=== PATIENT | male | born 1940 | race Caucasian/White ===

== ENCOUNTER 2017-09-24 11:43 | Inpatient (IN) | payer MEDICARE ==
[2017-09-24] MEDS: LIDOCAINE 1%/EPI 1:100,000 20 ML VIAL. IJ (13:24)
[2017-09-24] MEDS: DIPHTH,PERTUSS(ACELL),TET TOX 0.5 ML DISP.SYRIN. VAX IM (13:35)
[2017-09-24] MEDS ORDERED: ACETAMINOPHEN 325 MG TABLET. PO ×2 (14:15)
[2017-09-24] MEDS ORDERED: PROCHLORPERAZINE 25 MG SUPP.RECT. PR (14:15)
[2017-09-24] MEDS ORDERED: PROCHLORPERAZINE 10 MG/2 ML VIAL. IV (14:15)
[2017-09-24] MEDS ORDERED: HYDROcodone/APAP 5/325MG 1 TAB TABLET PO (14:15)
[2017-09-24] MEDS ORDERED: cloNIDine HCL 0.1 MG TABLET PO (14:15)
[2017-09-24] MEDS ORDERED: MAGNESIUM HYDROXIDE 2,400 MG/30 ML ORAL.SUSP. PO (14:15)
[2017-09-24] MEDS ORDERED: CALCIUM CARBONATE 500 MG TAB.CHEW PO (14:15)
[2017-09-24] MEDS ORDERED: MAG HYDROX/ALUMINUM HYD/SIMETH 30 ML ORAL.SUSP PO (14:15)
[2017-09-24] MEDS ORDERED: MORPHINE SULFATE 2 MG/ML DISP.SYRIN. IV (14:15)
[2017-09-24] MEDS ORDERED: IBUPROFEN 400 MG TABLET. PO (14:15)
[2017-09-24] MEDS ORDERED: ONDANSETRON PF 4 MG/2 ML VIAL. IV ×2 (14:15)
[2017-09-24 14:25] LABS: ADD MAN DIFF? NO
[2017-09-24 14:29] LABS: BASO % 0 % (0-3); EOS % 1 % (0-3); HEMATOCRIT 43.4 % (39.0-53.0); HEMOGLOBIN 15.3 g/dL (13.0-17.5); LYMPH # 1.3 x10^3/uL (1.0-4.8); LYMPH % 16 % (24-48); MEAN CORPUSCULAR HEMOGLOBIN 31 pg (25-35); MEAN CORPUSCULAR HGB CONC 35 g/dL (31-37); MEAN CORPUSCULAR VOLUME 88 fL (79-100); MONO # 0.6 x10^3/uL (0.0-1.1); MONO % 7 % (0-9); NEUT # 6.1 x10^3uL (1.8-7.7); NEUT % 76 % (31-73); PLATELET COUNT 319 x10^3/uL (140-400); RED BLOOD COUNT 4.94 x10^6/uL (4.30-5.70); RED CELL DISTRIBUTION WIDTH 14.4 % (11.5-14.5)
[2017-09-24 14:36] LABS: ANION GAP 10 (6-14); BLOOD UREA NITROGEN 12 mg/dL (8-26); CALCIUM 9.2 mg/dL (8.5-10.1); CARBON DIOXIDE 26 mmol/L (21-32); CHLORIDE 89 mmol/L (98-107); CREATININE 0.7 mg/dL (0.7-1.3); GFR 109.1; GLUCOSE 107 mg/dL (70-99); POTASSIUM 3.6 mmol/L (3.5-5.1); SODIUM 125 mmol/L (136-145)
[2017-09-24 14:39] LABS: INR 1.1 (0.8-1.1); PARTIAL THROMBOPLASTIN TIME 33 SEC (24-38); PROTHROMBIN TIME PATIENT 13.4 SEC (11.7-14.0)
[2017-09-24 14:45] LABS: TROPONINI < 0.017 ng/mL (0.000-0.055)
[2017-09-24] MEDS: IV NORMAL SALINE 500ML BAG 500 ML IV (16:15)
[2017-09-24] MEDS ORDERED: diphenhydrAMINE 50 MG/ML VIAL IVP (20:15)
[2017-09-24] MEDS ORDERED: hydrALAZINE 20 MG/ML VIAL. IVP (20:15)
[2017-09-24] MEDS: FERROUS SULFATE 325 MG TABLET. PO (21:02)
[2017-09-24] MEDS: HYDROCORTISONE 1% TOPICAL OINTMENT 30GM TUBE. TP (21:02)
[2017-09-24] MEDS: ATORVASTATIN CALCIUM 40 MG TABLET. PO (21:02)
[2017-09-24] MEDS: CHLORTHALIDONE 25 MG TABLET. PO (21:03)
[2017-09-24] MEDS: DOCUSATE SODIUM 100 MG CAPSULE. PO (21:03)
[2017-09-24] MEDS: PANTOPRAZOLE 40 MG TABLET.DR. PO (21:03)
[2017-09-24] MEDS: TAMSULOSIN 0.4 MG CAP.ER.24H. PO (21:03)
[2017-09-24] MEDS: LISINOPRIL 20 MG TABLET PO (21:03)
[2017-09-25] MEDS: DOCUSATE SODIUM 100 MG CAPSULE. PO ×2 (07:57→21:55)
[2017-09-25] MEDS: HYDROCORTISONE 1% TOPICAL OINTMENT 30GM TUBE. TP (08:02)
[2017-09-25 08:56] LABS: ADD MAN DIFF? NO
[2017-09-25 09:00] LABS: BASO # 0.1 x10^3/uL (0.0-0.2); BASO % 1 % (0-3); EOS # 0.1 x10^3/uL (0.0-0.7); EOS % 1 % (0-3); HEMATOCRIT 44.7 % (39.0-53.0); HEMOGLOBIN 15.6 g/dL (13.0-17.5); LYMPH # 1.6 x10^3/uL (1.0-4.8); LYMPH % 21 % (24-48); MEAN CORPUSCULAR HEMOGLOBIN 31 pg (25-35); MEAN CORPUSCULAR HGB CONC 35 g/dL (31-37); MEAN CORPUSCULAR VOLUME 89 fL (79-100); MONO # 0.7 x10^3/uL (0.0-1.1); MONO % 9 % (0-9); NEUT # 5.3 x10^3uL (1.8-7.7); NEUT % 69 % (31-73); PLATELET COUNT 321 x10^3/uL (140-400); RED BLOOD COUNT 5.05 x10^6/uL (4.30-5.70); RED CELL DISTRIBUTION WIDTH 14.6 % (11.5-14.5); WHITE BLOOD COUNT 7.7 x10^3/uL (4.0-11.0)
[2017-09-25 09:13] LABS: ANION GAP 10 (6-14); BLOOD UREA NITROGEN 11 mg/dL (8-26); CALCIUM 8.8 mg/dL (8.5-10.1); CARBON DIOXIDE 26 mmol/L (21-32); CHLORIDE 91 mmol/L (98-107); CREATININE 0.9 mg/dL (0.7-1.3); GFR 81.6; GLUCOSE 151 mg/dL (70-99); POTASSIUM 3.5 mmol/L (3.5-5.1); SODIUM 127 mmol/L (136-145)
[2017-09-25] MEDS: IV NORMAL SALINE 1000ML BAG 1,000 ML IV (15:11)
[2017-09-25] MEDS: TAMSULOSIN 0.4 MG CAP.ER.24H. PO (21:54)
[2017-09-25] MEDS: FERROUS SULFATE 325 MG TABLET. PO (21:55)
[2017-09-25] MEDS: ATORVASTATIN CALCIUM 40 MG TABLET. PO (21:55)
[2017-09-25] MEDS: LISINOPRIL 20 MG TABLET PO (21:55)
[2017-09-25] MEDS: PANTOPRAZOLE 40 MG TABLET.DR. PO (21:55)
[2017-09-25] MEDS: CHLORTHALIDONE 25 MG TABLET. PO (21:55)
[2017-09-26] MEDS: DOCUSATE SODIUM 100 MG CAPSULE. PO ×2 (08:09→19:39)
[2017-09-26 09:28] LABS: ADD MAN DIFF? NO
[2017-09-26 09:33] LABS: BASO % 0 % (0-3); EOS # 0.1 x10^3/uL (0.0-0.7); EOS % 2 % (0-3); LYMPH # 1.6 x10^3/uL (1.0-4.8); LYMPH % 24 % (24-48); MEAN CORPUSCULAR HEMOGLOBIN 31 pg (25-35); MEAN CORPUSCULAR HGB CONC 36 g/dL (31-37); MEAN CORPUSCULAR VOLUME 88 fL (79-100); MONO # 0.4 x10^3/uL (0.0-1.1); MONO % 6 % (0-9); NEUT # 4.7 x10^3uL (1.8-7.7); NEUT % 68 % (31-73); PLATELET COUNT 312 x10^3/uL (140-400); RED BLOOD COUNT 5.13 x10^6/uL (4.30-5.70); RED CELL DISTRIBUTION WIDTH 14.7 % (11.5-14.5); WHITE BLOOD COUNT 6.9 x10^3/uL (4.0-11.0)
[2017-09-26 09:56] LABS: ANION GAP 9 (6-14); BLOOD UREA NITROGEN 10 mg/dL (8-26); CARBON DIOXIDE 25 mmol/L (21-32); CHLORIDE 92 mmol/L (98-107); CREATININE 0.8 mg/dL (0.7-1.3); GFR 93.5; GLUCOSE 146 mg/dL (70-99); POTASSIUM 3.3 mmol/L (3.5-5.1); SODIUM 126 mmol/L (136-145)
[2017-09-26] MEDS: IV NORMAL SALINE 1000ML BAG 1,000 ML IV (11:26)
[2017-09-26] MEDS: POTASSIUM CHLORIDE 20 MEQ TABLET.ER. PO (11:26)
[2017-09-26] MEDS: TAMSULOSIN 0.4 MG CAP.ER.24H. PO (19:38)
[2017-09-26] MEDS: ATORVASTATIN CALCIUM 40 MG TABLET. PO (19:40)
[2017-09-26] MEDS: FERROUS SULFATE 325 MG TABLET. PO (19:40)
[2017-09-26] MEDS: LISINOPRIL 20 MG TABLET PO (19:41)
[2017-09-26] MEDS: PANTOPRAZOLE 40 MG TABLET.DR. PO (19:47)
[2017-09-27 04:59] LABS: ADD MAN DIFF? NO
[2017-09-27 05:04] LABS: BASO % 1 % (0-3); EOS # 0.3 x10^3/uL (0.0-0.7); EOS % 4 % (0-3); HEMATOCRIT 41.3 % (39.0-53.0); HEMOGLOBIN 14.6 g/dL (13.0-17.5); LYMPH # 2.3 x10^3/uL (1.0-4.8); LYMPH % 30 % (24-48); MEAN CORPUSCULAR HEMOGLOBIN 31 pg (25-35); MEAN CORPUSCULAR HGB CONC 35 g/dL (31-37); MEAN CORPUSCULAR VOLUME 89 fL (79-100); MONO # 0.7 x10^3/uL (0.0-1.1); MONO % 9 % (0-9); NEUT # 4.3 x10^3uL (1.8-7.7); NEUT % 56 % (31-73); PLATELET COUNT 301 x10^3/uL (140-400); RED BLOOD COUNT 4.65 x10^6/uL (4.30-5.70); RED CELL DISTRIBUTION WIDTH 14.7 % (11.5-14.5); WHITE BLOOD COUNT 7.6 x10^3/uL (4.0-11.0)
[2017-09-27 05:33] LABS: ANION GAP 7 (6-14); BLOOD UREA NITROGEN 12 mg/dL (8-26); CALCIUM 8.6 mg/dL (8.5-10.1); CARBON DIOXIDE 25 mmol/L (21-32); CHLORIDE 94 mmol/L (98-107); CREATININE 0.9 mg/dL (0.7-1.3); GFR 81.6; GLUCOSE 101 mg/dL (70-99); POTASSIUM 3.7 mmol/L (3.5-5.1); SODIUM 126 mmol/L (136-145)
[2017-09-27] MEDS: DOCUSATE SODIUM 100 MG CAPSULE. PO ×2 (09:41→20:11)
[2017-09-27] MEDS: TAMSULOSIN 0.4 MG CAP.ER.24H. PO (20:10)
[2017-09-27] MEDS: LISINOPRIL 20 MG TABLET PO (20:10)
[2017-09-27] MEDS: ATORVASTATIN CALCIUM 40 MG TABLET. PO (20:10)
[2017-09-27] MEDS: FERROUS SULFATE 325 MG TABLET. PO (20:11)
[2017-09-27] MEDS: PANTOPRAZOLE 40 MG TABLET.DR. PO (20:11)
[2017-09-28 08:03] LABS: ANION GAP 8 (6-14); BLOOD UREA NITROGEN 10 mg/dL (8-26); CALCIUM 8.4 mg/dL (8.5-10.1); CARBON DIOXIDE 27 mmol/L (21-32); CHLORIDE 91 mmol/L (98-107); CREATININE 0.7 mg/dL (0.7-1.3); GFR 109.1; GLUCOSE 107 mg/dL (70-99); POTASSIUM 3.4 mmol/L (3.5-5.1); SODIUM 126 mmol/L (136-145)
[2017-09-28 08:17] LABS: VITAMIN-B12 326 pg/mL (247-911)
[2017-09-28 08:18] LABS: FOLATE 12.39 ng/ml (3.2-20.0)
[2017-09-28 08:52] LABS: SEDIMENTATION RATE 3 (0-15)
[2017-09-28] MEDS: DOCUSATE SODIUM 100 MG CAPSULE. PO ×2 (09:07→21:01)
[2017-09-28] MEDS: POTASSIUM CHLORIDE 20 MEQ TABLET.ER. PO (15:38)
[2017-09-28] MEDS: CHOLECALCIFEROL (VITAMIN D3) 5,000 UNIT CAPSULE PO (15:40)
[2017-09-28] MEDS: PANTOPRAZOLE 40 MG TABLET.DR. PO (21:00)
[2017-09-28] MEDS: TAMSULOSIN 0.4 MG CAP.ER.24H. PO (21:00)
[2017-09-28] MEDS: FERROUS SULFATE 325 MG TABLET. PO (21:01)
[2017-09-28] MEDS: ATORVASTATIN CALCIUM 40 MG TABLET. PO (21:01)
[2017-09-28] MEDS: LISINOPRIL 20 MG TABLET PO (21:01)
[2017-09-29] MEDS: POLYVINYL ALCOHOL 1.4% OPHTH SOLUTION 15ML BOTTLE. OU (09:00)
[2017-09-29] MEDS: DOCUSATE SODIUM 100 MG CAPSULE. PO (09:00)
[2017-09-29] MEDS: CHOLECALCIFEROL (VITAMIN D3) 5,000 UNIT CAPSULE PO (09:00)
[2017-09-29] MEDS: HYDROCORTISONE 1% TOPICAL OINTMENT 30GM TUBE. TP (09:00)
[2017-09-29] MEDS: cloNIDine HCL 0.1 MG TABLET PO (09:15)
[2017-09-29] MEDS ORDERED: cloNIDine HCL 0.1 MG TABLET PO (09:15)
[2017-09-29 09:53] LABS: ANION GAP 8 (6-14); BLOOD UREA NITROGEN 11 mg/dL (8-26); CALCIUM 9.2 mg/dL (8.5-10.1); CARBON DIOXIDE 27 mmol/L (21-32); CHLORIDE 92 mmol/L (98-107); CREATININE 0.9 mg/dL (0.7-1.3); GFR 81.6; GLUCOSE 139 mg/dL (70-99); SODIUM 127 mmol/L (136-145)
[2017-09-29 13:21] LABS: SODIUM, URINE 68 mmol/L (Not Estab.); UR POTASSIUM 37.7 mmol/L (Not Estab.)
[2017-10-02 14:31] LABS: URINE OSMOLALITY 214 mOsmol/kg (.)
[2017-10-02 18:12] LABS: ANA INTERP Negative (.)
[2017-10-02 21:10] LABS: ALBUM 3.5 g/dL (2.9-4.4); ALPHA 1 0.2 g/dL (0.0-0.4); ALPHA 2 0.6 g/dL (0.4-1.0); BETA 0.9 g/dL (0.7-1.3); GAMMA 0.9 g/dL (0.4-1.8); M-SPIKE Not Observed g/dL (Not Observed); SPEP AG RATIO 1.4 (0.7-1.7)
== END 2017-09-29 14:30 | disposition home health service (06) | DRG 644 ==
LOC: ER 11:43 → 4 NORTH 14:00
PROC: 0NQ Head and Facial Bones, Repair (ICD-10-PCS; principal; 2017-09-24)
DX: E22.2 Syndrome of inappropriate secretion of antidiuretic hormone (principal); S05.42XA Penetrating wound of orbit with or without foreign body, left eye, initial encounter; W01.0XXA Fall on same level from slipping, tripping and stumbling without subsequent striking against object, initial encounter; I10 Essential (primary) hypertension; M19.90 Unspecified osteoarthritis, unspecified site; E78.5 Hyperlipidemia, unspecified; G20 Parkinson's disease; H35.30 Unspecified macular degeneration; G25.0 Essential tremor; G62.9 Polyneuropathy, unspecified; E87.6 Hypokalemia; F03.90 Unspecified dementia, unspecified severity, without behavioral disturbance, psychotic disturbance, mood disturbance, and anxiety; Q89.9 Congenital malformation, unspecified; Z85.828 Personal history of other malignant neoplasm of skin; Y93.89 Activity, other specified; Y92.89 Other specified places as the place of occurrence of the external cause; Y99.8 Other external cause status; Z23 Encounter for immunization; Z82.49 Family history of ischemic heart disease and other diseases of the circulatory system
CPT/HCPCS: 12011; 36415; 70450; 70486; 71046; 72125; 80048; 82306; 82436; 82533; 82607; 82746; 83930; 83935; 84133; 84165; 84300; 84443; 84484; 85025; 85610; 85651; 85730; 86038; 90471; 90715; 93005; 97110-GP; 97116-GP; 97162-GP; 97166-GO; 97535-GO; 99285; 99285-25; J3490; J7030; J7040

== ENCOUNTER 2017-10-01 19:49 | Emergency (ER) | payer MEDICARE ==
[~2017-10-01] VITALS: Ht 162.6 cm; Wt 74.8 kg
[~2017-10-01 19:49] MED LIST: ATORVASTATIN CA80 MG PO; CHLO25TA PO; DILT180C64 PO; FERR325T14 PO; LISI-334 PO; OMEP20TA8 PO; TAMS0.4C2 PO
[2017-10-01 19:55] VITALS: BP 154/78
--- NOTE | 2017-10-01 20:34 | PHYS DOC ---
Past Medical History Past Medical History: Cancer, GI Bleed, Hypertension, Other Additional Past Medical Histor: SKIN CANCER Past Surgical History: No Surgical History Alcohol Use: Occasionally Drug Use: None Adult General Chief Complaint Chief Complaint: SUTURE/STAPLE REMOVAL HPI HPI Patient is a 76 year old male who presents to the emergency room accompanied by his son-in-law today for removal of 7 sutures that were placed in the left eyebrow approximately 1 week ago. Patient denies any fever, drainage from the site, or swelling. Currently he denies any pain. Or other complaints. Review of Systems Review of Systems Constitutional: Denies fever or chills [] Eyes: Denies change in visual acuity, redness, discharge, or eye pain [] Integument: Denies rash ; reports 7 sutures in left eyebrow that he removed, healing bruising to left side of face from a fall 1 week ago. Neurologic: Denies headache, focal weakness or sensory changes [] All other systems were reviewed and found to be within normal limits, except as documented in this note. Allergies Allergies Allergies Coded Allergies Type Severity Reaction Last Updated Verified No Known Drug Allergies 09/24/17 No Physical Exam Physical Exam Constitutional: Well developed, well nourished, no acute distress, non-toxic appearance. [] HENT: Normocephalic, atraumatic, bilateral external ears normal, oropharynx moist, no oral exudates, nose normal. [] Eyes: PERRLA, conjunctiva normal, no discharge. [] Skin: Warm, dry, no erythema, no rash; patient has healing bruising noted to the left roman catholic and left orbital areas, there is a laceration to the left eyebrow the edges are well approximated with no drainage, warmth, or swelling.. [] Neurologic: Alert and oriented X 3, normal motor function, normal sensory function, no focal deficits noted. [] Psychologic: Affect normal, judgement normal, mood normal. [] Current Patient Data Vital Signs Vital Signs Date Time Temp Pulse Resp B/P (MAP) Pulse Ox O2 Delivery O2 Flow Rate FiO2 10/01/17 19:55 98.7 70 16 154/78 (103) 98 Room Air 98.7 EKG EKG [] Radiology/Procedures Radiology/Procedures []7 sutures removed from wound. The wound was well approximated before and after procedure. Patient tolerated the procedure well. There is some crusting about the wound and no discharge from the wound; location and Steri-Strips to site ordered [] Course & Med Decision Making Course & Med Decision Making Pertinent Labs and Imaging studies reviewed. (See chart for details) Patient is a 76-year-old male who presented to the emergency room with need for suture removal. Vital signs are stable. 7 sutures were removed from the left eyebrow as reported. Patient tolerated the procedure well. Steri-Strips were applied to the area. Patient and his son will not verbalize understanding of home care, wound care, follow-up and return to ED instructions with no further questions or concerns. [] Dragon Disclaimer Dragon Disclaimer This electronic medical record was generated, in whole or in part, using a voice recognition dictation system. Departure Departure Impression: Primary Impression: Visit for suture removal Disposition: 01 HOME, SELF-CARE Condition: STABLE Referrals: SUZANNE REDDY SENIOR TECHNICAL BUSINESS ANALYST (PCP) Patient Instructions: Suture Removal-Brief Additional Instructions: Steri-Strips were applied to your laceration site, these will come off on their own do not peel them off. May take Tylenol or ibuprofen as needed for pain. Follow-up with your primary care doctor as needed, return to the ER if your symptoms worsen. ROSALIA HOWARD MANUFACTURING MAINTENANCE TECHNICIAN Oct 01, 2017 20:34
== END 2017-10-01 20:43 | disposition home or self-care (01) ==
LOC: ER 19:49
DX: S01.112D Laceration without foreign body of left eyelid and periocular area, subsequent encounter (principal); I10 Essential (primary) hypertension; X58.XXXD Exposure to other specified factors, subsequent encounter
CPT/HCPCS: 99284

== ENCOUNTER 2018-09-06 19:51 | Emergency (ER) | payer MEDICARE ==
[~2018-09-06] VITALS: Ht 162.6 cm; Wt 77.1 kg
[~2018-09-06 19:51] MED LIST changes: -CHLO25TA PO; +CHLO25TA10 PO
[2018-09-06 20:21] LABS: BASO # 0.1 x10^3/uL (0.0-0.2); BASO % 1 % (0-3); EOS # 0.3 x10^3/uL (0.0-0.7); EOS % 4 % (0-3); HEMATOCRIT 46.3 % (39.0-53.0); LYMPH # 1.6 x10^3/uL (1.0-4.8); LYMPH % 19 % (24-48); MEAN CORPUSCULAR HEMOGLOBIN 32 pg (25-35); MEAN CORPUSCULAR HGB CONC 35 g/dL (31-37); MEAN CORPUSCULAR VOLUME 93 fL (79-100); MONO # 0.8 x10^3/uL (0.0-1.1); MONO % 9 % (0-9); NEUT # 5.6 x10^3/uL (1.8-7.7); NEUT % 67 % (31-73); PLATELET COUNT 256 x10^3/uL (140-400); RED BLOOD COUNT 4.97 x10^6/uL (4.30-5.70); RED CELL DISTRIBUTION WIDTH 13.7 % (11.5-14.5); WHITE BLOOD COUNT 8.3 x10^3/uL (4.0-11.0)
--- NOTE | 2018-09-06 20:26 | EKG ---
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
[2018-09-06 20:32] LABS: CALCIUM 8.7 mg/dL (8.5-10.1); CREATININE 0.9 mg/dL (0.7-1.3); GFR 81.4; POTASSIUM 4.2 mmol/L (3.5-5.1)
[2018-09-06 20:38] LABS: ALBUMIN 3.7 g/dL (3.4-5.0); ALBUMIN/GLOBULIN RATIO 1.2 (1.0-1.7); MAGNESIUM 1.7 mg/dL (1.8-2.4); TOTAL BILIRUBIN 0.3 mg/dL (0.2-1.0); TOTAL PROTEIN 6.9 g/dL (6.4-8.2)
[2018-09-06] MEDS ORDERED: IV NORMAL SALINE 500ML BAG 500 ML IV ONE (21:15)
--- NOTE | 2018-09-06 22:01 | RAD ---
CT Head W/O Contrast: History: Multiple episodes of falling Comparison: none Axial images were obtained without contrast. There is moderate diffuse atrophy. There is no mass effect, extraaxial fluid collections or hydrocephalus. There is no gross bleed. Moderate to marked, patchy periventricular and subcortical white matter hypoattenuation is seen. There is no focal loss of bo-white matter distinction to suggest acute ischemia, i.e. stroke. Impression: No acute findings. PQRS Compliance Statement: One or more of the following individualized dose reduction techniques were utilized for this examination: 1. Automated exposure control 2. Adjustment of the mA and/or kV according to patient size 3. Use of iterative reconstruction technique Electronically signed by: Dimas Walker III, MD (09/06/2018 9:58 PM) [facility]
--- NOTE | 2018-09-06 22:08 | PHYS DOC ---
Past Medical History Past Medical History: Hypertension Additional Past Medical Histor: SKIN CANCER Past Surgical History: No Surgical History Alcohol Use: Occasionally Drug Use: None Adult General Chief Complaint Chief Complaint: WEAKNESS/GENERALIZED HPI HPI Patient is a 77 year old male who was brought here from skilled nursing due to weakness. Patient actually lives at an independent living center by the skilled nursing, he went to the [employer] to have dinner, on the way back he was walking back, saw a quarter on the floor so he bent over to pick it up, became really weak, he tried to get up to walk back to his room but could not because of the weakness. EMS were called to take him here for evaluation. Patient denies any chest pain, no headache, no neck pain, no trouble breathing. Patient denies any fall or any injury. Review of Systems Review of Systems Constitutional: Denies fever or chills [] Eyes: Denies change in visual acuity, redness, or eye pain [] HENT: Denies nasal congestion or sore throat [] Respiratory: Denies cough or shortness of breath [] Cardiovascular: No additional information not addressed in HPI [] GI: Denies abdominal pain, nausea, vomiting, bloody stools or diarrhea [] : Denies dysuria or hematuria [] Musculoskeletal: Denies back pain or joint pain [] Integument: Denies rash or skin lesions [] Neurologic: Denies headache, focal weakness or sensory changes [] Endocrine: Denies polyuria or polydipsia [] All other systems were reviewed and found to be within normal limits, except as documented in this note. Current Medications Current Medications Current Medications Medications (Trade) Dose Ordered Sig/[facility] Start Time Stop Time Status Last Admin Dose Admin Sodium Chloride 500 ml @ 500 mls/hr 1X ONCE 09/06/18 21:15 09/06/18 22:14 DC 09/06/18 21:19 500 MLS/HR Allergies Allergies Allergies Coded Allergies Type Severity Reaction Last Updated Verified No Known Drug Allergies 09/24/17 No Physical Exam Physical Exam Constitutional: Well developed, well nourished, no acute distress, non-toxic appearance. [] HENT: Normocephalic, atraumatic, bilateral external ears normal, oropharynx moist, no oral exudates, nose normal. [] Eyes: conjunctiva normal, no discharge. [] Neck: Normal range of motion, no tenderness, supple, no stridor. [] Cardiovascular:Heart rate regular rhythm, no murmur [] Lungs & Thorax: Bilateral breath sounds clear to auscultation [] Abdomen: Bowel sounds normal, soft, no tenderness, no masses, no pulsatile masses. [] Skin: Warm, dry, no erythema, no rash. [] Back: No tenderness, no CVA tenderness. [] Extremities: No tenderness, no cyanosis, no clubbing, ROM intact, no edema. [] Neurologic: Alert and oriented X 3, normal motor function, normal sensory function, no focal deficits noted. [] Psychologic: Affect normal, judgement normal, mood normal. [] Current Patient Data Vital Signs Vital Signs Date Time Temp Pulse Resp B/P (MAP) Pulse Ox O2 Delivery O2 Flow Rate FiO2 09/06/18 23:00 80 16 96 09/06/18 19:51 97.9 173/90 (117) Room Air 97.9 Lab Values Laboratory Tests Test 09/06/18 20:10 White Blood Count 8.3 x10^3/uL (4.0-11.0) Red Blood Count 4.97 x10^6/uL (4.30-5.70) Hemoglobin 16.0 g/dL (13.0-17.5) Hematocrit 46.3 % (39.0-53.0) Mean Corpuscular Volume 93 fL (79-100) Mean Corpuscular Hemoglobin 32 pg (25-35) Mean Corpuscular Hemoglobin Concent 35 g/dL (31-37) Red Cell Distribution Width 13.7 % (11.5-14.5) Platelet Count 256 x10^3/uL (140-400) Neutrophils (%) (Auto) 67 % (31-73) Lymphocytes (%) (Auto) 19 % (24-48) L Monocytes (%) (Auto) 9 % (0-9) Eosinophils (%) (Auto) 4 % (0-3) H Basophils (%) (Auto) 1 % (0-3) Neutrophils # (Auto) 5.6 x10^3/uL (1.8-7.7) Lymphocytes # (Auto) 1.6 x10^3/uL (1.0-4.8) Monocytes # (Auto) 0.8 x10^3/uL (0.0-1.1) Eosinophils # (Auto) 0.3 x10^3/uL (0.0-0.7) Basophils # (Auto) 0.1 x10^3/uL (0.0-0.2) Sodium Level 132 mmol/L (136-145) L Potassium Level 4.2 mmol/L (3.5-5.1) Chloride Level 96 mmol/L (98-107) L Carbon Dioxide Level 25 mmol/L (21-32) Anion Gap 11 (6-14) Blood Urea Nitrogen 15 mg/dL (8-26) Creatinine 0.9 mg/dL (0.7-1.3) Estimated GFR (Cockcroft-Gault) 81.4 BUN/Creatinine Ratio 17 (6-20) Glucose Level 120 mg/dL (70-99) H Calcium Level 8.7 mg/dL (8.5-10.1) Magnesium Level 1.7 mg/dL (1.8-2.4) L Total Bilirubin 0.3 mg/dL (0.2-1.0) Aspartate Amino Transferase (AST) 17 U/L (15-37) Alanine Aminotransferase (ALT) 33 U/L (16-63) Alkaline Phosphatase 114 U/L (46-116) Troponin I Quantitative < 0.017 ng/mL (0.000-0.055) Total Protein 6.9 g/dL (6.4-8.2) Albumin 3.7 g/dL (3.4-5.0) Albumin/Globulin Ratio 1.2 (1.0-1.7) Laboratory Tests 09/06/18 20:10 Laboratory Tests 09/06/18 20:10 EKG EKG [EKG was read by this doctor aT 2000, rate of 85 beats per minute, sinus rhythm, no STEMI. Radiology/Procedures Radiology/Procedures [][facility] [address] [place] [address] IMAGING REPORT Signed PATIENT: MIL JACOBO ACCOUNT: [id number] : 1940 LOCATION: ER AGE: 77 SEX: M EXAM STATUS: REG ER ORD. PHYSICIAN: DOC JOSEPH DO REASON: MULTIPLE EPISODES OF FALLING TODAY PROCEDURE: CT HEAD WO CONTRAST CT Head W/O Contrast: History: Multiple episodes of falling Comparison: none Axial images were obtained without contrast. There is moderate diffuse atrophy. There is no mass effect, extraaxial fluid collections or hydrocephalus. There is no gross bleed. Moderate to marked, patchy periventricular and subcortical white matter hypoattenuation is seen. There is no focal loss of bo-white matter distinction to suggest acute ischemia, i.e. stroke. Impression: No acute findings. RS Compliance Statement: One or more of the following individualized dose reduction techniques were utilized for this examination: 1. Automated exposure control 2. Adjustment of the mA and/or kV according to patient size 3. Use of iterative reconstruction technique Electronically signed by: Jairo Landry III, MD (09/06/2018 9:58 PM) [facility] DICTATED and SIGNED BY: JAIRO LANDRY III, MD DATE: 09/06/18 2150 Course & Med Decision Making Course & Med Decision Making Pertinent Labs and Imaging studies reviewed. (See chart for details) he felt much better. Patient would like to go back home. His family would like to take him back home as well. Dragon Disclaimer Dragon Disclaimer This electronic medical record was generated, in whole or in part, using a voice recognition dictation system. Departure Departure Impression: Primary Impression: Weakness Disposition: 01 HOME, SELF-CARE Condition: IMPROVED Referrals: CELENA REDDY MD (PCP) follow up with your doctor as needed Patient Instructions: DOC Cha DO Sep 06, 2018 22:08
[2018-09-06 23:00] VITALS: BP 164/81
== END 2018-09-06 23:20 | disposition home or self-care (01) ==
LOC: ER 19:51
DX: R53.1 Weakness (principal); R51 Headache; I10 Essential (primary) hypertension; R94.31 Abnormal electrocardiogram [ECG] [EKG]; Z85.828 Personal history of other malignant neoplasm of skin; Z91.81 History of falling
CPT/HCPCS: 36415; 70450; 80053; 83735; 84484; 85025; 93005; 99285; J7040

== ENCOUNTER 2019-09-08 16:44 | Inpatient (IN) | payer MEDICARE ==
[~2019-09-08] VITALS: Ht 162.6 cm; Wt 73.0 kg
--- NOTE | 2019-09-08 17:29 | PDOC1 ---
History and Physical Date of Admission Date of Admission DATE: 09/08/19 TIME: 17:29 Identification/Chief Complaint Chief Complaint seen in ER WITH GAIT INSTABILITY, FALLS AND cognitive decline, progressive 78-year-old male who presents after a couple of falls over the last few days. The most recent fall was yesterday in which EMS was called to his independent living facility to help him back up into either bed or the chair. The patient's son-in-law states he checks on him every night, gives him his pills and assesses his wellbeing. // states he is becoming more and more confused over the last several months. patient did complain of some low back pain and he has been unable to ambulate and perform his activities of daily living today. He ordinarily can get around pretty well on a walker. He has had no fever chills or sweats. No upper respiratory symptoms no urinary incontinence or other dysuria type symptoms. // he has had ongoing physical therapy that has not really improved his ability to get around at home. Past Medical History Past Medical History Past Medical History Cardiovascular: HTN Past Surgical History Past Surgical History: No pertinent history Family History Family History: Hypertension Social History Smoke: No ALCOHOL: other (small drink of wine every night) Drugs: None Cardiovascular: HTN, Hyperlipidemia CENTRAL NERVOUS SYSTEM: Dementia Musculoskeletal: Osteoarthritis Past Surgical History Past Surgical History: Other Family History Family History: Hypertension Social History Smoke: No ALCOHOL: none Drugs: None Current Problem List Problem List Problems Medical Problems: (1) Patient left without being seen Status: Acute Current Medications Current Medications Active Scripts Active Reported Ferrous Sulfate 325 Mg Tablet 1 Tab PO DAILY Lisinopril 20 Mg Tablet 1 Tab PO DAILY Atorvastatin Calcium 80 Mg Tablet 1 Tab PO DAILY Tamsulosin Hcl 0.4 Mg Cap.er.24h 1 Cap PO DAILY Chlorthalidone 25 Mg Tablet 1 Tab PO DAILY Omeprazole 20 Mg Tablet.dr 1 Tab PO DAILY Cartia Xt (Diltiazem Hcl) 180 Mg Cap.er.24h 180 Mg PO DAILY Allergies Allergies: Coded Allergies: No Known Drug Allergies (Unverified , 09/24/17) ROS Review of System Constitutional: Denies fever or chills. [] Eyes: Denies change in visual acuity. [] HENT: Denies nasal congestion or sore throat. [] Respiratory: Denies cough or shortness of breath. [] Cardiovascular: Denies chest pain or edema. [] GI: Denies abdominal pain, nausea, vomiting, bloody stools or diarrhea. [] : Denies dysuria. [] Musculoskeletal: Reports back pain [] Integument: Denies rash. [] Neurologic: Reports dramatic change in his ability to ambulate [] Endocrine: Denies polyuria or polydipsia. [] Lymphatic: Denies swollen glands. [] Psychiatric: Some anxiety related to memory loss [] 14 pt ros otherwise neg PSYCHOLOGICAL ROS: YES: Concentration difficultie Musculoskeletal: Yes Gait Disturbance Neurological: Yes Confusion, Yes Memory Loss Physical Exam Physical Exam Constitutional: Frail elderly male in no distress appears chronically ill [] HENT: Normocephalic, atraumatic, bilateral external ears normal, oropharynx moist, no oral exudates, nose normal. [] Eyes: PERRLA, EOMI, conjunctiva normal, no discharge. [] Neck: Normal range of motion, no tenderness, supple, no stridor. [] Cardiovascular:Heart rate regular rhythm, no murmur [] Lungs & Thorax: Bilateral breath sounds clear to auscultation [] Abdomen: Bowel sounds normal, soft, no tenderness, no masses, no pulsatile masses. [] Skin: Warm, dry, no erythema, no rash. [] Back: Some tenderness in the midline in the lumbar spine area no obvious step- off [] Extremities: No tenderness, no cyanosis, no clubbing, ROM intact, no edema. [] Neurologic: Alert and oriented X 3, very unsteady gait ataxic [] Psychologic: Depressed affect [] General: Cooperative Lungs: Clear to auscultation Heart: no thrills Breasts: Not examined Abdomen: Normal bowel sounds, Soft Images Images Exam: Pelvis with bilateral hips INDICATION: Bilateral hip pain TECHNIQUE: Frontal view of pelvis with frontal and frog-leg lateral views of the hips Comparisons: None FINDINGS: Bone mineralization is normal. No acute or healed fractures. Soft tissues are unremarkable. Joint spaces are well-maintained. IMPRESSION: No acute osseous abnormality. Electronically signed by: Selina Robin MD (09/08/2019 6:21 PM) [id number] DICTATED and SIGNED BY: SELINA ROBIN MD Exam: CT head, thoracic and lumbar spine INDICATION: Unsteady gait TECHNIQUE: Sequential axial images through the head, thoracic and lumbar spine were obtained without the administration of IV contrast. Comparisons: 09/06/2018 FINDINGS: Head: No focal parenchymal lesion or hemorrhage is identified. There is no midline shift or sulcal effacement. Patchy hypodensity in the periventricular white matter similar to prior exam. No No acute vascular territory infarction is identified. Irwin-white distinction is preserved. The ventricular system is within normal limits without compression hydrocephalus. The basal cisterns are well maintained. The visualized portions of the paranasal sinuses and mastoid air cells are well-pneumatized. No acute fractures. Thoracic spine: Vertebral body heights and alignment are well-maintained. Fracture to the thoracic spine is not identified. No significant spondylotic change in the thoracic spine Visualized paraspinal soft tissues are unremarkable. Lumbar spine: Vertebral body heights are well-maintained. Fracture to the lumbar spine is not identified. 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 Degenerative disc disease greatest at L4-L5 and L5-S1. With moderate bilateral neural foraminal stenosis at L5-S1. Visualized paraspinal soft tissues are unremarkable. IMPRESSION: 1. No acute intracranial abnormality. 2. Negative CT thoracic spine for acute traumatic injury. 3. Negative CT lumbar spine for acute traumatic injury. Exposure: One or more of the following in the visualized dose reduction techniques were utilized for this examination: 1. Automated exposure control 2. Adjustment of the MA and/or KV according to patient size Use of iterative of reconstructive technique VTE Prophylaxis Ordered VTE Prophylaxis Devices: Yes VTE Pharmacological Prophylaxi: Yes Assessment/Plan Assessment/Plan Impression: Ataxia frequent recent falls marked cognitive decline marked debility severe gait instability Back pain MOVEMENT DISORDER, suspect parkinson's disease PLAN ADMITTED PT/OT bedrest fall precautions neurology consult home meds PT/OT/ ST DVT PROPHYLAXIS CARDIOLOGY CONSULT SNF PLACEMENT LIKELY NECESSARY D/W ER DR Fernandotion of Admission Dx: Justifications for Admission: Justification of Admission Dx: Yes CHF: Cardiac Arrhythmias Comminuty Aquired Pneumonia: Med-High Risk Pt Chronic Renal Failure: Encephalopathy Altered Mental Status: Altered Mental Status Comments: GAIT INSTABILITY INGRID CUEVAS MD Sep 08, 2019 17:29
--- NOTE | 2019-09-08 17:30 | PHYS DOC ---
Past Medical History Past Medical History: Hypertension Additional Past Medical Histor: SKIN CANCER (EFRAÍN GRAVES DO) Past Surgical History: No Surgical History (EFRAÍN GRAVES DO) Smoking Status: Never Smoker Alcohol Use: Occasionally Drug Use: None (EFRAÍN GRAVES DO) General Adult EDM: Chief Complaint: LOWER BACK PAIN OR INJURY HPI: HPI: Patient is an 78-year-old male who presents after a couple of falls over the last few days. The most recent fall was yesterday in which EMS was called to his independent living facility to help him back up into either bed or the chair. The patient's son-in-law states he checks on him every night, gives him his pills and assesses his wellbeing. He was unable to see him last night. He states he is becoming more and more confused over the last several months. The patient did complain of some low back pain and he has been unable to ambulate and perform his activities of daily living today. He ordinarily can get around pretty well on a walker. He has had no fever chills or sweats. No upper respiratory symptoms no urinary incontinence or other dysuria type symptoms. It sounds like he has had ongoing physical therapy that has not really improved his ability to get around at home. [] (EFRAÍN GRAVES DO) Review of Systems: Review of Systems: Constitutional: Denies fever or chills. [] Eyes: Denies change in visual acuity. [] HENT: Denies nasal congestion or sore throat. [] Respiratory: Denies cough or shortness of breath. [] Cardiovascular: Denies chest pain or edema. [] GI: Denies abdominal pain, nausea, vomiting, bloody stools or diarrhea. [] : Denies dysuria. [] Musculoskeletal: Reports back pain [] Integument: Denies rash. [] Neurologic: Reports dramatic change in his ability to ambulate [] Endocrine: Denies polyuria or polydipsia. [] Lymphatic: Denies swollen glands. [] Psychiatric: Some anxiety related to memory loss [] (EFRAÍN GRAVES DO) Heart Score: Risk Factors: Risk Factors: DM, Current or recent (<one month) smoker, HTN, HLP, family history of CAD, obesity. Risk Scores: Score 0 - 3: 2.5% MACE over next 6 weeks - Discharge Home Score 4 - 6: 20.3% MACE over next 6 weeks - Admit for Clinical Observation Score 7 - 10: 72.7% MACE over next 6 weeks - Early Invasive Strategies (EFRAÍN GRAVES DO) Allergies: Allergies: Allergies Coded Allergies Type Severity Reaction Last Updated Verified No Known Drug Allergies 09/24/17 No (EFRAÍN GRAVES DO) Physical Exam: PE: Constitutional: Frail elderly male in no distress appears chronically ill [] HENT: Normocephalic, atraumatic, bilateral external ears normal, oropharynx moist, no oral exudates, nose normal. [] Eyes: PERRLA, EOMI, conjunctiva normal, no discharge. [] Neck: Normal range of motion, no tenderness, supple, no stridor. [] Cardiovascular:Heart rate regular rhythm, no murmur [] Lungs & Thorax: Bilateral breath sounds clear to auscultation [] Abdomen: Bowel sounds normal, soft, no tenderness, no masses, no pulsatile masses. [] Skin: Warm, dry, no erythema, no rash. [] Back: Some tenderness in the midline in the lumbar spine area no obvious step- off [] Extremities: No tenderness, no cyanosis, no clubbing, ROM intact, no edema. [] Neurologic: Alert and oriented X 3, very unsteady gait ataxic [] Psychologic: Depressed affect [] (EFRAÍN GRAVES DO) PE: awake and in no respiratory distress (JAYLIN IYER MD) Current Patient Data: Labs: Laboratory Tests Test 09/08/19 17:20 White Blood Count 10.9 x10^3/uL Red Blood Count 5.04 x10^6/uL Hemoglobin 16.0 g/dL Hematocrit 45.7 % Mean Corpuscular Volume 91 fL Mean Corpuscular Hemoglobin 32 pg Mean Corpuscular Hemoglobin Concent 35 g/dL Red Cell Distribution Width 13.4 % Platelet Count 276 x10^3/uL Neutrophils (%) (Auto) 79 % Lymphocytes (%) (Auto) 12 % Monocytes (%) (Auto) 8 % Eosinophils (%) (Auto) 1 % Basophils (%) (Auto) 0 % Neutrophils # (Auto) 8.6 x10^3/uL Lymphocytes # (Auto) 1.3 x10^3/uL Monocytes # (Auto) 0.9 x10^3/uL Eosinophils # (Auto) 0.1 x10^3/uL Basophils # (Auto) 0.0 x10^3/uL Sodium Level 134 mmol/L Potassium Level 3.8 mmol/L Chloride Level 99 mmol/L Carbon Dioxide Level 25 mmol/L Anion Gap 10 Blood Urea Nitrogen 14 mg/dL Creatinine 0.9 mg/dL Estimated GFR (Cockcroft-Gault) 81.2 BUN/Creatinine Ratio 16 Glucose Level 124 mg/dL Calcium Level 8.6 mg/dL Magnesium Level 1.8 mg/dL Total Bilirubin 0.8 mg/dL Aspartate Amino Transf (AST/SGOT) 24 U/L Alanine Aminotransferase (ALT/SGPT) 31 U/L Alkaline Phosphatase 98 U/L Creatine Kinase 650 U/L Troponin I Quantitative < 0.017 ng/mL Total Protein 7.0 g/dL Albumin 3.8 g/dL Albumin/Globulin Ratio 1.2 Thyroid Stimulating Hormone (TSH) 0.399 uIU/mL (JAYLIN IYER MD) EKG: EKG: [EKG: Normal sinus rhythm rate is [address]-T changes] (EFRAÍN GRAVES DO) Radiology/Procedures: Radiology/Procedures: [] (EFRAÍN GRAVES DO) Radiology/Procedures: [facility] [address] [place] [address] IMAGING REPORT Signed PATIENT: MIL METZ ACCOUNT: [id number] : 1940 LOCATION: ER AGE: 78 SEX: M EXAM STATUS: REG ER ORD. PHYSICIAN: EFRAÍN GRAVES DO REASON: unsteady gait PROCEDURE: CT HEAD WO CONTRAST Exam: CT head, thoracic and lumbar spine INDICATION: Unsteady gait TECHNIQUE: Sequential axial images through the head, thoracic and lumbar spine were obtained without the administration of IV contrast. Comparisons: 09/06/2018 FINDINGS: Head: No focal parenchymal lesion or hemorrhage is identified. There is no midline shift or sulcal effacement. Patchy hypodensity in the periventricular white matter similar to prior exam. No No acute vascular territory infarction is identified. Irwin-white distinction is preserved. The ventricular system is within normal limits without compression hydrocephalus. The basal cisterns are well maintained. The visualized portions of the paranasal sinuses and mastoid air cells are well-pneumatized. No acute fractures. Thoracic spine: Vertebral body heights and alignment are well-maintained. Fracture to the thoracic spine is not identified. No significant spondylotic change in the thoracic spine Visualized paraspinal soft tissues are unremarkable. Lumbar spine: Vertebral body heights are well-maintained. Fracture to the lumbar spine is not identified. 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 Degenerative disc disease greatest at L4-L5 and L5-S1. With moderate bilateral neural foraminal stenosis at L5-S1. Visualized paraspinal soft tissues are unremarkable. IMPRESSION: 1. No acute intracranial abnormality. 2. Negative CT thoracic spine for acute traumatic injury. 3. Negative CT lumbar spine for acute traumatic injury. Exposure: One or more of the following in the visualized dose reduction techniques were utilized for this examination: 1. Automated exposure control 2. Adjustment of the MA and/or KV according to patient size Use of iterative of reconstructive technique Electronically signed by: Walter Robin MD (09/08/2019 6:15 PM) [id number] DICTATED and SIGNED BY: WALTER ROBIN MD DATE: 09/08/191814 [facility] [address] [facility] [place], [place] [id number] IMAGING REPORT Signed PATIENT: MIL METZ ACCOUNT: [id number] : 1940 LOCATION: ER AGE: 78 SEX: M EXAM STATUS: REG ER ORD. PHYSICIAN: EFRAÍN GRAVES DO REASON: bilateral hip pain PROCEDURE: HIP BILATERAL WITH PELVIS Exam: Pelvis with bilateral hips INDICATION: Bilateral hip pain TECHNIQUE: Frontal view of pelvis with frontal and frog-leg lateral views of the hips Comparisons: None FINDINGS: Bone mineralization is normal. No acute or healed fractures. Soft tissues are unremarkable. Joint spaces are well-maintained. IMPRESSION: No acute osseous abnormality. Electronically signed by: Walter Robin MD (09/08/2019 6:21 PM) [id number] DICTATED and SIGNED BY: WALTER ROBIN MD DATE: 09/08/191820 (JAYLIN IYER MD) Course & Med Decision Making: Course & Med Decision Making Pertinent Labs and Imaging studies reviewed. (See chart for details) [ED course: Evaluation reveals an 78-year-old male who has had a gradual decline over the last several months. Currently, he lives independently but has had a couple of falls recently. Today he presents secondary to ataxia and back pain. He has been unable to perform his activities of daily living. I spoke with our hospitalist and we thought it best to admit him to the hospital for evaluation.] (EFRAÍN GRAVES DO) Course & Med Decision Making Received signout from Dr. Funk. Patients are admitted but to follow-up on the labs and imaging. Results are unremarkable. Patient stable on reassessment. Patient be admitted to the floor. (JAYLIN IYER MD) Dragon Disclaimer: Alicia Disclaimer: This electronic medical record was generated, in whole or in part, using a voice recognition dictation system. (EFRAÍN GRAVES DO) Departure Departure Impression: Primary Impression: Ataxia Additional Impression: Back pain Qualified Codes: M54.5 - Low back pain Disposition: ADMITTED INPATIENT Admitting Physician: PRISCILLA (EFRAÍN GRAVES DO) Condition: STABLE Justicifation of Admission Dx: Justifications for Admission: Justification of Admission Dx: Yes (JAYLIN IYER MD) EFRAÍN GRAVES DO Sep 08, 2019 17:30 JAYLIN IYER MD Sep 08, 2019 18:33
[2019-09-08 17:35] LABS: BASO % 0 % (0-3); EOS # 0.1 x10^3/uL (0.0-0.7); EOS % 1 % (0-3); HEMATOCRIT 45.7 % (39.0-53.0); LYMPH # 1.3 x10^3/uL (1.0-4.8); LYMPH % 12 % (24-48); MEAN CORPUSCULAR HEMOGLOBIN 32 pg (25-35); MEAN CORPUSCULAR HGB CONC 35 g/dL (31-37); MEAN CORPUSCULAR VOLUME 91 fL (79-100); MONO # 0.9 x10^3/uL (0.0-1.1); MONO % 8 % (0-9); NEUT # 8.6 x10^3/uL (1.8-7.7); NEUT % 79 % (31-73); PLATELET COUNT 276 x10^3/uL (140-400); RED BLOOD COUNT 5.04 x10^6/uL (4.30-5.70); RED CELL DISTRIBUTION WIDTH 13.4 % (11.5-14.5); WHITE BLOOD COUNT 10.9 x10^3/uL (4.0-11.0)
[2019-09-08 17:43] LABS: CALCIUM 8.6 mg/dL (8.5-10.1); CREATININE 0.9 mg/dL (0.7-1.3); GFR 81.2; POTASSIUM 3.8 mmol/L (3.5-5.1)
[2019-09-08] MEDS ORDERED: ONDANSETRON PF 4 MG/2 ML VIAL. IV PRN ×2 (17:45→19:30)
[2019-09-08] MEDS ORDERED: ACETAMINOPHEN 325 MG TABLET. PO PRN ×2 (17:45→19:30)
[2019-09-08] MEDS ORDERED: fentaNYL PF VIAL 100 MCG/2 ML VIAL IV PRN (17:45)
[2019-09-08 17:50] LABS: ALBUMIN 3.8 g/dL (3.4-5.0); ALBUMIN/GLOBULIN RATIO 1.2 (1.0-1.7); MAGNESIUM 1.8 mg/dL (1.8-2.4); TOTAL BILIRUBIN 0.8 mg/dL (0.2-1.0)
--- NOTE | 2019-09-08 18:18 | RAD ---
Exam: CT head, thoracic and lumbar spine INDICATION: Unsteady gait TECHNIQUE: Sequential axial images through the head, thoracic and lumbar spine were obtained without the administration of IV contrast. Comparisons: 09/06/2018 FINDINGS: Head: No focal parenchymal lesion or hemorrhage is identified. There is no midline shift or sulcal effacement. Patchy hypodensity in the periventricular white matter similar to prior exam. No No acute vascular territory infarction is identified. Irwin-white distinction is preserved. The ventricular system is within normal limits without compression hydrocephalus. The basal cisterns are well maintained. The visualized portions of the paranasal sinuses and mastoid air cells are well-pneumatized. No acute fractures. Thoracic spine: Vertebral body heights and alignment are well-maintained. Fracture to the thoracic spine is not identified. No significant spondylotic change in the thoracic spine Visualized paraspinal soft tissues are unremarkable. Lumbar spine: Vertebral body heights are well-maintained. Fracture to the lumbar spine is not identified. 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 Degenerative disc disease greatest at L4-L5 and L5-S1. With moderate bilateral neural foraminal stenosis at L5-S1. Visualized paraspinal soft tissues are unremarkable. IMPRESSION: 1. No acute intracranial abnormality. 2. Negative CT thoracic spine for acute traumatic injury. 3. Negative CT lumbar spine for acute traumatic injury. Exposure: One or more of the following in the visualized dose reduction techniques were utilized for this examination: 1. Automated exposure control 2. Adjustment of the MA and/or KV according to patient size Use of iterative of reconstructive technique Electronically signed by: Walter Hollis MD (09/08/2019 6:15 PM) [id number]
--- NOTE | 2019-09-08 18:24 | RAD ---
Exam: Pelvis with bilateral hips INDICATION: Bilateral hip pain TECHNIQUE: Frontal view of pelvis with frontal and frog-leg lateral views of the hips Comparisons: None FINDINGS: Bone mineralization is normal. No acute or healed fractures. Soft tissues are unremarkable. Joint spaces are well-maintained. IMPRESSION: No acute osseous abnormality. Electronically signed by: Walter Hollis MD (09/08/2019 6:21 PM) [id number]
[2019-09-08 19:15] VITALS: BP 165/99
[2019-09-08] MEDS ORDERED: MAG HYDROX/ALUMINUM HYD/SIMETH 30 ML ORAL.SUSP PO PRN (19:30)
[2019-09-08] MEDS ORDERED: ALBUTEROL SULFATE 2.5 MG/3 ML NEBU. NEB PRN (19:30)
[2019-09-08] MEDS ORDERED: DOCUSATE SODIUM 100 MG CAPSULE. PO PRN (19:30)
[2019-09-08] MEDS ORDERED: SODIUM PHOSPHATES 19/7GM 133 ML ENEMA. PR PRN (19:30)
[2019-09-08] MEDS ORDERED: guaiFENesin ORAL 200 MG/10 ML LIQUID. PO PRN (19:30)
[2019-09-08] MEDS ORDERED: 0.9 % SODIUM CHLORIDE 10 ML DISP.SYRIN. IV PRN (19:30)
[2019-09-08] MEDS ORDERED: DEXTROSE 50% 25 GM / 50ML DISP.SYRIN. IV PRN (19:45)
[2019-09-08] MEDS: INSULIN LISPRO 300 UNITS/3 ML VIAL. SQ SCH (21:00)
[2019-09-08] MEDS: IV NORMAL SALINE 1000ML BAG 1,000 ML IV SCH (21:20)
[2019-09-08] MEDS: ATORVASTATIN CALCIUM 40 MG TABLET. PO SCH (21:21)
[2019-09-08] MEDS: ENOXAPARIN 40 MG/0.4 ML SYRINGE. SQ SCH (21:21)
[2019-09-08 23:00] VITALS: BP 132/72
[2019-09-09 03:00] VITALS: BP 140/77
[2019-09-09 07:00] VITALS: BP 149/89
--- NOTE | 2019-09-09 07:56 | PDOC ---
PROGRESS NOTES Chief Complaint Chief Complaint VTE Prophylaxis Ordered VTE Prophylaxis Devices: Yes VTE Pharmacological Prophylaxi: Yes Assessment/Plan Assessment/Plan Impression: Ataxia frequent recent falls marked cognitive decline marked debility severe gait instability Back pain MOVEMENT DISORDER, suspect parkinson's disease PLAN ADMITTED PT/OT bedrest fall precautions neurology consult home meds PT/OT/ ST DVT PROPHYLAXIS CARDIOLOGY CONSULT SNF PLACEMENT LIKELY NECESSARY CONSULT DR KENNEY D/W ER DR Simmonsfation of Admission Dx: Justicifation of Admission Dx: Justifications for Admission: Justification of Admission Dx: Yes CHF: Cardiac Arrhythmias Comminuty Aquired Pneumonia: Med-High Risk Pt Chronic Renal Failure: Encephalopathy Altered Mental Status: Altered Mental Status Comments: GAIT INSTABILITY History of Present Illness History of Present Illness Identification/Chief Complaint Chief Complaint seen in ER WITH GAIT INSTABILITY, FALLS AND cognitive decline, progressive 78-year-old male who presents after a couple of falls over the last few days. The most recent fall was yesterday in which EMS was called to his independent living facility to help him back up into either bed or the chair. The patient's son-in-law states he checks on him every night, gives him his pills and assesses his wellbeing. // states he is becoming more and more confused over the last several months. patient did complain of some low back pain and he has been unable to ambulate and perform his activities of daily living today. He ordinarily can get around pretty well on a walker. He has had no fever chills or sweats. No upper respiratory symptoms no urinary incontinence or other dysuria type symptoms. // he has had ongoing physical therapy that has not really improved his ability to get around at home. Vitals Vitals Vital Signs Date Time Temp Pulse Resp B/P (MAP) Pulse Ox O2 Delivery O2 Flow Rate FiO2 09/09/19 07:28 Room Air 09/09/19 03:00 98.2 65 18 140/77 (98) 91 98.2 Physical Exam General: Alert, Cooperative, No acute distress Heart: Regular rate, Normal S1, Normal S2 Lungs: Clear Abdomen: Normal bowel sounds, Soft, No tenderness, No hepatosplenomegaly Extremities: No cyanosis Labs LABS Laboratory Tests Test 09/08/19 17:20 09/08/19 21:00 09/09/19 07:36 White Blood Count 10.9 x10^3/uL (4.0-11.0) Red Blood Count 5.04 x10^6/uL (4.30-5.70) Hemoglobin 16.0 g/dL (13.0-17.5) Hematocrit 45.7 % (39.0-53.0) Mean Corpuscular Volume 91 fL (79-100) Mean Corpuscular Hemoglobin 32 pg (25-35) Mean Corpuscular Hemoglobin Concent 35 g/dL (31-37) Red Cell Distribution Width 13.4 % (11.5-14.5) Platelet Count 276 x10^3/uL (140-400) Neutrophils (%) (Auto) 79 % (31-73) Lymphocytes (%) (Auto) 12 % (24-48) Monocytes (%) (Auto) 8 % (0-9) Eosinophils (%) (Auto) 1 % (0-3) Basophils (%) (Auto) 0 % (0-3) Neutrophils # (Auto) 8.6 x10^3/uL (1.8-7.7) Lymphocytes # (Auto) 1.3 x10^3/uL (1.0-4.8) Monocytes # (Auto) 0.9 x10^3/uL (0.0-1.1) Eosinophils # (Auto) 0.1 x10^3/uL (0.0-0.7) Basophils # (Auto) 0.0 x10^3/uL (0.0-0.2) Sodium Level 134 mmol/L (136-145) Potassium Level 3.8 mmol/L (3.5-5.1) Chloride Level 99 mmol/L (98-107) Carbon Dioxide Level 25 mmol/L (21-32) Anion Gap 10 (6-14) Blood Urea Nitrogen 14 mg/dL (8-26) Creatinine 0.9 mg/dL (0.7-1.3) Estimated GFR (Cockcroft-Gault) 81.2 BUN/Creatinine Ratio 16 (6-20) Glucose Level 124 mg/dL (70-99) Calcium Level 8.6 mg/dL (8.5-10.1) Magnesium Level 1.8 mg/dL (1.8-2.4) Total Bilirubin 0.8 mg/dL (0.2-1.0) Aspartate Amino Transf (AST/SGOT) 24 U/L (15-37) Alanine Aminotransferase (ALT/SGPT) 31 U/L (16-63) Alkaline Phosphatase 98 U/L (46-116) Creatine Kinase 650 U/L (39-308) Troponin I Quantitative < 0.017 ng/mL (0.000-0.055) Total Protein 7.0 g/dL (6.4-8.2) Albumin 3.8 g/dL (3.4-5.0) Albumin/Globulin Ratio 1.2 (1.0-1.7) Thyroid Stimulating Hormone (TSH) 0.399 uIU/mL (0.358-3.74) Glucose (Fingerstick) 181 mg/dL (70-99) 100 mg/dL (70-99) Assessment and Plan Assessmemt and Plan Problems Medical Problems: (1) Ataxia Status: Acute (2) Back pain Status: Acute (3) Patient left without being seen Status: Acute Comment Review of Relevant I have reviewed the following items shara (where applicable) has been applied. Labs Laboratory Tests Test 09/08/19 17:20 09/08/19 21:00 09/09/19 07:36 White Blood Count 10.9 x10^3/uL (4.0-11.0) Red Blood Count 5.04 x10^6/uL (4.30-5.70) Hemoglobin 16.0 g/dL (13.0-17.5) Hematocrit 45.7 % (39.0-53.0) Mean Corpuscular Volume 91 fL (79-100) Mean Corpuscular Hemoglobin 32 pg (25-35) Mean Corpuscular Hemoglobin Concent 35 g/dL (31-37) Red Cell Distribution Width 13.4 % (11.5-14.5) Platelet Count 276 x10^3/uL (140-400) Neutrophils (%) (Auto) 79 % (31-73) Lymphocytes (%) (Auto) 12 % (24-48) Monocytes (%) (Auto) 8 % (0-9) Eosinophils (%) (Auto) 1 % (0-3) Basophils (%) (Auto) 0 % (0-3) Neutrophils # (Auto) 8.6 x10^3/uL (1.8-7.7) Lymphocytes # (Auto) 1.3 x10^3/uL (1.0-4.8) Monocytes # (Auto) 0.9 x10^3/uL (0.0-1.1) Eosinophils # (Auto) 0.1 x10^3/uL (0.0-0.7) Basophils # (Auto) 0.0 x10^3/uL (0.0-0.2) Sodium Level 134 mmol/L (136-145) Potassium Level 3.8 mmol/L (3.5-5.1) Chloride Level 99 mmol/L (98-107) Carbon Dioxide Level 25 mmol/L (21-32) Anion Gap 10 (6-14) Blood Urea Nitrogen 14 mg/dL (8-26) Creatinine 0.9 mg/dL (0.7-1.3) Estimated GFR (Cockcroft-Gault) 81.2 BUN/Creatinine Ratio 16 (6-20) Glucose Level 124 mg/dL (70-99) Calcium Level 8.6 mg/dL (8.5-10.1) Magnesium Level 1.8 mg/dL (1.8-2.4) Total Bilirubin 0.8 mg/dL (0.2-1.0) Aspartate Amino Transf (AST/SGOT) 24 U/L (15-37) Alanine Aminotransferase (ALT/SGPT) 31 U/L (16-63) Alkaline Phosphatase 98 U/L (46-116) Creatine Kinase 650 U/L (39-308) Troponin I Quantitative < 0.017 ng/mL (0.000-0.055) Total Protein 7.0 g/dL (6.4-8.2) Albumin 3.8 g/dL (3.4-5.0) Albumin/Globulin Ratio 1.2 (1.0-1.7) Thyroid Stimulating Hormone (TSH) 0.399 uIU/mL (0.358-3.74) Glucose (Fingerstick) 181 mg/dL (70-99) 100 mg/dL (70-99) Laboratory Tests Test 09/08/19 17:20 09/08/19 21:00 09/09/19 07:36 White Blood Count 10.9 x10^3/uL (4.0-11.0) Red Blood Count 5.04 x10^6/uL (4.30-5.70) Hemoglobin 16.0 g/dL (13.0-17.5) Hematocrit 45.7 % (39.0-53.0) Mean Corpuscular Volume 91 fL (79-100) Mean Corpuscular Hemoglobin 32 pg (25-35) Mean Corpuscular Hemoglobin Concent 35 g/dL (31-37) Red Cell Distribution Width 13.4 % (11.5-14.5) Platelet Count 276 x10^3/uL (140-400) Neutrophils (%) (Auto) 79 % (31-73) Lymphocytes (%) (Auto) 12 % (24-48) Monocytes (%) (Auto) 8 % (0-9) Eosinophils (%) (Auto) 1 % (0-3) Basophils (%) (Auto) 0 % (0-3) Neutrophils # (Auto) 8.6 x10^3/uL (1.8-7.7) Lymphocytes # (Auto) 1.3 x10^3/uL (1.0-4.8) Monocytes # (Auto) 0.9 x10^3/uL (0.0-1.1) Eosinophils # (Auto) 0.1 x10^3/uL (0.0-0.7) Basophils # (Auto) 0.0 x10^3/uL (0.0-0.2) Sodium Level 134 mmol/L (136-145) Potassium Level 3.8 mmol/L (3.5-5.1) Chloride Level 99 mmol/L (98-107) Carbon Dioxide Level 25 mmol/L (21-32) Anion Gap 10 (6-14) Blood Urea Nitrogen 14 mg/dL (8-26) Creatinine 0.9 mg/dL (0.7-1.3) Estimated GFR (Cockcroft-Gault) 81.2 BUN/Creatinine Ratio 16 (6-20) Glucose Level 124 mg/dL (70-99) Calcium Level 8.6 mg/dL (8.5-10.1) Magnesium Level 1.8 mg/dL (1.8-2.4) Total Bilirubin 0.8 mg/dL (0.2-1.0) Aspartate Amino Transf (AST/SGOT) 24 U/L (15-37) Alanine Aminotransferase (ALT/SGPT) 31 U/L (16-63) Alkaline Phosphatase 98 U/L (46-116) Creatine Kinase 650 U/L (39-308) Troponin I Quantitative < 0.017 ng/mL (0.000-0.055) Total Protein 7.0 g/dL (6.4-8.2) Albumin 3.8 g/dL (3.4-5.0) Albumin/Globulin Ratio 1.2 (1.0-1.7) Thyroid Stimulating Hormone (TSH) 0.399 uIU/mL (0.358-3.74) Glucose (Fingerstick) 181 mg/dL (70-99) 100 mg/dL (70-99) Medications Current Medications Ondansetron HCl (Zofran) 4 mg PRN Q8HRS PRN IV NAUSEA/VOMITING; Start 09/08/19 at 17:45; Stop 09/08/19 at 19:34; Status DC Fentanyl Citrate (Fentanyl 2ml Vial) 25 mcg PRN Q1HR PRN IV PAIN; Start at 17:45; Stop 09/09/19 at 17:44 Acetaminophen (Tylenol) 650 mg PRN Q4HRS PRN PO FEVER > 100.3'F; Start 09/08/19 at 17:45; Stop 09/08/19 at 19:34; Status DC Chlorthalidone (Thalitone) 25 mg DAILY PO ; Start 09/09/19 at 09:00 Diltiazem HCl (Cardizem 24hr Cd) 180 mg DAILY PO ; Start 09/09/19 at 09:00 Ferrous Sulfate (Feosol) 325 mg DAILY PO ; Start 09/09/19 at 09:00 Lisinopril (Prinivil) 20 mg DAILY PO ; Start 09/09/19 at 09:00 Tamsulosin HCl (Flomax) 0.4 mg DAILY PO ; Start 09/09/19 at 09:00 Atorvastatin Calcium (Lipitor) 80 mg QHS PO Last administered on 09/08/19at 21:21; Start 09/08/19 at 21:00 Pantoprazole Sodium (Protonix) 40 mg DAILYAC PO ; Start 09/09/19 at 07:30 Sodium Chloride (Normal Saline Flush) 3 ml QSHIFT PRN IV AFTER MEDS AND BLOOD DRAWS; Start 09/08/19 at 19:30 Sodium Chloride 1,000 ml @ 65 mls/hr [id number] IV Last administered on 09/08/19at 21:20; Start 09/08/19 at 19:26 Ondansetron HCl (Zofran) 4 mg PRN Q4HRS PRN IV NAUSEA/VOMITING; Start 09/08/19 at 19:30 Acetaminophen (Tylenol) 650 mg PRN Q4HRS PRN PO TEMP OVER 100.4F OR MILD PAIN Last administered on 09/08/19at 21:21; Start 09/08/19 at 19:30 Al Hydroxide/Mg Hydroxide (Mylanta Plus Xs) 30 ml PRN DAILY PRN PO HEARTBURN / GAS; Start 09/08/19 at 19:30 Sodium Monofluorophosphate (Fleet Adult) 133 ml PRN DAILY PRN [place] CONSTIPATION; Start 09/08/19 at 19:30 Docusate Sodium (Colace) 100 mg PRN BID PRN PO HARD STOOLS; Start 09/08/19 at 19:30 Albuterol Sulfate (Ventolin Neb Soln) 2.5 mg PRN Q4HRS PRN NEB SHORTNESS OF BREATH; Start 09/08/19 at 19:30 Guaifenesin (Robitussin) 200 mg PRN Q4HRS PRN PO COUGH; Start 09/08/19 at 19:30 Enoxaparin Sodium (Lovenox 40mg Syringe) 40 mg Q24H SQ Last administered on 09/08/19at 21:21; Start 09/08/19 at 21:00 Insulin Human Lispro (HumaLOG) 0-5 UNITS TIDWMEALS SQ ; Start 09/08/19 at 21:00 Dextrose (Dextrose 50%-Water Syringe) 12.5 gm PRN Q15MIN PRN IV SEE COMMENTS; Start 09/08/19 at 19:45 Active Scripts Active Reported Ferrous Sulfate 325 Mg Tablet 1 Tab PO DAILY Lisinopril 20 Mg Tablet 1 Tab PO DAILY Atorvastatin Calcium 80 Mg Tablet 1 Tab PO DAILY Tamsulosin Hcl 0.4 Mg Cap.er.24h 1 Cap PO DAILY Chlorthalidone (Chlorthalidone) 25 Mg Tablet 1 Tab PO DAILY Omeprazole 20 Mg Tablet.dr 1 Tab PO DAILY Cartia Xt (Diltiazem Hcl) 180 Mg Cap.er.24h 180 Mg PO DAILY Vitals/I & O Vital Sign - Last 24 Hours 09/08/19 09/08/19 09/08/19 09/08/19 17:05 17:36 18:05 18:35 Temp 98.5 98.5 Pulse 72 71 69 67 Resp 16 15 15 15 B/P (MAP) 177/84 (115) 152/81 (104) 157/77 (103) 145/78 (100) Pulse Ox 98 96 96 95 O2 Delivery Room Air Room Air Room Air Room Air 09/08/19 09/08/19 09/08/19 09/09/19 19:15 20:00 23:00 03:00 Temp 98.9 98.5 98.2 98.9 98.5 98.2 Pulse 69 67 65 Resp 22 18 18 B/P (MAP) 165/99 (121) 132/72 (92) 140/77 (98) Pulse Ox 93 92 91 O2 Delivery Room Air Room Air Room Air 09/09/19 07:28 O2 Delivery Room Air Intake and Output 09/08/19 09/08/19 09/09/19 15:00 23:00 07:00 Intake Total 450 ml Balance 450 ml Justicifation of Admission Dx: Justifications for Admission: Justification of Admission Dx: Yes CHF: Cardiac Arrhythmias Comminuty Aquired Pneumonia: Med-High Risk Pt Chronic Renal Failure: Encephalopathy Altered Mental Status: Altered Mental Status INGRID CUEVAS MD Sep 09, 2019 07:56
[2019-09-09] MEDS: INSULIN LISPRO 300 UNITS/3 ML VIAL. SQ SCH ×3 (08:00→17:00)
[2019-09-09] MEDS: FERROUS SULFATE 325 MG TABLET. PO SCH (08:36)
[2019-09-09] MEDS: PANTOPRAZOLE 40 MG TABLET.DR. PO SCH (08:36)
[2019-09-09] MEDS: TAMSULOSIN 0.4 MG CAP.ER.24H. PO SCH (08:36)
[2019-09-09] MEDS: CHLORTHALIDONE 25 MG TABLET. PO SCH (08:36)
[2019-09-09] MEDS: LISINOPRIL 20 MG TABLET PO SCH (08:37)
--- NOTE | 2019-09-09 08:48 | PDOC2 ---
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 Morrison SOURCE Source: Chart review, Patient HISTORY OF PRESENT ILLNESS HISTORY OF PRESENT ILLNESS This is an 78 yo male who presented secondary to increased back pain. Lives in assisted living facility. Has had multiple falls over the last couple of days. Patient reports falling out of his chair and hitting his head. Reports he kept falling. Does not recall any loss of consciousness. Can;t recall having dizziness, diaphoresis, SOA, or chest pain prior to fall. Has difficulty recalling history of events. PAST MEDICAL HISTORY Cardiovascular: HTN, Hyperlipidemia CENTRAL NERVOUS SYSTEM: Dementia GI: GERD Musculoskeletal: Osteoarthritis Dermatology: Squamous cell PAST SURGICAL HISTORY Past Surgical History: No pertinent history FAMILY HISTORY Family History: Hypertension SOCIAL HISTORY Smoke: No ALCOHOL: occassional Drugs: None Lives: [facility] (assisted living ) CURRENT MEDICATIONS CURRENT MEDICATIONS Current Medications Medications (Trade) Dose Ordered Sig/Vikas Route PRN Reason Start Time Stop Time Status Last Admin Dose Admin Chlorthalidone (Thalitone) 25 mg DAILY PO 09/09/19 09:00 09/09/19 08:36 Diltiazem HCl (Cardizem 24hr Cd) 180 mg DAILY PO 09/09/19 09:00 09/09/19 08:37 Ferrous Sulfate (Feosol) 325 mg DAILY PO 09/09/19 09:00 09/09/19 08:36 Lisinopril (Prinivil) 20 mg DAILY PO 09/09/19 09:00 09/09/19 08:37 Tamsulosin HCl (Flomax) 0.4 mg DAILY PO 09/09/19 09:00 09/09/19 08:36 Atorvastatin Calcium (Lipitor) 80 mg QHS PO 09/08/19 21:00 09/08/19 21:21 Pantoprazole Sodium (Protonix) 40 mg DAILYAC PO 09/09/19 07:30 09/09/19 08:36 Sodium Chloride 1,000 ml @ 65 mls/hr [id number] IV 09/08/19 19:26 09/08/19 21:20 Acetaminophen (Tylenol) 650 mg PRN Q4HRS PRN PO TEMP OVER 100.4F OR MILD PAIN 09/08/19 19:30 09/08/19 21:21 Enoxaparin Sodium (Lovenox 40mg Syringe) 40 mg Q24H SQ 09/08/19 21:00 09/08/19 21:21 ALLERGIES ALLERGIES: Coded Allergies: No Known Drug Allergies (Unverified , 09/24/17) ROS Review of System 14 point ROS conducted with pertinent positives noted above in HPI PHYSICAL EXAM General: Alert, Cooperative, No acute distress, Other (forgetful) HEENT: Atraumatic Lungs: Clear to auscultation Heart: Regular rate (not on tele) Abdomen: Soft, No tenderness Extremities: No edema, Normal pulses Skin: No significant lesion Neuro: Normal speech, Sensation intact Psych/Mental Status: Other (forgetful) MUSCULOSKELETAL: Osteoarthritic changes both hands VITALS/I&O VITALS/I&O: Vital Signs Date Time Temp Pulse Resp B/P (MAP) Pulse Ox O2 Delivery O2 Flow Rate FiO2 09/09/19 08:37 64 149/89 09/09/19 07:28 Room Air 09/09/19 03:00 98.2 18 91 98.2 I & O 09/08/19 09/08/19 09/09/19 15:00 23:00 07:00 Intake Total 450 ml Balance 450 ml LABS Lab: Laboratory Tests Test 09/08/19 17:20 09/08/19 21:00 09/09/19 07:36 White Blood Count 10.9 x10^3/uL (4.0-11.0) Red Blood Count 5.04 x10^6/uL (4.30-5.70) Hemoglobin 16.0 g/dL (13.0-17.5) Hematocrit 45.7 % (39.0-53.0) Mean Corpuscular Volume 91 fL (79-100) Mean Corpuscular Hemoglobin 32 pg (25-35) Mean Corpuscular Hemoglobin Concent 35 g/dL (31-37) Red Cell Distribution Width 13.4 % (11.5-14.5) Platelet Count 276 x10^3/uL (140-400) Neutrophils (%) (Auto) 79 % (31-73) H Lymphocytes (%) (Auto) 12 % (24-48) L Monocytes (%) (Auto) 8 % (0-9) Eosinophils (%) (Auto) 1 % (0-3) Basophils (%) (Auto) 0 % (0-3) Neutrophils # (Auto) 8.6 x10^3/uL (1.8-7.7) H Lymphocytes # (Auto) 1.3 x10^3/uL (1.0-4.8) Monocytes # (Auto) 0.9 x10^3/uL (0.0-1.1) Eosinophils # (Auto) 0.1 x10^3/uL (0.0-0.7) Basophils # (Auto) 0.0 x10^3/uL (0.0-0.2) Sodium Level 134 mmol/L (136-145) L Potassium Level 3.8 mmol/L (3.5-5.1) Chloride Level 99 mmol/L (98-107) Carbon Dioxide Level 25 mmol/L (21-32) Anion Gap 10 (6-14) Blood Urea Nitrogen 14 mg/dL (8-26) Creatinine 0.9 mg/dL (0.7-1.3) Estimated GFR (Cockcroft-Gault) 81.2 BUN/Creatinine Ratio 16 (6-20) Glucose Level 124 mg/dL (70-99) H Calcium Level 8.6 mg/dL (8.5-10.1) Magnesium Level 1.8 mg/dL (1.8-2.4) Total Bilirubin 0.8 mg/dL (0.2-1.0) Aspartate Amino Transferase (AST) 24 U/L (15-37) Alanine Aminotransferase (ALT) 31 U/L (16-63) Alkaline Phosphatase 98 U/L (46-116) Creatine Kinase 650 U/L (39-308) H Troponin I Quantitative < 0.017 ng/mL (0.000-0.055) Total Protein 7.0 g/dL (6.4-8.2) Albumin 3.8 g/dL (3.4-5.0) Albumin/Globulin Ratio 1.2 (1.0-1.7) Thyroid Stimulating Hormone (TSH) 0.399 uIU/mL (0.358-3.74) Glucose (Fingerstick) 181 mg/dL (70-99) H 100 mg/dL (70-99) H Laboratory Tests 09/08/19 17:20 Laboratory Tests 09/08/19 17:20 ASSESSMENT/PLAN ASSESSMENT/PLAN 1. Weakness, falls, back pain. Most probably secondary to gait instability. 2. Dementia; has had cognitive decline over the last couple of months. ? Lewy body disease 3. Hypertension 4. Hyperlipidemia Recommendations Low suspicion for cardiac etiology Supportive care Could consider outpatient event monitor SEAN ROYAL MD 09/10/19 0818: CARDIAC CONSULT ASSESSMENT/PLAN ASSESSMENT/PLAN Late entry for 09/09/2019 Patient seen and examined. Agree with above nurse practitioner note. Very low suspicion for any primary cardiac cause. Could consider outpatient loop recorder implantation if there is no obvious neurological source identified but it appears likely that this is dementia neuropathy related. Thank you for this consultation. Please call with any further questions. TERRANCE GREENE APRN Sep 09, 2019 08:48 SEAN ROYAL MD Sep 10, 2019 08:18
[2019-09-09] MEDS: CARBIDOPA/LEVODOPA CR 25/100MG TABLET.SA. PO SCH ×3 (09:06→21:09)
[2019-09-09] MEDS: IV NORMAL SALINE 1000ML BAG 1,000 ML IV SCH (09:46)
[2019-09-09 11:00] VITALS: BP 147/88
[2019-09-09 11:32] LABS: BILIRUBIN,URINE NEGATIVE (NEG); CLARITY,URINE CLEAR; COLOR,URINE YELLOW; NITRITE,URINE NEGATIVE (NEG); PH,URINE 7.5 (<5.0-8.0); PROTEIN,URINE NEGATIVE (NEG-TRACE)
[2019-09-09 11:51] LABS: SQUAMOUS EPITHELIAL CELL,UR FEW /LPF
[2019-09-09 11:52] LABS: BACTERIA,URINE 0 /HPF (0-FEW); WBC,URINE 0 /HPF (0-4)
--- NOTE | 2019-09-09 12:01 | PDOC2 ---
NEUROLOGY CONSULT Date of Admission Date of Admission DATE: 09/09/19 TIME: 11:50 Reason for Consult Reason for Consult: Falls, possible Parkinson's Referring Physician Referring Physician: Dr. Morrison Source Source: Caregiver (Son-in-law), Chart review History of Present Illness History of Present Illness The patient is an 78-year-old right-handed male was several months of cognitive decline, several falls, son-in-law checks every night and gives no medications, yesterday the [employer] he had back pain and trouble getting around so the son-in-law bought a men. The patient previously saw Dr. Petersen about 2 years ago I was given a diagnosis of Parkinson's. He has been on a low dose of carbidopa/levodopa on and off. This has not helped much. The patient indeed did have some stiffness, gait disorder, and tremor. There is no history of hallucinations or diurnal fluctuations of cognitive ability. He does have incontinence. He has had no violent behavior. Past Medical History Cardiovascular: HTN CENTRAL NERVOUS SYSTEM: Other ( Parkinsons) GI: GERD ENT: Other ( macular degeneration) Renal/: Urinary Incontinence Dermatology: Squamous cell Past Surgical History Past Surgical History: Other ( bilateral corneal transplant) Family History Family History: No pertinent hx Social History Social History , lives alone in assisted living, no alcohol or tobacco Current Medications Current Medications Current Medications Ondansetron HCl (Zofran) 4 mg PRN Q8HRS PRN IV NAUSEA/VOMITING; Start 09/08/19 at 17:45; Stop 09/08/19 at 19:34; Status DC Fentanyl Citrate (Fentanyl 2ml Vial) 25 mcg PRN Q1HR PRN IV PAIN; Start 09/08/19 at 17:45; Stop 09/09/19 at 17:44 Acetaminophen (Tylenol) 650 mg PRN Q4HRS PRN PO FEVER > 100.3'F; Start 09/08/19 at 17:45; Stop 09/08/19 at 19:34; Status DC Chlorthalidone (Thalitone) 25 mg DAILY PO Last administered on 09/09/19at 08:36; Start 09/09/19 at 09:00 Diltiazem HCl (Cardizem 24hr Cd) 180 mg DAILY PO Last administered on 09/09/19at 08:37; Start 09/09/19 at 09:00 Ferrous Sulfate (Feosol) 325 mg DAILY PO Last administered on 09/09/19 08:36; Start 09/09/19 at 09:00 Lisinopril (Prinivil) 20 mg DAILY PO Last administered on 09/09/19at 08:37; Start 09/09/19 at 09:00 Tamsulosin HCl (Flomax) 0.4 mg DAILY PO Last administered on 09/09/19 08:36; Start 09/09/19 at 09:00 Atorvastatin Calcium (Lipitor) 80 mg QHS PO Last administered on 09/08/19at 21:21; Start 09/08/19 at 21:00 Pantoprazole Sodium (Protonix) 40 mg DAILYAC PO Last administered on 09/09/19 08:36; Start 09/09/19 at 07:30 Sodium Chloride (Normal Saline Flush) 3 ml QSHIFT PRN IV AFTER MEDS AND BLOOD DRAWS; Start 09/08/19 at 19:30 Sodium Chloride 1,000 ml @ 65 mls/hr [id number] IV Last administered on 09/09/19at 09:46; Start 09/08/19 at 19:26 Ondansetron HCl (Zofran) 4 mg PRN Q4HRS PRN IV NAUSEA/VOMITING; Start 09/08/19 at 19:30 Acetaminophen (Tylenol) 650 mg PRN Q4HRS PRN PO TEMP OVER 100.4F OR MILD PAIN Last administered on 09/08/19 21:21; Start 09/08/19 at 19:30 Al Hydroxide/Mg Hydroxide (Mylanta Plus Xs) 30 ml PRN DAILY PRN PO HEARTBURN / GAS; Start 09/08/19 at 19:30 Sodium Monofluorophosphate (Fleet Adult) 133 ml PRN DAILY PRN [place] CONSTIPATION; Start 09/08/19 at 19:30 Docusate Sodium (Colace) 100 mg PRN BID PRN PO HARD STOOLS; Start 09/08/19 at 19:30 Albuterol Sulfate (Ventolin Neb Soln) 2.5 mg PRN Q4HRS PRN NEB SHORTNESS OF BREATH; Start 09/08/19 at 19:30 Guaifenesin (Robitussin) 200 mg PRN Q4HRS PRN PO COUGH; Start 09/08/19 at 19:30 Enoxaparin Sodium (Lovenox 40mg Syringe) 40 mg Q24H SQ Last administered on 09/08/19at 21:21; Start 09/08/19 at 21:00 Insulin Human Lispro (HumaLOG) 0-5 UNITS TIDWMEALS SQ ; Start 09/08/19 at 21:00 Dextrose (Dextrose 50%-Water Syringe) 12.5 gm PRN Q15MIN PRN IV SEE COMMENTS; Start 09/08/19 at 19:45 Carbidopa/Levodopa (Sinemet Cr) 2 tab.sa TID PO Last administered on 09/09/19at 09:06; Start 09/09/19 at 09:00 Active Scripts Active Reported Ferrous Sulfate 325 Mg Tablet 1 Tab PO DAILY Lisinopril 20 Mg Tablet 1 Tab PO DAILY Atorvastatin Calcium 80 Mg Tablet 1 Tab PO DAILY Tamsulosin Hcl 0.4 Mg Cap.er.24h 1 Cap PO DAILY Chlorthalidone (Chlorthalidone) 25 Mg Tablet 1 Tab PO DAILY Omeprazole 20 Mg Tablet.dr 1 Tab PO DAILY Cartia Xt (Diltiazem Hcl) 180 Mg Cap.er.24h 180 Mg PO DAILY Allergies Allergies: Coded Allergies: No Known Drug Allergies (Unverified , 09/24/17) ROS Review of System Negative for fever, chills, weight loss, shortness of breath, chest pain, indigestion, hematochezia, melena, and dysuria. Full 14-point review of systems is negative. Physical Exam Physical Examination General: Well-developed, well-nourished wite male in no acute distress HEENT: Normocephalic andatraumatic. Temporal arteriespulsatile and nontender. Neck: Supple without bruit, no meningismus Musculoskeletal: Stability:see neurologic. Gait exam:see neurologic. Tone:see neurologic.Strength:see neurologic. Neurological: Mental Status:orientation, memory, attention span/concentration, language, fund of knowledge: does not know date or location. Cranial Nerves:Pupils equal and reactive to light, extraocular movements areintact, visual fleming are full to confrontation. Facial sensation is normal. There is no facial asymmetry. Vestibulo-ocular reflex is intact. Palate elevates and tongue protrudes in midline. All other cranial related problems are negative except as mentioned before.Reflexes:2+ and symmetric with flexor plantar responses. Motor:4/5 strength with cogwheel rigidity, normal bulk. Coordination:Finger-nose finger and [id number] testing are normal. Rapid alternating movements and fine finger movements are intact. He has masked facies, bradykinesia, no tremor noted. Gait:not tested. Sensory:Normal pinprick, vibration, light touch, proprioception. Vitals VITALS Vital Signs Date Time Temp Pulse Resp B/P (MAP) Pulse Ox O2 Delivery O2 Flow Rate FiO2 09/09/19 11:00 98.7 84 18 147/88 (107) 94 Room Air 98.7 Labs Labs Laboratory Tests Test 09/08/19 17:20 09/08/19 21:00 09/09/19 07:36 White Blood Count 10.9 x10^3/uL (4.0-11.0) Red Blood Count 5.04 x10^6/uL (4.30-5.70) Hemoglobin 16.0 g/dL (13.0-17.5) Hematocrit 45.7 % (39.0-53.0) Mean Corpuscular Volume 91 fL (79-100) Mean Corpuscular Hemoglobin 32 pg (25-35) Mean Corpuscular Hemoglobin Concent 35 g/dL (31-37) Red Cell Distribution Width 13.4 % (11.5-14.5) Platelet Count 276 x10^3/uL (140-400) Neutrophils (%) (Auto) 79 % (31-73) Lymphocytes (%) (Auto) 12 % (24-48) Monocytes (%) (Auto) 8 % (0-9) Eosinophils (%) (Auto) 1 % (0-3) Basophils (%) (Auto) 0 % (0-3) Neutrophils # (Auto) 8.6 x10^3/uL (1.8-7.7) Lymphocytes # (Auto) 1.3 x10^3/uL (1.0-4.8) Monocytes # (Auto) 0.9 x10^3/uL (0.0-1.1) Eosinophils # (Auto) 0.1 x10^3/uL (0.0-0.7) Basophils # (Auto) 0.0 x10^3/uL (0.0-0.2) Sodium Level 134 mmol/L (136-145) Potassium Level 3.8 mmol/L (3.5-5.1) Chloride Level 99 mmol/L (98-107) Carbon Dioxide Level 25 mmol/L (21-32) Anion Gap 10 (6-14) Blood Urea Nitrogen 14 mg/dL (8-26) Creatinine 0.9 mg/dL (0.7-1.3) Estimated GFR (Cockcroft-Gault) 81.2 BUN/Creatinine Ratio 16 (6-20) Glucose Level 124 mg/dL (70-99) Calcium Level 8.6 mg/dL (8.5-10.1) Magnesium Level 1.8 mg/dL (1.8-2.4) Total Bilirubin 0.8 mg/dL (0.2-1.0) Aspartate Amino Transf (AST/SGOT) 24 U/L (15-37) Alanine Aminotransferase (ALT/SGPT) 31 U/L (16-63) Alkaline Phosphatase 98 U/L (46-116) Creatine Kinase 650 U/L (39-308) Troponin I Quantitative < 0.017 ng/mL (0.000-0.055) Total Protein 7.0 g/dL (6.4-8.2) Albumin 3.8 g/dL (3.4-5.0) Albumin/Globulin Ratio 1.2 (1.0-1.7) Thyroid Stimulating Hormone (TSH) 0.399 uIU/mL (0.358-3.74) Glucose (Fingerstick) 181 mg/dL (70-99) 100 mg/dL (70-99) Laboratory Tests Test 09/08/19 17:20 09/08/19 21:00 09/09/19 07:36 White Blood Count 10.9 x10^3/uL (4.0-11.0) Red Blood Count 5.04 x10^6/uL (4.30-5.70) Hemoglobin 16.0 g/dL (13.0-17.5) Hematocrit 45.7 % (39.0-53.0) Mean Corpuscular Volume 91 fL (79-100) Mean Corpuscular Hemoglobin 32 pg (25-35) Mean Corpuscular Hemoglobin Concent 35 g/dL (31-37) Red Cell Distribution Width 13.4 % (11.5-14.5) Platelet Count 276 x10^3/uL (140-400) Neutrophils (%) (Auto) 79 % (31-73) Lymphocytes (%) (Auto) 12 % (24-48) Monocytes (%) (Auto) 8 % (0-9) Eosinophils (%) (Auto) 1 % (0-3) Basophils (%) (Auto) 0 % (0-3) Neutrophils # (Auto) 8.6 x10^3/uL (1.8-7.7) Lymphocytes # (Auto) 1.3 x10^3/uL (1.0-4.8) Monocytes # (Auto) 0.9 x10^3/uL (0.0-1.1) Eosinophils # (Auto) 0.1 x10^3/uL (0.0-0.7) Basophils # (Auto) 0.0 x10^3/uL (0.0-0.2) Sodium Level 134 mmol/L (136-145) Potassium Level 3.8 mmol/L (3.5-5.1) Chloride Level 99 mmol/L (98-107) Carbon Dioxide Level 25 mmol/L (21-32) Anion Gap 10 (6-14) Blood Urea Nitrogen 14 mg/dL (8-26) Creatinine 0.9 mg/dL (0.7-1.3) Estimated GFR (Cockcroft-Gault) 81.2 BUN/Creatinine Ratio 16 (6-20) Glucose Level 124 mg/dL (70-99) Calcium Level 8.6 mg/dL (8.5-10.1) Magnesium Level 1.8 mg/dL (1.8-2.4) Total Bilirubin 0.8 mg/dL (0.2-1.0) Aspartate Amino Transf (AST/SGOT) 24 U/L (15-37) Alanine Aminotransferase (ALT/SGPT) 31 U/L (16-63) Alkaline Phosphatase 98 U/L (46-116) Creatine Kinase 650 U/L (39-308) Troponin I Quantitative < 0.017 ng/mL (0.000-0.055) Total Protein 7.0 g/dL (6.4-8.2) Albumin 3.8 g/dL (3.4-5.0) Albumin/Globulin Ratio 1.2 (1.0-1.7) Thyroid Stimulating Hormone (TSH) 0.399 uIU/mL (0.358-3.74) Glucose (Fingerstick) 181 mg/dL (70-99) 100 mg/dL (70-99) Images Images Exam: CT head, thoracic and lumbar spine INDICATION: Unsteady gait TECHNIQUE: Sequential axial images through the head, thoracic and lumbar spine were obtained without the administration of IV contrast. Comparisons: 09/06/2018 FINDINGS: Head: No focal parenchymal lesion or hemorrhage is identified. There is no midline shift or sulcal effacement. Patchy hypodensity in the periventricular white matter similar to prior exam. No No acute vascular territory infarction is identified. Irwin-white distinction is preserved. The ventricular system is within normal limits without compression hydrocephalus. The basal cisterns are well maintained. The visualized portions of the paranasal sinuses and mastoid air cells are well-pneumatized. No acute fractures. Thoracic spine: Vertebral body heights and alignment are well-maintained. Fracture to the thoracic spine is not identified. No significant spondylotic change in the thoracic spine Visualized paraspinal soft tissues are unremarkable. Lumbar spine: Vertebral body heights are well-maintained. Fracture to the lumbar spine is not identified. 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 Degenerative disc disease greatest at L4-L5 and L5-S1. With moderate bilateral neural foraminal stenosis at L5-S1. Visualized paraspinal soft tissues are unremarkable. IMPRESSION: 1. No acute intracranial abnormality. 2. Negative CT thoracic spine for acute traumatic injury. Assessment/Plan Assessment/Plan Impression: I suspect this is parkinsonism rather than Parkinson's disease, Lewy body disease dementia is a likely culprit. This would explain the lack of response to carbidopa/levodopa. Recommendations: Rechallenge with a higher dose of carbidopa/levodopa Rehabilitation modalities I discussed with patients son-in-law. Thank you for letting me help with the patient's care. MIL JEFFREY MD Sep 09, 2019 12:01
--- NOTE | 2019-09-09 13:54 | RAD ---
EXAM: CHEST ONE VIEW. HISTORY: Fall, hypertension. COMPARISON: 09/27/2017. FINDINGS: A frontal view of the chest is obtained. Linear opacities in the left base most likely indicate atelectasis. There is no pneumothorax or pleural effusion. The heart is not enlarged. There are atherosclerotic calcifications of the aorta. Calcified lymph nodes likely reflect old granulomatous disease. There is a moderate hiatal hernia. IMPRESSION: 1. Left basilar atelectasis. No confluent infiltrates. 2. Moderate hiatal hernia. Electronically signed by: Tevin Subramanian MD (09/09/2019 1:51 PM) [id number]
--- NOTE | 2019-09-09 14:01 | CONS ---
DATE OF CONSULTATION: 09/09/2019 PULMONARY CONSULTATION ATTENDING PHYSICIAN: Marvin Morrison MD REASON FOR CONSULTATION: The patient was seen at the request of Dr. Morrison for rehab evaluation. 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 The patient apparently had 2 falls over the last few days. The patient was admitted through the Emergency Room on 09/08/2019. He has been living in an independent living facility and he requires some help getting back into bed or chair. His son-in-law checks on him every night, gives him his medication and assess his wellbeing. He apparently had becoming more and more confused over the last several months. The patient also complains of some lower back pain and he has been unable to ambulate and perform his activities of daily living on the day of admission. He ordinarily can get around, pretty well on a walker. No apparent fever or chills or sweats. No trouble with his breathing and apparently had some occasional urinary incontinence. He had ongoing physical therapy, but that has not really improved his ability to get around at home. The patient with known hypertension. Family history of hypertension. He is not known allergic to any medication. He drinks wine every night. PAST MEDICAL HISTORY: Also includes dementia, osteoarthritis, hyperlipidemia and he apparently was seen by neurologist about 2 years ago and started him on medicine for Parkinson's disease without much help. Dr. Galvan saw him today and felt like he may had Lewy body dementia that might be contributing to his problems. The patient denies any significant back pain at this time. The patient had radiological studies, which failed to reveal any acute abnormalities. 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 PHYSICAL EXAMINATION: On physical examination today revealed an elderly male. He is awake, oriented to place and person, follows commands appropriately. He moves all 4 extremities voluntarily where he had 4+/5 grade muscle strength. Mild crepitus on range of motion of both knee joints without any obvious knee joint effusion, no tenderness to palpation over thoracic or lumbar spine area. Straight leg raising test is negative bilaterally. He had equal perception of touch and pinprick sensation bilaterally. Overall, he had 4+/5 grade muscle strength. He had absent knee and ankle jerks bilaterally. The patient is independent with transfers once up, he can walk using a roller walker with wide-based gait. He can walk without roller walker with wide-based gait, but his gait is not quite steady as using a roller walker. His skin is intact at this time. 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 RECOMMENDATIONS: Agree with the plan for physical therapy, occupational therapy and speech pathology. Dr. Morrison, I appreciate asking me to participate in the care of this interesting patient. I will be glad to see him for followup with you on as needed basis. JUSTO KENNEY MD DR: STEWART/mireya JOB#: [id number] / [id number]
--- NOTE | 2019-09-09 14:04 | NUR ---
Bladder scan performed on patient and post void residual was 161 mL, will continue to monitor.
[2019-09-09 15:00] VITALS: BP 111/58
--- NOTE | 2019-09-09 15:27 | NUR ---
SS following for discharge planning. SS reviewed pt chart and discussed with pt RN. Pt is from [facility] and is currently on room air. PT/OT recommended [facility]. Pt having some confusion per RN. SS contacted pt's son in law, Chalo Kaplan, and discussed discharge planning. Lincoln reported that family is not so keen on [facility] unit due to the fact that family cannot visit pt in [facility] unit at this time. Lincoln reported that if possible family preference would be for pt to return to Independent Living facility with home healthcare. Pt had services with [facility] at one time which is now partnered with [facility], ; fax [phone]. Pt's RN notified. SS will continue to follow for discharge planning.
[2019-09-09] MEDS ORDERED: risperiDONE 1 MG TABLET. PO ONE (16:15)
[2019-09-09] MEDS: QUEtiapine 25 MG TABLET. PO SCH ×2 (16:25→21:09)
--- NOTE | 2019-09-09 16:31 | NUR ---
Patient is becoming very agitated, restless, and attempting to be physically aggressive. Patient pulled out his second IV of the day and is stating "I want to leave now". Notified Dr. Morrison, new orders received for risperdal , discontinue IV fluids, and consult psych physician. Notified Dr. Umanzor, he stated he would not be able to see patient until tomorrow but gave new orders to not give the risperdal and ordered seroquel bid. Administered medication. Patient is in bed with the alarm on, will continue to monitor patient.
[2019-09-09 19:00] VITALS: BP 124/77
[2019-09-09] MEDS ORDERED: risperiDONE 0.25 MG TABLET. PO SCH (21:00)
[2019-09-09] MEDS: ATORVASTATIN CALCIUM 40 MG TABLET. PO SCH (21:08)
[2019-09-09] MEDS: ENOXAPARIN 40 MG/0.4 ML SYRINGE. SQ SCH (21:10)
--- NOTE | 2019-09-09 22:30 | NUR ---
patient very agitated confused trying to hit staff when assisting to go back to bed refused saline lock to be started at this time
[2019-09-09 23:00] VITALS: BP 124/78
[2019-09-10 03:00] VITALS: BP 120/70
--- NOTE | 2019-09-10 04:38 | EKG ---
[facility] [address] [place] [address] Test Date: 2019-09-08 Test Time: 17:34:09 Pat Name: MIL METZ Department: Room: Gender: M [employer] Binder: : [id number] Requested By: EFRAÍN GRAVES Order Number: [id number] Reading MD: Measurements Intervals [place]mot Rate: 74 P: 37 NV: 162 QRS: 6 QRSD: 84 T: 12 QT: 384 QTc: 427 Interpretive Statements SINUS RHYTHM QRS(T) CONTOUR ABNORMALITY CONSIDER ANTEROSEPTAL MYOCARDIAL DAMAGE POSSIBLY ABNORMAL ECG RI6.01 No previous ECG available for comparison
[2019-09-10 05:18] LABS: BASO % 0 % (0-3); EOS # 0.3 x10^3/uL (0.0-0.7); EOS % 3 % (0-3); HEMATOCRIT 43.5 % (39.0-53.0); HEMOGLOBIN 15.2 g/dL (13.0-17.5); LYMPH # 2.5 x10^3/uL (1.0-4.8); LYMPH % 27 % (24-48); MEAN CORPUSCULAR HEMOGLOBIN 32 pg (25-35); MEAN CORPUSCULAR HGB CONC 35 g/dL (31-37); MEAN CORPUSCULAR VOLUME 91 fL (79-100); MONO # 0.8 x10^3/uL (0.0-1.1); MONO % 9 % (0-9); NEUT # 5.6 x10^3/uL (1.8-7.7); NEUT % 60 % (31-73); PLATELET COUNT 248 x10^3/uL (140-400); RED BLOOD COUNT 4.78 x10^6/uL (4.30-5.70); RED CELL DISTRIBUTION WIDTH 13.5 % (11.5-14.5); WHITE BLOOD COUNT 9.3 x10^3/uL (4.0-11.0)
[2019-09-10 05:36] LABS: CALCIUM 8.3 mg/dL (8.5-10.1); CREATININE 0.8 mg/dL (0.7-1.3); POTASSIUM 3.2 mmol/L (3.5-5.1)
[2019-09-10 07:47] VITALS: BP 168/87
[2019-09-10] MEDS: INSULIN LISPRO 300 UNITS/3 ML VIAL. SQ SCH ×2 (08:00→12:00)
--- NOTE | 2019-09-10 08:18 | PDOC ---
PROGRESS NOTES Chief Complaint Chief Complaint VTE Prophylaxis Ordered VTE Prophylaxis Devices: Yes VTE Pharmacological Prophylaxi: Yes DISCHARGE DX Assessment/Plan Impression: Ataxia frequent recent falls marked cognitive decline, SUSPECT LEWY BODY Dementia marked debility gait instability Back pain MOVEMENT DISORDER, suspect parkinson's disease PLAN ADMITTED PT/OT bedrest fall precautions neurology consult home meds PT/OT/ ST DVT PROPHYLAXIS CARDIOLOGY CONSULT SNF PLACEMENT LIKELY NECESSARY CONSULT DR KENNEY 09/09 Family desires home with home health, less agitated today d/c planning 33 min D/W ER DR Simmonsfation of Admission Dx: Justicifation of Admission Dx: Justifications for Admission: Justification of Admission Dx: Yes CHF: Cardiac Arrhythmias Comminuty Aquired Pneumonia: Med-High Risk Pt Chronic Renal Failure: Encephalopathy Altered Mental Status: Altered Mental Status Comments: GAIT INSTABILITY History of Present Illness History of Present Illness Identification/Chief Complaint Chief Complaint seen in ER WITH GAIT INSTABILITY, FALLS AND cognitive decline, progressive 78-year-old male who presents after a couple of falls over the last few days. The most recent fall was yesterday in which EMS was called to his independent living facility to help him back up into either bed or the chair. The patient's son-in-law states he checks on him every night, gives him his pills and assesses his wellbeing. // states he is becoming more and more confused over the last several months. patient did complain of some low back pain and he has been unable to ambulate and perform his activities of daily living today. He ordinarily can get around pretty well on a walker. He has had no fever chills or sweats. No upper respiratory symptoms no urinary incontinence or other dysuria type symptoms. // he has had ongoing physical therapy that has not really improved his ability to get around at home. Vitals Vitals Vital Signs Date Time Temp Pulse Resp B/P (MAP) Pulse Ox O2 Delivery O2 Flow Rate FiO2 09/10/19 07:47 98.2 70 20 168/87 (114) 93 Room Air 98.2 Physical Exam General: Alert, Cooperative, No acute distress, Other (forgetful) Heart: Regular rate (not on tele), No murmurs Lungs: Clear Abdomen: Normal bowel sounds, Soft, No tenderness Extremities: No cyanosis, No edema, Normal pulses Skin: No significant lesion Labs LABS PROCEDURE: CHEST AP ONLY EXAM: CHEST ONE VIEW. HISTORY: Fall, hypertension. COMPARISON: 09/27/2017. FINDINGS: A frontal view of the chest is obtained. Linear opacities in the left base most likely indicate atelectasis. There is no pneumothorax or pleural effusion. The heart is not enlarged. There are atherosclerotic calcifications of the aorta. Calcified lymph nodes likely reflect old granulomatous disease. There is a moderate hiatal hernia. IMPRESSION: 1. Left basilar atelectasis. No confluent infiltrates. 2. Moderate hiatal hernia. Electronically signed by: Tevin Subramanian MD (09/09/2019 1:51 PM) [id number] DICTATED and SIGNED BY: DEVORA SUBRAMANIAN MD Laboratory Tests Test 09/09/19 12:10 09/09/19 17:02 09/09/19 21:12 09/10/19 04:50 Glucose (Fingerstick) 130 mg/dL (70-99) 128 mg/dL (70-99) 162 mg/dL (70-99) White Blood Count 9.3 x10^3/uL (4.0-11.0) Red Blood Count 4.78 x10^6/uL (4.30-5.70) Hemoglobin 15.2 g/dL (13.0-17.5) Hematocrit 43.5 % (39.0-53.0) Mean Corpuscular Volume 91 fL (79-100) Mean Corpuscular Hemoglobin 32 pg (25-35) Mean Corpuscular Hemoglobin Concent 35 g/dL (31-37) Red Cell Distribution Width 13.5 % (11.5-14.5) Platelet Count 248 x10^3/uL (140-400) Neutrophils (%) (Auto) 60 % (31-73) Lymphocytes (%) (Auto) 27 % (24-48) Monocytes (%) (Auto) 9 % (0-9) Eosinophils (%) (Auto) 3 % (0-3) Basophils (%) (Auto) 0 % (0-3) Neutrophils # (Auto) 5.6 x10^3/uL (1.8-7.7) Lymphocytes # (Auto) 2.5 x10^3/uL (1.0-4.8) Monocytes # (Auto) 0.8 x10^3/uL (0.0-1.1) Eosinophils # (Auto) 0.3 x10^3/uL (0.0-0.7) Basophils # (Auto) 0.0 x10^3/uL (0.0-0.2) Sodium Level 134 mmol/L (136-145) Potassium Level 3.2 mmol/L (3.5-5.1) Chloride Level 100 mmol/L (98-107) Carbon Dioxide Level 26 mmol/L (21-32) Anion Gap 8 (6-14) Blood Urea Nitrogen 9 mg/dL (8-26) Creatinine 0.8 mg/dL (0.7-1.3) Estimated GFR (Cockcroft-Gault) 93.0 Glucose Level 104 mg/dL (70-99) Calcium Level 8.3 mg/dL (8.5-10.1) Assessment and Plan Assessmemt and Plan Problems Medical Problems: (1) Ataxia Status: Acute (2) Back pain Status: Acute (3) Patient left without being seen Status: Acute Comment Review of Relevant I have reviewed the following items shara (where applicable) has been applied. Labs Laboratory Tests Test 09/08/19 11:20 09/08/19 17:20 09/08/19 21:00 09/09/19 07:36 Urine Collection Type Unknown Urine Color Yellow Urine Clarity Clear Urine pH 7.5 (<5.0-8.0) Urine Specific [place] <=1.005 (1.000-1.030) Urine Protein Negative mg/dL (NEG-TRACE) Urine Glucose (UA) Negative mg/dL (NEG) Urine Ketones (Stick) Negative mg/dL (NEG) Urine Blood Negative (NEG) Urine Nitrite Negative (NEG) Urine Bilirubin Negative (NEG) Urine Urobilinogen Dipstick 1.0 mg/dL (0.2 mg/dL) Urine Leukocyte Esterase Negative (NEG) Urine RBC 3-5 /HPF (0-2) Urine WBC 0 /HPF (0-4) Urine Squamous Epithelial Cells Few /LPF Urine Bacteria 0 /HPF (0-FEW) White Blood Count 10.9 x10^3/uL (4.0-11.0) Red Blood Count 5.04 x10^6/uL (4.30-5.70) Hemoglobin 16.0 g/dL (13.0-17.5) Hematocrit 45.7 % (39.0-53.0) Mean Corpuscular Volume 91 fL (79-100) Mean Corpuscular Hemoglobin 32 pg (25-35) Mean Corpuscular Hemoglobin Concent 35 g/dL (31-37) Red Cell Distribution Width 13.4 % (11.5-14.5) Platelet Count 276 x10^3/uL (140-400) Neutrophils (%) (Auto) 79 % (31-73) Lymphocytes (%) (Auto) 12 % (24-48) Monocytes (%) (Auto) 8 % (0-9) Eosinophils (%) (Auto) 1 % (0-3) Basophils (%) (Auto) 0 % (0-3) Neutrophils # (Auto) 8.6 x10^3/uL (1.8-7.7) Lymphocytes # (Auto) 1.3 x10^3/uL (1.0-4.8) Monocytes # (Auto) 0.9 x10^3/uL (0.0-1.1) Eosinophils # (Auto) 0.1 x10^3/uL (0.0-0.7) Basophils # (Auto) 0.0 x10^3/uL (0.0-0.2) Sodium Level 134 mmol/L (136-145) Potassium Level 3.8 mmol/L (3.5-5.1) Chloride Level 99 mmol/L (98-107) Carbon Dioxide Level 25 mmol/L (21-32) Anion Gap 10 (6-14) Blood Urea Nitrogen 14 mg/dL (8-26) Creatinine 0.9 mg/dL (0.7-1.3) Estimated GFR (Cockcroft-Gault) 81.2 BUN/Creatinine Ratio 16 (6-20) Glucose Level 124 mg/dL (70-99) Calcium Level 8.6 mg/dL (8.5-10.1) Magnesium Level 1.8 mg/dL (1.8-2.4) Total Bilirubin 0.8 mg/dL (0.2-1.0) Aspartate Amino Transf (AST/SGOT) 24 U/L (15-37) Alanine Aminotransferase (ALT/SGPT) 31 U/L (16-63) Alkaline Phosphatase 98 U/L (46-116) Creatine Kinase 650 U/L (39-308) Troponin I Quantitative < 0.017 ng/mL (0.000-0.055) Total Protein 7.0 g/dL (6.4-8.2) Albumin 3.8 g/dL (3.4-5.0) Albumin/Globulin Ratio 1.2 (1.0-1.7) Thyroid Stimulating Hormone (TSH) 0.399 uIU/mL (0.358-3.74) Glucose (Fingerstick) 181 mg/dL (70-99) 100 mg/dL (70-99) Test 09/09/19 12:10 09/09/19 17:02 09/09/19 21:12 09/10/19 04:50 Glucose (Fingerstick) 130 mg/dL (70-99) 128 mg/dL (70-99) 162 mg/dL (70-99) White Blood Count 9.3 x10^3/uL (4.0-11.0) Red Blood Count 4.78 x10^6/uL (4.30-5.70) Hemoglobin 15.2 g/dL (13.0-17.5) Hematocrit 43.5 % (39.0-53.0) Mean Corpuscular Volume 91 fL (79-100) Mean Corpuscular Hemoglobin 32 pg (25-35) Mean Corpuscular Hemoglobin Concent 35 g/dL (31-37) Red Cell Distribution Width 13.5 % (11.5-14.5) Platelet Count 248 x10^3/uL (140-400) Neutrophils (%) (Auto) 60 % (31-73) Lymphocytes (%) (Auto) 27 % (24-48) Monocytes (%) (Auto) 9 % (0-9) Eosinophils (%) (Auto) 3 % (0-3) Basophils (%) (Auto) 0 % (0-3) Neutrophils # (Auto) 5.6 x10^3/uL (1.8-7.7) Lymphocytes # (Auto) 2.5 x10^3/uL (1.0-4.8) Monocytes # (Auto) 0.8 x10^3/uL (0.0-1.1) Eosinophils # (Auto) 0.3 x10^3/uL (0.0-0.7) Basophils # (Auto) 0.0 x10^3/uL (0.0-0.2) Sodium Level 134 mmol/L (136-145) Potassium Level 3.2 mmol/L (3.5-5.1) Chloride Level 100 mmol/L (98-107) Carbon Dioxide Level 26 mmol/L (21-32) Anion Gap 8 (6-14) Blood Urea Nitrogen 9 mg/dL (8-26) Creatinine 0.8 mg/dL (0.7-1.3) Estimated GFR (Cockcroft-Gault) 93.0 Glucose Level 104 mg/dL (70-99) Calcium Level 8.3 mg/dL (8.5-10.1) Laboratory Tests Test 09/09/19 12:10 09/09/19 17:02 09/09/19 21:12 09/10/19 04:50 Glucose (Fingerstick) 130 mg/dL (70-99) 128 mg/dL (70-99) 162 mg/dL (70-99) White Blood Count 9.3 x10^3/uL (4.0-11.0) Red Blood Count 4.78 x10^6/uL (4.30-5.70) Hemoglobin 15.2 g/dL (13.0-17.5) Hematocrit 43.5 % (39.0-53.0) Mean Corpuscular Volume 91 fL (79-100) Mean Corpuscular Hemoglobin 32 pg (25-35) Mean Corpuscular Hemoglobin Concent 35 g/dL (31-37) Red Cell Distribution Width 13.5 % (11.5-14.5) Platelet Count 248 x10^3/uL (140-400) Neutrophils (%) (Auto) 60 % (31-73) Lymphocytes (%) (Auto) 27 % (24-48) Monocytes (%) (Auto) 9 % (0-9) Eosinophils (%) (Auto) 3 % (0-3) Basophils (%) (Auto) 0 % (0-3) Neutrophils # (Auto) 5.6 x10^3/uL (1.8-7.7) Lymphocytes # (Auto) 2.5 x10^3/uL (1.0-4.8) Monocytes # (Auto) 0.8 x10^3/uL (0.0-1.1) Eosinophils # (Auto) 0.3 x10^3/uL (0.0-0.7) Basophils # (Auto) 0.0 x10^3/uL (0.0-0.2) Sodium Level 134 mmol/L (136-145) Potassium Level 3.2 mmol/L (3.5-5.1) Chloride Level 100 mmol/L (98-107) Carbon Dioxide Level 26 mmol/L (21-32) Anion Gap 8 (6-14) Blood Urea Nitrogen 9 mg/dL (8-26) Creatinine 0.8 mg/dL (0.7-1.3) Estimated GFR (Cockcroft-Gault) 93.0 Glucose Level 104 mg/dL (70-99) Calcium Level 8.3 mg/dL (8.5-10.1) Microbiology 09/09/19 Blood Culture - Preliminary, Resulted NO GROWTH AFTER 1 DAY Medications Current Medications Ondansetron HCl (Zofran) 4 mg PRN Q8HRS PRN IV NAUSEA/VOMITING; Start 09/08/19 at 17:45; Stop 09/08/19 at 19:34; Status DC Fentanyl Citrate (Fentanyl 2ml Vial) 25 mcg PRN Q1HR PRN IV PAIN; Start 09/08/19 at 17:45; Stop 09/09/19 at 17:44; Status DC Acetaminophen (Tylenol) 650 mg PRN Q4HRS PRN PO FEVER > 100.3'F; Start 09/08/19 at 17:45; Stop 09/08/19 at 19:34; Status DC Chlorthalidone (Thalitone) 25 mg DAILY PO Last administered on 09/09/19at 08:36; Start 09/09/19 at 09:00 Diltiazem HCl (Cardizem 24hr Cd) 180 mg DAILY PO Last administered on 09/09/19at 08:37; Start 09/09/19 at 09:00 Ferrous Sulfate (Feosol) 325 mg DAILY PO Last administered on 09/09/19at 08:36; Start 09/09/19 at 09:00 Lisinopril (Prinivil) 20 mg DAILY PO Last administered on 09/09/19at 08:37; St art 09/09/19 at 09:00 Tamsulosin HCl (Flomax) 0.4 mg DAILY PO Last administered on 09/09/19at 08:36; Start 09/09/19 at 09:00 Atorvastatin Calcium (Lipitor) 80 mg QHS PO Last administered on 09/09/19at 21:08; Start 09/08/19 at 21:00 Pantoprazole Sodium (Protonix) 40 mg DAILYAC PO Last administered on 09/09/19 08:36; Start 09/09/19 at 07:30 Sodium Chloride (Normal Saline Flush) 3 ml QSHIFT PRN IV AFTER MEDS AND BLOOD DRAWS; Start 09/08/19 at 19:30 Sodium Chloride 1,000 ml @ 65 mls/hr [id number] IV Last administered on 09/09/19at 09:46; Start 09/08/19 at 19:26; Stop 09/09/19 at 16:29; Status DC Ondansetron HCl (Zofran) 4 mg PRN Q4HRS PRN IV NAUSEA/VOMITING; Start 09/08/19 at 19:30 Acetaminophen (Tylenol) 650 mg PRN Q4HRS PRN PO TEMP OVER 100.4F OR MILD PAIN Last administered on 09/08/19at 21:21; Start 09/08/19 at 19:30 Al Hydroxide/Mg Hydroxide (Mylanta Plus Xs) 30 ml PRN DAILY PRN PO HEARTBURN / GAS; Start 09/08/19 at 19:30 Sodium Monofluorophosphate (Fleet Adult) 133 ml PRN DAILY PRN [place] CONSTIPATION; Start 09/08/19 at 19:30 Docusate Sodium (Colace) 100 mg PRN BID PRN PO HARD STOOLS; Start 09/08/19 at 19:30 Albuterol Sulfate (Ventolin Neb Soln) 2.5 mg PRN Q4HRS PRN NEB SHORTNESS OF BREATH; Start 09/08/19 at 19:30 Guaifenesin (Robitussin) 200 mg PRN Q4HRS PRN PO COUGH; Start 09/08/19 at 19:30 Enoxaparin Sodium (Lovenox 40mg Syringe) 40 mg Q24H SQ Last administered on 09/09/19at 21:10; Start 09/08/19 at 21:00 Insulin Human Lispro (HumaLOG) 0-5 UNITS TIDWMEALS SQ ; Start 09/08/19 at 21:00 Dextrose (Dextrose 50%-Water Syringe) 12.5 gm PRN Q15MIN PRN IV SEE COMMENTS; Start 09/08/19 at 19:45 Carbidopa/Levodopa (Sinemet Cr) 2 tab.sa TID PO Last administered on 09/09/19at 21:09; Start 09/09/19 at 09:00 Risperidone (RisperDAL) 0.5 mg 1X ONCE PO ; Start 09/09/19 at 16:15; Stop 09/09/19 at 16:15; Status DC Risperidone (RisperDAL) 0.5 mg BID PO ; Start 09/09/19 at 21:00; Stop 09/09/19 at 16:15; Status DC Quetiapine Fumarate (SEROquel) 12.5 mg BID PO Last administered on 09/09/19at 21:09; Start 09/09/19 at 16:15 Active Scripts Active Reported Ferrous Sulfate 325 Mg Tablet 1 Tab PO DAILY Lisinopril 20 Mg Tablet 1 Tab PO DAILY Atorvastatin Calcium 80 Mg Tablet 1 Tab PO DAILY Tamsulosin Hcl 0.4 Mg Cap.er.24h 1 Cap PO DAILY Chlorthalidone (Chlorthalidone) 25 Mg Tablet 1 Tab PO DAILY Omeprazole 20 Mg Tablet.dr 1 Tab PO DAILY Cartia Xt (Diltiazem Hcl) 180 Mg Cap.er.24h 180 Mg PO DAILY Vitals/I & O Vital Sign - Last 24 Hours 09/09/19 09/09/19 09/09/19 09/09/19 08:37 08:37 08:58 11:00 Temp 98.7 98.7 Pulse 64 64 84 Resp 18 B/P (MAP) 149/89 149/89 147/88 (107) Pulse Ox 93 94 O2 Delivery Room Air Room Air 09/09/19 09/09/19 09/09/19 09/09/19 15:00 19:00 19:30 23:00 Temp 98.0 98.1 97.8 98.0 98.1 97.8 Pulse 66 73 63 Resp 18 18 18 B/P (MAP) 111/58 (75) 124/77 (93) 124/78 (93) Pulse Ox 93 92 93 O2 Delivery Room Air Room Air Room Air Room Air 09/10/19 09/10/19 03:00 07:47 Temp 98.6 98.2 98.6 98.2 Pulse 70 70 Resp 18 20 B/P (MAP) 120/70 (87) 168/87 (114) Pulse Ox 92 93 O2 Delivery Room Air Room Air Intake and Output 09/09/19 09/09/19 09/10/19 15:00 23:00 07:00 Intake Total 540 ml 500 ml 400 ml Output Total 300 ml Balance 540 ml 500 ml 100 ml Justicifation of Admission Dx: Justifications for Admission: Justification of Admission Dx: Yes CHF: Cardiac Arrhythmias Comminuty Aquired Pneumonia: Med-High Risk Pt Chronic Renal Failure: Encephalopathy Altered Mental Status: Altered Mental Status INGRID CUEVAS MD Sep 10, 2019 08:18
[2019-09-10] MEDS: QUEtiapine 25 MG TABLET. PO SCH (08:32)
[2019-09-10] MEDS: TAMSULOSIN 0.4 MG CAP.ER.24H. PO SCH (08:32)
[2019-09-10] MEDS: CARBIDOPA/LEVODOPA CR 25/100MG TABLET.SA. PO SCH ×2 (08:32→13:32)
[2019-09-10] MEDS: PANTOPRAZOLE 40 MG TABLET.DR. PO SCH (08:33)
[2019-09-10] MEDS: FERROUS SULFATE 325 MG TABLET. PO SCH (08:33)
[2019-09-10] MEDS: CHLORTHALIDONE 25 MG TABLET. PO SCH (08:33)
[2019-09-10] MEDS: LISINOPRIL 20 MG TABLET PO SCH (08:33)
--- NOTE | 2019-09-10 09:06 | NUR ---
SW following. Discussed with RN, pt likely discharging home with [facility] today. SW will continue to follow, awaiting discharge orders to fax to [facility].
--- NOTE | 2019-09-10 09:17 | PDOC ---
PROGRESS NOTES Subjective Subjective No new complaints. He denies any low back pain. Objective Objective Vital Signs Date Time Temp Pulse Resp B/P (MAP) Pulse Ox O2 Delivery O2 Flow Rate FiO2 09/10/19 08:33 70 168/87 09/10/19 07:47 98.2 20 93 Room Air 98.2 Intake and Output 09/10/19 07:00 Intake Total 1440 ml Output Total 300 ml Balance 1140 ml Intake Oral 1440 ml Output Urine Total 300 ml # Voids 11 # Bowel Movements 1 Physical Exam Physical Exam He is sitting up in bedside chair and seems to be comfortable. He is walking with roller walker under supervision. Assessment Assessment Problems Medical Problems: (1) Ataxia Status: Acute (2) Back pain Status: Acute (3) Patient left without being seen Status: Acute Plan Plan of Senior Care with home health follow up when medically stable. Comment Review of Relevant I have reviewed the following items shara (where applicable) has been applied. Labs Laboratory Tests Test 09/08/19 11:20 09/08/19 17:20 09/08/19 21:00 09/09/19 07:36 Urine Collection Type Unknown Urine Color Yellow Urine Clarity Clear Urine pH 7.5 (<5.0-8.0) Urine Specific [place] <=1.005 (1.000-1.030) Urine Protein Negative mg/dL (NEG-TRACE) Urine Glucose (UA) Negative mg/dL (NEG) Urine Ketones (Stick) Negative mg/dL (NEG) Urine Blood Negative (NEG) Urine Nitrite Negative (NEG) Urine Bilirubin Negative (NEG) Urine Urobilinogen Dipstick 1.0 mg/dL (0.2 mg/dL) Urine Leukocyte Esterase Negative (NEG) Urine RBC 3-5 /HPF (0-2) Urine WBC 0 /HPF (0-4) Urine Squamous Epithelial Cells Few /LPF Urine Bacteria 0 /HPF (0-FEW) White Blood Count 10.9 x10^3/uL (4.0-11.0) Red Blood Count 5.04 x10^6/uL (4.30-5.70) Hemoglobin 16.0 g/dL (13.0-17.5) Hematocrit 45.7 % (39.0-53.0) Mean Corpuscular Volume 91 fL (79-100) Mean Corpuscular Hemoglobin 32 pg (25-35) Mean Corpuscular Hemoglobin Concent 35 g/dL (31-37) Red Cell Distribution Width 13.4 % (11.5-14.5) Platelet Count 276 x10^3/uL (140-400) Neutrophils (%) (Auto) 79 % (31-73) Lymphocytes (%) (Auto) 12 % (24-48) Monocytes (%) (Auto) 8 % (0-9) Eosinophils (%) (Auto) 1 % (0-3) Basophils (%) (Auto) 0 % (0-3) Neutrophils # (Auto) 8.6 x10^3/uL (1.8-7.7) Lymphocytes # (Auto) 1.3 x10^3/uL (1.0-4.8) Monocytes # (Auto) 0.9 x10^3/uL (0.0-1.1) Eosinophils # (Auto) 0.1 x10^3/uL (0.0-0.7) Basophils # (Auto) 0.0 x10^3/uL (0.0-0.2) Sodium Level 134 mmol/L (136-145) Potassium Level 3.8 mmol/L (3.5-5.1) Chloride Level 99 mmol/L (98-107) Carbon Dioxide Level 25 mmol/L (21-32) Anion Gap 10 (6-14) Blood Urea Nitrogen 14 mg/dL (8-26) Creatinine 0.9 mg/dL (0.7-1.3) Estimated GFR (Cockcroft-Gault) 81.2 BUN/Creatinine Ratio 16 (6-20) Glucose Level 124 mg/dL (70-99) Calcium Level 8.6 mg/dL (8.5-10.1) Magnesium Level 1.8 mg/dL (1.8-2.4) Total Bilirubin 0.8 mg/dL (0.2-1.0) Aspartate Amino Transf (AST/SGOT) 24 U/L (15-37) Alanine Aminotransferase (ALT/SGPT) 31 U/L (16-63) Alkaline Phosphatase 98 U/L (46-116) Creatine Kinase 650 U/L (39-308) Troponin I Quantitative < 0.017 ng/mL (0.000-0.055) Total Protein 7.0 g/dL (6.4-8.2) Albumin 3.8 g/dL (3.4-5.0) Albumin/Globulin Ratio 1.2 (1.0-1.7) Thyroid Stimulating Hormone (TSH) 0.399 uIU/mL (0.358-3.74) Glucose (Fingerstick) 181 mg/dL (70-99) 100 mg/dL (70-99) Test 09/09/19 12:10 09/09/19 17:02 09/09/19 21:12 09/10/19 04:50 Glucose (Fingerstick) 130 mg/dL (70-99) 128 mg/dL (70-99) 162 mg/dL (70-99) White Blood Count 9.3 x10^3/uL (4.0-11.0) Red Blood Count 4.78 x10^6/uL (4.30-5.70) Hemoglobin 15.2 g/dL (13.0-17.5) Hematocrit 43.5 % (39.0-53.0) Mean Corpuscular Volume 91 fL (79-100) Mean Corpuscular Hemoglobin 32 pg (25-35) Mean Corpuscular Hemoglobin Concent 35 g/dL (31-37) Red Cell Distribution Width 13.5 % (11.5-14.5) Platelet Count 248 x10^3/uL (140-400) Neutrophils (%) (Auto) 60 % (31-73) Lymphocytes (%) (Auto) 27 % (24-48) Monocytes (%) (Auto) 9 % (0-9) Eosinophils (%) (Auto) 3 % (0-3) Basophils (%) (Auto) 0 % (0-3) Neutrophils # (Auto) 5.6 x10^3/uL (1.8-7.7) Lymphocytes # (Auto) 2.5 x10^3/uL (1.0-4.8) Monocytes # (Auto) 0.8 x10^3/uL (0.0-1.1) Eosinophils # (Auto) 0.3 x10^3/uL (0.0-0.7) Basophils # (Auto) 0.0 x10^3/uL (0.0-0.2) Sodium Level 134 mmol/L (136-145) Potassium Level 3.2 mmol/L (3.5-5.1) Chloride Level 100 mmol/L (98-107) Carbon Dioxide Level 26 mmol/L (21-32) Anion Gap 8 (6-14) Blood Urea Nitrogen 9 mg/dL (8-26) Creatinine 0.8 mg/dL (0.7-1.3) Estimated GFR (Cockcroft-Gault) 93.0 Glucose Level 104 mg/dL (70-99) Calcium Level 8.3 mg/dL (8.5-10.1) Laboratory Tests Test 09/09/19 12:10 09/09/19 17:02 09/09/19 21:12 09/10/19 04:50 Glucose (Fingerstick) 130 mg/dL (70-99) 128 mg/dL (70-99) 162 mg/dL (70-99) White Blood Count 9.3 x10^3/uL (4.0-11.0) Red Blood Count 4.78 x10^6/uL (4.30-5.70) Hemoglobin 15.2 g/dL (13.0-17.5) Hematocrit 43.5 % (39.0-53.0) Mean Corpuscular Volume 91 fL (79-100) Mean Corpuscular Hemoglobin 32 pg (25-35) Mean Corpuscular Hemoglobin Concent 35 g/dL (31-37) Red Cell Distribution Width 13.5 % (11.5-14.5) Platelet Count 248 x10^3/uL (140-400) Neutrophils (%) (Auto) 60 % (31-73) Lymphocytes (%) (Auto) 27 % (24-48) Monocytes (%) (Auto) 9 % (0-9) Eosinophils (%) (Auto) 3 % (0-3) Basophils (%) (Auto) 0 % (0-3) Neutrophils # (Auto) 5.6 x10^3/uL (1.8-7.7) Lymphocytes # (Auto) 2.5 x10^3/uL (1.0-4.8) Monocytes # (Auto) 0.8 x10^3/uL (0.0-1.1) Eosinophils # (Auto) 0.3 x10^3/uL (0.0-0.7) Basophils # (Auto) 0.0 x10^3/uL (0.0-0.2) Sodium Level 134 mmol/L (136-145) Potassium Level 3.2 mmol/L (3.5-5.1) Chloride Level 100 mmol/L (98-107) Carbon Dioxide Level 26 mmol/L (21-32) Anion Gap 8 (6-14) Blood Urea Nitrogen 9 mg/dL (8-26) Creatinine 0.8 mg/dL (0.7-1.3) Estimated GFR (Cockcroft-Gault) 93.0 Glucose Level 104 mg/dL (70-99) Calcium Level 8.3 mg/dL (8.5-10.1) Microbiology 09/09/19 Blood Culture - Preliminary, Resulted NO GROWTH AFTER 1 DAY Medications Current Medications Ondansetron HCl (Zofran) 4 mg PRN Q8HRS PRN IV NAUSEA/VOMITING; Start 09/08/19 at 17:45; Stop 09/08/19 at 19:34; Status DC Fentanyl Citrate (Fentanyl 2ml Vial) 25 mcg PRN Q1HR PRN IV PAIN; Start 09/08/19 at 17:45; Stop 09/09/19 at 17:44; Status DC Acetaminophen (Tylenol) 650 mg PRN Q4HRS PRN PO FEVER > 100.3'F; Start 09/08/19 at 17:45; Stop 09/08/19 at 19:34; Status DC Chlorthalidone (Thalitone) 25 mg DAILY PO Last administered on 09/10/19at 08:33; Start 09/09/19 at 09:00 Diltiazem HCl (Cardizem 24hr Cd) 180 mg DAILY PO Last administered on 09/10/19at 08:31; Start 09/09/19 at 09:00 Ferrous Sulfate (Feosol) 325 mg DAILY PO Last administered on 09/10/19at 08:33; Start 09/09/19 at 09:00 Lisinopril (Prinivil) 20 mg DAILY PO Last administered on 09/10/19at 08:33; Start 09/09/19 at 09:00 Tamsulosin HCl (Flomax) 0.4 mg DAILY PO Last administered on 09/10/19at 08:32; Start 09/09/19 at 09:00 Atorvastatin Calcium (Lipitor) 80 mg QHS PO Last administered on 09/09/19at 21:08; Start 09/08/19 at 21:00 Pantoprazole Sodium (Protonix) 40 mg DAILYAC PO Last administered on 09/10/19at 08:33; Start 09/09/19 at 07:30 Sodium Chloride (Normal Saline Flush) 3 ml QSHIFT PRN IV AFTER MEDS AND BLOOD DRAWS; Start 09/08/19 at 19:30 Sodium Chloride 1,000 ml @ 65 mls/hr [id number] IV Last administered on 09/09/19at 09:46; Start 09/08/19 at 19:26; Stop 09/09/19 at 16:29; Status DC Ondansetron HCl (Zofran) 4 mg PRN Q4HRS PRN IV NAUSEA/VOMITING; Start 09/08/19 at 19:30 Acetaminophen (Tylenol) 650 mg PRN Q4HRS PRN PO TEMP OVER 100.4F OR MILD PAIN Last administered on 09/08/19at 21:21; Start 09/08/19 at 19:30 Al Hydroxide/Mg Hydroxide (Mylanta Plus Xs) 30 ml PRN DAILY PRN PO HEARTBURN / GAS; Start 09/08/19 at 19:30 Sodium Monofluorophosphate (Fleet Adult) 133 ml PRN DAILY PRN MI CONSTIPATION; Start 09/08/19 at 19:30 Docusate Sodium (Colace) 100 mg PRN BID PRN PO HARD STOOLS; Start 09/08/19 at 19:30 Albuterol Sulfate (Ventolin Neb Soln) 2.5 mg PRN Q4HRS PRN NEB SHORTNESS OF BREATH; Start 09/08/19 at 19:30 Guaifenesin (Robitussin) 200 mg PRN Q4HRS PRN PO COUGH; Start 09/08/19 at 19:30 Enoxaparin Sodium (Lovenox 40mg Syringe) 40 mg Q24H SQ Last administered on 09/09/19at 21:10; Start 09/08/19 at 21:00 Insulin Human Lispro (HumaLOG) 0-5 UNITS TIDWMEALS SQ ; Start 09/08/19 at 21:00 Dextrose (Dextrose 50%-Water Syringe) 12.5 gm PRN Q15MIN PRN IV SEE COMMENTS; Start 09/08/19 at 19:45 Carbidopa/Levodopa (Sinemet Cr) 2 tab.sa TID PO Last administered on 09/10/19at 08:32; Start 09/09/19 at 09:00 Risperidone (RisperDAL) 0.5 mg 1X ONCE PO ; Start 09/09/19 at 16:15; Stop 09/09/19 at 16:15; Status DC Risperidone (RisperDAL) 0.5 mg BID PO ; Start 09/09/19 at 21:00; Stop 09/09/19 at 16:15; Status DC Quetiapine Fumarate (SEROquel) 12.5 mg BID PO Last administered on 09/10/19at 08:32; Start 09/09/19 at 16:15 Active Scripts Active Reported Ferrous Sulfate 325 Mg Tablet 1 Tab PO DAILY Lisinopril 20 Mg Tablet 1 Tab PO DAILY Atorvastatin Calcium 80 Mg Tablet 1 Tab PO DAILY Tamsulosin Hcl 0.4 Mg Cap.er.24h 1 Cap PO DAILY Chlorthalidone (Chlorthalidone) 25 Mg Tablet 1 Tab PO DAILY Omeprazole 20 Mg Tablet.dr 1 Tab PO DAILY Cartia Xt (Diltiazem Hcl) 180 Mg Cap.er.24h 180 Mg PO DAILY Vitals/I & O Vital Sign - Last 24 Hours 09/09/19 09/09/19 09/09/19 09/09/19 11:00 15:00 19:00 19:30 Temp 98.7 98.0 98.1 98.7 98.0 98.1 Pulse 84 66 73 Resp 18 18 18 B/P (MAP) 147/88 (107) 111/58 (75) 124/77 (93) Pulse Ox 94 93 92 O2 Delivery Room Air Room Air Room Air Room Air 09/09/19 09/10/19 09/10/19 09/10/19 23:00 03:00 07:47 08:31 Temp 97.8 98.6 98.2 97.8 98.6 98.2 Pulse 63 70 70 70 Resp 18 18 20 B/P (MAP) 124/78 (93) 120/70 (87) 168/87 (114) 168/87 Pulse Ox 93 92 93 O2 Delivery Room Air Room Air Room Air 09/10/19 08:33 Pulse 70 B/P (MAP) 168/87 Intake and Output 09/09/19 09/09/19 09/10/19 15:00 23:00 07:00 Intake Total 540 ml 500 ml 400 ml Output Total 300 ml Balance 540 ml 500 ml 100 ml Justicifation of Admission Dx: Justifications for Admission: Justification of Admission Dx: Yes CHF: Cardiac Arrhythmias Comminuty Aquired Pneumonia: Med-High Risk Pt Chronic Renal Failure: Encephalopathy Altered Mental Status: Altered Mental Status JUSTO KENNEY MD Sep 10, 2019 09:17
--- NOTE | 2019-09-10 11:40 | PDOC3 ---
Discharge Summary Date of Admission: Sep 08, 2019 Date of Discharge: Sep 10, 2019 Follow-Up: 1-2 days Admitting Diagnosis comment: DISCHARGE DX Assessment/Plan Impression: Ataxia frequent recent falls marked cognitive decline, SUSPECT LEWY BODY Dementia marked debility gait instability Back pain MOVEMENT DISORDER, suspect parkinson's disease PLAN ADMITTED PT/OT bedrest fall precautions neurology consult home meds PT/OT/ ST DVT PROPHYLAXIS CARDIOLOGY CONSULT SNF PLACEMENT LIKELY NECESSARY CONSULT DR KENNEY 09/09 Family desires home with home health, less agitated today d/c planning 33 min D/W ER Justicifation of Admission Dx: Justicifation of Admission Dx: Justifications for Admission: Justification of Admission Dx: Yes CHF: Cardiac Arrhythmias Comminuty Aquired Pneumonia: Med-High Risk Pt Chronic Renal Failure: Encephalopathy Altered Mental Status: Altered Mental Status Comments: GAIT INSTABILITY History of Present Illness History of Present Illness Identification/Chief Complaint Chief Complaint seen in ER WITH GAIT INSTABILITY, FALLS AND cognitive decline, progressive 78-year-old male who presents after a couple of falls over the last few days. The most recent fall was yesterday in which EMS was called to his independent living facility to help him back up into either bed or the chair. The patient's son-in-law states he checks on him every night, gives him his pills and assesses his wellbeing. // states he is becoming more and more confused over the last several months. patient did complain of some low back pain and he has been unable to ambulate and perform his activities of daily living today. He ordinarily can get around pretty well on a walker. He has had no fever chills or sweats. No upper respiratory symptoms no urinary incontinence or other dysuria type symptoms. // he has had ongoing physical therapy that has not really improved his ability to get around at home. Vitals Vitals Vital Signs Date Time Temp Pulse Resp B/P (MAP) Pulse Ox O2 Delivery O2 Flow Rate FiO2 09/10/19 07:47 98.2 70 20 168/87 (114) 93 Room Air 98.2 Physical Exam General: Alert, Cooperative, No acute distress, Other (forgetful) Heart: Regular rate (not on tele), No murmurs Lungs: Clear Abdomen: Normal bowel sounds, Soft, No tenderness Extremities: No cyanosis, No edema, Normal pulses Skin: No significant lesion Labs LABS PROCEDURE: CHEST AP ONLY EXAM: CHEST ONE VIEW. HISTORY: Fall, hypertension. COMPARISON: 09/27/2017. FINDINGS: A frontal view of the chest is obtained. Linear opacities in the left base most likely indicate atelectasis. There is no pneumothorax or pleural effusion. The heart is not enlarged. There are atherosclerotic calcifications of the aorta. Calcified lymph nodes likely reflect old granulomatous disease. There is a moderate hiatal hernia. IMPRESSION: 1. Left basilar atelectasis. No confluent infiltrates. 2. Moderate hiatal hernia. Electronically signed by: Tevin Subramanian MD (09/09/2019 1:51 PM) [id number] DICTATED and SIGNED BY: DEVORA SUBRAMANIAN MD FINAL DIAGNOSIS Problems Medical Problems: (1) Ataxia Status: Acute (2) Back pain Status: Acute (3) Patient left without being seen Status: Acute Brief Hospital Course Mr. Mayo is a 78 old [sex] who presented with [ fall, gait instability ] CONDITION AT DISCHARGE: Improved Discharge Medications Current Medications Ondansetron HCl (Zofran) 4 mg PRN Q8HRS PRN IV NAUSEA/VOMITING; Start 09/08/19 at 17:45; Stop 09/08/19 at 19:34; Status DC Fentanyl Citrate (Fentanyl 2ml Vial) 25 mcg PRN Q1HR PRN IV PAIN; Start 09/08/19 at 17:45; Stop 09/09/19 at 17:44; Status DC Acetaminophen (Tylenol) 650 mg PRN Q4HRS PRN PO FEVER > 100.3'F; Start 09/08/19 at 17:45; Stop 09/08/19 at 19:34; Status DC Chlorthalidone (Thalitone) 25 mg DAILY PO Last administered on 09/10/19at 08:33; Start 09/09/19 at 09:00 Diltiazem HCl (Cardizem 24hr Cd) 180 mg DAILY PO Last administered on 09/10/19at 08:31; Start 09/09/19 at 09:00 Ferrous Sulfate (Feosol) 325 mg DAILY PO Last administered on 09/10/19at 08:33; Start 09/09/19 at 09:00 Lisinopril (Prinivil) 20 mg DAILY PO Last administered on 09/10/19 08:33; Start 09/09/19 at 09:00 Tamsulosin HCl (Flomax) 0.4 mg DAILY PO Last administered on 09/10/19at 08:32; Start 09/09/19 at 09:00 Atorvastatin Calcium (Lipitor) 80 mg QHS PO Last administered on 09/09/19at 21:08; Start 09/08/19 at 21:00 Pantoprazole Sodium (Protonix) 40 mg DAILYAC PO Last administered on 09/10/19at 08:33; Start 09/09/19 at 07:30 Sodium Chloride (Normal Saline Flush) 3 ml QSHIFT PRN IV AFTER MEDS AND BLOOD DRAWS; Start 09/08/19 at 19:30 Sodium Chloride 1,000 ml @ 65 mls/hr [id number] IV Last administered on 09/09/19at 09:46; Start 09/08/19 at 19:26; Stop 09/09/19 at 16:29; Status DC Ondansetron HCl (Zofran) 4 mg PRN Q4HRS PRN IV NAUSEA/VOMITING; Start 09/08/19 at 19:30 Acetaminophen (Tylenol) 650 mg PRN Q4HRS PRN PO TEMP OVER 100.4F OR MILD PAIN Last administered on 09/08/19at 21:21; Start 09/08/19 at 19:30 Al Hydroxide/Mg Hydroxide (Mylanta Plus Xs) 30 ml PRN DAILY PRN PO HEARTBURN / GAS; Start 09/08/19 at 19:30 Sodium Monofluorophosphate (Fleet Adult) 133 ml PRN DAILY PRN [place] CONSTIPATION; Start 09/08/19 at 19:30 Docusate Sodium (Colace) 100 mg PRN BID PRN PO HARD STOOLS; Start 09/08/19 at 19:30 Albuterol Sulfate (Ventolin Neb Soln) 2.5 mg PRN Q4HRS PRN NEB SHORTNESS OF BREATH; Start 09/08/19 at 19:30 Guaifenesin (Robitussin) 200 mg PRN Q4HRS PRN PO COUGH; Start 09/08/19 at 19:30 Enoxaparin Sodium (Lovenox 40mg Syringe) 40 mg Q24H SQ Last administered on 09/09/19at 21:10; Start 09/08/19 at 21:00 Insulin Human Lispro (HumaLOG) 0-5 UNITS TIDWMEALS SQ ; Start 09/08/19 at 21:00 Dextrose (Dextrose 50%-Water Syringe) 12.5 gm PRN Q15MIN PRN IV SEE COMMENTS; Start 09/08/19 at 19:45 Carbidopa/Levodopa (Sinemet Cr) 2 tab.sa TID PO Last administered on 09/10/19at 08:32; Start 09/09/19 at 09:00 Risperidone (RisperDAL) 0.5 mg 1X ONCE PO ; Start 09/09/19 at 16:15; Stop 09/09/19 at 16:15; Status DC Risperidone (RisperDAL) 0.5 mg BID PO ; Start 09/09/19 at 21:00; Stop 09/09/19 at 16:15; Status DC Quetiapine Fumarate (SEROquel) 12.5 mg BID PO Last administered on 09/10/19at 08:32; Start 09/09/19 at 16:15 Active Scripts Active Reported Ferrous Sulfate 325 Mg Tablet 1 Tab PO DAILY Lisinopril 20 Mg Tablet 1 Tab PO DAILY Atorvastatin Calcium 80 Mg Tablet 1 Tab PO DAILY Tamsulosin Hcl 0.4 Mg Cap.er.24h 1 Cap PO DAILY Chlorthalidone (Chlorthalidone) 25 Mg Tablet 1 Tab PO DAILY Omeprazole 20 Mg Tablet.dr 1 Tab PO DAILY Cartia Xt (Diltiazem Hcl) 180 Mg Cap.er.24h 180 Mg PO DAILY Vital Signs Vital Signs Date Time Temp Pulse Resp B/P (MAP) Pulse Ox O2 Delivery O2 Flow Rate FiO2 09/10/19 08:33 70 168/87 09/10/19 08:00 Room Air 09/10/19 07:47 98.2 20 93 98.2 Labs Laboratory Tests Test 09/08/19 17:20 09/08/19 21:00 09/09/19 07:36 09/09/19 12:10 White Blood Count 10.9 x10^3/uL (4.0-11.0) Red Blood Count 5.04 x10^6/uL (4.30-5.70) Hemoglobin 16.0 g/dL (13.0-17.5) Hematocrit 45.7 % (39.0-53.0) Mean Corpuscular Volume 91 fL (79-100) Mean Corpuscular Hemoglobin 32 pg (25-35) Mean Corpuscular Hemoglobin Concent 35 g/dL (31-37) Red Cell Distribution Width 13.4 % (11.5-14.5) Platelet Count 276 x10^3/uL (140-400) Neutrophils (%) (Auto) 79 % (31-73) Lymphocytes (%) (Auto) 12 % (24-48) Monocytes (%) (Auto) 8 % (0-9) Eosinophils (%) (Auto) 1 % (0-3) Basophils (%) (Auto) 0 % (0-3) Neutrophils # (Auto) 8.6 x10^3/uL (1.8-7.7) Lymphocytes # (Auto) 1.3 x10^3/uL (1.0-4.8) Monocytes # (Auto) 0.9 x10^3/uL (0.0-1.1) Eosinophils # (Auto) 0.1 x10^3/uL (0.0-0.7) Basophils # (Auto) 0.0 x10^3/uL (0.0-0.2) Sodium Level 134 mmol/L (136-145) Potassium Level 3.8 mmol/L (3.5-5.1) Chloride Level 99 mmol/L (98-107) Carbon Dioxide Level 25 mmol/L (21-32) Anion Gap 10 (6-14) Blood Urea Nitrogen 14 mg/dL (8-26) Creatinine 0.9 mg/dL (0.7-1.3) Estimated GFR (Cockcroft-Gault) 81.2 BUN/Creatinine Ratio 16 (6-20) Glucose Level 124 mg/dL (70-99) Calcium Level 8.6 mg/dL (8.5-10.1) Magnesium Level 1.8 mg/dL (1.8-2.4) Total Bilirubin 0.8 mg/dL (0.2-1.0) Aspartate Amino Transf (AST/SGOT) 24 U/L (15-37) Alanine Aminotransferase (ALT/SGPT) 31 U/L (16-63) Alkaline Phosphatase 98 U/L (46-116) Creatine Kinase 650 U/L (39-308) Troponin I Quantitative < 0.017 ng/mL (0.000-0.055) Total Protein 7.0 g/dL (6.4-8.2) Albumin 3.8 g/dL (3.4-5.0) Albumin/Globulin Ratio 1.2 (1.0-1.7) Thyroid Stimulating Hormone (TSH) 0.399 uIU/mL (0.358-3.74) Glucose (Fingerstick) 181 mg/dL (70-99) 100 mg/dL (70-99) 130 mg/dL (70-99) Test 09/09/19 17:02 09/09/19 21:12 09/10/19 04:50 Glucose (Fingerstick) 128 mg/dL (70-99) 162 mg/dL (70-99) White Blood Count 9.3 x10^3/uL (4.0-11.0) Red Blood Count 4.78 x10^6/uL (4.30-5.70) Hemoglobin 15.2 g/dL (13.0-17.5) Hematocrit 43.5 % (39.0-53.0) Mean Corpuscular Volume 91 fL (79-100) Mean Corpuscular Hemoglobin 32 pg (25-35) Mean Corpuscular Hemoglobin Concent 35 g/dL (31-37) Red Cell Distribution Width 13.5 % (11.5-14.5) Platelet Count 248 x10^3/uL (140-400) Neutrophils (%) (Auto) 60 % (31-73) Lymphocytes (%) (Auto) 27 % (24-48) Monocytes (%) (Auto) 9 % (0-9) Eosinophils (%) (Auto) 3 % (0-3) Basophils (%) (Auto) 0 % (0-3) Neutrophils # (Auto) 5.6 x10^3/uL (1.8-7.7) Lymphocytes # (Auto) 2.5 x10^3/uL (1.0-4.8) Monocytes # (Auto) 0.8 x10^3/uL (0.0-1.1) Eosinophils # (Auto) 0.3 x10^3/uL (0.0-0.7) Basophils # (Auto) 0.0 x10^3/uL (0.0-0.2) Sodium Level 134 mmol/L (136-145) Potassium Level 3.2 mmol/L (3.5-5.1) Chloride Level 100 mmol/L (98-107) Carbon Dioxide Level 26 mmol/L (21-32) Anion Gap 8 (6-14) Blood Urea Nitrogen 9 mg/dL (8-26) Creatinine 0.8 mg/dL (0.7-1.3) Estimated GFR (Cockcroft-Gault) 93.0 Glucose Level 104 mg/dL (70-99) Calcium Level 8.3 mg/dL (8.5-10.1) Laboratory Tests Test 09/09/19 12:10 09/09/19 17:02 09/09/19 21:12 09/10/19 04:50 Glucose (Fingerstick) 130 mg/dL (70-99) 128 mg/dL (70-99) 162 mg/dL (70-99) White Blood Count 9.3 x10^3/uL (4.0-11.0) Red Blood Count 4.78 x10^6/uL (4.30-5.70) Hemoglobin 15.2 g/dL (13.0-17.5) Hematocrit 43.5 % (39.0-53.0) Mean Corpuscular Volume 91 fL (79-100) Mean Corpuscular Hemoglobin 32 pg (25-35) Mean Corpuscular Hemoglobin Concent 35 g/dL (31-37) Red Cell Distribution Width 13.5 % (11.5-14.5) Platelet Count 248 x10^3/uL (140-400) Neutrophils (%) (Auto) 60 % (31-73) Lymphocytes (%) (Auto) 27 % (24-48) Monocytes (%) (Auto) 9 % (0-9) Eosinophils (%) (Auto) 3 % (0-3) Basophils (%) (Auto) 0 % (0-3) Neutrophils # (Auto) 5.6 x10^3/uL (1.8-7.7) Lymphocytes # (Auto) 2.5 x10^3/uL (1.0-4.8) Monocytes # (Auto) 0.8 x10^3/uL (0.0-1.1) Eosinophils # (Auto) 0.3 x10^3/uL (0.0-0.7) Basophils # (Auto) 0.0 x10^3/uL (0.0-0.2) Sodium Level 134 mmol/L (136-145) Potassium Level 3.2 mmol/L (3.5-5.1) Chloride Level 100 mmol/L (98-107) Carbon Dioxide Level 26 mmol/L (21-32) Anion Gap 8 (6-14) Blood Urea Nitrogen 9 mg/dL (8-26) Creatinine 0.8 mg/dL (0.7-1.3) Estimated GFR (Cockcroft-Gault) 93.0 Glucose Level 104 mg/dL (70-99) Calcium Level 8.3 mg/dL (8.5-10.1) Allergies Allergies Coded Allergies Type Severity Reaction Last Updated Verified No Known Drug Allergies 09/24/17 No Disposition/Orders: D/C to Home w/ HH Justicifation of Admission Dx: Justifications for Admission: Justification of Admission Dx: Yes CHF: Cardiac Arrhythmias Comminuty Aquired Pneumonia: Med-High Risk Pt Chronic Renal Failure: Encephalopathy Altered Mental Status: Altered Mental Status INGRID CUEVAS MD Sep 10, 2019 11:40
[2019-09-10] MEDS ORDERED: POTA20TA4 PO (11:44)
[2019-09-10] MEDS ORDERED: MAG30ORA2 PO (11:44)
[2019-09-10] MEDS ORDERED: QUET25TA PO (11:44)
[2019-09-10] MEDS ORDERED: ACET325T9 PO (11:44)
[2019-09-10] MEDS ORDERED: CARB1TAB43 PO (11:44)
[2019-09-10] MEDS ORDERED: GUAI100L12 PO (11:44)
[2019-09-10] MEDS ORDERED: ALBU2.5V8 NEB (11:44)
[2019-09-10] MEDS ORDERED: INSU100V35 SQ (11:44)
[2019-09-10] MEDS ORDERED: DOCU-153 PO (11:44)
[2019-09-10] MEDS ORDERED: POTASSIUM CHLORIDE 20 MEQ TABLET.ER. PO ONE (11:45)
--- NOTE | 2019-09-10 11:45 | SNU/HH DC ---
DISCHARGE WITH HOME HEALTH DISCHARGE INFORMATION: Final Diagnosis: Problems Medical Problems: (1) Ataxia Status: Acute (2) Back pain Status: Acute (3) Patient left without being seen Status: Acute Condition on Discharge: Stable CODE STATUS: Code Status: Full HOME HEALTH: Face to Face: I certify this patient is under my care and that I, or a nurse practitioner or physician's physician office assistant working with me, had a face to face encounter that meets the physician face to face encounter requirements with this patient on []. Medical Complications: Dementia, Falls Long Term For: Assess & Educate Safety, Assess/Skilled Observatio, Bowel/Bladder Training, Diabetic Care, Medication Management RN For Eval/Treatment: Yes Physical Therapy For: Evalulation/Treatment Occupational Therapy For: Evaluation/Treatment Speech Language Pathology For: Evaluation/Treatment Home Health Aide For: Self-care FASHION DESIGNER For: Community Resources Pt Meets Homebound Status: Fatigue w/ amb., Frequent falls w/ injury, Limited distance walking, Poor cognition POST DISCHARGE ORDERS: Activity Instructions for Disc: Activity as tolerated Weight Bearing Status after Di: As tolerated DIET AFTER DISCHARGE: ADA CHECKS AFTER DISCHARGE: Checks after discharge: Check blood press - daily TREATMENT/EQUIPMENT ORDERS: Adaptive Equipment Issued: Cane, Front wheeled walker, Walker Discharge Respiratory Equipmen: Nebulizer CERTIFICATION STATEMENT: Certification Statement: Certification Statement: Based on the above finding, I certify that this patient is confined to the home and needs intermittent jail care, physical therapy and/or speech therapy, or continues to need occupational therapy.~ This patient is under my care, and I have initiated the establishment of the plan of care.~ This patient will be followed by myself or a community physician who will periodically review the plan of care. Home Meds Active Scripts Insulin Lispro (Admelog) 100 Unit/1 Ml Vial, 0 UNITS SQ TIDWMEALS for glucose for 30 Days, #2 EACH Prov:INGRID CUEVAS MD 09/10/19 Docusate Sodium (DOK) 100 Mg Capsule, 100 MG PO PRN BID PRN for HARD STOOLS for 30 Days, #60 CAP Prov:INGRID CUEVAS MD 09/10/19 Mag Hydrox/Al Hydrox/Simeth (MAG-AL PLUS XS SUSPENSION) 30 Ml Oral.susp, 30 ML PO PRN DAILY PRN for HEARTBURN / GAS for 30 Days, #120 MISC Prov:INGRID CUEVAS MD 09/10/19 Guaifenesin (GUAIFENESIN) 100 Mg/5 Ml Liquid, 200 MG PO PRN Q4HRS PRN for COUGH for 10 Days, #240 LIQUID Prov:INGRID CUEVAS MD 09/10/19 Potassium Chloride (KLOR-CON M20) 20 Meq Tab.er.prt, 20 MEQ PO DAILYWBKFT for supplement for 10 Days, #10 TAB.SR Prov:INGRID CUEVAS MD 09/10/19 Carbidopa/Levodopa (CARBIDOPA-LEVO ER 25-100 TAB) 1 Each Tablet.er, 2 TAB.SA PO TID for parkinson's for 30 Days, #180 TAB.SR Prov:INGRID CUEVAS MD 09/10/19 Quetiapine Fumarate (QUETIAPINE FUMARATE) 25 Mg Tablet, 12.5 MG PO BID for mood for 30 Days, #30 TAB Prov:INGRID CUEVAS MD 09/10/19 Acetaminophen (TYLENOL) 325 Mg Tablet, 650 MG PO PRN Q4HRS PRN for TEMP OVER 100.4F OR MILD PAIN for 30 Days, #60 TAB Prov:INGRID CUEVAS MD 09/10/19 Albuterol Sulfate (Proair Hfa) 8.5 Gm Hfa.aer.ad, 2.5 MG NEB PRN Q4HRS PRN for SHORTNESS OF BREATH for 14 Days, #60 INHALER Prov:INGRID CUEVAS MD 09/10/19 Reported Medications Ferrous Sulfate (FERROUS SULFATE) 325 Mg Tablet, 1 TAB PO DAILY, TAB 09/24/17 Lisinopril (LISINOPRIL) 20 Mg Tablet, 1 TAB PO DAILY, TAB 09/24/17 Atorvastatin Calcium (ATORVASTATIN CALCIUM) 80 Mg Tablet, 1 TAB PO DAILY, TAB 09/24/17 Tamsulosin Hcl (TAMSULOSIN HCL) 0.4 Mg Cap.er.24h, 1 CAP PO DAILY, CAP 09/24/17 Chlorthalidone (CHLORTHALIDONE ) 25 Mg Tablet, 1 TAB PO DAILY, TAB 09/24/17 Omeprazole (OMEPRAZOLE) 20 Mg Tablet.dr, 1 TAB PO DAILY, TAB 09/24/17 Diltiazem Hcl (CARTIA XT) 180 Mg Cap.er.24h, 180 MG PO DAILY, CAP.SR 09/24/17 INGRID CUEVAS MD Sep 10, 2019 11:45
--- NOTE | 2019-09-10 11:53 | PDOC ---
PROGRESS NOTES Assessment Problems Medical Problems: (1) Ataxia Status: Acute (2) Back pain Status: Acute (3) Patient left without being seen Status: Acute I did not expect such a good response to the higher dose of carbidopa levodopa, thus this likely is Parkinson's disease, but he also has component of dementia implicating Lewy body diseaseentia is a likely culprit. This would explain the lack of response to carbidopa/levodopa. Plan Discharge on the higher dose of carbidopa/levodopa Rehabilitation modalities Return to assisted living with home health Follow up with me in 4-6 weeks. Subjective No complaints Objective Vital Signs Date Time Temp Pulse Resp B/P (MAP) Pulse Ox O2 Delivery O2 Flow Rate FiO2 09/10/19 08:33 70 168/87 09/10/19 08:00 Room Air 09/10/19 07:47 98.2 20 93 98.2 Intake and Output 09/10/19 07:00 Intake Total 1440 ml Output Total 300 ml Balance 1140 ml Intake Oral 1440 ml Output Urine Total 300 ml # Voids 11 # Bowel Movements 1 PHYSICAL EXAM Alert. Oriented to place and person, not date. PERRL. EOMI. CN: no focal findings. Muscle tone: slight cogwheel rigidity Muscle strength: 4/5 DTR: 2+ Plantar reflex: flexor Gait: not examined in bed. Sensory exam: no abnormal findings. No cerebellar signs elicited. No tremor Review of Relevant I have reviewed the following items shara (where applicable) has been applied. Labs Laboratory Tests Test 09/08/19 17:20 09/08/19 21:00 09/09/19 07:36 09/09/19 12:10 White Blood Count 10.9 x10^3/uL (4.0-11.0) Red Blood Count 5.04 x10^6/uL (4.30-5.70) Hemoglobin 16.0 g/dL (13.0-17.5) Hematocrit 45.7 % (39.0-53.0) Mean Corpuscular Volume 91 fL (79-100) Mean Corpuscular Hemoglobin 32 pg (25-35) Mean Corpuscular Hemoglobin Concent 35 g/dL (31-37) Red Cell Distribution Width 13.4 % (11.5-14.5) Platelet Count 276 x10^3/uL (140-400) Neutrophils (%) (Auto) 79 % (31-73) Lymphocytes (%) (Auto) 12 % (24-48) Monocytes (%) (Auto) 8 % (0-9) Eosinophils (%) (Auto) 1 % (0-3) Basophils (%) (Auto) 0 % (0-3) Neutrophils # (Auto) 8.6 x10^3/uL (1.8-7.7) Lymphocytes # (Auto) 1.3 x10^3/uL (1.0-4.8) Monocytes # (Auto) 0.9 x10^3/uL (0.0-1.1) Eosinophils # (Auto) 0.1 x10^3/uL (0.0-0.7) Basophils # (Auto) 0.0 x10^3/uL (0.0-0.2) Sodium Level 134 mmol/L (136-145) Potassium Level 3.8 mmol/L (3.5-5.1) Chloride Level 99 mmol/L (98-107) Carbon Dioxide Level 25 mmol/L (21-32) Anion Gap 10 (6-14) Blood Urea Nitrogen 14 mg/dL (8-26) Creatinine 0.9 mg/dL (0.7-1.3) Estimated GFR (Cockcroft-Gault) 81.2 BUN/Creatinine Ratio 16 (6-20) Glucose Level 124 mg/dL (70-99) Calcium Level 8.6 mg/dL (8.5-10.1) Magnesium Level 1.8 mg/dL (1.8-2.4) Total Bilirubin 0.8 mg/dL (0.2-1.0) Aspartate Amino Transf (AST/SGOT) 24 U/L (15-37) Alanine Aminotransferase (ALT/SGPT) 31 U/L (16-63) Alkaline Phosphatase 98 U/L (46-116) Creatine Kinase 650 U/L (39-308) Troponin I Quantitative < 0.017 ng/mL (0.000-0.055) Total Protein 7.0 g/dL (6.4-8.2) Albumin 3.8 g/dL (3.4-5.0) Albumin/Globulin Ratio 1.2 (1.0-1.7) Thyroid Stimulating Hormone (TSH) 0.399 uIU/mL (0.358-3.74) Glucose (Fingerstick) 181 mg/dL (70-99) 100 mg/dL (70-99) 130 mg/dL (70-99) Test 09/09/19 17:02 09/09/19 21:12 09/10/19 04:50 Glucose (Fingerstick) 128 mg/dL (70-99) 162 mg/dL (70-99) White Blood Count 9.3 x10^3/uL (4.0-11.0) Red Blood Count 4.78 x10^6/uL (4.30-5.70) Hemoglobin 15.2 g/dL (13.0-17.5) Hematocrit 43.5 % (39.0-53.0) Mean Corpuscular Volume 91 fL (79-100) Mean Corpuscular Hemoglobin 32 pg (25-35) Mean Corpuscular Hemoglobin Concent 35 g/dL (31-37) Red Cell Distribution Width 13.5 % (11.5-14.5) Platelet Count 248 x10^3/uL (140-400) Neutrophils (%) (Auto) 60 % (31-73) Lymphocytes (%) (Auto) 27 % (24-48) Monocytes (%) (Auto) 9 % (0-9) Eosinophils (%) (Auto) 3 % (0-3) Basophils (%) (Auto) 0 % (0-3) Neutrophils # (Auto) 5.6 x10^3/uL (1.8-7.7) Lymphocytes # (Auto) 2.5 x10^3/uL (1.0-4.8) Monocytes # (Auto) 0.8 x10^3/uL (0.0-1.1) Eosinophils # (Auto) 0.3 x10^3/uL (0.0-0.7) Basophils # (Auto) 0.0 x10^3/uL (0.0-0.2) Sodium Level 134 mmol/L (136-145) Potassium Level 3.2 mmol/L (3.5-5.1) Chloride Level 100 mmol/L (98-107) Carbon Dioxide Level 26 mmol/L (21-32) Anion Gap 8 (6-14) Blood Urea Nitrogen 9 mg/dL (8-26) Creatinine 0.8 mg/dL (0.7-1.3) Estimated GFR (Cockcroft-Gault) 93.0 Glucose Level 104 mg/dL (70-99) Calcium Level 8.3 mg/dL (8.5-10.1) Laboratory Tests Test 09/09/19 12:10 09/09/19 17:02 09/09/19 21:12 09/10/19 04:50 Glucose (Fingerstick) 130 mg/dL (70-99) 128 mg/dL (70-99) 162 mg/dL (70-99) White Blood Count 9.3 x10^3/uL (4.0-11.0) Red Blood Count 4.78 x10^6/uL (4.30-5.70) Hemoglobin 15.2 g/dL (13.0-17.5) Hematocrit 43.5 % (39.0-53.0) Mean Corpuscular Volume 91 fL (79-100) Mean Corpuscular Hemoglobin 32 pg (25-35) Mean Corpuscular Hemoglobin Concent 35 g/dL (31-37) Red Cell Distribution Width 13.5 % (11.5-14.5) Platelet Count 248 x10^3/uL (140-400) Neutrophils (%) (Auto) 60 % (31-73) Lymphocytes (%) (Auto) 27 % (24-48) Monocytes (%) (Auto) 9 % (0-9) Eosinophils (%) (Auto) 3 % (0-3) Basophils (%) (Auto) 0 % (0-3) Neutrophils # (Auto) 5.6 x10^3/uL (1.8-7.7) Lymphocytes # (Auto) 2.5 x10^3/uL (1.0-4.8) Monocytes # (Auto) 0.8 x10^3/uL (0.0-1.1) Eosinophils # (Auto) 0.3 x10^3/uL (0.0-0.7) Basophils # (Auto) 0.0 x10^3/uL (0.0-0.2) Sodium Level 134 mmol/L (136-145) Potassium Level 3.2 mmol/L (3.5-5.1) Chloride Level 100 mmol/L (98-107) Carbon Dioxide Level 26 mmol/L (21-32) Anion Gap 8 (6-14) Blood Urea Nitrogen 9 mg/dL (8-26) Creatinine 0.8 mg/dL (0.7-1.3) Estimated GFR (Cockcroft-Gault) 93.0 Glucose Level 104 mg/dL (70-99) Calcium Level 8.3 mg/dL (8.5-10.1) Microbiology 09/09/19 Blood Culture - Preliminary, Resulted NO GROWTH AFTER 1 DAY Medications Current Medications Ondansetron HCl (Zofran) 4 mg PRN Q8HRS PRN IV NAUSEA/VOMITING; Start 09/08/19 at 17:45; Stop 09/08/19 at 19:34; Status DC Fentanyl Citrate (Fentanyl 2ml Vial) 25 mcg PRN Q1HR PRN IV PAIN; Start 09/08/19 at 17:45; Stop 09/09/19 at 17:44; Status DC Acetaminophen (Tylenol) 650 mg PRN Q4HRS PRN PO FEVER > 100.3'F; Start 09/08/19 at 17:45; Stop 09/08/19 at 19:34; Status DC Chlorthalidone (Thalitone) 25 mg DAILY PO Last administered on 09/10/19at 08:33; Start 09/09/19 at 09:00 Diltiazem HCl (Cardizem 24hr Cd) 180 mg DAILY PO Last administered on 09/10/19at 08:31; Start 09/09/19 at 09:00 Ferrous Sulfate (Feosol) 325 mg DAILY PO Last administered on 09/10/19at 08:33; Start 09/09/19 at 09:00 Lisinopril (Prinivil) 20 mg DAILY PO Last administered on 09/10/19at 08:33; Start 09/09/19 at 09:00 Tamsulosin HCl (Flomax) 0.4 mg DAILY PO Last administered on 09/10/19at 08:32; Start 09/09/19 at 09:00 Atorvastatin Calcium (Lipitor) 80 mg QHS PO Last administered on 09/09/19at 21:08; Start 09/08/19 at 21:00 Pantoprazole Sodium (Protonix) 40 mg DAILYAC PO Last administered on 09/10/19at 08:33; Start 09/09/19 at 07:30 Sodium Chloride (Normal Saline Flush) 3 ml QSHIFT PRN IV AFTER MEDS AND BLOOD DRAWS; Start 09/08/19 at 19:30 Sodium Chloride 1,000 ml @ 65 mls/hr [id number] IV Last administered on 09/09/19at 09:46; Start 09/08/19 at 19:26; Stop 09/09/19 at 16:29; Status DC Ondansetron HCl (Zofran) 4 mg PRN Q4HRS PRN IV NAUSEA/VOMITING; Start 09/08/19 at 19:30 Acetaminophen (Tylenol) 650 mg PRN Q4HRS PRN PO TEMP OVER 100.4F OR MILD PAIN Last administered on 09/08/19at 21:21; Start 09/08/19 at 19:30 Al Hydroxide/Mg Hydroxide (Mylanta Plus Xs) 30 ml PRN DAILY PRN PO HEARTBURN / GAS; Start 09/08/19 at 19:30 Sodium Monofluorophosphate (Fleet Adult) 133 ml PRN DAILY PRN DE CONSTIPATION; Start 09/08/19 at 19:30 Docusate Sodium (Colace) 100 mg PRN BID PRN PO HARD STOOLS; Start 09/08/19 at 19:30 Albuterol Sulfate (Ventolin Neb Soln) 2.5 mg PRN Q4HRS PRN NEB SHORTNESS OF BREATH; Start 09/08/19 at 19:30 Guaifenesin (Robitussin) 200 mg PRN Q4HRS PRN PO COUGH; Start 09/08/19 at 19:30 Enoxaparin Sodium (Lovenox 40mg Syringe) 40 mg Q24H SQ Last administered on at 21:10; Start 09/08/19 at 21:00 Insulin Human Lispro (HumaLOG) 0-5 UNITS TIDWMEALS SQ ; Start 09/08/19 at 21:00 Dextrose (Dextrose 50%-Water Syringe) 12.5 gm PRN Q15MIN PRN IV SEE COMMENTS; Start 09/08/19 at 19:45 Carbidopa/Levodopa (Sinemet Cr) 2 tab.sa TID PO Last administered on 09/10/19at 08:32; Start 09/09/19 at 09:00 Risperidone (RisperDAL) 0.5 mg 1X ONCE PO ; Start 09/09/19 at 16:15; Stop 7/20/20 at 16:15; Status DC Risperidone (RisperDAL) 0.5 mg BID PO ; Start 09/09/19 at 21:00; Stop 09/09/19 at 16:15; Status DC Quetiapine Fumarate (SEROquel) 12.5 mg BID PO Last administered on 09/10/19at 08:32; Start 09/09/19 at 16:15 Potassium Chloride (Klor-Con) 40 meq 1X ONCE PO ; Start 09/10/19 at 11:45; Stop 09/10/19 at 11:46; Status DC Potassium Chloride (Klor-Con) 20 meq DAILYWBKFT PO ; Start 09/11/19 at 08:00 Active Scripts Active Admelog (Insulin Lispro) 100 Unit/1 Ml Vial 0 Units SQ TIDWMEALS 30 Days Dok (Docusate Sodium) 100 Mg Capsule 100 Mg PO PRN BID PRN 30 Days Mag-Al Plus Xs Suspension (Mag Hydrox/Al Hydrox/Simeth) 30 Ml Oral.susp 30 Ml PO PRN DAILY PRN 30 Days Guaifenesin 100 Mg/5 Ml Liquid 200 Mg PO PRN Q4HRS PRN 10 Days Klor-Con M20 (Potassium Chloride) 20 Meq Tab.er.prt 20 Meq PO DAILYWBKFT 10 Days Carbidopa-Levo Er 25-100 Tab (Carbidopa/Levodopa) 1 Each Tablet.er 2 Tab.sa PO TID 30 Days Quetiapine Fumarate 25 Mg Tablet 12.5 Mg PO BID 30 Days Tylenol (Acetaminophen) 325 Mg Tablet 650 Mg PO PRN Q4HRS PRN 30 Days Proair Hfa (Albuterol Sulfate) 8.5 Gm Hfa.aer.ad 2.5 Mg NEB PRN Q4HRS PRN 14 Days Reported Ferrous Sulfate 325 Mg Tablet 1 Tab PO DAILY Lisinopril 20 Mg Tablet 1 Tab PO DAILY Atorvastatin Calcium 80 Mg Tablet 1 Tab PO DAILY Tamsulosin Hcl 0.4 Mg Cap.er.24h 1 Cap PO DAILY Chlorthalidone (Chlorthalidone) 25 Mg Tablet 1 Tab PO DAILY Omeprazole 20 Mg Tablet.dr 1 Tab PO DAILY Cartia Xt (Diltiazem Hcl) 180 Mg Cap.er.24h 180 Mg PO DAILY Vitals/I & O Vital Sign - Last 24 Hours 09/09/19 09/09/19 09/09/19 09/09/19 15:00 19:00 19:30 23:00 Temp 98.0 98.1 97.8 98.0 98.1 97.8 Pulse 66 73 63 Resp 18 18 18 B/P (MAP) 111/58 (75) 124/77 (93) 124/78 (93) Pulse Ox 93 92 93 O2 Delivery Room Air Room Air Room Air Room Air 09/10/19 09/10/19 09/10/19 09/10/19 03:00 07:47 08:00 08:31 Temp 98.6 98.2 98.6 98.2 Pulse 70 70 70 Resp 18 20 B/P (MAP) 120/70 (87) 168/87 (114) 168/87 Pulse Ox 92 93 O2 Delivery Room Air Room Air Room Air 09/10/19 08:33 Pulse 70 B/P (MAP) 168/87 Intake and Output 09/09/19 09/09/19 09/10/19 15:00 23:00 07:00 Intake Total 540 ml 500 ml 400 ml Output Total 300 ml Balance 540 ml 500 ml 100 ml Justicifation of Admission Dx: Justifications for Admission: Justification of Admission Dx: Yes CHF: Cardiac Arrhythmias Comminuty Aquired Pneumonia: Med-High Risk Pt Chronic Renal Failure: Encephalopathy Altered Mental Status: Altered Mental Status MIL JEFFREY MD Sep 10, 2019 11:53
[2019-09-10 11:55] VITALS: BP 95/65
--- NOTE | 2019-09-10 14:23 | NUR ---
Discharge Note: MIL METZ Discharge instructions and discharge home medications reviewed with Patient and a copy given. All questions have been answered and understanding verbalized. The following instructions and handouts were given: Patient. Son in law also aware. Patient discharged to home with home health with Krysten via private vehicle.
[2019-09-11] MEDS ORDERED: POTASSIUM CHLORIDE 20 MEQ TABLET.ER. PO SCH (08:00)
== END 2019-09-10 13:36 | disposition home health service (06) | DRG 57 ==
LOC: ER 16:44 → ED HOLD 17:27 → 4 NORTH 19:32
PROVIDERS: ADMIT Family Medicine; ATTEND Family Medicine
DX: G31.83 Neurocognitive disorder with Lewy bodies (principal); G25.9 Extrapyramidal and movement disorder, unspecified; I13.0 Hypertensive heart and chronic kidney disease with heart failure and stage 1 through stage 4 chronic kidney disease, or unspecified chronic kidney disease; J98.11 Atelectasis; E78.5 Hyperlipidemia, unspecified; F02.80 Dementia in other diseases classified elsewhere, unspecified severity, without behavioral disturbance, psychotic disturbance, mood disturbance, and anxiety; G62.9 Polyneuropathy, unspecified; I50.9 Heart failure, unspecified; K44.9 Diaphragmatic hernia without obstruction or gangrene; M17.0 Bilateral primary osteoarthritis of knee; N18.9 Chronic kidney disease, unspecified; R29.6 Repeated falls; W07.XXXA Fall from chair, initial encounter; Z82.49 Family history of ischemic heart disease and other diseases of the circulatory system; Z85.828 Personal history of other malignant neoplasm of skin; Z91.81 History of falling; K21.9 Gastro-esophageal reflux disease without esophagitis; M43.00 Spondylolysis, site unspecified; M51.36 Other intervertebral disc degeneration, lumbar region; R27.0 Ataxia, unspecified; Y93.89 Activity, other specified; Y92.89 Other specified places as the place of occurrence of the external cause; Y99.8 Other external cause status; Z60.2 Problems related to living alone
CPT/HCPCS: 36415; 70450; 71045; 72128; 72131; 73521; 80048; 80053; 81001; 82550; 82962; 83735; 84443; 84484; 85025; 87040; 93005; 94760; 99285; J1650; J1815; J7030; 92523-GN; 97110-GP; 97116-GP; 97530-GP; 97535-GO; G0378

== ENCOUNTER 2020-01-25 19:18 | Inpatient (IN) | payer MEDICARE ==
[~2020-01-25] VITALS: Ht 165.1 cm; Wt 68.5 kg
[~2020-01-25 19:18] MED LIST changes: +ACET325T9 PO; +ALBU2.5V8 NEB; +CARB1TAB43 PO; +DOCU-153 PO; +GUAI100L12 PO; +INSU100V35 SQ; +MAG30ORA2 PO; +POTA20TA4 PO; +QUET25TA PO
[2020-01-25] MEDS ORDERED: IV NORMAL SALINE 500ML BAG 500 ML IV ONE (20:15)
[2020-01-25 20:44] LABS: BASO % 1 % (0-3); EOS # 0.2 x10^3/uL (0.0-0.7); EOS % 2 % (0-3); HEMATOCRIT 47.9 % (39.0-53.0); HEMOGLOBIN 16.3 g/dL (13.0-17.5); LYMPH # 1.4 x10^3/uL (1.0-4.8); LYMPH % 14 % (24-48); MEAN CORPUSCULAR HEMOGLOBIN 32 pg (25-35); MEAN CORPUSCULAR HGB CONC 34 g/dL (31-37); MEAN CORPUSCULAR VOLUME 93 fL (79-100); MONO # 0.6 x10^3/uL (0.0-1.1); MONO % 6 % (0-9); NEUT % 78 % (31-73); PLATELET COUNT 255 x10^3/uL (140-400); RED BLOOD COUNT 5.17 x10^6/uL (4.30-5.70); RED CELL DISTRIBUTION WIDTH 13.9 % (11.5-14.5); WHITE BLOOD COUNT 10.2 x10^3/uL (4.0-11.0)
[2020-01-25 20:56] LABS: CALCIUM 8.9 mg/dL (8.5-10.1); CREATININE 0.9 mg/dL (0.7-1.3); POTASSIUM 4.1 mmol/L (3.5-5.1)
--- NOTE | 2020-01-25 21:00 | RAD ---
HAND RIGHT 3V, PORTABLE CHEST 1V Clinical History: Reason: pain to right 4th metacarpal and prox phalanx and syncope: One view chest: Technique: AP view of the chest was obtained at 01/25/2020 8:13 PM. Comparison: September 09, 2019. Findings: The cardiomediastinal silhouette is normal. The pulmonary vasculature is normal. The lungs and pleural margins are clear. Impression: No evidence of an acute cardiopulmonary process. End impression Three-view right hand: There is degenerative changes of the distal interphalangeal joints and interphalangeal joint of the thumb with marginal spurring. There is no lytic destructive changes. There is gross osteopenia which limits sensitivity for possible nondisplaced fracture. IMPRESSION: Osteoarthrosis. No acute findings. Electronically signed by: Dimas Walker III, MD (01/25/2020 8:57 PM) [facility]
[2020-01-25 21:02] LABS: ALBUMIN 3.8 g/dL (3.4-5.0); ALBUMIN/GLOBULIN RATIO 1.2 (1.0-1.7); TOTAL BILIRUBIN 0.5 mg/dL (0.2-1.0); TOTAL PROTEIN 7.1 g/dL (6.4-8.2)
[2020-01-25 21:11] LABS: CREATINE KINASE 63 U/L (39-308)
--- NOTE | 2020-01-25 21:14 | RAD ---
CT Head W/O Contrast: History: Reason: fall, pain / Spl. Instructions: / History: Comparison: none Axial images were obtained without contrast. There is moderate diffuse atrophy. There is no mass effect, extraaxial fluid collections or hydrocephalus. There is no gross bleed. Moderate to marked, patchy periventricular and subcortical white matter hypoattenuation is seen. There is no focal loss of bo-white matter distinction to suggest acute ischemia, i.e. stroke. Impression: No acute findings. End impression CT C-Spine without contrast: Clinical History: Reason: fall, pain / Spl. Instructions: / History: Technique: Axial helical images of the cervical spine were obtained without contrast, axial coronal and sagittal reconstruction was performed. Findings: There is no loss of vertebral body stature. There is no prevertebral soft tissue swelling. The vertebral bodies are well aligned. There is straightening of the normal cervical lordosis which can be positional or could be chronic. The C1-C2 relationship is normal. 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 The remaining visualized osseous structures appear normal. Evaluation of the central canal is limited without contrast. There is multiple posterior disc bulges resulting in flattening of the thecal sac. There does not appear to be gross flattening of the cervical cord. There is marked narrowing of multiple neuroforamen. Impression: No acute findings. Clinical correlation suggested. PQRS Compliance Statement: One or more of the following individualized dose reduction techniques were utilized for this examination: 1. Automated exposure control 2. Adjustment of the mA and/or kV according to patient size 3. Use of iterative reconstruction technique Electronically signed by: Dimas Walker III, MD (01/25/2020 9:11 PM) [facility]
[2020-01-25 21:30] LABS: BILIRUBIN,URINE NEGATIVE (NEG); CLARITY,URINE CLEAR; COLOR,URINE YELLOW; NITRITE,URINE NEGATIVE (NEG); PROTEIN,URINE NEGATIVE (NEG-TRACE)
[2020-01-25 21:39] LABS: BACTERIA,URINE 0 /HPF (0-FEW); WBC,URINE OCC /HPF (0-4)
[2020-01-25] MEDS ORDERED: ONDANSETRON PF 4 MG/2 ML VIAL. IV PRN (21:45)
--- NOTE | 2020-01-25 21:45 | PHYS DOC ---
Past Medical History Past Medical History: Dementia (?), GERD, Hypertension Additional Past Medical Histor: SKIN CANCER, left eye blindness, "Pa rkinsonism?" Past Surgical History: Other Additional Past Surgical Histo: cornea transplants Smoking Status: Never Smoker Alcohol Use: None Drug Use: None General Adult EDM: Chief Complaint: MECHANICAL FALL HPI: HPI: Patient is a 79-year-old male presents with family from [facility] where patient had a syncopal episode and ended up falling which occurred at approximately 1800. Patient reports he did not hit his head. Denies prior dizziness or chest pain. Patient currently reports he does not remember the fall. Patient does complain of right ring finger pain and swelling. Bruising was noted by family. Family reports patient has been seen by neurology recently and thought to have possibly parkinsonism and or dementia. Family reports patient has had similar episode after event where he becomes more confused. Review of Systems: Review of Systems: Constitutional: Denies fever or chills Eyes: Denies redness or eye pain HENT: Denies nasal congestion or sore throat Respiratory: Denies cough or shortness of breath Cardiovascular: Denies chest pain or palpitations GI: Denies abdominal pain, nausea, or vomiting : Denies dysuria or hematuria Musculoskeletal: Denies back pain; reports pain to right ring finger Integument: Denies rash or skin lesions; reports of bruising to right ring finger Neurologic: Denies headache, focal weakness or sensory changes; reports syncopal episode Complete systems were reviewed and found to be within normal limits, except as documented in this note. Current Medications: Current Medications Medications (Trade) Dose Ordered Sig/[facility] Start Time Stop Time Status Last Admin Dose Admin Aspirin (Ecotrin) 325 mg 1X ONCE 01/25/20 21:45 01/25/20 21:46 UNV Sodium Chloride 500 ml @ 500 mls/hr 1X ONCE 01/25/20 20:15 01/25/20 21:14 DC 01/25/20 20:15 500 MLS/HR Allergies: Allergies: Allergies Coded Allergies Type Severity Reaction Last Updated Verified No Known Drug Allergies 09/24/17 No Physical Exam: PE: Constitutional: Well developed, well nourished, no acute distress, non-toxic appearance HENT: Normocephalic, atraumatic Eyes: PERRL, EOMI, conjunctiva normal, no discharge Neck: Normal range of motion, no midline tenderness, supple Lungs & Thorax: No respiratory distress, equal chest rise and fall Abdomen: Soft, no tenderness, no guarding/rebound tenderness/distention Skin: Warm, dry, no erythema, bruising noted to right dorsal ring finger at MCP Back: No midline tenderness, no CVA tenderness Extremities: No tenderness, ROM intact, no edema, right ring finger bruising and pain as above Neurologic: Alert and oriented X 2, normal motor function, normal sensory function, no focal deficits noted Current Patient Data: Labs: Laboratory Tests Test 01/25/20 20:30 White Blood Count 10.2 x10^3/uL (4.0-11.0) Red Blood Count 5.17 x10^6/uL (4.30-5.70) Hemoglobin 16.3 g/dL (13.0-17.5) Hematocrit 47.9 % (39.0-53.0) Mean Corpuscular Volume 93 fL (79-100) Mean Corpuscular Hemoglobin 32 pg (25-35) Mean Corpuscular Hemoglobin Concent 34 g/dL (31-37) Red Cell Distribution Width 13.9 % (11.5-14.5) Platelet Count 255 x10^3/uL (140-400) Neutrophils (%) (Auto) 78 % (31-73) H Lymphocytes (%) (Auto) 14 % (24-48) L Monocytes (%) (Auto) 6 % (0-9) Eosinophils (%) (Auto) 2 % (0-3) Basophils (%) (Auto) 1 % (0-3) Neutrophils # (Auto) 8.0 x10^3/uL (1.8-7.7) H Lymphocytes # (Auto) 1.4 x10^3/uL (1.0-4.8) Monocytes # (Auto) 0.6 x10^3/uL (0.0-1.1) Eosinophils # (Auto) 0.2 x10^3/uL (0.0-0.7) Basophils # (Auto) 0.0 x10^3/uL (0.0-0.2) Sodium Level 136 mmol/L (136-145) Potassium Level 4.1 mmol/L (3.5-5.1) Chloride Level 98 mmol/L (98-107) Carbon Dioxide Level 28 mmol/L (21-32) Anion Gap 10 (6-14) Blood Urea Nitrogen 13 mg/dL (8-26) Creatinine 0.9 mg/dL (0.7-1.3) Estimated GFR (Cockcroft-Gault) 81.0 BUN/Creatinine Ratio 14 (6-20) Glucose Level 150 mg/dL (70-99) H Lactic Acid Level 1.7 mmol/L (0.4-2.0) Calcium Level 8.9 mg/dL (8.5-10.1) Magnesium Level 2.0 mg/dL (1.8-2.4) Total Bilirubin 0.5 mg/dL (0.2-1.0) Aspartate Amino Transferase (AST) 15 U/L (15-37) Alanine Aminotransferase (ALT) 7 U/L (16-63) L Alkaline Phosphatase 138 U/L (46-116) H Ammonia < 10 mcmol/L (11-34) L Creatine Kinase 63 U/L (39-308) Creatine Kinase MB (Mass) 1.1 ng/mL (0.0-3.6) Creatine Kinase MB Relative Index % (0-4) Troponin I Quantitative < 0.017 ng/mL (0.000-0.055) VS-Llw-S-Type Natriuretic Peptide 193 pg/mL (0-449) Total Protein 7.1 g/dL (6.4-8.2) Albumin 3.8 g/dL (3.4-5.0) Albumin/Globulin Ratio 1.2 (1.0-1.7) Laboratory Tests 01/25/20 20:30 Laboratory Tests 01/25/20 20:30 Vital Signs: Vital Signs Date Time Temp Pulse Resp B/P (MAP) Pulse Ox O2 Delivery O2 Flow Rate FiO2 01/25/20 19:50 97.6 65 20 160/76 (104) 97 Room Air 97.6 EKG: EKG: @2000 Aflutter at 67bpm, NO ST elevation, QRS 82ms, QT/QTc 402/428ms compared to prior EKG per [employer] from 09/06/2018 which was NSR at that time. Radiology/Procedures: Radiology/Procedures: PROCEDURE: HAND RIGHT 3V, PORTABLE CHEST 1V Clinical History: Reason: pain to right 4th metacarpal and prox phalanx and syncope: One view chest: Technique: AP view of the chest was obtained at 01/25/2020 8:13 PM. Comparison: September 09, 2019. Findings: The cardiomediastinal silhouette is normal. The pulmonary vasculature is normal. The lungs and pleural margins are clear. Impression: No evidence of an acute cardiopulmonary process. End impression Three-view right hand: There is degenerative changes of the distal interphalangeal joints and interphalangeal joint of the thumb with marginal spurring. There is no lytic destructive changes. There is gross osteopenia which limits sensitivity for possible nondisplaced fracture. IMPRESSION: Osteoarthrosis. No acute findings. Electronically signed by: Dimas Walker III, MD (01/25/2020 8:57 PM) [facility] PROCEDURE: CT HEAD AND CERVICAL SPINE WO CT Head W/O Contrast: History: Reason: fall, pain / Spl. Instructions: / History: Comparison: none Axial images were obtained without contrast. There is moderate diffuse atrophy. There is no mass effect, extraaxial fluid collections or hydrocephalus. There is no gross bleed. Moderate to marked, patchy periventricular and subcortical white matter hypoattenuation is seen. There is no focal loss of bo-white matter distinction to suggest acute ischemia, i.e. stroke. Impression: No acute findings. End impression CT C-Spine without contrast: Clinical History: Reason: fall, pain / Spl. Instructions: / History: Technique: Axial helical images of the cervical spine were obtained without contrast, axial coronal and sagittal reconstruction was performed. Findings: There is no loss of vertebral body stature. There is no prevertebral soft tissue swelling. The vertebral bodies are well aligned. There is straightening of the normal cervical lordosis which can be positional or could be chronic. The C1-C2 relationship is normal. 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 The remaining visualized osseous structures appear normal. Evaluation of the central canal is limited without contrast. There is multiple posterior disc bulges resulting in flattening of the thecal sac. There does not appear to be gross flattening of the cervical cord. There is marked narrowing of multiple neuroforamen. Impression: No acute findings. Clinical correlation suggested. PQRS Compliance Statement: One or more of the following individualized dose reduction techniques were utilized for this examination: 1. Automated exposure control 2. Adjustment of the mA and/or kV according to patient size 3. Use of iterative reconstruction technique Electronically signed by: Dimas Walker III, MD (01/25/2020 9:11 PM) [facility] Course & Med Decision Making: Course & Med Decision Making Pertinent Labs and Imaging studies reviewed. (See chart for details) Patient presents with report of fall at 1800. Patient does not recall events and appeared to have a syncopal event. Patient was complaining of pain to right ring finger. NIHSS obtained. 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 CT head/cervical spine without acute process. Labs obtained and posted to chart. EKG stable. Chest x-ray without acute process. Hand x-ray without fracture or dislocation. An aluminum splint applied for comfort. Patient requiring admission for further evaluation and treatment. Discussed with Dr. Maza (hospitalist) who is in agreement with admission. Discussed findings and plan with patient and family, who acknowledge understanding and agreement. Dragon Disclaimer: Dragon Disclaimer: This electronic medical record was generated, in whole or in part, using a voice recognition dictation system. Splinting Splinting : Location: Right ring finger Pre-Made Type: metal (Aluminium finger splint) Pre-Proc Neuro Vasc Exam: normal Post-Proc Neuro Vasc Exam: normal, unchanged from pre-exam Departure Departure Impression: Primary Impression: Syncope Qualified Codes: R55 - Syncope and collapse Additional Impressions: Sprain of right ring finger Qualified Codes: S63.654A - Sprain of metacarpophalangeal joint of right ring finger, initial encounter Confusion Disposition: ADMITTED INPT THIS HOSP Admitting Physician: PRISCILLA Jhaveri) Condition: STABLE Referrals: CELENA REDDY MD (PCP) NIHSS Stroke Scale NIH Stroke Scale: NIH Stroke Scale Response (Comments) Value Level of Consciousness: 0 Alert/Responsive 0 LOC Questions: 0 Answers both correctly 0 LOC Commands: 0 Performs both tasks 0 Best Gaze: 0 Normal 0 Visual: 2 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
[2020-01-25] MEDS ORDERED: ASPIRIN ENTERIC COATED 325 MG TABLET.DR. PO ONE (22:00)
--- NOTE | 2020-01-25 22:00 | NUR ---
Added long anterior splint from the tip of the [place] finger on the right side to the palm.
[2020-01-25 23:12] VITALS: BP 178/85
[2020-01-25] MEDS ORDERED: DONE10TA7 PO (23:33)
[2020-01-25] MEDS ORDERED: CETI10TA74 PO (23:33)
[2020-01-25] MEDS ORDERED: LISI-130 PO (23:33)
[2020-01-25] MEDS ORDERED: CARB1TAB22 PO (23:33)
[2020-01-26] MEDS: DONEPEZIL HCL 10 MG TABLET. PO SCH ×2 (00:38→21:47)
[2020-01-26] MEDS: ATORVASTATIN CALCIUM 40 MG TABLET. PO SCH ×2 (00:38→21:47)
--- NOTE | 2020-01-26 01:35 | NUR ---
Patient arrived to unit accompanied by power equipment technology instructor and family. Assessment complete. VS stable. Patient removed finger splint and did not want it replaced. patient resting comfortably on RA. Patient stated that he had to pee, voided 100, patient sat down and then got right back up stating he had to pee again did this multiple times with little output. Bladder scanned patient >537mL. Dr. Maza notified and ordered Dietz catheter to be placed. Nurse attempted to place Dietz catheter- patient yelling "Stop it, take it out" and pulling at nurses hands. Nurse was unable to place Dietz at this time. Call light in reach. bed alarm set, reminded patient to call for assistance before ambulating. Will continue to monitor.
[2020-01-26 02:33] VITALS: BP 168/79
--- NOTE | 2020-01-26 06:27 | NUR ---
Bladder scan post void 630 mL. Patient had 150 mL out. Will notify Physician.
[2020-01-26 07:00] VITALS: BP 214/97
--- NOTE | 2020-01-26 08:23 | EKG ---
[facility] [address] [place] [address] Test Date: 2020-01-25 Test Time: 20:00:58 Pat Name: MIL METZ Department: Room: 205 1 Gender: M Display Trimmer: : 1940 Requested By: DANIAL TIMMONS Order Number: [id number] Reading MD: Shane Trejo MD Measurements Intervals [place] Rate: 67 P: CO: QRS: 20 QRSD: 82 T: 52 QT: 402 QTc: 428 Interpretive Statements SR Electronically Signed On 01-27-2020 13:44:09 NEURO OPHTHALMOLOGIST by Shane Trejo MD
[2020-01-26] MEDS: CARBIDOPA/LEVODOPA 25/100MG TABLET PO SCH ×3 (08:55→21:47)
[2020-01-26] MEDS: CETIRIZINE HCL 10 MG TABLET. PO SCH (08:56)
[2020-01-26] MEDS: TAMSULOSIN 0.4 MG CAP.ER.24H. PO SCH (08:56)
[2020-01-26] MEDS: LISINOPRIL 20 MG TABLET PO SCH (08:57)
[2020-01-26] MEDS: PANTOPRAZOLE 40 MG TABLET.DR. PO SCH (08:58)
[2020-01-26 10:38] VITALS: BP 194/91
--- NOTE | 2020-01-26 10:57 | PDOC1 ---
History and Physical Date of Admission Date of Admission DATE: 01/26/20 TIME: 10:57 Identification/Chief Complaint Chief Complaint Patient is a 79-year-old male presents with family from [facility] [place] where patient had a syncopal episode and ended up falling which occurred at approximately 1800. Patient reports he did not hit his head. Denies prior dizziness or chest pain. Patient currently reports he does not remember the fall. Patient does complain of right ring finger pain and swelling. Bruising was noted by family. Family reports patient has been seen by neurology recently and thought to have possibly parkinsonism and or dementia Past Medical History Past Medical History Past Medical History Past Medical History Past Medical History: Dementia (?), GERD, Hypertension Additional Past Medical Histor: SKIN CANCER, left eye blindness, "Parkinsonism?" Past Surgical History: Other Additional Past Surgical Histo: cornea transplants Smoking Status: Never Smoker Alcohol Use: None Drug Use: None PAST MEDICAL HISTORY: Also includes dementia, osteoarthritis, hyperlipidemia and he apparently was seen by neurologist about 2 years ago and started him on medicine for Parkinson's disease without much help. FHX HTN Cardiovascular: HTN CENTRAL NERVOUS SYSTEM: Other GI: GERD Musculoskeletal: Osteoarthritis Renal/: Urinary Incontinence Past Surgical History Past Surgical History: Other Family History Family History: Hypertension Social History Smoke: No ALCOHOL: none Drugs: None Current Problem List Problem List Problems Medical Problems: (1) Confusion Status: Acute (2) Sprain of right ring finger Status: Acute (3) Syncope Status: Acute Current Medications Current Medications Current Medications Sodium Chloride 500 ml @ 500 mls/hr 1X ONCE IV Last administered on 01/25/20at 20:15; Start 01/25/20 at 20:15; Stop 01/25/20 at 21:14; Status DC Aspirin (Ecotrin) 325 mg 1X ONCE PO Last administered on 01/25/20at 22:03; Start 01/25/20 at 22:00; Stop 01/25/20 at 22:01; Status DC Ondansetron HCl (Zofran) 4 mg PRN Q8HRS PRN IV NAUSEA/VOMITING 1ST CHOICE; Start 01/25/20 at 21:45; Stop 01/26/20 at 21:44 Carbidopa/Levodopa (Sinemet 25/100) 2 tab TID PO Last administered on 01/26/20at 08:55; Start 01/26/20 at 09:00 Cetirizine HCl (ZyrTEC) 10 mg DAILY PO Last administered on 01/26/20 08:56; Start 01/26/20 at 09:00 Diltiazem HCl (Cardizem 24hr Cd) 180 mg DAILY PO Last administered on 01/26/20at 08:58; Start 01/26/20 at 09:00 Donepezil HCl (Aricept) 10 mg HS PO Last administered on 01/26/20at 00:38; Start 01/26/20 at 00:00 Lisinopril (Prinivil) 40 mg DAILY PO Last administered on 01/26/20 08:57; Start 01/26/20 at 09:00 Tamsulosin HCl (Flomax) 0.4 mg DAILY PO Last administered on 01/26/20 08:56; Start 01/26/20 at 09:00 Atorvastatin Calcium (Lipitor) 80 mg QHS PO Last administered on 01/26/20at 00:38; Start 01/26/20 at 00:00 Pantoprazole Sodium (Protonix) 40 mg DAILYAC PO Last administered on 01/26/20at 08:58; Start 01/26/20 at 07:30 Active Scripts Active Reported Carbidopa-Levodopa 25-100 Tab (Carbidopa/Levodopa) 1 Each Tablet 2 Each PO TID Zyrtec (Cetirizine Hcl) 10 Mg Tablet 10 Mg PO DAILY Donepezil Hcl 10 Mg Tablet 10 Mg PO HS Lisinopril 40 Mg Tablet 40 Mg PO DAILY Atorvastatin Calcium 80 Mg Tablet 1 Tab PO DAILY Tamsulosin Hcl 0.4 Mg Cap.er.24h 1 Cap PO DAILY Omeprazole 20 Mg Tablet.dr 1 Tab PO DAILY Cartia Xt (Diltiazem Hcl) 180 Mg Cap.er.24h 180 Mg PO DAILY Allergies Allergies: Coded Allergies: No Known Drug Allergies (Unverified , 09/24/17) ROS Review of System Constitutional: Denies fever or chills Eyes: Denies redness or eye pain HENT: Denies nasal congestion or sore throat Respiratory: Denies cough or shortness of breath Cardiovascular: Denies chest pain or palpitations GI: Denies abdominal pain, nausea, or vomiting : Denies dysuria or hematuria Musculoskeletal: Denies back pain; reports pain to right ring finger Integument: Denies rash or skin lesions; reports of bruising to right ring finger Neurologic: Denies headache, focal weakness or sensory changes; reports syncopal episode 14 PT systems were reviewed and found to be within normal limits, except as documented General: YES: Fatigue Musculoskeletal: Yes Gait Disturbance, Yes Joint Stiffness Neurological: Yes Confusion, Yes Gait Disturbance Physical Exam Physical Exam Constitutional: Well developed, well nourished, no acute distress, non-toxic appearance HENT: Normocephalic, atraumatic Eyes: PERRL, EOMI, conjunctiva normal, no discharge Neck: Normal range of motion, no midline tenderness, supple Lungs & Thorax: No respiratory distress, equal chest rise and fall Abdomen: Soft, no tenderness, no guarding/rebound tenderness/distention Skin: Warm, dry, no erythema, bruising noted to right dorsal ring finger at MCP Back: No midline tenderness, no CVA tenderness Extremities: No tenderness, ROM intact, no edema, right ring finger bruising and pain as above Neurologic: confused not ambulated, normal sensory function, no focal deficits noted General: Cooperative, No acute distress HEENT: EOMI, Mucous membr. moist/pink Lungs: Clear to auscultation Heart: no gallops Breasts: Not examined Abdomen: Normal bowel sounds, Soft Rectal Exam: not examined PELVIC: Examination not indicated Extremities: No cyanosis Skin: No significant lesion Neuro: Cranial nerves 3-12 NL Psych/Mental Status: Mood NL Vitals Vitals Vital Signs Date Time Temp Pulse Resp B/P (MAP) Pulse Ox O2 Delivery O2 Flow Rate FiO2 01/26/20 10:38 97.9 90 20 194/91 (125) 96 Room Air 97.9 Labs Labs Laboratory Tests Test 01/25/20 20:30 01/25/20 21:21 01/26/20 01:45 01/26/20 07:17 White Blood Count 10.2 x10^3/uL (4.0-11.0) Red Blood Count 5.17 x10^6/uL (4.30-5.70) Hemoglobin 16.3 g/dL (13.0-17.5) Hematocrit 47.9 % (39.0-53.0) Mean Corpuscular Volume 93 fL (79-100) Mean Corpuscular Hemoglobin 32 pg (25-35) Mean Corpuscular Hemoglobin Concent 34 g/dL (31-37) Red Cell Distribution Width 13.9 % (11.5-14.5) Platelet Count 255 x10^3/uL (140-400) Neutrophils (%) (Auto) 78 % (31-73) Lymphocytes (%) (Auto) 14 % (24-48) Monocytes (%) (Auto) 6 % (0-9) Eosinophils (%) (Auto) 2 % (0-3) Basophils (%) (Auto) 1 % (0-3) Neutrophils # (Auto) 8.0 x10^3/uL (1.8-7.7) Lymphocytes # (Auto) 1.4 x10^3/uL (1.0-4.8) Monocytes # (Auto) 0.6 x10^3/uL (0.0-1.1) Eosinophils # (Auto) 0.2 x10^3/uL (0.0-0.7) Basophils # (Auto) 0.0 x10^3/uL (0.0-0.2) Prothrombin Time 12.0 SEC (11.7-14.0) Prothromb Time International Ratio 0.9 (0.8-1.1) Activated Partial Thromboplast Time 30 SEC (24-38) Sodium Level 136 mmol/L (136-145) Potassium Level 4.1 mmol/L (3.5-5.1) Chloride Level 98 mmol/L (98-107) Carbon Dioxide Level 28 mmol/L (21-32) Anion Gap 10 (6-14) Blood Urea Nitrogen 13 mg/dL (8-26) Creatinine 0.9 mg/dL (0.7-1.3) Estimated GFR (Cockcroft-Gault) 81.0 BUN/Creatinine Ratio 14 (6-20) Glucose Level 150 mg/dL (70-99) Lactic Acid Level 1.7 mmol/L (0.4-2.0) Calcium Level 8.9 mg/dL (8.5-10.1) Magnesium Level 2.0 mg/dL (1.8-2.4) Total Bilirubin 0.5 mg/dL (0.2-1.0) Aspartate Amino Transf (AST/SGOT) 15 U/L (15-37) Alanine Aminotransferase (ALT/SGPT) 7 U/L (16-63) Alkaline Phosphatase 138 U/L (46-116) Ammonia < 10 mcmol/L (11-34) Creatine Kinase 63 U/L (39-308) Creatine Kinase MB (Mass) 1.1 ng/mL (0.0-3.6) Creatine Kinase MB Relative Index % (0-4) Troponin I Quantitative < 0.017 ng/mL (0.000-0.055) < 0.017 ng/mL (0.000-0.055) < 0.017 ng/mL (0.000-0.055) [id number]-[id number]-Type Natriuretic Peptide 193 pg/mL (0-449) Total Protein 7.1 g/dL (6.4-8.2) Albumin 3.8 g/dL (3.4-5.0) Albumin/Globulin Ratio 1.2 (1.0-1.7) Urine Collection Type Unknown Urine Color Yellow Urine Clarity Clear Urine pH 7.0 (<5.0-8.0) Urine Specific Cornelius 1.015 (1.000-1.030) Urine Protein Negative mg/dL (NEG-TRACE) Urine Glucose (UA) Negative mg/dL (NEG) Urine Ketones (Stick) Negative mg/dL (NEG) Urine Blood Negative (NEG) Urine Nitrite Negative (NEG) Urine Bilirubin Negative (NEG) Urine Urobilinogen Dipstick 1.0 mg/dL (0.2 mg/dL) Urine Leukocyte Esterase Negative (NEG) Urine RBC 3-5 /HPF (0-2) Urine WBC Occ /HPF (0-4) Urine Bacteria 0 /HPF (0-FEW) Laboratory Tests Test 01/25/20 20:30 01/25/20 21:21 01/26/20 01:45 01/26/20 07:17 White Blood Count 10.2 x10^3/uL (4.0-11.0) Red Blood Count 5.17 x10^6/uL (4.30-5.70) Hemoglobin 16.3 g/dL (13.0-17.5) Hematocrit 47.9 % (39.0-53.0) Mean Corpuscular Volume 93 fL (79-100) Mean Corpuscular Hemoglobin 32 pg (25-35) Mean Corpuscular Hemoglobin Concent 34 g/dL (31-37) Red Cell Distribution Width 13.9 % (11.5-14.5) Platelet Count 255 x10^3/uL (140-400) Neutrophils (%) (Auto) 78 % (31-73) Lymphocytes (%) (Auto) 14 % (24-48) Monocytes (%) (Auto) 6 % (0-9) Eosinophils (%) (Auto) 2 % (0-3) Basophils (%) (Auto) 1 % (0-3) Neutrophils # (Auto) 8.0 x10^3/uL (1.8-7.7) Lymphocytes # (Auto) 1.4 x10^3/uL (1.0-4.8) Monocytes # (Auto) 0.6 x10^3/uL (0.0-1.1) Eosinophils # (Auto) 0.2 x10^3/uL (0.0-0.7) Basophils # (Auto) 0.0 x10^3/uL (0.0-0.2) Prothrombin Time 12.0 SEC (11.7-14.0) Prothromb Time International Ratio 0.9 (0.8-1.1) Activated Partial Thromboplast Time 30 SEC (24-38) Sodium Level 136 mmol/L (136-145) Potassium Level 4.1 mmol/L (3.5-5.1) Chloride Level 98 mmol/L (98-107) Carbon Dioxide Level 28 mmol/L (21-32) Anion Gap 10 (6-14) Blood Urea Nitrogen 13 mg/dL (8-26) Creatinine 0.9 mg/dL (0.7-1.3) Estimated GFR (Cockcroft-Gault) 81.0 BUN/Creatinine Ratio 14 (6-20) Glucose Level 150 mg/dL (70-99) Lactic Acid Level 1.7 mmol/L (0.4-2.0) Calcium Level 8.9 mg/dL (8.5-10.1) Magnesium Level 2.0 mg/dL (1.8-2.4) Total Bilirubin 0.5 mg/dL (0.2-1.0) Aspartate Amino Transf (AST/SGOT) 15 U/L (15-37) Alanine Aminotransferase (ALT/SGPT) 7 U/L (16-63) Alkaline Phosphatase 138 U/L (46-116) Ammonia < 10 mcmol/L (11-34) Creatine Kinase 63 U/L (39-308) Creatine Kinase MB (Mass) 1.1 ng/mL (0.0-3.6) Creatine Kinase MB Relative Index % (0-4) Troponin I Quantitative < 0.017 ng/mL (0.000-0.055) < 0.017 ng/mL (0.000-0.055) < 0.017 ng/mL (0.000-0.055) FW-Itd-I-Type Natriuretic Peptide 193 pg/mL (0-449) Total Protein 7.1 g/dL (6.4-8.2) Albumin 3.8 g/dL (3.4-5.0) Albumin/Globulin Ratio 1.2 (1.0-1.7) Urine Collection Type Unknown Urine Color Yellow Urine Clarity Clear Urine pH 7.0 (<5.0-8.0) Urine Specific Cornelius 1.015 (1.000-1.030) Urine Protein Negative mg/dL (NEG-TRACE) Urine Glucose (UA) Negative mg/dL (NEG) Urine Ketones (Stick) Negative mg/dL (NEG) Urine Blood Negative (NEG) Urine Nitrite Negative (NEG) Urine Bilirubin Negative (NEG) Urine Urobilinogen Dipstick 1.0 mg/dL (0.2 mg/dL) Urine Leukocyte Esterase Negative (NEG) Urine RBC 3-5 /HPF (0-2) Urine WBC Occ /HPF (0-4) Urine Bacteria 0 /HPF (0-FEW) Images Images History: Reason: fall, pain / Spl. Instructions: / History: Comparison: none Axial images were obtained without contrast. There is moderate diffuse atrophy. There is no mass effect, extraaxial fluid collections or hydrocephalus. There is no gross bleed. Moderate to marked, patchy periventricular and subcortical white matter hypoattenuation is seen. There is no focal loss of bo-white matter distinction to suggest acute ischemia, i.e. stroke. Impression: No acute findings. End impression CT C-Spine without contrast: Clinical History: Reason: fall, pain / Spl. Instructions: / History: Technique: Axial helical images of the cervical spine were obtained without contrast, axial coronal and sagittal reconstruction was performed. Findings: There is no loss of vertebral body stature. There is no prevertebral soft tissue swelling. The vertebral bodies are well aligned. There is straightening of the normal cervical lordosis which can be positional or could be chronic. The C1-C2 relationship is normal. 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 The remaining visualized osseous structures appear normal. Evaluation of the central canal is limited without contrast. There is multiple posterior disc bulges resulting in flattening of the thecal sac. There does not appear to be gross flattening of the cervical cord. There is marked narrowing of multiple neuroforamen. Impression: No acute findings. Clinical correlation suggested. PQRS Compliance Statement: One or more of the following individualized dose reduction techniques were utilized for this examination: 1. Automated exposure control 2. Adjustment of the mA and/or kV according to patient size 3. Use of iterative reconstruction technique Electronically signed by: Jairo Landry III, MD (01/25/2020 9:11 PM) [email or web address] DICTATED and SIGNED BY: JAIRO LANDRY III, MD DATE: 01/25/[id number] 0 PATIENT: MIL METZ ACCOUNT: [id number] : 1940 LOCATION: ER AGE: 79 SEX: M EXAM STATUS: PRE ER ORD. PHYSICIAN: DANIAL TIMMONS DO REASON: pain to right 4th metacarpal and prox phalanx PROCEDURE: HAND RIGHT 3V HAND RIGHT 3V, PORTABLE CHEST 1V Clinical History: Reason: pain to right 4th metacarpal and prox phalanx and syncope: One view chest: Technique: AP view of the chest was obtained at 01/25/2020 8:13 PM. Comparison: September 09, 2019. Findings: The cardiomediastinal silhouette is normal. The pulmonary vasculature is normal. The lungs and pleural margins are clear. Impression: No evidence of an acute cardiopulmonary process. End impression Three-view right hand: There is degenerative changes of the distal interphalangeal joints and interphalangeal joint of the thumb with marginal spurring. There is no lytic destructive changes. There is gross osteopenia which limits sensitivity for possible nondisplaced fracture. IMPRESSION: Osteoarthrosis. No acute findings. Electronically signed by: Jairo Landry III, MD (01/25/2020 8:57 PM) [email or web address] DICTATED and SIGNED BY: JAIRO LANDRY III, MD VTE Prophylaxis Ordered VTE Prophylaxis Devices: Yes VTE Pharmacological Prophylaxi: Yes Assessment/Plan Assessment/Plan IMPRESSION Ataxia UNCONTROLLED HYPERTENSION ACUTE FALL frequent recent falls marked cognitive decline, SUSPECT LEWY BODY Dementia CT HEAD, moderate diffuse atrophy. no mass effect, extraaxial fluid collections or hydrocephalus. no gross bleed. Moderate to marked, patchy periventricular and subcortical white matter hypoattenuation . no focal loss of bo-white matter distinction to suggest acute ischemia, i marked debility gait instability Back pain MOVEMENT DISORDER, suspect parkinson's disease PLAN ADMITTED PT/OT bedrest fall precautions home meds PT/OT/ ST DVT PROPHYLAXIS CARDIOLOGY CONSULT SNF PLACEMENT LIKELY NECESSARY CONSULT NEUROLOGY Justifications for Admission Other Justification INGRID CUEVAS MD Jan 26, 2020 10:57
[2020-01-26] MEDS ORDERED: ACETAMINOPHEN 325 MG TABLET. PO PRN (13:45)
[2020-01-26] MEDS ORDERED: guaiFENesin ORAL 200 MG/10 ML LIQUID. PO PRN (13:45)
[2020-01-26] MEDS ORDERED: ENALAPRILAT 1.25 MG/ML VIAL. IVP PRN (13:45)
[2020-01-26] MEDS ORDERED: SODIUM PHOSPHATES 19/7GM 133 ML ENEMA. PR PRN (13:45)
[2020-01-26] MEDS ORDERED: DOCUSATE SODIUM 100 MG CAPSULE. PO PRN (13:45)
[2020-01-26] MEDS ORDERED: MAG HYDROX/ALUMINUM HYD/SIMETH 30 ML ORAL.SUSP PO PRN (13:45)
[2020-01-26] MEDS ORDERED: ONDANSETRON PF 4 MG/2 ML VIAL. IV PRN (13:45)
[2020-01-26] MEDS ORDERED: ALBUTEROL SULFATE 2.5 MG/3 ML NEBU. NEB PRN (13:45)
[2020-01-26] MEDS ORDERED: 0.9 % SODIUM CHLORIDE 10 ML DISP.SYRIN. IV PRN (13:45)
[2020-01-26] MEDS: ENOXAPARIN 40 MG/0.4 ML SYRINGE. SQ SCH (14:49)
[2020-01-26] MEDS ORDERED: IV NORMAL SALINE 1000ML BAG 1,000 ML IV SCH (15:00)
[2020-01-26 15:13] VITALS: BP 95/51
[2020-01-26 19:00] VITALS: BP 134/69
--- NOTE | 2020-01-26 19:52 | CONS ---
DATE OF CONSULTATION: 01/26/2020 REFERRING PHYSICIAN: Dr. Maza. REASON FOR CONSULTATION: Lewy body disease with falls and confusion. HISTORY OF PRESENT ILLNESS: The patient is a very pleasant 79-year-old man who presented to [facility] after a fall in his independent living facility. He struck his head with the fall. His son-in-law was present to provide some history. He sees him on a daily basis. After the fall, he was extremely weak and he could not even get up from the floor to go to the bathroom. Normally he can walk to the dining room. The patient has had trouble with dementia for over 2 years. He was seen by Dr. Galvan on 09/27/2017 while an inpatient at [facility]. At that time, he also had a fall. There was concern about Parkinson's disease. At that time, Dr. Galvan did not feel the diagnosis was Parkinson's disease. He was seen by Dr. Petersen somewhere in that timeframe, who felt he did have Parkinson's. He has been seen by Dr. Galvan. On multiple occasions since that time, who feels he has Lewy body disease. He has had some dyskinesias of his head, which have worsened since the fall. He has not had dyskinesias of arms or legs. He has been falling frequently and the balance is very impaired. PAST MEDICAL HISTORY: 1. Hypertension. 2. Hyperlipidemia. 3. Lewy body disease. 4. Macular degeneration. 5. 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 6. Gastroesophageal reflux disease. 7. Hypertension. 8. History of skin cancer. ALLERGIES: No known allergies to drugs. MEDICATIONS PRIOR TO ADMISSION: Atorvastatin 80 mg, Sinemet 25/100 two tablets three times per day, cetirizine 10 mg, diltiazem XT 180 mg, donepezil 10 mg, lisinopril 40 mg, omeprazole 20 mg, and tamsulosin 0.4 mg extended release. FAMILY HISTORY: Hypertension. SOCIAL HISTORY: His about 7 years ago. He lives alone in an adult community with independent living. He does not smoke tobacco, drink alcohol, or use recreational drugs. His family is very invested in his care. REVIEW OF SYSTEMS: He does not normally have headaches. He has severe loss of vision. He has had diminished hearing. He has been able to chew and swallow without choking. He does not have shortness of breath, chest or abdominal pain. He does not complain of bone or joint pain. He has not had fever or rash. He has not had gastrointestinal or genitourinary complaint. Does not have any psychiatric complaint. Does not complain of excessive bruising, bleeding, or swelling. He does have severely impaired balance and falls. PHYSICAL EXAMINATION: VITAL SIGNS: The blood pressure was 95/51, pulse 78, respirations 20, and temperature 98.3 degrees Fahrenheit. Oximetry was 93% on room air. Earlier today, his blood pressure was 214/97 at 7:00 this morning. GENERAL: He was alert, awake, and cooperative. Speech was fluent and clear. He had a good fund of recent and remote knowledge. Attention and concentration was intact. He appeared well groomed and well nourished. He was oriented. NEUROLOGIC: Examination of the cranial nerves revealed visual fleming were full to confrontation. Extraocular movements were intact. The eyes were conjugate. Pursuit movements were smooth and saccadic eye movements were without dysmetria. Facial sensation was intact. The muscles of mastication and facial expression were powerful symmetrically. Hearing was intact to finger rub. The palate arched symmetrically and the tongue was midline with full motion. Sternocleidomastoid and trapezius were powerful. He had a great deal of difficulty grasping the concepts for the examination. Required multiple explanations to have him try to follow instructions. Muscle bulk and tone was normal. There was no arm or leg drift. Power was fairly full in the upper extremities, was weak with the hips bilaterally, but otherwise strength was fairly good in the legs. Reflexes are 1/4 in the upper extremities, absent in knees and ankles. Toes were not upgoing. Coordination testing with [id number], [id number], fine motor, and rapid alternating movements was fair. He had difficulty grasping these concepts. Sensory exam was intact to pain, light touch, proprioception, graphesthesia, cold thermal and vibration. There was no extinction to double simultaneous stimulation. Gait was not testable. I did watch while the nurses tried to transfer him to the commode. He was able to stand up from the chair with his own power, and he was able to pivot with minimal assistance. NECK: Auscultation of the carotid arteries did not reveal a bruit. HEART: Rhythm was regular without a murmur. EXTREMITIES: Peripheral pulses were symmetric. There was no edema or cyanosis. LABORATORY RESULTS: CBC revealed a normal white blood cell count, hemoglobin, hematocrit and platelet count. Chemistries revealed normal electrolytes, BUN and creatinine. The GFR calculated at 81. Glucose was elevated to 150. Calcium and magnesium were normal. Liver enzymes were not elevated except for alkaline phosphatase of 138. Total protein and albumin were normal. CPK and BNP were not elevated. Urinalysis revealed 3-5 red cells, occasional white cells. PT/INR was 0.9 and PTT was 30. DIAGNOSTIC RESULTS: Hand x-ray was performed on 01/25/2020 revealing osteoarthritis, but no acute findings. CT scan was performed of the head and cervical spine. There was no acute intracranial finding. Cervical spine also did not reveal acute fracture. Chest x-ray was performed on 01/25/2020 revealing no acute process. IMPRESSION: The patient is a pleasant 79-year-old man who has had progressive neurodegenerative disease over the last few years. His balance has been impaired and progressively worsening. He has multiple reasons for poor balance including Lewy body disease as well as severe visual impairment. I do not see anything focal that would suggest stroke. He does appear slightly encephalopathic from the fall. He is having some dyskinesias of his head. I do not see rigidity, tremor, or much in the way of bradykinesia. He clearly does have a dementia. RECOMMENDATIONS: We could consider altering the Sinemet dosage to make a slightly less amount of Sinemet more frequently and this may help dyskinesia. One could also consider the addition of amantadine, which may help dyskinesia. I do not think that he will be able to go back to independent living. He may be well served by a stay in rehabilitation and then would likely need to go to more of a memory care unit. Dr. Cardenas will resume care tomorrow and is familiar with this patient. I appreciate being involved in the care. MARGIE SOSA MD DR: HANS/mireya JOB#: [id number] / [id number] ecc Dr. Cole
[2020-01-26 23:06] VITALS: BP 108/73
[2020-01-27 02:42] VITALS: BP 169/76
[2020-01-27 07:00] VITALS: BP 172/84
[2020-01-27 07:51] LABS: BASO % 1 % (0-3); EOS # 0.2 x10^3/uL (0.0-0.7); EOS % 2 % (0-3); HEMATOCRIT 47.6 % (39.0-53.0); LYMPH # 2.6 x10^3/uL (1.0-4.8); LYMPH % 30 % (24-48); MEAN CORPUSCULAR HEMOGLOBIN 31 pg (25-35); MEAN CORPUSCULAR HGB CONC 34 g/dL (31-37); MEAN CORPUSCULAR VOLUME 92 fL (79-100); MONO # 0.7 x10^3/uL (0.0-1.1); MONO % 8 % (0-9); NEUT # 5.1 x10^3/uL (1.8-7.7); NEUT % 59 % (31-73); PLATELET COUNT 256 x10^3/uL (140-400); RED BLOOD COUNT 5.19 x10^6/uL (4.30-5.70); RED CELL DISTRIBUTION WIDTH 13.9 % (11.5-14.5); WHITE BLOOD COUNT 8.7 x10^3/uL (4.0-11.0)
[2020-01-27 08:17] LABS: CALCIUM 8.6 mg/dL (8.5-10.1); CREATININE 0.6 mg/dL (0.7-1.3); GFR 129.3
--- NOTE | 2020-01-27 08:54 | PDOC ---
PROGRESS NOTES Date of Service DATE: 01/27/20 TIME: 08:51 Assessment Problems Medical Problems: (1) Confusion Status: Acute (2) Sprain of right ring finger Status: Acute (3) Syncope Status: Acute Syncope Parkinson's with dementia, Lewy body disease Plan Continue current doses of carbidopa/levodopa and donepezil Okay to return to alf Follow-up with me in 4-6 weeks Subjective Denies pain Objective Vital Signs Date Time Temp Pulse Resp B/P (MAP) Pulse Ox O2 Delivery O2 Flow Rate FiO2 01/27/20 02:42 98.1 60 18 169/76 (107) 99 Room Air 98.1 Intake and Output 01/27/20 07:00 Intake Total 950 ml Output Total 1602 ml Balance -652 ml Intake Oral 950 ml Output Urine Total 1602 ml PHYSICAL EXAM Alert. Oriented to place and person, not date. Does not know any details of his history PERRL. EOMI. CN: no focal findings. Muscle tone: slight cogwheel rigidity Muscle strength: 4/5 DTR: 2+ Plantar reflex: flexor Gait: not examined in bed. Sensory exam: no abnormal findings. No cerebellar signs elicited. No tremor Review of Relevant I have reviewed the following items shara (where applicable) has been applied. Labs Laboratory Tests Test 01/25/20 20:30 01/25/20 21:21 01/26/20 01:45 01/26/20 07:17 White Blood Count 10.2 x10^3/uL (4.0-11.0) Red Blood Count 5.17 x10^6/uL (4.30-5.70) Hemoglobin 16.3 g/dL (13.0-17.5) Hematocrit 47.9 % (39.0-53.0) Mean Corpuscular Volume 93 fL (79-100) Mean Corpuscular Hemoglobin 32 pg (25-35) Mean Corpuscular Hemoglobin Concent 34 g/dL (31-37) Red Cell Distribution Width 13.9 % (11.5-14.5) Platelet Count 255 x10^3/uL (140-400) Neutrophils (%) (Auto) 78 % (31-73) Lymphocytes (%) (Auto) 14 % (24-48) Monocytes (%) (Auto) 6 % (0-9) Eosinophils (%) (Auto) 2 % (0-3) Basophils (%) (Auto) 1 % (0-3) Neutrophils # (Auto) 8.0 x10^3/uL (1.8-7.7) Lymphocytes # (Auto) 1.4 x10^3/uL (1.0-4.8) Monocytes # (Auto) 0.6 x10^3/uL (0.0-1.1) Eosinophils # (Auto) 0.2 x10^3/uL (0.0-0.7) Basophils # (Auto) 0.0 x10^3/uL (0.0-0.2) Prothrombin Time 12.0 SEC (11.7-14.0) Prothromb Time International Ratio 0.9 (0.8-1.1) Activated Partial Thromboplast Time 30 SEC (24-38) Sodium Level 136 mmol/L (136-145) Potassium Level 4.1 mmol/L (3.5-5.1) Chloride Level 98 mmol/L (98-107) Carbon Dioxide Level 28 mmol/L (21-32) Anion Gap 10 (6-14) Blood Urea Nitrogen 13 mg/dL (8-26) Creatinine 0.9 mg/dL (0.7-1.3) Estimated GFR (Cockcroft-Gault) 81.0 BUN/Creatinine Ratio 14 (6-20) Glucose Level 150 mg/dL (70-99) Lactic Acid Level 1.7 mmol/L (0.4-2.0) Calcium Level 8.9 mg/dL (8.5-10.1) Magnesium Level 2.0 mg/dL (1.8-2.4) Total Bilirubin 0.5 mg/dL (0.2-1.0) Aspartate Amino Transf (AST/SGOT) 15 U/L (15-37) Alanine Aminotransferase (ALT/SGPT) 7 U/L (16-63) Alkaline Phosphatase 138 U/L (46-116) Ammonia < 10 mcmol/L (11-34) Creatine Kinase 63 U/L (39-308) Creatine Kinase MB (Mass) 1.1 ng/mL (0.0-3.6) Creatine Kinase MB Relative Index % (0-4) Troponin I Quantitative < 0.017 ng/mL (0.000-0.055) < 0.017 ng/mL (0.000-0.055) < 0.017 ng/mL (0.000-0.055) ZS-Gfb-T-Type Natriuretic Peptide 193 pg/mL (0-449) Total Protein 7.1 g/dL (6.4-8.2) Albumin 3.8 g/dL (3.4-5.0) Albumin/Globulin Ratio 1.2 (1.0-1.7) Urine Collection Type Unknown Urine Color Yellow Urine Clarity Clear Urine pH 7.0 (<5.0-8.0) Urine Specific Lithia 1.015 (1.000-1.030) Urine Protein Negative mg/dL (NEG-TRACE) Urine Glucose (UA) Negative mg/dL (NEG) Urine Ketones (Stick) Negative mg/dL (NEG) Urine Blood Negative (NEG) Urine Nitrite Negative (NEG) Urine Bilirubin Negative (NEG) Urine Urobilinogen Dipstick 1.0 mg/dL (0.2 mg/dL) Urine Leukocyte Esterase Negative (NEG) Urine RBC 3-5 /HPF (0-2) Urine WBC Occ /HPF (0-4) Urine Bacteria 0 /HPF (0-FEW) Test 01/27/20 07:00 White Blood Count 8.7 x10^3/uL (4.0-11.0) Red Blood Count 5.19 x10^6/uL (4.30-5.70) Hemoglobin 16.0 g/dL (13.0-17.5) Hematocrit 47.6 % (39.0-53.0) Mean Corpuscular Volume 92 fL (79-100) Mean Corpuscular Hemoglobin 31 pg (25-35) Mean Corpuscular Hemoglobin Concent 34 g/dL (31-37) Red Cell Distribution Width 13.9 % (11.5-14.5) Platelet Count 256 x10^3/uL (140-400) Neutrophils (%) (Auto) 59 % (31-73) Lymphocytes (%) (Auto) 30 % (24-48) Monocytes (%) (Auto) 8 % (0-9) Eosinophils (%) (Auto) 2 % (0-3) Basophils (%) (Auto) 1 % (0-3) Neutrophils # (Auto) 5.1 x10^3/uL (1.8-7.7) Lymphocytes # (Auto) 2.6 x10^3/uL (1.0-4.8) Monocytes # (Auto) 0.7 x10^3/uL (0.0-1.1) Eosinophils # (Auto) 0.2 x10^3/uL (0.0-0.7) Basophils # (Auto) 0.0 x10^3/uL (0.0-0.2) Sodium Level 139 mmol/L (136-145) Potassium Level 4.0 mmol/L (3.5-5.1) Chloride Level 104 mmol/L (98-107) Carbon Dioxide Level 25 mmol/L (21-32) Anion Gap 10 (6-14) Blood Urea Nitrogen 12 mg/dL (8-26) Creatinine 0.6 mg/dL (0.7-1.3) Estimated GFR (Cockcroft-Gault) 129.3 Glucose Level 105 mg/dL (70-99) Calcium Level 8.6 mg/dL (8.5-10.1) Laboratory Tests Test 01/27/20 07:00 White Blood Count 8.7 x10^3/uL (4.0-11.0) Red Blood Count 5.19 x10^6/uL (4.30-5.70) Hemoglobin 16.0 g/dL (13.0-17.5) Hematocrit 47.6 % (39.0-53.0) Mean Corpuscular Volume 92 fL (79-100) Mean Corpuscular Hemoglobin 31 pg (25-35) Mean Corpuscular Hemoglobin Concent 34 g/dL (31-37) Red Cell Distribution Width 13.9 % (11.5-14.5) Platelet Count 256 x10^3/uL (140-400) Neutrophils (%) (Auto) 59 % (31-73) Lymphocytes (%) (Auto) 30 % (24-48) Monocytes (%) (Auto) 8 % (0-9) Eosinophils (%) (Auto) 2 % (0-3) Basophils (%) (Auto) 1 % (0-3) Neutrophils # (Auto) 5.1 x10^3/uL (1.8-7.7) Lymphocytes # (Auto) 2.6 x10^3/uL (1.0-4.8) Monocytes # (Auto) 0.7 x10^3/uL (0.0-1.1) Eosinophils # (Auto) 0.2 x10^3/uL (0.0-0.7) Basophils # (Auto) 0.0 x10^3/uL (0.0-0.2) Sodium Level 139 mmol/L (136-145) Potassium Level 4.0 mmol/L (3.5-5.1) Chloride Level 104 mmol/L (98-107) Carbon Dioxide Level 25 mmol/L (21-32) Anion Gap 10 (6-14) Blood Urea Nitrogen 12 mg/dL (8-26) Creatinine 0.6 mg/dL (0.7-1.3) Estimated GFR (Cockcroft-Gault) 129.3 Glucose Level 105 mg/dL (70-99) Calcium Level 8.6 mg/dL (8.5-10.1) Medications Current Medications Sodium Chloride 500 ml @ 500 mls/hr 1X ONCE IV Last administered on 01/25/20at 20:15; Start 01/25/20 at 20:15; Stop 01/25/20 at 21:14; Status DC Aspirin (Ecotrin) 325 mg 1X ONCE PO Last administered on 01/25/20at 22:03; Start 01/25/20 at 22:00; Stop 01/25/20 at 22:01; Status DC Ondansetron HCl (Zofran) 4 mg PRN Q8HRS PRN IV NAUSEA/VOMITING 1ST CHOICE; S tart 01/25/20 at 21:45; Stop 01/26/20 at 13:50; Status DC Carbidopa/Levodopa (Sinemet 25/100) 2 tab TID PO Last administered on 01/26/20at 21:47; Start 01/26/20 at 09:00 Cetirizine HCl (ZyrTEC) 10 mg DAILY PO Last administered on 01/26/20at 08:56; Start 01/26/20 at 09:00 Diltiazem HCl (Cardizem 24hr Cd) 180 mg DAILY PO Last administered on 01/26/20at 08:58; Start 01/26/20 at 09:00 Donepezil HCl (Aricept) 10 mg HS PO Last administered on 01/26/20at 21:47; Start 01/26/20 at 00:00 Lisinopril (Prinivil) 40 mg DAILY PO Last administered on 01/26/20at 08:57; Start 01/26/20 at 09:00 Tamsulosin HCl (Flomax) 0.4 mg DAILY PO Last administered on 01/26/20at 08:56; Start 01/26/20 at 09:00 Atorvastatin Calcium (Lipitor) 80 mg QHS PO Last administered on 01/26/20at 21:47; Start 01/26/20 at 00:00 Pantoprazole Sodium (Protonix) 40 mg DAILYAC PO Last administered on 01/26/20at 08:58; Start 01/26/20 at 07:30 Sodium Chloride (Normal Saline Flush) 3 ml QSHIFT PRN IV AFTER MEDS AND BLOOD DRAWS; Start 01/26/20 at 13:45 Sodium Chloride 1,000 ml @ 55 mls/hr [id number] IV ; Start 01/26/20 at 15:00 Ondansetron HCl (Zofran) 4 mg PRN Q4HRS PRN IV NAUSEA/VOMITING; Start 01/26/20 at 13:45 Acetaminophen (Tylenol) 650 mg PRN Q4HRS PRN PO TEMP OVER 100.4F OR MILD PAIN; Start 01/26/20 at 13:45 Al Hydroxide/Mg Hydroxide (Mylanta Plus Xs) 30 ml PRN DAILY PRN PO HEARTBURN / GAS; Start 01/26/20 at 13:45 Sodium Monofluorophosphate (Fleet Adult) 133 ml PRN DAILY PRN [place] CONSTIPATION; Start 01/26/20 at 13:45 Docusate Sodium (Colace) 100 mg PRN BID PRN PO HARD STOOLS; Start 01/26/20 at 13:45 Albuterol Sulfate (Ventolin Neb Soln) 2.5 mg PRN Q4HRS PRN NEB SHORTNESS OF BREATH; Start 01/26/20 at 13:45 Guaifenesin (Robitussin) 200 mg PRN Q4HRS PRN PO COUGH; Start 01/26/20 at 13:45 Lorazepam (Ativan) 0.5 mg PRN Q4HRS PRN PO ANXIETY / AGITATION; Start 01/26/20 at 13:45 Enoxaparin Sodium (Lovenox 40mg Syringe) 40 mg Q24H SQ Last administered on 01/26/20at 14:49; Start 01/26/20 at 16:00 Enalaprilat (Vasotec Inj) 1.25 mg PRN Q6HRS PRN IVP HYPERTENSION; Start 01/26/20 at 13:45 Active Scripts Active Reported Carbidopa-Levodopa 25-100 Tab (Carbidopa/Levodopa) 1 Each Tablet 2 Each PO TID Zyrtec (Cetirizine Hcl) 10 Mg Tablet 10 Mg PO DAILY Donepezil Hcl 10 Mg Tablet 10 Mg PO HS Lisinopril 40 Mg Tablet 40 Mg PO DAILY Atorvastatin Calcium 80 Mg Tablet 1 Tab PO DAILY Tamsulosin Hcl 0.4 Mg Cap.er.24h 1 Cap PO DAILY Omeprazole 20 Mg Tablet.dr 1 Tab PO DAILY Cartia Xt (Diltiazem Hcl) 180 Mg Cap.er.24h 180 Mg PO DAILY Vitals/I & O Vital Sign - Last 24 Hours 01/26/20 01/26/20 01/26/20 01/26/20 08:57 08:58 10:38 15:13 Temp 97.9 98.3 97.9 98.3 Pulse 82 89 90 78 Resp 20 20 B/P (MAP) 189/90 189/90 194/91 (125) 95/51 (66) Pulse Ox 96 93 O2 Delivery Room Air Room Air 01/26/20 01/26/20 01/26/20 01/27/20 19:00 20:45 23:06 02:42 Temp 98.2 98.1 98.1 98.2 98.1 98.1 Pulse 70 58 60 Resp 20 19 18 B/P (MAP) 134/69 (90) 108/73 (85) 169/76 (107) Pulse Ox 97 99 99 O2 Delivery Room Air Room Air Room Air Room Air Intake and Output 01/26/20 01/26/20 01/27/20 15:00 23:00 07:00 Intake Total 950 ml Output Total 900 ml 150 ml 552 ml Balance -900 ml 800 ml -552 ml Justicifation of Admission Dx: Justifications for Admission: Justification of Admission Dx: Yes CHF: Cardiac Arrhythmias Comminuty Aquired Pneumonia: Med-High Risk Pt Chronic Renal Failure: Encephalopathy Altered Mental Status: Altered Mental Status MIL JEFFREY MD Jan 27, 2020 08:54
[2020-01-27] MEDS: PANTOPRAZOLE 40 MG TABLET.DR. PO SCH (09:23)
[2020-01-27] MEDS: TAMSULOSIN 0.4 MG CAP.ER.24H. PO SCH (09:23)
[2020-01-27] MEDS: CARBIDOPA/LEVODOPA 25/100MG TABLET PO SCH ×3 (09:24→21:35)
[2020-01-27] MEDS: CETIRIZINE HCL 10 MG TABLET. PO SCH (09:24)
[2020-01-27] MEDS: LORazepam 0.5 MG TABLET PO PRN ×2 (09:25→21:34)
[2020-01-27] MEDS: LISINOPRIL 20 MG TABLET PO SCH (09:25)
[2020-01-27 10:00] VITALS: BP 145/74
[2020-01-27] MEDS ORDERED: HALOPERIDOL LACTATE 5 MG/ML VIAL. IM PRN (10:30)
[2020-01-27] MEDS ORDERED: HALOPERIDOL LACTATE 5 MG/ML VIAL. IVP PRN (10:30)
--- NOTE | 2020-01-27 10:39 | PDOC ---
[employer] PROGRESS NOTE Date of Service DOS: DATE: 01/27/20 TIME: 10:34 Chief Complaint Chief Complaint Ataxia UNCONTROLLED HYPERTENSION ACUTE FALL frequent recent falls marked cognitive decline, SUSPECT LEWY BODY Dementia CT HEAD, moderate diffuse atrophy. no mass effect, extraaxial fluid collections or hydrocephalus. no gross bleed. Moderate to marked, patchy periventricular and subcortical white matter hypoattenuation . no focal loss of bo-white matter distinction to suggest acute ischemia, i marked debility gait instability Back pain MOVEMENT DISORDER, suspect parkinson's disease PLAN PT/OT bedrest fall precautions home meds PT/OT/ ST DVT PROPHYLAXIS CARDIOLOGY CONSULT SNF PLACEMENT LIKELY NECESSARY CONSULT NEUROLOGY History of Present Illness History of Present Illness Patient is a 79-year-old male presents with family from [facility] where patient had a syncopal episode and ended up falling which occurred at approximately 1800. Patient reports he did not hit his head. Denies prior dizziness or chest pain. Patient currently reports he does not remember the fall. Patient does complain of right ring finger pain and swelling. Bruising was noted by family. Family reports patient has been seen by neurology recently and thought to have possibly parkinsonism and or dementia 01/26: Patient evaluated bedside. Discussed with RN, he is having some agitation/aggression overnight. Per neurology, patient is to continue on current doses of carbidopa/levodopa and donepezil and follow-up in 4-6 weeks. Echocardiogram pending. Barring any abnormal results anticipate discharge to his residential possibly tomorrow. Vitals/I&O Vitals/I&O: Vital Signs Date Time Temp Pulse Resp B/P (MAP) Pulse Ox O2 Delivery O2 Flow Rate FiO2 01/27/20 09:25 67 172/84 01/27/20 07:00 98.2 20 94 Room Air 98.2 I & O 01/26/20 01/26/20 01/27/20 15:00 23:00 07:00 Intake Total 950 ml Output Total 900 ml 150 ml 552 ml Balance -900 ml 800 ml -552 ml Physical Exam General: Alert, Cooperative, No acute distress Heart: Regular rate Lungs: Clear Abdomen: Normal bowel sounds, Soft Extremities: No cyanosis Skin: No significant lesion Labs Labs: Laboratory Tests Test 01/27/20 07:00 White Blood Count 8.7 x10^3/uL (4.0-11.0) Red Blood Count 5.19 x10^6/uL (4.30-5.70) Hemoglobin 16.0 g/dL (13.0-17.5) Hematocrit 47.6 % (39.0-53.0) Mean Corpuscular Volume 92 fL (79-100) Mean Corpuscular Hemoglobin 31 pg (25-35) Mean Corpuscular Hemoglobin Concent 34 g/dL (31-37) Red Cell Distribution Width 13.9 % (11.5-14.5) Platelet Count 256 x10^3/uL (140-400) Neutrophils (%) (Auto) 59 % (31-73) Lymphocytes (%) (Auto) 30 % (24-48) Monocytes (%) (Auto) 8 % (0-9) Eosinophils (%) (Auto) 2 % (0-3) Basophils (%) (Auto) 1 % (0-3) Neutrophils # (Auto) 5.1 x10^3/uL (1.8-7.7) Lymphocytes # (Auto) 2.6 x10^3/uL (1.0-4.8) Monocytes # (Auto) 0.7 x10^3/uL (0.0-1.1) Eosinophils # (Auto) 0.2 x10^3/uL (0.0-0.7) Basophils # (Auto) 0.0 x10^3/uL (0.0-0.2) Sodium Level 139 mmol/L (136-145) Potassium Level 4.0 mmol/L (3.5-5.1) Chloride Level 104 mmol/L (98-107) Carbon Dioxide Level 25 mmol/L (21-32) Anion Gap 10 (6-14) Blood Urea Nitrogen 12 mg/dL (8-26) Creatinine 0.6 mg/dL (0.7-1.3) Estimated GFR (Cockcroft-Gault) 129.3 Glucose Level 105 mg/dL (70-99) Calcium Level 8.6 mg/dL (8.5-10.1) Review of Systems Review of Systems: Denies fever, denies chest pain, denies shortness of breath. Assessment and Plan Assessmemt and Plan Problems Medical Problems: (1) Confusion Status: Acute (2) Sprain of right ring finger Status: Acute (3) Syncope Status: Acute Comment Review of Relevant I have reviewed the following items shara (where applicable) has been applied. Medications: Current Medications Medications (Trade) Dose Ordered Sig/Vikas Route PRN Reason Start Time Stop Time Status Last Admin Dose Admin Lorazepam (Ativan) 0.5 mg PRN Q4HRS PRN PO ANXIETY / AGITATION 01/26/20 13:45 01/27/20 09:25 Enoxaparin Sodium (Lovenox 40mg Syringe) 40 mg Q24H SQ 01/26/20 16:00 01/26/20 14:49 Justifications for Admission General Conditions Poss hypotension?: Yes Justification for admission: Patient has hypotension (SBP < 90 mm Hg) which is not readily corrected by appropriate treatment within 12 to 24 hours. FALLS WITH GAIT INSTABILITY Altered mental status?: Yes Justification of admission: Patient has tachycardia (> 100 beats per minute) or hypotension (SBP < 90 mm Hg) leading to inadequate systemic perfusion as indicated by severe/persistent altered mental status. Other Justification RIC MAK MD Jan 27, 2020 10:39
--- NOTE | 2020-01-27 13:15 | PDOC2 ---
CARDIOLOGY CONSULT NOTE DATE OF SERVICE: DATE: 01/27/20 TIME: 13:10 CHIEF COMPLAINT: Fall HPI: 79 y.o male with pmhx as noted below presented with fall of unclear etiology. Patient does not recall any specific triggering factors. He denies any chest pain or dyspnea. Lives in an independent living facility. Seen by neurology, suspect fall related to dementia, and visual impairment. Previous admissions noted as well. PMHX: 1. HTN 2. Dyslipidemia 3.Lewy body dementia. SOCHX: No alcohol,tob or illicits. FAMHX: NC CURRENT MEDS: Lisinopril 40mg daily Diltiazem 180mg daily Atorvastatin 80mg daily ALLERGIES: Allergies Coded Allergies Type Severity Reaction Last Updated Verified No Known Drug Allergies 09/24/17 No PHYSICAL EXAM: Vital Signs/I&O: Vital Signs Date Time Temp Pulse Resp B/P (MAP) Pulse Ox O2 Delivery O2 Flow Rate FiO2 01/27/20 10:00 97.8 69 17 145/74 (97) 92 Room Air 97.8 I & O 01/26/20 01/26/20 01/27/20 15:00 23:00 07:00 Intake Total 950 ml Output Total 900 ml 150 ml 552 ml Balance -900 ml 800 ml -552 ml Physical Exam: GEN.: No apparent distress. Alert and oriented. HEENT: Head is normocephalic, atraumatic NECK: Supple. LUNGS: Clear to auscultation. HEART: RRR, S1, S2 present. Peripheral pulses intact ABDOMEN: Soft, nontender. Positive bowel sounds. EXTREMITIES: Without any cyanosis. NEUROLOGIC: Normal speech, normal tone, dyskinesia, no carotid bruits. PSYCHIATRIC: Normal affect. SKIN: No ulcerations DIAGNOSTIC TESTING: EKG reviewed. Tele reviewed. Lab Laboratory Tests Test 01/27/20 07:00 White Blood Count 8.7 x10^3/uL (4.0-11.0) Red Blood Count 5.19 x10^6/uL (4.30-5.70) Hemoglobin 16.0 g/dL (13.0-17.5) Hematocrit 47.6 % (39.0-53.0) Mean Corpuscular Volume 92 fL (79-100) Mean Corpuscular Hemoglobin 31 pg (25-35) Mean Corpuscular Hemoglobin Concent 34 g/dL (31-37) Red Cell Distribution Width 13.9 % (11.5-14.5) Platelet Count 256 x10^3/uL (140-400) Neutrophils (%) (Auto) 59 % (31-73) Lymphocytes (%) (Auto) 30 % (24-48) Monocytes (%) (Auto) 8 % (0-9) Eosinophils (%) (Auto) 2 % (0-3) Basophils (%) (Auto) 1 % (0-3) Neutrophils # (Auto) 5.1 x10^3/uL (1.8-7.7) Lymphocytes # (Auto) 2.6 x10^3/uL (1.0-4.8) Monocytes # (Auto) 0.7 x10^3/uL (0.0-1.1) Eosinophils # (Auto) 0.2 x10^3/uL (0.0-0.7) Basophils # (Auto) 0.0 x10^3/uL (0.0-0.2) Sodium Level 139 mmol/L (136-145) Potassium Level 4.0 mmol/L (3.5-5.1) Chloride Level 104 mmol/L (98-107) Carbon Dioxide Level 25 mmol/L (21-32) Anion Gap 10 (6-14) Blood Urea Nitrogen 12 mg/dL (8-26) Creatinine 0.6 mg/dL (0.7-1.3) L Estimated GFR (Cockcroft-Gault) 129.3 Glucose Level 105 mg/dL (70-99) H Calcium Level 8.6 mg/dL (8.5-10.1) Laboratory Tests 01/27/20 07:00 ASSESSMENT: 1. Fall/Near syncope: Differential is broad. Cardiac causes include bradycardia versus orthostatic hypotension. Less likely seizure, valvular disease. 2. HTN 3. Dyslipdemia 4. Lewy body dementia per neurology service. PLAN: 1. Plan for loop recorder on an outpt basis if he returns to independent living, otherwise, continue current medical therapy and monitor for future falls after rehabilitation. 2. No evidence of valvular disease on exam, no need for echo inpt, if future falls, consider echo. Thanks. Pls call w/ questions. SEAN ROYAL MD Jan 27, 2020 13:15
[2020-01-27 14:00] VITALS: BP 144/76
[2020-01-27] MEDS: ENOXAPARIN 40 MG/0.4 ML SYRINGE. SQ SCH (17:53)
[2020-01-27 19:50] VITALS: BP 137/69
[2020-01-27] MEDS: ATORVASTATIN CALCIUM 40 MG TABLET. PO SCH (21:34)
[2020-01-27] MEDS: DONEPEZIL HCL 10 MG TABLET. PO SCH (21:35)
--- NOTE | 2020-01-27 21:46 | NUR ---
Shouting out. Insisting on getting out of bed without assist. Pulling at Tele leads and bar cath. Swinging at staff when assisting with bed mobility. Gave Ativan as ordered PRN agitation.
[2020-01-27 22:16] VITALS: BP 165/82
[2020-01-28 07:00] VITALS: BP 197/94
--- NOTE | 2020-01-28 08:44 | PDOC ---
PROGRESS NOTES Date of Service DATE: 01/28/20 TIME: 08:42 Assessment Problems Medical Problems: (1) Confusion Status: Acute (2) Sprain of right ring finger Status: Acute (3) Syncope Status: Acute Syncope Parkinson's with dementia, Lewy body disease Plan Continue current doses of carbidopa/levodopa and donepezil [facility] Follow-up with me in 4-6 weeks Subjective No complaints, slept well Objective Vital Signs Date Time Temp Pulse Resp B/P (MAP) Pulse Ox O2 Delivery O2 Flow Rate FiO2 01/27/20 22:16 98.3 65 16 165/82 (109) 93 Room Air 98.3 Intake and Output 01/28/20 07:00 Intake Total 240 ml Output Total 900 ml Balance -660 ml Intake Oral 240 ml Output Urine Total 900 ml PHYSICAL EXAM Alert. Oriented to place and person, not date. PERRL. EOMI. CN: no focal findings. Muscle tone: slight cogwheel rigidity Muscle strength: 4/5 DTR: 2+ Plantar reflex: flexor Gait: not examined in bed. Sensory exam: no abnormal findings. No cerebellar signs elicited. No tremor Review of Relevant I have reviewed the following items shara (where applicable) has been applied. Labs Laboratory Tests Test 01/27/20 07:00 White Blood Count 8.7 x10^3/uL (4.0-11.0) Red Blood Count 5.19 x10^6/uL (4.30-5.70) Hemoglobin 16.0 g/dL (13.0-17.5) Hematocrit 47.6 % (39.0-53.0) Mean Corpuscular Volume 92 fL (79-100) Mean Corpuscular Hemoglobin 31 pg (25-35) Mean Corpuscular Hemoglobin Concent 34 g/dL (31-37) Red Cell Distribution Width 13.9 % (11.5-14.5) Platelet Count 256 x10^3/uL (140-400) Neutrophils (%) (Auto) 59 % (31-73) Lymphocytes (%) (Auto) 30 % (24-48) Monocytes (%) (Auto) 8 % (0-9) Eosinophils (%) (Auto) 2 % (0-3) Basophils (%) (Auto) 1 % (0-3) Neutrophils # (Auto) 5.1 x10^3/uL (1.8-7.7) Lymphocytes # (Auto) 2.6 x10^3/uL (1.0-4.8) Monocytes # (Auto) 0.7 x10^3/uL (0.0-1.1) Eosinophils # (Auto) 0.2 x10^3/uL (0.0-0.7) Basophils # (Auto) 0.0 x10^3/uL (0.0-0.2) Sodium Level 139 mmol/L (136-145) Potassium Level 4.0 mmol/L (3.5-5.1) Chloride Level 104 mmol/L (98-107) Carbon Dioxide Level 25 mmol/L (21-32) Anion Gap 10 (6-14) Blood Urea Nitrogen 12 mg/dL (8-26) Creatinine 0.6 mg/dL (0.7-1.3) Estimated GFR (Cockcroft-Gault) 129.3 Glucose Level 105 mg/dL (70-99) Calcium Level 8.6 mg/dL (8.5-10.1) Medications Current Medications Sodium Chloride 500 ml @ 500 mls/hr 1X ONCE IV Last administered on 01/25/20at 20:15; Start 01/25/20 at 20:15; Stop 01/25/20 at 21:14; Status DC Aspirin (Ecotrin) 325 mg 1X ONCE PO Last administered on 01/25/20at 22:03; Start 01/25/20 at 22:00; Stop 01/25/20 at 22:01; Status DC Ondansetron HCl (Zofran) 4 mg PRN Q8HRS PRN IV NAUSEA/VOMITING 1ST CHOICE; Start 01/25/20 at 21:45; Stop 01/26/20 at 13:50; Status DC Carbidopa/Levodopa (Sinemet 25/100) 2 tab TID PO Last administered on 01/27/20at 21:35; Start 01/26/20 at 09:00 Cetirizine HCl (ZyrTEC) 10 mg DAILY PO Last administered on 01/27/20at 09:24; Start 01/26/20 at 09:00 Diltiazem HCl (Cardizem 24hr Cd) 180 mg DAILY PO Last administered on 01/27/20at 09:24; Start 01/26/20 at 09:00 Donepezil HCl (Aricept) 10 mg HS PO Last administered on 01/27/20at 21:35; Start 01/26/20 at 00:00 Lisinopril (Prinivil) 40 mg DAILY PO Last administered on 01/27/20at 09:25; Start 01/26/20 at 09:00 Tamsulosin HCl (Flomax) 0.4 mg DAILY PO Last administered on 01/27/20at 09:23; Start 01/26/20 at 09:00 Atorvastatin Calcium (Lipitor) 80 mg QHS PO Last administered on 01/27/20at 21:34; Start 01/26/20 at 00:00 Pantoprazole Sodium (Protonix) 40 mg DAILYAC PO Last administered on 01/27/20at 09:23; Start 01/26/20 at 07:30 Sodium Chloride (Normal Saline Flush) 3 ml QSHIFT PRN IV AFTER MEDS AND BLOOD DRAWS; Start 01/26/20 at 13:45 Sodium Chloride 1,000 ml @ 55 mls/hr [id number] IV ; Start 01/26/20 at 15:00; Stop 01/27/20 at 17:55; Status DC Ondansetron HCl (Zofran) 4 mg PRN Q4HRS PRN IV NAUSEA/VOMITING; Start 01/26/20 at 13:45 Acetaminophen (Tylenol) 650 mg PRN Q4HRS PRN PO TEMP OVER 100.4F OR MILD PAIN; Start 01/26/20 at 13:45 Al Hydroxide/Mg Hydroxide (Mylanta Plus Xs) 30 ml PRN DAILY PRN PO HEARTBURN / GAS; Start 01/26/20 at 13:45 Sodium Monofluorophosphate (Fleet Adult) 133 ml PRN DAILY PRN [place] CONSTIPATION; Start 01/26/20 at 13:45 Docusate Sodium (Colace) 100 mg PRN BID PRN PO HARD STOOLS; Start 01/26/20 at 13:45 Albuterol Sulfate (Ventolin Neb Soln) 2.5 mg PRN Q4HRS PRN NEB SHORTNESS OF BREATH; Start 01/26/20 at 13:45 Guaifenesin (Robitussin) 200 mg PRN Q4HRS PRN PO COUGH; Start 01/26/20 at 13:45 Lorazepam (Ativan) 0.5 mg PRN Q4HRS PRN PO ANXIETY / AGITATION Last administered on 01/27/20at 21:34; Start 01/26/20 at 13:45 Enoxaparin Sodium (Lovenox 40mg Syringe) 40 mg Q24H SQ Last administered on 01/27/20at 17:53; Start 01/26/20 at 16:00 Enalaprilat (Vasotec Inj) 1.25 mg PRN Q6HRS PRN IVP HYPERTENSION; Start 01/26/20 at 13:45 Haloperidol Lactate (Haldol Inj) 5 mg PRN Q6HRS PRN IVP AGITATION; Start 01/27/20 at 10:30 Haloperidol Lactate (Haldol Inj) 5 mg PRN Q6HRS PRN IM AGITATION; Start 01/27/20 at 10:30 Lorazepam (Ativan Inj) 1 mg PRN Q4HRS PRN IVP ANXIETY / AGITATION Last administered on 01/27/20at 21:45; Start 01/27/20 at 10:30 Active Scripts Active Reported Carbidopa-Levodopa 25-100 Tab (Carbidopa/Levodopa) 1 Each Tablet 2 Each PO TID Zyrtec (Cetirizine Hcl) 10 Mg Tablet 10 Mg PO DAILY Donepezil Hcl 10 Mg Tablet 10 Mg PO HS Lisinopril 40 Mg Tablet 40 Mg PO DAILY Atorvastatin Calcium 80 Mg Tablet 1 Tab PO DAILY Tamsulosin Hcl 0.4 Mg Cap.er.24h 1 Cap PO DAILY Omeprazole 20 Mg Tablet.dr 1 Tab PO DAILY Cartia Xt (Diltiazem Hcl) 180 Mg Cap.er.24h 180 Mg PO DAILY Vitals/I & O Vital Sign - Last 24 Hours 01/27/20 01/27/20 01/27/20 01/27/20 09:24 09:25 10:00 14:00 Temp 97.8 97.5 97.8 97.5 Pulse 66 67 69 61 Resp 17 17 B/P (MAP) 172/84 172/84 145/74 (97) 144/76 (98) Pulse Ox 92 94 O2 Delivery Room Air Room Air 01/27/20 01/27/20 01/27/20 19:50 20:00 22:16 Temp 97.9 98.3 97.9 98.3 Pulse 64 65 Resp 16 16 B/P (MAP) 137/69 (91) 165/82 (109) Pulse Ox 92 93 O2 Delivery Room Air Room Air Room Air Intake and Output 0 01/27/20 01/27/20 01/28/20 15:00 23:00 07:00 Intake Total 0 ml 240 ml Output Total 300 ml 600 ml Balance -300 ml -360 ml Justicifation of Admission Dx: Justifications for Admission: Justification of Admission Dx: Yes CHF: Cardiac Arrhythmias Comminuty Aquired Pneumonia: Med-High Risk Pt Chronic Renal Failure: Encephalopathy Altered Mental Status: Altered Mental Status MIL JEFFREY MD Jan 28, 2020 08:44
[2020-01-28] MEDS: PANTOPRAZOLE 40 MG TABLET.DR. PO SCH (08:57)
[2020-01-28] MEDS: TAMSULOSIN 0.4 MG CAP.ER.24H. PO SCH (08:57)
[2020-01-28] MEDS: CETIRIZINE HCL 10 MG TABLET. PO SCH (08:57)
[2020-01-28] MEDS: CARBIDOPA/LEVODOPA 25/100MG TABLET PO SCH ×3 (08:57→21:04)
[2020-01-28] MEDS: LISINOPRIL 20 MG TABLET PO SCH (08:58)
[2020-01-28 11:00] VITALS: BP 141/83
[2020-01-28] MEDS ORDERED: traMADol 50 MG TABLET PO PRN (12:45)
[2020-01-28] MEDS ORDERED: IBUPROFEN 400 MG TABLET. PO PRN (12:45)
--- NOTE | 2020-01-28 12:53 | PDOC ---
CARDIOLOGY PROGRESS NOTE SUBJECTIVE: No new changes. No cardiac issues. No problems on telemetry OBJECTIVE: Vital Signs/I&O: Vital Signs Date Time Temp Pulse Resp B/P (MAP) Pulse Ox O2 Delivery O2 Flow Rate FiO2 01/28/20 11:00 97.9 76 20 141/83 (102) 93 Room Air 97.9 I & O 01/27/20 01/27/20 01/28/20 15:00 23:00 07:00 Intake Total 0 ml 240 ml Output Total 300 ml 600 ml Balance -300 ml -360 ml Objective: Resting comfortably No significant changes on exam. CURRENT MEDICATIONS: Meds reviewed. DIAGNOSTIC TESTING: No new labs. ASSESSMENT: 1. Syncope secondary to neurologic issues. 2. HTN 3. Dyslipidemia PLAN: 1. Ok to DC from CV standpoint. No further testing needed. Supportive care. Thanks. Justicifation of Admission Dx: Justifications for Admission: Justification of Admission Dx: Yes CHF: Cardiac Arrhythmias Comminuty Aquired Pneumonia: Med-High Risk Pt Chronic Renal Failure: Encephalopathy Altered Mental Status: Altered Mental Status SEAN ROYAL MD Jan 28, 2020 12:53
--- NOTE | 2020-01-28 12:57 | PDOC ---
[facility] PROGRESS NOTE Date of Service DOS: DATE: 01/28/20 TIME: 12:38 Chief Complaint Chief Complaint Ataxia UNCONTROLLED HYPERTENSION ACUTE FALL frequent recent falls marked cognitive decline, SUSPECT LEWY BODY Dementia CT HEAD, moderate diffuse atrophy. no mass effect, extraaxial fluid collections or hydrocephalus. no gross bleed. Moderate to marked, patchy periventricular and subcortical white matter hypoattenuation . no focal loss of bo-white matter distinction to suggest acute ischemia, i marked debility gait instability Back pain MOVEMENT DISORDER, suspect parkinson's disease PLAN PT/OT bedrest fall precautions home meds PT/OT/ ST DVT PROPHYLAXIS CARDIOLOGY CONSULT SNF PLACEMENT LIKELY NECESSARY CONSULT NEUROLOGY History of Present Illness History of Present Illness Patient is a 79-year-old male presents with family from [facility] where patient had a syncopal episode and ended up falling which occurred at approximately 1800. Patient reports he did not hit his head. Denies prior dizziness or chest pain. Patient currently reports he does not remember the fall. Patient does complain of right ring finger pain and swelling. Bruising was noted by family. Family reports patient has been seen by neurology recently and thought to have possibly parkinsonism and or dementia 01/26: Patient evaluated bedside. Discussed with RN, he is having some agitation/aggression overnight. Per neurology, patient is to continue on current doses of carbidopa/levodopa and donepezil and follow-up in 4-6 weeks. Echocardiogram pending. Barring any abnormal results anticipate discharge to his [facility] possibly tomorrow. 01/27: Patient seen and evaluated bedside. He has no complaints today, except for requesting better pain control of his back pain. Discussed imaging and lab work with patient, as well as recommendation for future loop recorder device. COVID-19 results pending prior to his return to [facility]. Spoke with patient's son-in-law whether SNU or home health would be in the best interest of the patient, given current pandemic and close relation with family. Discussed with RN and social studies department chair. Vitals/I&O Vitals/I&O: Vital Signs Date Time Temp Pulse Resp B/P (MAP) Pulse Ox O2 Delivery O2 Flow Rate FiO2 01/28/20 11:00 97.9 76 20 141/83 (102) 93 Room Air 97.9 I & O 01/27/20 01/27/20 01/28/20 15:00 23:00 07:00 Intake Total 0 ml 240 ml Output Total 300 ml 600 ml Balance -300 ml -360 ml Physical Exam General: Alert, Cooperative, No acute distress Heart: Regular rate Lungs: Clear Abdomen: Normal bowel sounds, Soft Extremities: No cyanosis Skin: No significant lesion Review of Systems Review of Systems: Denies chest pain, denies shortness of breath, denies weakness. Assessment and Plan Assessmemt and Plan Problems Medical Problems: (1) Confusion Status: Acute (2) Sprain of right ring finger Status: Acute (3) Syncope Status: Acute Comment Review of Relevant I have reviewed the following items shara (where applicable) has been applied. Justifications for Admission General Conditions Poss hypotension?: Yes Justification for admission: Patient has hypotension (SBP < 90 mm Hg) which is not readily corrected by appropriate treatment within 12 to 24 hours. FALLS WITH GAIT INSTABILITY Altered mental status?: Yes Justification of admission: Patient has tachycardia (> 100 beats per minute) or hypotension (SBP < 90 mm Hg) leading to inadequate systemic perfusion as indicated by severe/persistent altered mental status. Other Justification RIC MAK MD Jan 28, 2020 12:57
--- NOTE | 2020-01-28 13:16 | NUR ---
SS following for discharge planning. SS reviewed pt chart and discussed with pt RN. Pt is from [facility] and is currently on room air. COVID19 test pending. PT/OT recommended long term unit. SS contacted pt's son in law, Lincoln, and left voicemail requesting return call to discuss discharge planning. SS will continue to follow for discharge planning.
[2020-01-28 15:00] VITALS: BP 103/70
--- NOTE | 2020-01-28 16:15 | CARD ---
MR#: [id number] Date of Study: 01/28/2020 Ordering Physician: INGRID CUEVAS, Referring Physician: INGRID CUEVAS, Tech: Teresita Cast APPROVED REPORT EXAM: Two-dimensional and M-mode echocardiogram with Doppler and color Doppler. Other Information Quality : AverageHR: 69bpm INDICATION Hypertension/HCVD Syncope 2D DIMENSIONS RVDd3.2 (2.9-3.5cm)Left Atrium(2D)4.4 (1.6-4.0cm) IVSd1.1 (0.7-1.1cm)Aortic Root(2D)2.7 (2.0-3.7cm) LVDd5.6 (3.9-5.9cm)LVOT Diameter2.0 (1.8-2.4cm) PWd1.2 (0.7-1.1cm)LVDs3.9 (2.5-4.0cm) FS (%) 30.6 %SV87.5 ml LVEF(%)57.5 (>50%) Aortic Valve AoV Peak Michael.121.1cm/sAoV VTI25.5cm AO Peak GR.5.9mmHgLVOT VTI 18.93cm AO Mean GR.3mmHg Mitral Valve MV E Rmbtyrhs54.1cm/sMV DECEL [id number] MV A Kmjqdeqo97.7cm/sE/A Ratio1.0 TDI Lateral E' P. V8.37cm/sMedial E' P. V6.37cm/s E/Lateral E'7.8E/Medial E'10.2 Tricuspid Valve TR P. [id number]/sRAP [id number] TR Peak Gr.[id number] LEFT VENTRICLE The left ventricle is normal size. There is mild concentric left ventricular hypertrophy. The left ve ntricular systolic function is normal. The Ejection Fraction is 55-60%. There is normal LV segmental wall motion. RIGHT VENTRICLE The right ventricle is normal size. There is normal right ventricular wall thickness. The right ventr icular systolic function is normal. ATRIA The left atrium is borderline dilated. The right atrium size is normal. The interatrial septum is int act with no evidence for an atrial septal defect or patent foramen ovale as noted on 2-D or Doppler i maging. AORTIC VALVE The aortic valve is thickened but opens well. Doppler and Color Flow revealed no significant aortic r egurgitation. Calculated aortic valve area is 2.43 cm2 with maximum pressure gradient of 6 mmHg and m angel luis pressure gradient of 3 mmHg. There is no significant aortic valvular stenosis. MITRAL VALVE The mitral valve is normal in structure and function. There is no evidence of mitral valve prolapse. There is no mitral valve stenosis. Doppler and Color-flow revealed trace mitral regurgitation. TRICUSPID VALVE The tricuspid valve is normal in structure and function. Doppler and Color Flow revealed trace tricus pid regurgitation with an estimated PAP of 28 mmHg. There is no tricuspid valve stenosis. PULMONIC VALVE The pulmonic valve is not well visualized. Doppler and Color Flow revealed trace pulmonic valvular re gurgitation. GREAT VESSELS The aortic root is normal in size. The ascending aorta is normal in size. The IVC is normal in size a nd collapses >50% with inspiration. PERICARDIAL EFFUSION There is no evidence of significant pericardial effusion. Critical Notification Critical Value: No <Conclusion> The left ventricular systolic function is normal. The Ejection Fraction is 55-60%. There is normal LV segmental wall motion. Trace mitral regurgitation. Trace tricuspid regurgitation with an estimated PAP of 28 mmHg. There is no evidence of significant pericardial effusion. Signed by : Koko Raymundo, Electronically Approved : 01/28/2020 16:14:35
[2020-01-28] MEDS: ENOXAPARIN 40 MG/0.4 ML SYRINGE. SQ SCH (17:14)
[2020-01-28 19:00] VITALS: BP 138/83
--- NOTE | 2020-01-28 19:45 | NUR ---
Pt sitting up in chair, pt alert and orient x2 assessment completed vss pt reoriented to surroundings and call light will resume care and continue to monitor pt chair alarm set will resume care and continue to monitor pt.
[2020-01-28] MEDS: ATORVASTATIN CALCIUM 40 MG TABLET. PO SCH (21:03)
[2020-01-28] MEDS: DONEPEZIL HCL 10 MG TABLET. PO SCH (21:04)
[2020-01-28 22:35] VITALS: BP 143/81
[2020-01-29] MEDS: PANTOPRAZOLE 40 MG TABLET.DR. PO SCH (05:59)
[2020-01-29 07:00] VITALS: BP 168/87
--- NOTE | 2020-01-29 08:46 | PDOC ---
PROGRESS NOTES Date of Service DATE: 01/29/20 TIME: 08:45 Assessment Problems Medical Problems: (1) Confusion Status: Acute (2) Sprain of right ring finger Status: Acute (3) Syncope Status: Acute Syncope Parkinson's with dementia, Lewy body disease Plan Continue current doses of carbidopa/levodopa and donepezil Okay to return to senior living Follow-up with me in 4-6 weeks Subjective No complaints Objective Vital Signs Date Time Temp Pulse Resp B/P (MAP) Pulse Ox O2 Delivery O2 Flow Rate FiO2 01/29/20 07:00 97.9 71 16 168/87 (114) 93 Room Air 97.9 Intake and Output 01/29/20 07:00 Intake Total 1225 ml Output Total 1350 ml Balance -125 ml Intake Oral 1225 ml Output Urine Total 1350 ml PHYSICAL EXAM Alert. Oriented to place and person, not date. PERRL. EOMI. CN: no focal findings. Muscle tone: slight cogwheel rigidity Muscle strength: 4/5 DTR: 2+ Plantar reflex: flexor Gait: not examined in bed. Sensory exam: no abnormal findings. No cerebellar signs elicited. No tremor Review of Relevant I have reviewed the following items shara (where applicable) has been applied. Medications Current Medications Sodium Chloride 500 ml @ 500 mls/hr 1X ONCE IV Last administered on 01/25/20at 20:15; Start 01/25/20 at 20:15; Stop 01/25/20 at 21:14; Status DC Aspirin (Ecotrin) 325 mg 1X ONCE PO Last administered on 01/25/20at 22:03; Start 01/25/20 at 22:00; Stop 01/25/20 at 22:01; Status DC Ondansetron HCl (Zofran) 4 mg PRN Q8HRS PRN IV NAUSEA/VOMITING 1ST CHOICE; Start 01/25/20 at 21:45; Stop 01/26/20 at 13:50; Status DC Carbidopa/Levodopa (Sinemet 25/100) 2 tab TID PO Last administered on 01/28/20at 21:04; Start 01/26/20 at 09:00 Cetirizine HCl (ZyrTEC) 10 mg DAILY PO Last administered on 01/28/20at 08:57; Start 01/26/20 at 09:00 Diltiazem HCl (Cardizem 24hr Cd) 180 mg DAILY PO Last administered on 01/28/20at 08:57; Start 01/26/20 at 09:00 Donepezil HCl (Aricept) 10 mg HS PO Last administered on 01/28/20at 21:04; Start 01/26/20 at 00:00 Lisinopril (Prinivil) 40 mg DAILY PO Last administered on 01/28/20at 08:58; Start 01/26/20 at 09:00 Tamsulosin HCl (Flomax) 0.4 mg DAILY PO Last administered on 01/28/20at 08:57; Start 01/26/20 at 09:00 Atorvastatin Calcium (Lipitor) 80 mg QHS PO Last administered on 01/28/20at 21:03; Start 01/26/20 at 00:00 Pantoprazole Sodium (Protonix) 40 mg DAILYAC PO Last administered on 01/29/20at 05:59; Start 01/26/20 at 07:30 Sodium Chloride (Normal Saline Flush) 3 ml QSHIFT PRN IV AFTER MEDS AND BLOOD DRAWS; Start 01/26/20 at 13:45 Sodium Chloride 1,000 ml @ 55 mls/hr [id number] IV ; Start 01/26/20 at 15:00; Stop 01/27/20 at 17:55; Status DC Ondansetron HCl (Zofran) 4 mg PRN Q4HRS PRN IV NAUSEA/VOMITING; Start 01/26/20 at 13:45 Acetaminophen (Tylenol) 650 mg PRN Q4HRS PRN PO TEMP OVER 100.4F OR MILD PAIN; Start 01/26/20 at 13:45 Al Hydroxide/Mg Hydroxide (Mylanta Plus Xs) 30 ml PRN DAILY PRN PO HEARTBURN / GAS; Start 01/26/20 at 13:45 Sodium Monofluorophosphate (Fleet Adult) 133 ml PRN DAILY PRN [place] CONSTIPATION; Start 01/26/20 at 13:45 Docusate Sodium (Colace) 100 mg PRN BID PRN PO HARD STOOLS; Start 01/26/20 at 13:45 Albuterol Sulfate (Ventolin Neb Soln) 2.5 mg PRN Q4HRS PRN NEB SHORTNESS OF BREATH; Start 01/26/20 at 13:45 Guaifenesin (Robitussin) 200 mg PRN Q4HRS PRN PO COUGH; Start 01/26/20 at 13:45 Lorazepam (Ativan) 0.5 mg PRN Q4HRS PRN PO ANXIETY / AGITATION Last administered on 01/27/20at 21:34; Start 01/26/20 at 13:45 Enoxaparin Sodium (Lovenox 40mg Syringe) 40 mg Q24H SQ Last administered on 01/28/20at 17:14; Start 01/26/20 at 16:00 Enalaprilat (Vasotec Inj) 1.25 mg PRN Q6HRS PRN IVP HYPERTENSION Last administered on 01/28/20at 08:58; Start 01/26/20 at 13:45 Haloperidol Lactate (Haldol Inj) 5 mg PRN Q6HRS PRN IVP AGITATION; Start 01/27/20 at 10:30 Haloperidol Lactate (Haldol Inj) 5 mg PRN Q6HRS PRN IM AGITATION; Start 01/27/20 at 10:30 Lorazepam (Ativan Inj) 1 mg PRN Q4HRS PRN IVP ANXIETY / AGITATION Last administered on 01/27/20at 21:45; Start 01/27/20 at 10:30 Ibuprofen (Motrin) 400 mg PRN Q6HRS PRN PO INFLAMMATION; Start 01/28/20 at 12:45 Tramadol HCl (Ultram) 50 mg PRN Q6HRS PRN PO PAIN; Start 01/28/20 at 12:45 Active Scripts Active Reported Carbidopa-Levodopa 25-100 Tab (Carbidopa/Levodopa) 1 Each Tablet 2 Each PO TID Zyrtec (Cetirizine Hcl) 10 Mg Tablet 10 Mg PO DAILY Donepezil Hcl 10 Mg Tablet 10 Mg PO HS Lisinopril 40 Mg Tablet 40 Mg PO DAILY Atorvastatin Calcium 80 Mg Tablet 1 Tab PO DAILY Tamsulosin Hcl 0.4 Mg Cap.er.24h 1 Cap PO DAILY Omeprazole 20 Mg Tablet.dr 1 Tab PO DAILY Cartia Xt (Diltiazem Hcl) 180 Mg Cap.er.24h 180 Mg PO DAILY Vitals/I & O Vital Sign - Last 24 Hours 01/28/20 01/28/20 01/28/20 01/28/20 08:57 08:58 08:58 11:00 Temp 97.9 97.9 Pulse 74 74 69 76 Resp 20 B/P (MAP) 197/94 197/94 197/94 141/83 (102) Pulse Ox 93 O2 Delivery Room Air 01/28/20 01/28/20 01/28/20 01/28/20 15:00 19:00 19:45 22:35 Temp 97.8 98.1 97.7 97.8 98.1 97.7 Pulse 71 69 66 Resp 18 16 16 B/P (MAP) 103/70 (81) 138/83 (101) 143/81 (101) Pulse Ox 96 94 94 O2 Delivery Room Air Room Air Room Air Room Air 01/29/20 07:00 Temp 97.9 97.9 Pulse 71 Resp 16 B/P (MAP) 168/87 (114) Pulse Ox 93 O2 Delivery Room Air Intake and Output 01/28/20 01/28/20 01/29/20 15:00 23:00 07:00 Intake Total 550 ml 475 ml 200 ml Output Total 1350 ml Balance 550 ml 475 ml -1150 ml Justicifation of Admission Dx: Justifications for Admission: Justification of Admission Dx: Yes CHF: Cardiac Arrhythmias Comminuty Aquired Pneumonia: Med-High Risk Pt Chronic Renal Failure: Encephalopathy Altered Mental Status: Altered Mental Status MIL JEFFREY MD Jan 29, 2020 08:45
[2020-01-29] MEDS: LISINOPRIL 20 MG TABLET PO SCH (09:25)
[2020-01-29] MEDS: CARBIDOPA/LEVODOPA 25/100MG TABLET PO SCH ×3 (09:26→23:31)
[2020-01-29] MEDS: CETIRIZINE HCL 10 MG TABLET. PO SCH (09:26)
[2020-01-29] MEDS: TAMSULOSIN 0.4 MG CAP.ER.24H. PO SCH (09:26)
[2020-01-29 11:00] VITALS: BP 160/88
--- NOTE | 2020-01-29 11:37 | NUR ---
SS following up with discharge planning. SS reviewed pt chart and discussed with pt RN. Pt is currently on room air. COVID19 negative. PT/OT recommended nursing home unit. SS received notification from pt's son in law that they are declining nursing home unit at this time. Pt's son in law would like pt to return to [place] with home healthcare services through [facility], ; fax [phone], and private duty services with [facility]. Pt's RN and physician notified. SS phoned and faxed referral to [facility]. SS will continue to follow for discharge planning.
--- NOTE | 2020-01-29 14:18 | PDOC ---
[employer] PROGRESS NOTE Date of Service DOS: DATE: 01/29/20 TIME: 14:15 Chief Complaint Chief Complaint Ataxia UNCONTROLLED HYPERTENSION ACUTE FALL frequent recent falls marked cognitive decline, SUSPECT LEWY BODY Dementia CT HEAD, moderate diffuse atrophy. no mass effect, extraaxial fluid collections or hydrocephalus. no gross bleed. Moderate to marked, patchy periventricular and subcortical white matter hypoattenuation . no focal loss of bo-white matter distinction to suggest acute ischemia, i marked debility gait instability Back pain MOVEMENT DISORDER, suspect parkinson's disease PLAN PT/OT bedrest fall precautions home meds PT/OT/ ST DVT PROPHYLAXIS CARDIOLOGY CONSULT SNF PLACEMENT LIKELY NECESSARY CONSULT NEUROLOGY History of Present Illness History of Present Illness Patient is a 79-year-old male presents with family from [facility] where patient had a syncopal episode and ended up falling which occurred at approximately 1800. Patient reports he did not hit his head. Denies prior dizziness or chest pain. Patient currently reports he does not remember the fall. Patient does complain of right ring finger pain and swelling. Bruising was noted by family. Family reports patient has been seen by neurology recently and thought to have possibly parkinsonism and or dementia 01/26: Patient evaluated bedside. Discussed with RN, he is having some agitation/aggression overnight. Per neurology, patient is to continue on current doses of carbidopa/levodopa and donepezil and follow-up in 4-6 weeks. Echocardiogram pending. Barring any abnormal results anticipate [facility] his [facility] possibly tomorrow. 01/27: Patient seen and evaluated bedside. He has no complaints today, except for requesting better pain control of his back pain. Discussed imaging and lab work with patient, as well as recommendation for future loop recorder device. COVID-19 results pending prior to his return to [facility]. Spoke with patient's son-in-law whether SNU or home health would be in the best interest of the patient, given current pandemic and close relation with family. Discussed with RN and social work administrator. 01/28: Patient seen and evaluated. No significant complaints today, states he feels well. Back pain improved with medication. After discussion with patient's family, they are agreeable to have patient discharge home with home health. Will remove Dietz and do a voiding challenge prior to discharge home. Discussed with RN. Greater than 30 minutes was spent managing the discharge this patient. Vitals/I&O Vitals/I&O: Vital Signs Date Time Temp Pulse Resp B/P (MAP) Pulse Ox O2 Delivery O2 Flow Rate FiO2 01/29/20 11:00 97.9 78 16 160/88 (112) 95 Room Air 97.9 I & O 01/28/20 01/28/20 01/29/20 15:00 23:00 07:00 Intake Total 550 ml 475 ml 200 ml Output Total 1350 ml Balance 550 ml 475 ml -1150 ml Physical Exam General: Alert, Cooperative, No acute distress Heart: Regular rate Lungs: Clear Abdomen: Normal bowel sounds, Soft Extremities: No cyanosis Skin: No significant lesion Review of Systems Review of Systems: Back pain improved. Denies fever, denies nausea, denies chest pain. Assessment and Plan Assessmemt and Plan Problems Medical Problems: (1) Confusion Status: Acute (2) Sprain of right ring finger Status: Acute (3) Syncope Status: Acute Comment Review of Relevant I have reviewed the following items shara (where applicable) has been applied. Justifications for Admission General Conditions Poss hypotension?: Yes Justification for admission: Patient has hypotension (SBP < 90 mm Hg) which is not readily corrected by appropriate treatment within 12 to 24 hours. FALLS WITH GAIT INSTABILITY Altered mental status?: Yes Justification of admission: Patient has tachycardia (> 100 beats per minute) or hypotension (SBP < 90 mm Hg) leading to inadequate systemic perfusion as indicated by severe/persistent altered mental status. Other Justification RIC MAK MD Jan 29, 2020 14:18
--- NOTE | 2020-01-29 14:22 | SNU/HH DC ---
DISCHARGE WITH HOME HEALTH DISCHARGE INFORMATION: Discharge Date: Jan 29, 2020 Final Diagnosis: Problems Medical Problems: (1) Confusion Status: Acute (2) Sprain of right ring finger Status: Acute (3) Syncope Status: Acute Condition on Discharge: Stable CODE STATUS: Code Status: Full HOME HEALTH: Face to Face: I certify this patient is under my care and that I, or a nurse practitioner or physician's mail handler assistant working with me, had a face to face encounter that meets the physician face to face encounter requirements with this patient on 01/29/2020. Medical Complications: Dementia RN For Eval/Treatment: Yes Physical Therapy For: Evalulation/Treatment Occupational Therapy For: Evaluation/Treatment Pt Meets Homebound Status: Unsteady balance w/ amb,, Extreme weakness w/ amb., Frequent falls w/ injury POST DISCHARGE ORDERS: Activity Instructions for Disc: Activity as tolerated Weight Bearing Status after Di: As tolerated DIET AFTER DISCHARGE: ADA CHECKS AFTER DISCHARGE: Checks after discharge: Check blood press - daily TREATMENT/EQUIPMENT ORDERS: Adaptive Equipment Issued: Cane, Front wheeled walker, Walker Discharge Respiratory Equipmen: Nebulizer CERTIFICATION STATEMENT: Certification Statement: Certification Statement: Based on the above finding, I certify that this patient is confined to the home and needs intermittent jail care, physical therapy and/or speech therapy, or continues to need occupational therapy.~ This patient is under my care, and I have initiated the establishment of the plan of care.~ This patient will be followed by myself or a community physician who will periodically review the plan of care. Home Meds Reported Medications Carbidopa/Levodopa (CARBIDOPA-LEVODOPA 25-100 TAB) 1 Each Tablet, 2 EACH PO TID for , TAB 01/25/20 Cetirizine Hcl (ZYRTEC) 10 Mg Tablet, 10 MG PO DAILY for , TAB 01/25/20 Donepezil Hcl (DONEPEZIL HCL) 10 Mg Tablet, 10 MG PO HS for , TAB 01/25/20 Lisinopril (LISINOPRIL) 40 Mg Tablet, 40 MG PO DAILY for FOR HYPERTENSION, #30 TAB 0 Refills 01/25/20 Atorvastatin Calcium (ATORVASTATIN CALCIUM) 80 Mg Tablet, 1 TAB PO DAILY, TAB 09/24/17 Tamsulosin Hcl (TAMSULOSIN HCL) 0.4 Mg Cap.er.24h, 1 CAP PO DAILY, CAP 09/24/17 Omeprazole (OMEPRAZOLE) 20 Mg Tablet.dr, 1 TAB PO DAILY, TAB 09/24/17 Diltiazem Hcl (CARTIA XT) 180 Mg Cap.er.24h, 180 MG PO DAILY, CAP.SR 09/24/17 Discontinued Reported Medications Lisinopril (LISINOPRIL) 20 Mg Tablet, 1 TAB PO DAILY, TAB 09/24/17 RIC MAK MD Jan 29, 2020 14:22
--- NOTE | 2020-01-29 14:27 | PDOC3 ---
Discharge Summary Visit Information Date of Admission: Jan 25, 2020 Date of Discharge: Jan 31, 2020 Final Diagnosis Problems Medical Problems: (1) Confusion Status: Acute (2) Sprain of right ring finger Status: Acute (3) Syncope Status: Acute Brief Hospital Course Allergies Allergies Coded Allergies Type Severity Reaction Last Updated Verified No Known Drug Allergies 09/24/17 No Vital Signs Vital Signs Date Time Temp Pulse Resp B/P (MAP) Pulse Ox O2 Delivery O2 Flow Rate FiO2 01/29/20 11:00 97.9 78 16 160/88 (112) 95 Room Air 97.9 Lab Results Laboratory Tests Test 01/28/20 06:30 Coronavirus (PCR) Not detected (Not Detected) Brief Hospital Course Mr. Mayo is a 79 old male who presented with syncope, Parkinson's dementia. Consultation was placed to neurology and cardiology. He was recommended to continue his current dose of carbidopa/levodopa and donepezil. Recommended follow-up with neurology in 4 to 6 weeks. Patient ligated with echocardiogram that showed normal left jugular systolic function, ejection fraction 65-60%, and PAP 28 mmHg. Per cardiology, patient was recommended to continue current medical therapy, and plan for loop recorder as outpatient. Patient was stable for discharge home with home health. Assessment Assessment Syncope Parkinson's with dementia Lewy body disease Discharge Information Condition at Discharge: Stable Follow Up: Weeks Disposition/Orders: D/C to Home w/ HH Scheduled Atorvastatin Calcium (Atorvastatin Calcium) 80 Mg Tablet, 1 TAB PO DAILY, (Reported) Entered as Reported by: QIANA FARMER on 09/24/17 1555 Last Action: Converted on 01/25/202345 by ANDREY GUERRA RN Carbidopa/Levodopa (Carbidopa-Levodopa 25-100 Tab) 1 Each Tablet, 2 EACH PO TID for , (Reported) Entered as Reported by: ANDREY GUERRA RN on 01/25/202332 Last Action: Continued on 01/25/202345 by ANDREY GUERRA RN Cetirizine Hcl (Zyrtec) 10 Mg Tablet, 10 MG PO DAILY for , (Reported) Entered as Reported by: ANDREY GUERRA RN on 01/25/202332 Last Action: Continued on 01/25/202345 by ANDREY GUERRA RN Diltiazem Hcl (Cartia Xt) 180 Mg Cap.er.24h, 180 MG PO DAILY, (Reported) Entered as Reported by: QIANA FARMER on 09/24/171554 Last Action: Continued on 01/25/202345 by ANDREY GUERRA RN Donepezil Hcl (Donepezil Hcl) 10 Mg Tablet, 10 MG PO HS for , (Reported) Entered as Reported by: ANDREY GUERRA RN on 01/25/202332 Last Action: Continued on 01/25/202345 by ANDREY GUERRA RN Lisinopril (Lisinopril) 40 Mg Tablet, 40 MG PO DAILY for FOR HYPERTENSION, #30 Ref 0 (Reported) Entered as Reported by: ANDREY GUERRA RN on 01/25/202332 Last Action: Continued on 01/25/202345 by ANDREY GUERRA RN Omeprazole (Omeprazole) 20 Mg Tablet.dr, 1 TAB PO DAILY, (Reported) Entered as Reported by: QIANA FARMER on 09/24/171554 Last Action: Converted on 01/25/202345 by ANDREY GUERRA RN Tamsulosin Hcl (Tamsulosin Hcl) 0.4 Mg Cap.er.24h, 1 CAP PO DAILY, (Reported) Entered as Reported by: QIANA FARMER on 09/24/171554 Last Action: Continued on 01/25/202345 by ANDREY GUERRA RN Discontinued Medications Lisinopril (Lisinopril) 20 Mg Tablet, 1 TAB PO DAILY, (Reported) Discontinued Reason: Prescription changed Entered as Reported by: QIANA FARMER on 09/24/171554 Justicifation of Admission Dx: Justifications for Admission: Justification of Admission Dx: Yes CHF: Cardiac Arrhythmias Comminuty Aquired Pneumonia: Med-High Risk Pt Chronic Renal Failure: Encephalopathy Altered Mental Status: Altered Mental Status RIC MAK MD Jan 29, 2020 14:27
--- NOTE | 2020-01-29 14:56 | NUR ---
SS following up with discharge planning. Discharge orders received. SS phoned and faxed discharge orders to [facility], ; fax [phone]. Pt's RN notified.
[2020-01-29 15:00] VITALS: BP 142/87
[2020-01-29] MEDS: ENOXAPARIN 40 MG/0.4 ML SYRINGE. SQ SCH (16:00)
--- NOTE | 2020-01-29 16:53 | NUR ---
bar out at 1200 and patient urinated 50cc at 1500. bladder scanned him at 1630 and only had 135 cc.
[2020-01-29 19:57] VITALS: BP 153/90
[2020-01-29 22:33] VITALS: BP 155/72
[2020-01-29] MEDS: DONEPEZIL HCL 10 MG TABLET. PO SCH (23:31)
[2020-01-29] MEDS: ATORVASTATIN CALCIUM 40 MG TABLET. PO SCH (23:31)
[2020-01-30 02:42] VITALS: BP 135/71
[2020-01-30 07:00] VITALS: BP 180/81
[2020-01-30] MEDS: CETIRIZINE HCL 10 MG TABLET. PO SCH (09:46)
[2020-01-30] MEDS: TAMSULOSIN 0.4 MG CAP.ER.24H. PO SCH (09:49)
[2020-01-30] MEDS: CARBIDOPA/LEVODOPA 25/100MG TABLET PO SCH ×3 (09:49→23:03)
[2020-01-30] MEDS: PANTOPRAZOLE 40 MG TABLET.DR. PO SCH (09:49)
[2020-01-30] MEDS: LISINOPRIL 20 MG TABLET PO SCH (09:49)
--- NOTE | 2020-01-30 10:12 | NUR ---
SS following up with discharge planning. SS reviewed pt chart and discussed with pt RN. Pt did not discharge last night. SS contacted pt's son in law, Lincoln Kaplan, , and discussed. SS was notified that pt's family did not take pt home due to weakness. SS rediscussed halfway unit. Pt's son in law not agreeable to halfway unit. SS was notified that pt will return to [facility] with private duty services with [facility]. Pt's son in law reported that he would now like [facility], ; fax [phone], so that all services are under the same umbrella. SS phoned and faxed referral and discharge orders to [facility]. Pt's son in law reported that he will take pt home [facility] at 1700. Pt's RN notified.
[2020-01-30 10:24] VITALS: BP 178/83
--- NOTE | 2020-01-30 12:31 | PDOC ---
[employer] PROGRESS NOTE Date of Service DOS: DATE: 01/30/20 TIME: 12:29 Chief Complaint Chief Complaint Ataxia UNCONTROLLED HYPERTENSION ACUTE FALL frequent recent falls marked cognitive decline, SUSPECT LEWY BODY Dementia CT HEAD, moderate diffuse atrophy. no mass effect, extraaxial fluid collections or hydrocephalus. no gross bleed. Moderate to marked, patchy periventricular and subcortical white matter hypoattenuation . no focal loss of bo-white matter distinction to suggest acute ischemia, i marked debility gait instability Back pain MOVEMENT DISORDER, suspect parkinson's disease PLAN PT/OT bedrest fall precautions home meds PT/OT/ ST DVT PROPHYLAXIS CARDIOLOGY CONSULT SNF PLACEMENT LIKELY NECESSARY CONSULT NEUROLOGY History of Present Illness History of Present Illness Patient is a 79-year-old male presents with family from [facility] where patient had a syncopal episode and ended up falling which occurred at approximately 1800. Patient reports he did not hit his head. Denies prior dizziness or chest pain. Patient currently reports he does not remember the fall. Patient does complain of right ring finger pain and swelling. Bruising was noted by family. Family reports patient has been seen by neurology recently and thought to have possibly parkinsonism and or dementia 01/26: Patient evaluated bedside. Discussed with RN, he is having some agitation/aggression overnight. Per neurology, patient is to continue on current doses of carbidopa/levodopa and donepezil and follow-up in 4-6 weeks. Echocardiogram pending. Barring any abnormal results anticipate discharge to his intermediate possibly tomorrow. 01/27: Patient seen and evaluated bedside. He has no complaints today, except for requesting better pain control of his back pain. Discussed imaging and lab work with patient, as well as recommendation for future loop recorder device. COVID-19 results pending prior to his return to [facility]. Spoke with patient's son-in-law whether SNU or home health would be in the best interest of the patient, given current pandemic and close relation with family. Discussed with RN and social sciences research scientist. 01/28: Patient seen and evaluated. No significant complaints today, states he feels well. Back pain improved with medication. After discussion with patient's family, they are agreeable to have patient discharge home with home health. Will remove Dietz and do a voiding challenge prior to discharge home. Discussed with RN. Greater than 30 minutes was spent managing the discharge this patient. 01/29: Patient has no complaints today. He was unfortunately unable to discharge home yesterday with family as intended he will discharge today home with home health. Discussed with RN. Vitals/I&O Vitals/I&O: Vital Signs Date Time Temp Pulse Resp B/P (MAP) Pulse Ox O2 Delivery O2 Flow Rate FiO2 01/30/20 10:24 98.1 69 18 178/83 (114) 93 Room Air 98.1 I & O 01/29/20 01/29/20 01/30/20 15:00 23:00 07:00 Intake Total 0 ml Output Total 650 ml 200 ml 555 ml Balance -650 ml -200 ml -555 ml Physical Exam General: Alert, Cooperative, No acute distress Heart: Regular rate Lungs: Clear Abdomen: Normal bowel sounds, Soft Extremities: No cyanosis Skin: No significant lesion Review of Systems Review of Systems: Denies chest pain, denies fever, no shortness of breath. Assessment and Plan Assessmemt and Plan Problems Medical Problems: (1) Confusion Status: Acute (2) Sprain of right ring finger Status: Acute (3) Syncope Status: Acute Comment Review of Relevant I have reviewed the following items shara (where applicable) has been applied. Justifications for Admission General Conditions Poss hypotension?: Yes Justification for admission: Patient has hypotension (SBP < 90 mm Hg) which is not readily corrected by appropriate treatment within 12 to 24 hours. FALLS WITH GAIT INSTABILITY Altered mental status?: Yes Justification of admission: Patient has tachycardia (> 100 beats per minute) or hypotension (SBP < 90 mm Hg) leading to inadequate systemic perfusion as indicated by severe/persistent altered mental status. Other Justification RIC MAK MD Jan 30, 2020 12:31
[2020-01-30 14:31] VITALS: BP 133/72
--- NOTE | 2020-01-30 17:07 | NUR ---
Patient's son in law requesting patient to stay one more night tonight so that he is able to spend the night with patient over the weekend to help care for him. Patient will discharge 01/30. Dr. Whitfield aware.
[2020-01-30] MEDS: ENOXAPARIN 40 MG/0.4 ML SYRINGE. SQ SCH (17:40)
[2020-01-30 19:00] VITALS: BP 127/68
[2020-01-30 22:43] VITALS: BP 143/85
[2020-01-30] MEDS: ATORVASTATIN CALCIUM 40 MG TABLET. PO SCH (23:02)
[2020-01-30] MEDS: DONEPEZIL HCL 10 MG TABLET. PO SCH (23:02)
[2020-01-31 02:42] VITALS: BP 140/81
[2020-01-31 07:00] VITALS: BP 168/82
--- NOTE | 2020-01-31 08:44 | PDOC ---
PROGRESS NOTES Date of Service DATE: 01/31/20 TIME: 08:43 Assessment Problems Medical Problems: (1) Confusion Status: Acute (2) Sprain of right ring finger Status: Acute (3) Syncope Status: Acute Syncope Parkinson's with dementia, Lewy body disease Plan Continue current doses of carbidopa/levodopa and donepezil Note new plans to go home with home health Follow-up with me in 4-6 weeks Subjective No complaints Objective Vital Signs Date Time Temp Pulse Resp B/P (MAP) Pulse Ox O2 Delivery O2 Flow Rate FiO2 01/31/20 02:42 98.1 72 18 140/81 (100) 98 Room Air 98.1 Intake and Output 01/31/20 07:00 Intake Total 1040 ml Output Total 260 ml Balance 780 ml Intake Oral 1040 ml Output Urine Total 260 ml # Bowel Movements 1 PHYSICAL EXAM Alert. Oriented to place and person, not date. PERRL. EOMI. CN: no focal findings. Muscle tone: slight cogwheel rigidity Muscle strength: 4/5 DTR: 2+ Plantar reflex: flexor Gait: not examined in bed. Sensory exam: no abnormal findings. No cerebellar signs elicited. No tremor Review of Relevant I have reviewed the following items shara (where applicable) has been applied. Medications Current Medications Sodium Chloride 500 ml @ 500 mls/hr 1X ONCE IV Last administered on 01/25/20at 20:15; Start 01/25/20 at 20:15; Stop 01/25/20 at 21:14; Status DC Aspirin (Ecotrin) 325 mg 1X ONCE PO Last administered on 01/25/20at 22:03; Start 01/25/20 at 22:00; Stop 01/25/20 at 22:01; Status DC Ondansetron HCl (Zofran) 4 mg PRN Q8HRS PRN IV NAUSEA/VOMITING 1ST CHOICE; Start 01/25/20 at 21:45; Stop 01/26/20 at 13:50; Status DC Carbidopa/Levodopa (Sinemet 25/100) 2 tab TID PO Last administered on 01/30/20at 23:03; Start 01/26/20 at 09:00 Cetirizine HCl (ZyrTEC) 10 mg DAILY PO Last administered on 01/30/20at 09:46; Start 01/26/20 at 09:00 Diltiazem HCl (Cardizem 24hr Cd) 180 mg DAILY PO Last administered on 01/30/20at 09:45; Start 01/26/20 at 09:00 Donepezil HCl (Aricept) 10 mg HS PO Last administered on 01/30/20at 23:02; Start 01/26/20 at 00:00 Lisinopril (Prinivil) 40 mg DAILY PO Last administered on 01/30/20 09:49; Start 01/26/20 at 09:00 Tamsulosin HCl (Flomax) 0.4 mg DAILY PO Last administered on 01/30/20 09:49; Start 01/26/20 at 09:00 Atorvastatin Calcium (Lipitor) 80 mg QHS PO Last administered on 01/30/20 23:02; Start 01/26/20 at 00:00 Pantoprazole Sodium (Protonix) 40 mg DAILYAC PO Last administered on 01/30/20 09:49; Start 01/26/20 at 07:30 Sodium Chloride (Normal Saline Flush) 3 ml QSHIFT PRN IV AFTER MEDS AND BLOOD DRAWS; Start 01/26/20 at 13:45 Sodium Chloride 1,000 ml @ 55 mls/hr [id number] IV ; Start 01/26/20 at 15:00; Stop 01/27/20 at 17:55; Status DC Ondansetron HCl (Zofran) 4 mg PRN Q4HRS PRN IV NAUSEA/VOMITING; Start 01/26/20 at 13:45 Acetaminophen (Tylenol) 650 mg PRN Q4HRS PRN PO TEMP OVER 100.4F OR MILD PAIN; Start 01/26/20 at 13:45 Al Hydroxide/Mg Hydroxide (Mylanta Plus Xs) 30 ml PRN DAILY PRN PO HEARTBURN / GAS; Start 01/26/20 at 13:45 Sodium Monofluorophosphate (Fleet Adult) 133 ml PRN DAILY PRN FL CONSTIPATION; Start 01/26/20 at 13:45 Docusate Sodium (Colace) 100 mg PRN BID PRN PO HARD STOOLS; Start 01/26/20 at 13:45 Albuterol Sulfate (Ventolin Neb Soln) 2.5 mg PRN Q4HRS PRN NEB SHORTNESS OF BREATH; Start 01/26/20 at 13:45 Guaifenesin (Robitussin) 200 mg PRN Q4HRS PRN PO COUGH; Start 01/26/20 at 13:45 Lorazepam (Ativan) 0.5 mg PRN Q4HRS PRN PO ANXIETY / AGITATION Last administered on 01/27/20at 21:34; Start 01/26/20 at 13:45 Enoxaparin Sodium (Lovenox 40mg Syringe) 40 mg Q24H SQ Last administered on 01/30/20at 17:40; Start 01/26/20 at 16:00 Enalaprilat (Vasotec Inj) 1.25 mg PRN Q6HRS PRN IVP HYPERTENSION Last administered on 01/28/20at 08:58; Start 01/26/20 at 13:45 Haloperidol Lactate (Haldol Inj) 5 mg PRN Q6HRS PRN IVP AGITATION; Start 01/27/20 at 10:30 Haloperidol Lactate (Haldol Inj) 5 mg PRN Q6HRS PRN IM AGITATION; Start 01/27/20 at 10:30 Lorazepam (Ativan Inj) 1 mg PRN Q4HRS PRN IVP ANXIETY / AGITATION Last administered on 01/27/20at 21:45; Start 01/27/20 at 10:30 Ibuprofen (Motrin) 400 mg PRN Q6HRS PRN PO INFLAMMATION; Start 01/28/20 at 12:45 Tramadol HCl (Ultram) 50 mg PRN Q6HRS PRN PO MODERATE - SEVERE PAIN; Start 01/28/20 at 12:45 Active Scripts Active Reported Carbidopa-Levodopa 25-100 Tab (Carbidopa/Levodopa) 1 Each Tablet 2 Each PO TID Zyrtec (Cetirizine Hcl) 10 Mg Tablet 10 Mg PO DAILY Donepezil Hcl 10 Mg Tablet 10 Mg PO HS Lisinopril 40 Mg Tablet 40 Mg PO DAILY Atorvastatin Calcium 80 Mg Tablet 1 Tab PO DAILY Tamsulosin Hcl 0.4 Mg Cap.er.24h 1 Cap PO DAILY Omeprazole 20 Mg Tablet.dr 1 Tab PO DAILY Cartia Xt (Diltiazem Hcl) 180 Mg Cap.er.24h 180 Mg PO DAILY Vitals/I & O Vital Sign - Last 24 Hours 01/30/20 01/30/20 01/30/20 01/30/20 09:45 09:49 10:24 14:31 Temp 98.1 98.0 98.1 98.0 Pulse 65 72 69 75 Resp 18 18 B/P (MAP) 180/81 180/81 178/83 (114) 133/72 (92) Pulse Ox 93 96 O2 Delivery Room Air Room Air 01/30/20 01/30/20 01/30/20 01/31/20 19:00 20:00 22:43 02:42 Temp 97.9 98.6 98.1 97.9 98.6 98.1 Pulse 70 69 72 Resp 18 16 18 B/P (MAP) 127/68 (87) 143/85 (104) 140/81 (100) Pulse Ox 99 100 98 O2 Delivery Room Air Room Air Room Air Room Air Intake and Output 01/30/20 01/30/20 01/31/20 15:00 23:00 07:00 Intake Total 1040 ml 0 ml Output Total 260 ml Balance 780 ml 0 ml Justicifation of Admission Dx: Justifications for Admission: Justification of Admission Dx: Yes CHF: Cardiac Arrhythmias Comminuty Aquired Pneumonia: Med-High Risk Pt Chronic Renal Failure: Encephalopathy Altered Mental Status: Altered Mental Status MIL JEFFREY MD Jan 31, 2020 08:44
[2020-01-31] MEDS: TAMSULOSIN 0.4 MG CAP.ER.24H. PO SCH (09:31)
[2020-01-31] MEDS: PANTOPRAZOLE 40 MG TABLET.DR. PO SCH (09:31)
[2020-01-31] MEDS: CARBIDOPA/LEVODOPA 25/100MG TABLET PO SCH ×2 (09:31→16:11)
[2020-01-31] MEDS: CETIRIZINE HCL 10 MG TABLET. PO SCH (09:31)
[2020-01-31] MEDS: LISINOPRIL 20 MG TABLET PO SCH (09:31)
[2020-01-31 11:00] VITALS: BP 123/71
--- NOTE | 2020-01-31 11:52 | NUR ---
SS following up with discharge planning. SS reviewed pt chart and discussed with pt RN. SS was notified that pt did not discharge yesterday. SS was notified that physician discussed with pt's son in law and pt's son in law requested that pt stay one more night. Pt is currently on room air. Discharge orders and referral have been phoned and faxed to [facility], ; fax [phone]. Pt is COVID19 negative. Anticipate discharge today. SS will continue to follow for discharge planning.
--- NOTE | 2020-01-31 12:38 | PDOC ---
[employer] PROGRESS NOTE Date of Service DOS: DATE: 01/31/20 TIME: 12:37 Chief Complaint Chief Complaint Ataxia UNCONTROLLED HYPERTENSION ACUTE FALL frequent recent falls marked cognitive decline, SUSPECT LEWY BODY Dementia CT HEAD, moderate diffuse atrophy. no mass effect, extraaxial fluid collections or hydrocephalus. no gross bleed. Moderate to marked, patchy periventricular and subcortical white matter hypoattenuation . no focal loss of bo-white matter distinction to suggest acute ischemia, i marked debility gait instability Back pain MOVEMENT DISORDER, suspect parkinson's disease PLAN PT/OT bedrest fall precautions home meds PT/OT/ ST DVT PROPHYLAXIS CARDIOLOGY CONSULT SNF PLACEMENT LIKELY NECESSARY CONSULT NEUROLOGY History of Present Illness History of Present Illness Patient is a 79-year-old male presents with family from [facility] where patient had a syncopal episode and ended up falling which occurred at approximately 1800. Patient reports he did not hit his head. Denies prior dizziness or chest pain. Patient currently reports he does not remember the fall. Patient does complain of right ring finger pain and swelling. Bruising was noted by family. Family reports patient has been seen by neurology recently and thought to have possibly parkinsonism and or dementia 01/26: Patient evaluated bedside. Discussed with RN, he is having some agitation/aggression overnight. Per neurology, patient is to continue on current doses of carbidopa/levodopa and donepezil and follow-up in 4-6 weeks. Echocardiogram pending. Barring any abnormal results anticipate discharge to his retirement possibly tomorrow. 01/27: Patient seen and evaluated bedside. He has no complaints today, except for requesting better pain control of his back pain. Discussed imaging and lab work with patient, as well as recommendation for future loop recorder device. COVID-19 results pending prior to his return to [facility]. Spoke with patient's son-in-law whether SNU or home health would be in the best interest of the patient, given current pandemic and close relation with family. Discussed with RN and social media sr strategy manager. 01/28: Patient seen and evaluated. No significant complaints today, states he feels well. Back pain improved with medication. After discussion with patient's family, they are agreeable to have patient discharge home with home health. Will remove Dietz and do a voiding challenge prior to discharge home. Discussed with RN. Greater than 30 minutes was spent managing the discharge this patient. 01/29: Patient has no complaints today. He was unfortunately unable to discharge home yesterday with family as intended he will discharge today home with home health. Discussed with RN. 01/30: Patient states he is doing well today. Resting comfortably without any complaints. To be discharged home today with family care and home health. Greater than 30 minutes was spent managing the discharge of this patient. Vitals/I&O Vitals/I&O: Vital Signs Date Time Temp Pulse Resp B/P (MAP) Pulse Ox O2 Delivery O2 Flow Rate FiO2 01/31/20 11:00 98.3 74 18 123/71 (88) 93 Room Air 98.3 I & O 01/30/20 01/30/20 01/31/20 15:00 23:00 07:00 Intake Total 1040 ml 0 ml Output Total 260 ml Balance 780 ml 0 ml Physical Exam General: Alert, Cooperative, No acute distress Heart: Regular rate Lungs: Clear Abdomen: Normal bowel sounds, Soft Extremities: No cyanosis Skin: No significant lesion Review of Systems Review of Systems: Denies all review of systems Assessment and Plan Assessmemt and Plan Problems Medical Problems: (1) Confusion Status: Acute (2) Sprain of right ring finger Status: Acute (3) Syncope Status: Acute Comment Review of Relevant I have reviewed the following items shara (where applicable) has been applied. Justifications for Admission General Conditions Poss hypotension?: Yes Justification for admission: Patient has hypotension (SBP < 90 mm Hg) which is not readily corrected by appropriate treatment within 12 to 24 hours. FALLS WITH GAIT INSTABILITY Altered mental status?: Yes Justification of admission: Patient has tachycardia (> 100 beats per minute) or hypotension (SBP < 90 mm Hg) leading to inadequate systemic perfusion as indicated by severe/persistent altered mental status. Other Justification RIC MAK MD Jan 31, 2020 12:38
[2020-01-31 15:00] VITALS: BP 128/57
[2020-01-31] MEDS: ENOXAPARIN 40 MG/0.4 ML SYRINGE. SQ SCH (16:00)
--- NOTE | 2020-01-31 18:15 | NUR ---
Discharge Note: MIL METZ Discharge instructions and discharge home medications reviewed with Washer Operator and a copy given. All questions have been answered and understanding verbalized. The following instructions and handouts were given: Patient discharged to home with private home care via private vehicle
== END 2020-01-31 18:40 | disposition home health service (06) | DRG 74 ==
LOC: ER 19:18 → 2 NORTH 22:02
PROVIDERS: ADMIT Internal Medicine; ATTEND Internal Medicine
DX: G90.8 Other disorders of autonomic nervous system (principal); G93.40 Encephalopathy, unspecified; G31.83 Neurocognitive disorder with Lewy bodies; E78.5 Hyperlipidemia, unspecified; F02.80 Dementia in other diseases classified elsewhere, unspecified severity, without behavioral disturbance, psychotic disturbance, mood disturbance, and anxiety; G24.9 Dystonia, unspecified; H54.62 Unqualified visual loss, left eye, normal vision right eye; I10 Essential (primary) hypertension; M19.90 Unspecified osteoarthritis, unspecified site; M85.80 Other specified disorders of bone density and structure, unspecified site; R29.6 Repeated falls; R56.9 Unspecified convulsions; S63.614A Unspecified sprain of right ring finger, initial encounter; Z79.899 Other long term (current) drug therapy; Z82.49 Family history of ischemic heart disease and other diseases of the circulatory system; Z85.828 Personal history of other malignant neoplasm of skin; K21.9 Gastro-esophageal reflux disease without esophagitis; Z20.828 Contact with and (suspected) exposure to other viral communicable diseases; W18.39XA Other fall on same level, initial encounter; Y93.89 Activity, other specified; Y92.89 Other specified places as the place of occurrence of the external cause; Y99.8 Other external cause status
CPT/HCPCS: 36415; 70450; 71045; 72125; 73130; 80048; 80053; 81001; 82140; 82553; 83605; 83735; 83880; 84484; 85025; 85610; 85730; 93005; 93306; 96360; 99285; J1650; J2060; J3490; J7040; U0003; 97110-GP; 97116-GP; 97530-GO; 97530-GP; 97535-GO; G0378

== ENCOUNTER 2020-03-22 10:07 | Inpatient (IN) | payer MEDICARE ==
[~2020-03-22] VITALS: Ht 175.3 cm; Wt 72.4 kg
[~2020-03-22 10:07] MED LIST changes: +CARB1TAB22 PO; +CETI10TA74 PO; +DONE10TA7 PO; +LISI-130 PO; -LISI-334 PO; +LISI20TA18 PO
--- NOTE | 2020-03-22 10:26 | PHYS DOC ---
Past Medical History Past Medical History: Dementia, GERD, Hypertension Additional Past Medical Histor: SKIN CANCER, left eye blindness, "Parkinsonism?" Past Surgical History: Other Additional Past Surgical Histo: cornea transplants Smoking Status: Never Smoker Alcohol Use: None Drug Use: None General Adult HPI: HPI: 79-year-old male past medical history significant for Parkinson's disease, Lewy body dementia, hypertension, GERD and BPH, presents to the ED from his assisted living facility, after witnessed fall, concern for confusion from his normal b aseline mental status. Patient was seen confused walking into the dining area, in his underwear. Sat down at the table but didn't eat anything. Said he was going to the bathroom, got up, c/o dizziness and fell, hitting his head, no LOC. Medication list reviewed, not on any anticoagulants. EMR was reviewed and patient was in the hospital 02/09/20 for syncope. RN called pts' son who reported pt has "good and bad days" with his dementia. RN also called assisted living facility - pt normally ambulates w/o assistance, is chronically confused about date/time/situation but follows commands. Is a full code. [id number]. Review of Systems: Review of Systems: History and Review of systems unable to obtained from pt due to medical cond ition/mental status Heart Score: Risk Factors: Risk Factors: DM, Current or recent (<one month) smoker, HTN, HLP, family history of CAD, obesity. Risk Scores: Score 0 - 3: 2.5% MACE over next 6 weeks - Discharge Home Score 4 - 6: 20.3% MACE over next 6 weeks - Admit for Clinical Observation Score 7 - 10: 72.7% MACE over next 6 weeks - Early Invasive Strategies Current Medications: Current Medications Medications (Trade) Dose Ordered Sig/Vikas Start Time Stop Time Status Last Admin Dose Admin Sodium Chloride 1,000 ml @ 100 mls/hr Q10H 03/22/20 10:30 Allergies: Allergies: Allergies Coded Allergies Type Severity Reaction Last Updated Verified No Known Drug Allergies 09/24/17 No Physical Exam: PE: Constitutional: afebrile, no acute distress, non-toxic appearance. [] HENT: Normocephalic, atraumatic, bilateral external ears normal, oropharynx moist, no oral exudates, nose normal, uncontrolled head and torso head bobbing/swaying when removing clothing, Eyes: pupils not equal/both mishaped, 17 points NIH Stroke Scale, EOMI, conjunctiva normal, no discharge, no nystagmus, no facial droop Neck: Normal range of motion, no midline tenderness, supple, no stridor. [] Cardiovascular: S1/2 present, regular rhythm Lungs & Thorax: Speaking in full sentences, bilateral equal chest rise, no tachypnea or increased work of breathing Abdomen: soft, no tenderness, no hip pain Skin: Warm, dry, no erythema, no rash. [] Back: No midline tenderness or step-offs, no CVA tenderness, rigid posture Extremities: No tenderness, no cyanosis, no edema, cannot perform FNF with either UE-arms drift but dont touch bed, legs fall to bed/not moving, no tremor at rest Neurologic: Alert to name, thinks it's October 2000, normal motor function, normal sensory function, no focal deficits noted. [] Psychologic: Affect normal, judgement normal, mood normal. [] EKG: EKG: Sinus rhythm 60 bpm, no axis deviation, QTC 442, no T wave inversions, no ST elevations or ST depressions, Q waves in lead III Radiology/Procedures: Radiology/Procedures: IMAGING REPORT Signed PATIENT: MIL METZ ACCOUNT: [id number] : 1940 LOCATION: ER AGE: 79 SEX: M EXAM STATUS: PRE ER ORD. PHYSICIAN: BRANDI HERNANDEZ DO REASON: ataxia, dizzy, fall, cerebelllar stroke?? PROCEDURE: PORTABLE CHEST 1V EXAM: Chest, single view. HISTORY: Dizziness. Fall. COMPARISON: 01/25/2020. FINDINGS: A frontal view of the chest is obtained. There is suspected bilateral lower lobe predominant atelectasis. No consolidation, pleural effusion or pneumothorax is seen. The heart is normal in size. IMPRESSION: No acute pulmonary finding. Electronically signed by: Felisa Ochoa MD (03/22/2020 10:48 AM) [facility] DICTATED and SIGNED BY: FELISA OCHOA MD DATE: 03/22/20 [id number] IMAGING REPORT Signed PATIENT: MIL METZ ACCOUNT: [id number] : 1940 LOCATION: ER AGE: 79 SEX: M EXAM STATUS: REG ER ORD. PHYSICIAN: BRANDI HERNANDEZ DO REASON: AMS, DIZZINESS, WEAKNESS, HEADACHE. [phone] PROCEDURE: CT CODE STROKE HEAD WO CT angiograms head and neck pre and postcontrast: Reason for examination: Code stroke. Altered mental status. Dizziness. Weakness and headache. Comparison is made to previous study dated 01/25/2020. Helical images were obtained through the brain with no contrast administered. Helical images were then obtained through the head and neck with intravenous administration of 75 cc Omnipaque 300 using angiographic protocol. 3-D MIPS reconstruction was performed in sagittal and coronal planes. 3-D MIPS reconstruction was performed. Exposure: One or more of the following individualized dose reduction techniques were utilized for this examination: 1. Automated exposure control 2. Adjustment of the mA and/or kV according to patient size 3. Use of iterative reconstruction technique. Noncontrast head shows the ventricular systems to be prominent but symmetric consistent with patient's advanced age and generalized cerebral atrophy. There are patchy deep white matter changes in the frontal and parietal lobes consistent with microvascular ischemia. No acute hemorrhage, infarct, mass or edema is noted no abnormalities of seen at the orbits. The paranasal sinuses and mastoid air cells are clear. No acute abnormality seen in the skull. CT angiogram of the head shows patent intracranial carotid arteries but there is some calcification at the distal right internal carotid artery with some mild stenosis. There is normal bifurcation of the intracranial carotid arteries into their respective anterior and middle cerebral arteries with no evidence of significant stenosis or occlusion seen. The intracranial portions of the vertebral arteries and the basilar artery are patent. There is blood flow bilaterally in the posterior cerebral and superior cerebellar arteries. No aneurysms or arteriovenous malformations are identified. The dural sinuses and cerebral veins appear to be patent. The thoracic aortic arch shows no significant aneurysmal dilatation or dissection. There is normal origin of the right brachiocephalic artery, left common carotid artery and left subclavian artery from the arch. The vertebral arteries arise off their respective subclavian arteries. There is some calcification present at the origin of the left vertebral artery with at least mild stenosis. The proximal vertebral arteries bilaterally are tortuous. The vertebral arteries however are patent to their confluence into the basilar artery with no stenoses or occlusions evident. The right internal carotid artery is tortuous and shows some calcification with some mild stenosis at its origin no other site is hemodynamically significant stenosis is seen. There is calcification at the right carotid bulb and there is mild stenosis at the origin of the right internal carotid artery without apparent hemodynamically significant stenosis. The left common carotid artery shows some minimal stenosis at its origin and is tortuous. No other site of significant stenosis is seen. There is calcific plaque at the origin of the left external carotid artery with moderate stenosis but no significant plaque or stenosis is seen at the tortuous left internal carotid artery. The lung apices show some dependent atelectasis. The trachea and visualized portion of the esophagus show no abnormalities. No abnormality seen at the thyroid gland. Muscular bundles in the neck are symmetric. No abnormalities of seen at the parotid or submandibular glands. The cervical spine shows severe degenerative spondylosis. No acute abnormalities are seen in the cervical spine. Nuchal ligament calcification is present. Prevertebral soft tissues are normal. IMPRESSION: Generalized cerebral atrophy with some microvascular ischemic changes. No acute intracranial abnormality evident. Calcific plaque in the distal right intracranial carotid artery but without significant stenosis. Calcific plaque at the origin of the left vertebral artery with at least mild stenosis. Calcific plaque at the right carotid bulb and origin of the right internal carotid artery but no hemodynamically significant stenosis. Mild stenosis at the origin of the left common carotid artery. Calcific plaque at the origin of the left external carotid artery with moderate stenosis. FOR INTERNAL CODING PURPOSES Critical result: Findings discussed with Dr. Brandi Hernandez at 03/22/2020 11:06 AM. RESULT CODE: (C) Electronically signed by: Marvin Lundberg MD (03/22/2020 11:10 AM) [facility] DICTATED and SIGNED BY: MARVIN LUNDBERG MD DATE: 03/22/20 [id number] Course & Med Decision Making: Course & Med Decision Making Pertinent Labs and Imaging studies reviewed. (See chart for details) Concern for witnessed fall/head injury in the setting of dizziness, likely from chronic parkinsons (code stroke activated - ems report stated ataxia was a new finding). Central vertigo/cerebellar stroke considered. Not a tPA candidate/out of window. Labs unremarkable. Neuro called by myself, full consult to follow- known by Dr. Cardenas, has severe Parkinsons. Will admit to medicine for further medical evaluation. Patient stable at time of admission. The patient has been stabilized within the capability of the emergency department. The patient will be transported for further care and management or will be moved to an observation or inpatient service. I have communicated with the staff or medical practitioner taking over this patient's care. Dragon Disclaimer: Dragon Disclaimer: This electronic medical record was generated, in whole or in part, using a voice recognition dictation system. Departure Departure Impression: Primary Impression: Confused Additional Impressions: Head injury, acute, without loss of consciousness Ataxia after head trauma Parkinson's disease (tremor, stiffness, slow motion, unstable posture) Disposition: ADMITTED INPT THIS HOSP Admitting Physician: PRISCILLA (Dr. Celeste) Condition: STABLE Referrals: CELENA REDDY MD (PCP) BRANDI HERNANDEZ DO Mar 22, 2020 10:26
[2020-03-22 10:31] LABS: BASO # 0.1 x10^3/uL (0.0-0.2); BASO % 1 % (0-3); EOS # 0.1 x10^3/uL (0.0-0.7); EOS % 2 % (0-3); HEMATOCRIT 48.1 % (39.0-53.0); HEMOGLOBIN 16.4 g/dL (13.0-17.5); LYMPH # 2.1 x10^3/uL (1.0-4.8); LYMPH % 26 % (24-48); MEAN CORPUSCULAR HEMOGLOBIN 31 pg (25-35); MEAN CORPUSCULAR HGB CONC 34 g/dL (31-37); MEAN CORPUSCULAR VOLUME 91 fL (79-100); MONO # 0.5 x10^3/uL (0.0-1.1); MONO % 6 % (0-9); NEUT # 5.4 x10^3/uL (1.8-7.7); NEUT % 66 % (31-73); PLATELET COUNT 261 x10^3/uL (140-400); RED BLOOD COUNT 5.27 x10^6/uL (4.30-5.70); RED CELL DISTRIBUTION WIDTH 14.3 % (11.5-14.5); WHITE BLOOD COUNT 8.2 x10^3/uL (4.0-11.0)
[2020-03-22 10:45] LABS: PROTHROMBIN TIME PATIENT 12.7 SEC (11.7-14.0)
[2020-03-22] MEDS ORDERED: CONTRAST GIVEN. MC PRN (10:45)
[2020-03-22] MEDS ORDERED: IOHEXOL 300 MG/ML 100ML VIAL. IV ONE (10:45)
[2020-03-22 10:48] LABS: CREATININE 0.8 mg/dL (0.7-1.3); GFR 92.8
[2020-03-22 10:49] LABS: MAGNESIUM 2.1 mg/dL (1.8-2.4)
[2020-03-22 10:51] LABS: ACETAMIN 11.95 mcg/ml (10-30); SALIC < 2.8 mg/dL (2.8-20.0)
--- NOTE | 2020-03-22 10:54 | RAD ---
EXAM: Chest, single view. HISTORY: Dizziness. Fall. COMPARISON: 01/25/2020. FINDINGS: A frontal view of the chest is obtained. There is suspected bilateral lower lobe predominan t atelectasis. No consolidation, pleural effusion or pneumothorax is seen. The heart is normal in siz e. IMPRESSION: No acute pulmonary finding. Electronically signed by: Felisa Mojica MD (03/22/2020 10:48 AM) [facility]
[2020-03-22] MEDS: IV NORMAL SALINE 1000ML BAG 1,000 ML IV SCH ×2 (11:01→20:30)
--- NOTE | 2020-03-22 11:13 | RAD ---
CT angiograms head and neck pre and postcontrast: Reason for examination: Code stroke. Altered mental status. Dizziness. Weakness and headache. Comparison is made to previous study dated 01/25/2020. Helical images were obtained through the brain with no contrast administered. Helical images were the n obtained through the head and neck with intravenous administration of 75 cc Omnipaque 300 using ang iographic protocol. 3-D MIPS reconstruction was performed in sagittal and coronal planes. 3-D MIPS re construction was performed. Exposure: One or more of the following individualized dose reduction techniques were utilized for thi s examination: 1. Automated exposure control 2. Adjustment of the mA and/or kV according to patient size 3. Use of iterative reconstruction technique. Noncontrast head shows the ventricular systems to be prominent but symmetric consistent with patient' s advanced age and generalized cerebral atrophy. There are patchy deep white matter changes in the fr ontal and parietal lobes consistent with microvascular ischemia. No acute hemorrhage, infarct, mass o r edema is noted no abnormalities of seen at the orbits. The paranasal sinuses and mastoid air cells are clear. No acute abnormality seen in the skull. CT angiogram of the head shows patent intracranial carotid arteries but there is some calcification a t the distal right internal carotid artery with some mild stenosis. There is normal bifurcation of th e intracranial carotid arteries into their respective anterior and middle cerebral arteries with no e vidence of significant stenosis or occlusion seen. The intracranial portions of the vertebral arterie s and the basilar artery are patent. There is blood flow bilaterally in the posterior cerebral and gamez perior cerebellar arteries. No aneurysms or arteriovenous malformations are identified. The dural sin uses and cerebral veins appear to be patent. The thoracic aortic arch shows no significant aneurysmal dilatation or dissection. There is normal or igin of the right brachiocephalic artery, left common carotid artery and left subclavian artery from the arch. The vertebral arteries arise off their respective subclavian arteries. There is some calcif ication present at the origin of the left vertebral artery with at least mild stenosis. The proximal vertebral arteries bilaterally are tortuous. The vertebral arteries however are patent to their confl uence into the basilar artery with no stenoses or occlusions evident. The right internal carotid amber ry is tortuous and shows some calcification with some mild stenosis at its origin no other site is he modynamically significant stenosis is seen. There is calcification at the right carotid bulb and ther e is mild stenosis at the origin of the right internal carotid artery without apparent hemodynamicall y significant stenosis. The left common carotid artery shows some minimal stenosis at its origin and is tortuous. No other site of significant stenosis is seen. There is calcific plaque at the origin of the left external carotid artery with moderate stenosis but no significant plaque or stenosis is see n at the tortuous left internal carotid artery. The lung apices show some dependent atelectasis. The trachea and visualized portion of the esophagus show no abnormalities. No abnormality seen at the thyroid gland. Muscular bundles in the neck are sym metric. No abnormalities of seen at the parotid or submandibular glands. The cervical spine shows sev ere degenerative spondylosis. No acute abnormalities are seen in the cervical spine. Nuchal ligament calcification is present. Prevertebral soft tissues are normal. IMPRESSION: Generalized cerebral atrophy with some microvascular ischemic changes. No acute intracranial abnormality evident. Calcific plaque in the distal right intracranial carotid artery but without significant stenosis. Calcific plaque at the origin of the left vertebral artery with at least mild stenosis. Calcific plaque at the right carotid bulb and origin of the right internal carotid artery but no hemo dynamically significant stenosis. Mild stenosis at the origin of the left common carotid artery. Calcific plaque at the origin of the left external carotid artery with moderate stenosis. FOR INTERNAL CODING PURPOSES Critical result: Findings discussed with Dr. Brandi Adams at 03/22/2020 11:06 AM. RESULT CODE: (C) Electronically signed by: Ema Larkin MD (03/22/2020 11:10 AM) [facility]
[2020-03-22] MEDS ORDERED: ACETAMINOPHEN 325 MG TABLET. PO PRN ×2 (11:45→12:30)
[2020-03-22] MEDS ORDERED: SENNOSIDES 8.6 MG TABLET PO PRN (12:30)
[2020-03-22] MEDS ORDERED: DOCUSATE SODIUM 100 MG CAPSULE. PO PRN (12:30)
[2020-03-22] MEDS ORDERED: DEXTROSE 50% 25 GM / 50ML DISP.SYRIN. IV PRN (12:30)
[2020-03-22] MEDS ORDERED: ONDANSETRON PF 4 MG/2 ML VIAL. IVP PRN (12:30)
--- NOTE | 2020-03-22 12:32 | PDOC1 ---
History and Physical Date of Service: DOS: DATE: 03/22/20 TIME: 12:26 Chief Complaint: Chief Complain: AMS History of Present Illness: HPI: 79-year-old male past medical history significant for Parkinson's disease, Lewy body dementia, hypertension, GERD and BPH, presents to the ED from his assisted living facility, after witnessed fall, concern for confusion from his normal baseline mental status. Patient was seen confused walking into the dining area, in his underwear. Sat down at the table but didn't eat anything. Said he was going to the bathroom, got up, c/o dizziness and fell, hitting his head, no LOC. Medication list reviewed, not on any anticoagulants. EMR was reviewed and patient was in the hospital 02/09/20 for syncope. RN called pts' son who reported pt has "good and bad days" with his dementia. RN also called assisted living facility - pt normally ambulates w/o assistance, is chronically confused about date/time/situation but follows commands. Is a full code. Past Medical/Surgical History: PMH/PSH: Past Medical History: Dementia, GERD, Hypertension,SKIN CANCER, left eye blindness, "Parkinsonism?" Past Surgical History: cornea transplants Allergies: Allergies: Coded Allergies: No Known Drug Allergies (Unverified , 09/24/17) Family History: Family History: Reviewed with no relevant findings Social History: Social History: Smoking Status: Never Smoker Alcohol Use: None Drug Use: None Current Medications: Current Medications Current Medications Sodium Chloride 1,000 ml @ 100 mls/hr Q10H IV Last administered on 03/22/20at 11:01; Start 03/22/20 at 10:30 Iohexol (Omnipaque 300 Mg/ml) 75 ml 1X ONCE IV Last administered on 03/22/20at 10:47; Start 03/22/20 at 10:45; Stop 03/22/20 at 10:46; Status DC Info (CONTRAST GIVEN -- Rx MONITORING) 1 each PRN DAILY PRN MC SEE COMMENTS; Start 03/22/20 at 10:45; Stop 03/24/20 at 10:44 Acetaminophen (Tylenol) 650 mg PRN Q4HRS PRN PO FEVER > 100.3'F; Start 03/22/20 at 11:45; Stop 03/23/20 at 11:44 Active Scripts Active Reported Carbidopa-Levodopa 25-100 Tab (Carbidopa/Levodopa) 1 Each Tablet 2 Each PO TID Zyrtec (Cetirizine Hcl) 10 Mg Tablet 10 Mg PO DAILY Donepezil Hcl 10 Mg Tablet 10 Mg PO HS Lisinopril 40 Mg Tablet 40 Mg PO DAILY Atorvastatin Calcium 80 Mg Tablet 1 Tab PO DAILY Tamsulosin Hcl 0.4 Mg Cap.er.24h 1 Cap PO DAILY Omeprazole 20 Mg Tablet.dr 1 Tab PO DAILY Cartia Xt (Diltiazem Hcl) 180 Mg Cap.er.24h 180 Mg PO DAILY ROS: Review of Systems Review of System REVIEW OF SYSTEMS: GENERAL: Denies weakness SKIN: No bruising, hair changes or rashes. EYES: No blurred, double or loss of vision. NOSE AND THROAT: No history of nosebleeds, hoarseness or sore throat. HEART: No history of palpitations, chest pain or shortness of breath on exertion. LUNGS: Denies cough, hemoptysis, wheezing or shortness of breath. GASTROINTESTINAL: Denies changes in appetite, nausea, vomiting, diarrhea or constipation. GENITOURINARY: No history of frequency, urgency, hesitancy or nocturia. NEUROLOGIC: Denies history of numbness, tingling, or tremor. PSYCHIATRIC: No history of panic, anxiety or depression. ENDOCRINE: No history of heat or cold intolerance, polyuria or polydipsia. EXTREMITIES: Denies joint pain, pain on walking or stiffness. Physical Exam: Vital Signs: Vital Signs Date Time Temp Pulse Resp B/P (MAP) Pulse Ox O2 Delivery O2 Flow Rate FiO2 03/22/20 11:30 57 18 154/79 (104) 94 Room Air 03/22/20 10:07 97.4 97.4 Physcial Exam: GEN: No apparent distress. Alert and oriented HEENT: Normal cephalic, atraumatic, external auditory canals are patent EYES: Extraocular muscles are intact, pupil are equally round and reactive to light and accommodation MUSCULOSKELETAL: Well developed , well nourished, good range of motion ENDOCRINE: No thyromegaly was palpated LYMPHATICS: No cervical chain or axillary nodes were noted HEMATOPOIETIC: No bruising NECK: Supple, no JVD, no thyromegaly was noted LUNGS: Clear to auscultation in all lung fleming without rhonchi or wheezing HEART: RRR, S!, S2 present. Peripheral pulses intact, no obvious murmurs noted ABDOMEN: Soft, nontender. Positive bowel sounds, no organomegaly, normal bowel sounds EXTREMITIES: Without clubbing, cyanosis, or edema. Pedal pulses intact. Negative Homans sign NEUROLOGIC: Normal speech and tone. A&O x 3, moves all extremities, no obvious focal deficits PSYCHIATRIC: Normal affect, normal mood. Stable SKIN: No ulcerations or rashes, good skin turgor, no jaundice VASCULAR: Good capillary refill, neurovascular bundle appears to be intact Labs: Labs: Laboratory Tests Test 03/22/20 10:17 White Blood Count 8.2 x10^3/uL (4.0-11.0) Red Blood Count 5.27 x10^6/uL (4.30-5.70) Hemoglobin 16.4 g/dL (13.0-17.5) Hematocrit 48.1 % (39.0-53.0) Mean Corpuscular Volume 91 fL (79-100) Mean Corpuscular Hemoglobin 31 pg (25-35) Mean Corpuscular Hemoglobin Concent 34 g/dL (31-37) Red Cell Distribution Width 14.3 % (11.5-14.5) Platelet Count 261 x10^3/uL (140-400) Neutrophils (%) (Auto) 66 % (31-73) Lymphocytes (%) (Auto) 26 % (24-48) Monocytes (%) (Auto) 6 % (0-9) Eosinophils (%) (Auto) 2 % (0-3) Basophils (%) (Auto) 1 % (0-3) Neutrophils # (Auto) 5.4 x10^3/uL (1.8-7.7) Lymphocytes # (Auto) 2.1 x10^3/uL (1.0-4.8) Monocytes # (Auto) 0.5 x10^3/uL (0.0-1.1) Eosinophils # (Auto) 0.1 x10^3/uL (0.0-0.7) Basophils # (Auto) 0.1 x10^3/uL (0.0-0.2) Prothrombin Time 12.7 SEC (11.7-14.0) Prothromb Time International Ratio 1.0 (0.8-1.1) Activated Partial Thromboplast Time 27 SEC (24-38) Sodium Level 136 mmol/L (136-145) Potassium Level 4.0 mmol/L (3.5-5.1) Chloride Level 101 mmol/L (98-107) Carbon Dioxide Level 26 mmol/L (21-32) Anion Gap 9 (6-14) Blood Urea Nitrogen 13 mg/dL (8-26) Creatinine 0.8 mg/dL (0.7-1.3) Estimated GFR (Cockcroft-Gault) 92.8 Glucose Level 170 mg/dL (70-99) Lactic Acid Level 1.7 mmol/L (0.4-2.0) Calcium Level 9.0 mg/dL (8.5-10.1) Magnesium Level 2.1 mg/dL (1.8-2.4) Ammonia 10 mcmol/L (11-34) Troponin I Quantitative < 0.017 ng/mL (0.000-0.055) Lipase 39 U/L (73-393) Thyroid Stimulating Hormone (TSH) 0.426 uIU/mL (0.358-3.74) Salicylates Level < 2.8 mg/dL (2.8-20.0) Salicylate Last Dose Date Unknown Salicylate Last Dose Time Unknown Acetaminophen Level 11.95 mcg/ml (10-30) Acetaminophen Last Dose Date Unknown Acetaminophen Last Dose Time Unknown Laboratory Tests Test 03/22/20 10:17 White Blood Count 8.2 x10^3/uL (4.0-11.0) Red Blood Count 5.27 x10^6/uL (4.30-5.70) Hemoglobin 16.4 g/dL (13.0-17.5) Hematocrit 48.1 % (39.0-53.0) Mean Corpuscular Volume 91 fL (79-100) Mean Corpuscular Hemoglobin 31 pg (25-35) Mean Corpuscular Hemoglobin Concent 34 g/dL (31-37) Red Cell Distribution Width 14.3 % (11.5-14.5) Platelet Count 261 x10^3/uL (140-400) Neutrophils (%) (Auto) 66 % (31-73) Lymphocytes (%) (Auto) 26 % (24-48) Monocytes (%) (Auto) 6 % (0-9) Eosinophils (%) (Auto) 2 % (0-3) Basophils (%) (Auto) 1 % (0-3) Neutrophils # (Auto) 5.4 x10^3/uL (1.8-7.7) Lymphocytes # (Auto) 2.1 x10^3/uL (1.0-4.8) Monocytes # (Auto) 0.5 x10^3/uL (0.0-1.1) Eosinophils # (Auto) 0.1 x10^3/uL (0.0-0.7) Basophils # (Auto) 0.1 x10^3/uL (0.0-0.2) Prothrombin Time 12.7 SEC (11.7-14.0) Prothromb Time International Ratio 1.0 (0.8-1.1) Activated Partial Thromboplast Time 27 SEC (24-38) Sodium Level 136 mmol/L (136-145) Potassium Level 4.0 mmol/L (3.5-5.1) Chloride Level 101 mmol/L (98-107) Carbon Dioxide Level 26 mmol/L (21-32) Anion Gap 9 (6-14) Blood Urea Nitrogen 13 mg/dL (8-26) Creatinine 0.8 mg/dL (0.7-1.3) Estimated GFR (Cockcroft-Gault) 92.8 Glucose Level 170 mg/dL (70-99) Lactic Acid Level 1.7 mmol/L (0.4-2.0) Calcium Level 9.0 mg/dL (8.5-10.1) Magnesium Level 2.1 mg/dL (1.8-2.4) Ammonia 10 mcmol/L (11-34) Troponin I Quantitative < 0.017 ng/mL (0.000-0.055) Lipase 39 U/L (73-393) Thyroid Stimulating Hormone (TSH) 0.426 uIU/mL (0.358-3.74) Salicylates Level < 2.8 mg/dL (2.8-20.0) Salicylate Last Dose Date Unknown Salicylate Last Dose Time Unknown Acetaminophen Level 11.95 mcg/ml (10-30) Acetaminophen Last Dose Date Unknown Acetaminophen Last Dose Time Unknown Images: Images CT and CTA of the HEAD IMPRESSION: Generalized cerebral atrophy with some microvascular ischemic changes. No acute intracranial abnormality evident. Calcific plaque in the distal right intracranial carotid artery but without significant stenosis. Calcific plaque at the origin of the left vertebral artery with at least mild stenosis. Calcific plaque at the right carotid bulb and origin of the right internal carotid artery but no hemodynamically significant stenosis. Mild stenosis at the origin of the left common carotid artery. Calcific plaque at the origin of the left external carotid artery with moderate stenosis. Assessment/Plan Assessment/Plan Acute TIA versus ischemic stroke Acute encephalopathy NOS HTN urgency Recent echo was normal with EF of 55-60%, no wall abnormalities Parkinson's Disease HTN CT head Generalized cerebral atrophy with some microvascular ischemic changes. Onset of symptoms > 4.5 hours NIH 24 Admit to medicine for further workup Neuro consult Pending MRI brain Recent echo was normal with EF of 55-60%, no wal abnormalities continue telemonitoring for at least 24 hours contine IVF while NPO maintain normoglycemia with goals of 140-180 permissive HTN with goals between 140-180/90-105 for at least 24 hours if tPA administered, maintain BP goals < 180/105 for at least 24 hours continue ASA 81 daily within 48 hours continue high intensity statins pending PT/OT/speech Dementia prevention protocol Justifications for Admission Other Justification LETY KWON MD Mar 22, 2020 12:32
[2020-03-22 13:01] LABS: BILIRUBIN,URINE NEGATIVE (NEG); CLARITY,URINE CLEAR; COLOR,URINE YELLOW; NITRITE,URINE NEGATIVE (NEG); PH,URINE 7.5 (<5.0-8.0); PROTEIN,URINE NEGATIVE (NEG-TRACE)
[2020-03-22 13:08] LABS: BARBITURATES NEG (NEG); BENZODIAZEPINES NEG (NEG); CANNABINOIDS NEG (NEG); COCAINE NEG (NEG); METHADONE NEG (NEG); OPIATES NEG (NEG); PHENCYCLIDINE NEG (NEG)
[2020-03-22 13:15] VITALS: BP 135/67
[2020-03-22 13:20] LABS: AMORPHOUS SEDIMENT,UR PRESENT /HPF
[2020-03-22 13:21] LABS: BACTERIA,URINE 0 /HPF (0-FEW)
[2020-03-22 13:32] LABS: AMPHETAMINE/METHAMPHETAMINE NEG (NEG)
--- NOTE | 2020-03-22 13:41 | PDOC2 ---
NEUROLOGY CONSULT Date of Service DOS: DATE: 03/22/20 TIME: 13:30 History of Present Illness History of Present Illness The patient is an 79-year-old right-handed male well-known to me with diagnosis of Parkinson's disease with Lewy body dementia who was sent from assisted living because he fell, was not walking well, was more confused than before, having walked into the dining area in his underwear. The assisted living states the patient normally ambulates without assistance, but have never seen him able to do so during my observations of him. Past Medical History Cardiovascular: HTN, Hyperlipidemia CENTRAL NERVOUS SYSTEM: Other (Parkinson's disease with Lewy body dementia) GI: GERD ENT: Other (Macular degeneration) Dermatology: Other (Skin cancer) Past Surgical History Past Surgical History: Other (Corneal transplants) Family History Family History: No pertinent hx Social History Social History , lives in assisted living, no alcohol or tobacco Current Medications Current Medications Current Medications Sodium Chloride 1,000 ml @ 100 mls/hr Q10H IV Last administered on 03/22/20at 11:01; Start 03/22/20 at 10:30 Iohexol (Omnipaque 300 Mg/ml) 75 ml 1X ONCE IV Last administered on 03/22/20at 10:47; Start 03/22/20 at 10:45; Stop 03/22/20 at 10:46; Status DC Info (CONTRAST GIVEN -- Rx MONITORING) 1 each PRN DAILY PRN MC SEE COMMENTS; Start 03/22/20 at 10:45; Stop 03/24/20 at 10:44 Acetaminophen (Tylenol) 650 mg PRN Q4HRS PRN PO FEVER > 100.3'F; Start 03/22/20 at 11:45; Stop 03/23/20 at 11:44 Sennosides (Senna) 17.2 mg PRN BID PRN PO CONSTIPATION; Start 03/22/20 at 12:30 Docusate Sodium (Colace) 100 mg PRN DAILY PRN PO HARD STOOLS; Start 03/22/20 at 12:30 Ondansetron HCl (Zofran) 4 mg PRN Q6HRS PRN IVP NAUSEA/VOMITING; Start 03/22/20 at 12:30 Aspirin (Ecotrin) 81 mg DAILYWBKFT PO ; Start 03/22/20 at 13:00 Dextrose (Dextrose 50%-Water Syringe) 12.5 gm PRN Q15MIN PRN IV SEE COMMENTS; Start 03/22/20 at 12:30 Acetaminophen (Tylenol) 650 mg PRN Q4HRS PRN PO TEMP OVER 100.4F OR MILD PAIN; Start 03/22/20 at 12:30 Enoxaparin Sodium (Lovenox 40mg Syringe) 40 mg Q24H SQ ; Start 03/22/20 at 13:00 Famotidine (Pepcid Vial) 20 mg BID IVP ; Start 03/22/20 at 21:00 Carbidopa/Levodopa (Sinemet 25/100) 2 tab TID PO ; Start 03/22/20 at 14:00 Diltiazem HCl (Cardizem 24hr Cd) 180 mg DAILY PO ; Start 03/23/20 at 09:00 Lisinopril (Prinivil) 40 mg DAILY PO ; Start 03/23/20 at 09:00 Atorvastatin Calcium (Lipitor) 80 mg QHS PO ; Start 03/22/20 at 21:00; Stop 03/23/20 at 09:00 Atorvastatin Calcium (Lipitor) 40 mg QHS PO ; Start 03/23/20 at 21:00 Active Scripts Active Reported Carbidopa-Levodopa 25-100 Tab (Carbidopa/Levodopa) 1 Each Tablet 2 Each PO TID Zyrtec (Cetirizine Hcl) 10 Mg Tablet 10 Mg PO DAILY Donepezil Hcl 10 Mg Tablet 10 Mg PO HS Lisinopril 40 Mg Tablet 40 Mg PO DAILY Atorvastatin Calcium 80 Mg Tablet 1 Tab PO DAILY Tamsulosin Hcl 0.4 Mg Cap.er.24h 1 Cap PO DAILY Omeprazole 20 Mg Tablet.dr 1 Tab PO DAILY Cartia Xt (Diltiazem Hcl) 180 Mg Cap.er.24h 180 Mg PO DAILY Allergies Allergies: Coded Allergies: No Known Drug Allergies (Unverified , 09/24/17) ROS Review of System Negative for fever, chills, weight loss, shortness of breath, chest pain, indigestion, hematochezia, melena, and dysuria. Full 14-point review of systems is negative. Physical Exam Physical Examination General: Well-developed, well-nourished white male in no acute distress HEENT: Normocephalic andatraumatic. Temporal arteriespulsatile and nontender. Neck: Supple without bruit, no meningismus Musculoskeletal: Stability:see neurologic. Gait exam:see neurologic. Tone:see neurologic.Strength:see neurologic. Neurological: Mental Status:orientation, memory, attention span/concentration, language, fund of knowledge: Does not know date or location. Cranial Nerves: Bilateral irregular pupils and decreased visual acuity,, extraocular movements areintact, visual fleming are full to confrontation. Facial sensation is normal. There is no facial asymmetry. Vestibulo-ocular reflex is intact. Palate elevates and tongue protrudes in midline. All other cranial related problems are negative except as mentioned before.Reflexes:2+ and symmetric with flexor plantar responses. Motor:4/5, slight cogwheel rigidity, no tremor.. Coordination:He has bradykinesia and masked facies. Gait:Not tested. Sensory:Normal pinprick, vibration, light touch, proprioception. Vitals VITALS Vital Signs Date Time Temp Pulse Resp B/P (MAP) Pulse Ox O2 Delivery O2 Flow Rate FiO2 03/22/20 12:45 70 18 157/80 (105) 93 Room Air 03/22/20 10:07 97.4 97.4 Labs Labs Laboratory Tests Test 03/22/20 10:17 03/22/20 12:55 White Blood Count 8.2 x10^3/uL (4.0-11.0) Red Blood Count 5.27 x10^6/uL (4.30-5.70) Hemoglobin 16.4 g/dL (13.0-17.5) Hematocrit 48.1 % (39.0-53.0) Mean Corpuscular Volume 91 fL (79-100) Mean Corpuscular Hemoglobin 31 pg (25-35) Mean Corpuscular Hemoglobin Concent 34 g/dL (31-37) Red Cell Distribution Width 14.3 % (11.5-14.5) Platelet Count 261 x10^3/uL (140-400) Neutrophils (%) (Auto) 66 % (31-73) Lymphocytes (%) (Auto) 26 % (24-48) Monocytes (%) (Auto) 6 % (0-9) Eosinophils (%) (Auto) 2 % (0-3) Basophils (%) (Auto) 1 % (0-3) Neutrophils # (Auto) 5.4 x10^3/uL (1.8-7.7) Lymphocytes # (Auto) 2.1 x10^3/uL (1.0-4.8) Monocytes # (Auto) 0.5 x10^3/uL (0.0-1.1) Eosinophils # (Auto) 0.1 x10^3/uL (0.0-0.7) Basophils # (Auto) 0.1 x10^3/uL (0.0-0.2) Prothrombin Time 12.7 SEC (11.7-14.0) Prothromb Time International Ratio 1.0 (0.8-1.1) Activated Partial Thromboplast Time 27 SEC (24-38) Sodium Level 136 mmol/L (136-145) Potassium Level 4.0 mmol/L (3.5-5.1) Chloride Level 101 mmol/L (98-107) Carbon Dioxide Level 26 mmol/L (21-32) Anion Gap 9 (6-14) Blood Urea Nitrogen 13 mg/dL (8-26) Creatinine 0.8 mg/dL (0.7-1.3) Estimated GFR (Cockcroft-Gault) 92.8 Glucose Level 170 mg/dL (70-99) Lactic Acid Level 1.7 mmol/L (0.4-2.0) Calcium Level 9.0 mg/dL (8.5-10.1) Magnesium Level 2.1 mg/dL (1.8-2.4) Ammonia 10 mcmol/L (11-34) Troponin I Quantitative < 0.017 ng/mL (0.000-0.055) Lipase 39 U/L (73-393) Thyroid Stimulating Hormone (TSH) 0.426 uIU/mL (0.358-3.74) Salicylates Level < 2.8 mg/dL (2.8-20.0) Salicylate Last Dose Date Unknown Salicylate Last Dose Time Unknown Acetaminophen Level 11.95 mcg/ml (10-30) Acetaminophen Last Dose Date Unknown Acetaminophen Last Dose Time Unknown Urine Collection Type Unknown Urine Color Yellow Urine Clarity Clear Urine pH 7.5 (<5.0-8.0) Urine Specific Mears >=1.030 (1.000-1.030) Urine Protein Negative mg/dL (NEG-TRACE) Urine Glucose (UA) Negative mg/dL (NEG) Urine Ketones (Stick) Negative mg/dL (NEG) Urine Blood Negative (NEG) Urine Nitrite Negative (NEG) Urine Bilirubin Negative (NEG) Urine Urobilinogen Dipstick 1.0 mg/dL (0.2 mg/dL) Urine Leukocyte Esterase Negative (NEG) Urine RBC 3-5 /HPF (0-2) Urine WBC 1-4 /HPF (0-4) Urine Amorphous Sediment Present /HPF Urine Bacteria 0 /HPF (0-FEW) Urine Mucus Slight /LPF Laboratory Tests Test 03/22/20 10:17 03/22/20 12:55 White Blood Count 8.2 x10^3/uL (4.0-11.0) Red Blood Count 5.27 x10^6/uL (4.30-5.70) Hemoglobin 16.4 g/dL (13.0-17.5) Hematocrit 48.1 % (39.0-53.0) Mean Corpuscular Volume 91 fL (79-100) Mean Corpuscular Hemoglobin 31 pg (25-35) Mean Corpuscular Hemoglobin Concent 34 g/dL (31-37) Red Cell Distribution Width 14.3 % (11.5-14.5) Platelet Count 261 x10^3/uL (140-400) Neutrophils (%) (Auto) 66 % (31-73) Lymphocytes (%) (Auto) 26 % (24-48) Monocytes (%) (Auto) 6 % (0-9) Eosinophils (%) (Auto) 2 % (0-3) Basophils (%) (Auto) 1 % (0-3) Neutrophils # (Auto) 5.4 x10^3/uL (1.8-7.7) Lymphocytes # (Auto) 2.1 x10^3/uL (1.0-4.8) Monocytes # (Auto) 0.5 x10^3/uL (0.0-1.1) Eosinophils # (Auto) 0.1 x10^3/uL (0.0-0.7) Basophils # (Auto) 0.1 x10^3/uL (0.0-0.2) Prothrombin Time 12.7 SEC (11.7-14.0) Prothromb Time International Ratio 1.0 (0.8-1.1) Activated Partial Thromboplast Time 27 SEC (24-38) Sodium Level 136 mmol/L (136-145) Potassium Level 4.0 mmol/L (3.5-5.1) Chloride Level 101 mmol/L (98-107) Carbon Dioxide Level 26 mmol/L (21-32) Anion Gap 9 (6-14) Blood Urea Nitrogen 13 mg/dL (8-26) Creatinine 0.8 mg/dL (0.7-1.3) Estimated GFR (Cockcroft-Gault) 92.8 Glucose Level 170 mg/dL (70-99) Lactic Acid Level 1.7 mmol/L (0.4-2.0) Calcium Level 9.0 mg/dL (8.5-10.1) Magnesium Level 2.1 mg/dL (1.8-2.4) Ammonia 10 mcmol/L (11-34) Troponin I Quantitative < 0.017 ng/mL (0.000-0.055) Lipase 39 U/L (73-393) Thyroid Stimulating Hormone (TSH) 0.426 uIU/mL (0.358-3.74) Salicylates Level < 2.8 mg/dL (2.8-20.0) Salicylate Last Dose Date Unknown Salicylate Last Dose Time Unknown Acetaminophen Level 11.95 mcg/ml (10-30) Acetaminophen Last Dose Date Unknown Acetaminophen Last Dose Time Unknown Urine Collection Type Unknown Urine Color Yellow Urine Clarity Clear Urine pH 7.5 (<5.0-8.0) Urine Specific Mears >=1.030 (1.000-1.030) Urine Protein Negative mg/dL (NEG-TRACE) Urine Glucose (UA) Negative mg/dL (NEG) Urine Ketones (Stick) Negative mg/dL (NEG) Urine Blood Negative (NEG) Urine Nitrite Negative (NEG) Urine Bilirubin Negative (NEG) Urine Urobilinogen Dipstick 1.0 mg/dL (0.2 mg/dL) Urine Leukocyte Esterase Negative (NEG) Urine RBC 3-5 /HPF (0-2) Urine WBC 1-4 /HPF (0-4) Urine Amorphous Sediment Present /HPF Urine Bacteria 0 /HPF (0-FEW) Urine Mucus Slight /LPF Images Images CT angiograms head and neck pre and postcontrast: Reason for examination: Code stroke. Altered mental status. Dizziness. Weakness and headache. Comparison is made to previous study dated 01/25/2020. Helical images were obtained through the brain with no contrast administered. Helical images were then obtained through the head and neck with intravenous administration of 75 cc Omnipaque 300 using angiographic protocol. 3-D MIPS reconstruction was performed in sagittal and coronal planes. 3-D MIPS reconstruction was performed. Exposure: One or more of the following individualized dose reduction techniques were utilized for this examination: 1. Automated exposure control 2. Adjustmen t of the mA and/or kV according to patient size 3. Use of iterative reconstruction technique. Noncontrast head shows the ventricular systems to be prominent but symmetric consistent with patient's advanced age and generalized cerebral atrophy. There are patchy deep white matter changes in the frontal and parietal lobes consistent with microvascular ischemia. No acute hemorrhage, infarct, mass or edema is noted no abnormalities of seen at the orbits. The paranasal sinuses and mastoid air cells are clear. No acute abnormality seen in the skull. CT angiogram of the head shows patent intracranial carotid arteries but there is some calcification at the distal right internal carotid artery with some mild stenosis. There is normal bifurcation of the intracranial carotid arteries into their respective anterior and middle cerebral arteries with no evidence of significant stenosis or occlusion seen. The intracranial portions of the vertebral arteries and the basilar artery are patent. There is blood flow bilaterally in the posterior cerebral and superior cerebellar arteries. No aneurysms or arteriovenous malformations are identified. The dural sinuses and cerebral veins appear to be patent. The thoracic aortic arch shows no significant aneurysmal dilatation or disse ction. There is normal origin of the right brachiocephalic artery, left common carotid artery and left subclavian artery from the arch. The vertebral arteries arise off their respective subclavian arteries. There is some calcification present at the origin of the left vertebral artery with at least mild stenosis. The proximal vertebral arteries bilaterally are tortuous. The vertebral arteries however are patent to their confluence into the basilar artery with no stenoses or occlusions evident. The right internal carotid artery is tortuous and shows some calcification with some mild stenosis at its origin no other site is hemodynamically significant stenosis is seen. There is calcification at the right carotid bulb and there is mild stenosis at the origin of the right internal carotid artery without apparent hemodynamically significant stenosis. The left common carotid artery shows some minimal stenosis at its origin and is tortuous. No other site of significant stenosis is seen. There is calcific plaque at the origin of the left external carotid artery with moderate stenosis but no significant plaque or stenosis is seen at the tortuous left internal carotid artery. The lung apices show some dependent atelectasis. The trachea and visualized portion of the esophagus show no abnormalities. No abnormality seen at the thyroid gland. Muscular bundles in the neck are symmetric. No abnormalities of seen at the parotid or submandibular glands. The cervical spine shows severe degenerative spondylosis. No acute abnormalities are seen in the cervical spine. Nuchal ligament calcification is present. Prevertebral soft tissues are normal. IMPRESSION: Generalized cerebral atrophy with some microvascular ischemic changes. No acute intracranial abnormality evident. Calcific plaque in the distal right intracranial carotid artery but without significant stenosis. Calcific plaque at the origin of the left vertebral artery with at least mild stenosis. Calcific plaque at the right carotid bulb and origin of the right internal prince tid artery but no hemodynamically significant stenosis. Mild stenosis at the origin of the left common carotid artery. Calcific plaque at the origin of the left external carotid artery with moderate stenosis. Assessment/Plan Assessment/Plan Impression: This is just a fluctuation of his known Parkinson's disease with Lewy body dementia, I do not think he has had a new stroke or any other acute neurological process. Also, his metabolic work-up is negative. Recommendations: Given the lack of focal findings, I am holding off on MRI of the brain Rehabilitation modalities Observe at least one night Aim for discharge tomorrow, it is about time that this patient go to a fpc rather than home or assisted living, as I have discussed numerous times with the family. I left a message with the patient's daughter Thank you for letting me help with the patient's care. MIL JEFFREY MD Mar 22, 2020 13:41
--- NOTE | 2020-03-22 14:40 | NUR ---
PATIENT SEEN BY SPEECH THERAPY FOR BEDSIDE SWALLOW, PATIENT PASSED AND WAS PLACED ON A REGULAR DIET.
[2020-03-22 15:00] VITALS: BP 164/73
--- NOTE | 2020-03-22 15:15 | NUR ---
PATIENT SEEN BY DR. NAIR THIS SHIFT, PER HIS NOTES HE IS RECOMMENDING THAT PATIENT GO TO A HALF-WAY INSTEAD OF ASSISTED LIVING AND THAT HE HAS SPOKEN WITH FAMILY ABOUT THIS.
[2020-03-22] MEDS: CARBIDOPA/LEVODOPA 25/100MG TABLET PO SCH ×2 (16:33→21:49)
[2020-03-22] MEDS: ASPIRIN ENTERIC COATED 81 MG TABLET.DR. PO SCH (16:33)
[2020-03-22] MEDS: DONEPEZIL HCL 10 MG TABLET. PO SCH (16:33)
[2020-03-22] MEDS: ENOXAPARIN 40 MG/0.4 ML SYRINGE. SQ SCH (16:34)
[2020-03-22 19:00] VITALS: BP 128/61
[2020-03-22] MEDS ORDERED: ATORVASTATIN CALCIUM 40 MG TABLET. PO SCH (21:00)
[2020-03-22] MEDS: FAMOTIDINE 20 MG/2 ML VIAL IVP SCH (21:00)
--- NOTE | 2020-03-22 22:30 | NUR ---
NURSING NOTE Pts bed alarm going off. Upon entering room, pt is awake and confused/agitated. Pt pulled off telemetry, pulled out one IV, trying to get OOB and refused to have anything put back on. Pt refused to have a gown put back on, continues to ask "why" to every statement when trying to orient pt. Pt agitated, balled up his fist and shook it at this RN and said that "we should be hurt for putting all this stuff on" him and "the police will be coming and you can expect to be arrested for making me stay here". Explained to pt reason for admission to hospital, and attempted multiple times to orient pt to surroundings and POC. Pt refused to have IVF or telemetry placed back on. Offered food and drink, pt refused all. Pt did take his HS medications. Able to get pt to lay down in bed. Call light in reach and explained use. Bed alarm on. Will monitor.
[2020-03-22 23:00] VITALS: BP 133/68
[2020-03-23 03:07] VITALS: BP 161/78
--- NOTE | 2020-03-23 04:45 | EKG ---
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
[2020-03-23 07:00] VITALS: BP 157/73
[2020-03-23] MEDS: LISINOPRIL 20 MG TABLET PO SCH (08:34)
[2020-03-23] MEDS: IV NORMAL SALINE 1000ML BAG 1,000 ML IV SCH ×2 (08:34→16:41)
[2020-03-23] MEDS: ASPIRIN ENTERIC COATED 81 MG TABLET.DR. PO SCH (08:34)
[2020-03-23] MEDS: DONEPEZIL HCL 10 MG TABLET. PO SCH (08:34)
[2020-03-23 08:35] LABS: BASO % 1 % (0-3); EOS # 0.1 x10^3/uL (0.0-0.7); EOS % 1 % (0-3); HEMATOCRIT 44.6 % (39.0-53.0); HEMOGLOBIN 15.1 g/dL (13.0-17.5); LYMPH # 1.5 x10^3/uL (1.0-4.8); LYMPH % 20 % (24-48); MEAN CORPUSCULAR HEMOGLOBIN 31 pg (25-35); MEAN CORPUSCULAR HGB CONC 34 g/dL (31-37); MEAN CORPUSCULAR VOLUME 91 fL (79-100); MONO # 0.6 x10^3/uL (0.0-1.1); MONO % 8 % (0-9); NEUT # 5.2 x10^3/uL (1.8-7.7); NEUT % 71 % (31-73); PLATELET COUNT 274 x10^3/uL (140-400); RED BLOOD COUNT 4.93 x10^6/uL (4.30-5.70); RED CELL DISTRIBUTION WIDTH 14.1 % (11.5-14.5); WHITE BLOOD COUNT 7.3 x10^3/uL (4.0-11.0)
[2020-03-23] MEDS: CARBIDOPA/LEVODOPA 25/100MG TABLET PO SCH ×3 (08:35→20:58)
[2020-03-23] MEDS: FAMOTIDINE 20 MG/2 ML VIAL IVP SCH ×2 (08:37→20:58)
[2020-03-23 09:08] LABS: CALCIUM 8.7 mg/dL (8.5-10.1); CREATININE 0.7 mg/dL (0.7-1.3); GFR 108.2; PHOSPHORUS 2.9 mg/dL (2.6-4.7); POTASSIUM 3.7 mmol/L (3.5-5.1)
--- NOTE | 2020-03-23 09:31 | SNU/HH DC ---
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 Status: Acute (2) Confused Status: Acute (3) Head injury, acute, without loss of consciousness Status: Acute (4) Parkinson's disease (tremor, stiffness, slow motion, unstable posture) Status: Acute CONDITION ON DISCHARGE: Stable CODE STATUS: Code Status: Full LONG TERM: SNF STAY <30 DAYS: Yes POST DISCHARGE ORDERS: ACTIVITY ORDERS: Activity as tolerated WEIGHT BEARING STATUS: As tolerated DIET AFTER DISCHARGE: ADA CHECKS AFTER DISCHARGE: CHECKS AFTER DISCHARGE: Check blood press - daily TREATMENT/EQUIPMENT ORDERS: ADAPTIVE EQUIPMENT NEEDED: Cane, Front wheeled walker, Walker RESPIRATORY EQUIPMENT NEEDED: Nebulizer Physical Therapy For: Evalulation/Treatment Occupational Therapy For: Evaluation/Treatment Speech Language Pathology For: Evaluation/Treatment DISCHARGE MEDICATIONS: Home Meds Reported Medications Carbidopa/Levodopa (CARBIDOPA-LEVODOPA 25-100 TAB) 1 Each Tablet, 2 EACH PO TID for , TAB 01/25/20 Cetirizine Hcl (ZYRTEC) 10 Mg Tablet, 10 MG PO DAILY for , TAB 01/25/20 Donepezil Hcl (DONEPEZIL HCL) 10 Mg Tablet, 10 MG PO HS for , TAB 01/25/20 Lisinopril (LISINOPRIL) 40 Mg Tablet, 40 MG PO DAILY for FOR HYPERTENSION, #30 TAB 0 Refills 01/25/20 Atorvastatin Calcium (ATORVASTATIN CALCIUM) 80 Mg Tablet, 1 TAB PO DAILY, TAB 09/24/17 Tamsulosin Hcl (TAMSULOSIN HCL) 0.4 Mg Cap.er.24h, 1 CAP PO DAILY, CAP 09/24/17 Omeprazole (OMEPRAZOLE) 20 Mg Tablet.dr, 1 TAB PO DAILY, TAB 09/24/17 Diltiazem Hcl (CARTIA XT) 180 Mg Cap.er.24h, 180 MG PO DAILY, CAP.SR 09/24/17 AKBAR NASCIMENTO MD Mar 23, 2020 09:31
--- NOTE | 2020-03-23 09:39 | PDOC3 ---
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 Status: Acute (2) Confused Status: Acute (3) Head injury, acute, without loss of consciousness Status: Acute (4) Parkinson's disease (tremor, stiffness, slow motion, unstable posture) Status: Acute Brief Hospital Course Allergies Allergies Coded Allergies Type Severity Reaction Last Updated Verified No Known Drug Allergies 09/24/17 No Vital Signs Vital Signs Date Time Temp Pulse Resp B/P (MAP) Pulse Ox O2 Delivery O2 Flow Rate FiO2 03/23/20 08:34 65 157/73 03/23/20 07:00 98.8 18 94 Room Air 98.8 Lab Results Laboratory Tests Test 03/22/20 10:17 03/22/20 12:55 03/23/20 08:20 White Blood Count 8.2 x10^3/uL (4.0-11.0) 7.3 x10^3/uL (4.0-11.0) Red Blood Count 5.27 x10^6/uL (4.30-5.70) 4.93 x10^6/uL (4.30-5.70) Hemoglobin 16.4 g/dL (13.0-17.5) 15.1 g/dL (13.0-17.5) Hematocrit 48.1 % (39.0-53.0) 44.6 % (39.0-53.0) Mean Corpuscular Volume 91 fL (79-100) 91 fL (79-100) Mean Corpuscular Hemoglobin 31 pg (25-35) 31 pg (25-35) Mean Corpuscular Hemoglobin Concent 34 g/dL (31-37) 34 g/dL (31-37) Red Cell Distribution Width 14.3 % (11.5-14.5) 14.1 % (11.5-14.5) Platelet Count 261 x10^3/uL (140-400) 274 x10^3/uL (140-400) Neutrophils (%) (Auto) 66 % (31-73) 71 % (31-73) Lymphocytes (%) (Auto) 26 % (24-48) 20 % (24-48) Monocytes (%) (Auto) 6 % (0-9) 8 % (0-9) Eosinophils (%) (Auto) 2 % (0-3) 1 % (0-3) Basophils (%) (Auto) 1 % (0-3) 1 % (0-3) Neutrophils # (Auto) 5.4 x10^3/uL (1.8-7.7) 5.2 x10^3/uL (1.8-7.7) Lymphocytes # (Auto) 2.1 x10^3/uL (1.0-4.8) 1.5 x10^3/uL (1.0-4.8) Monocytes # (Auto) 0.5 x10^3/uL (0.0-1.1) 0.6 x10^3/uL (0.0-1.1) Eosinophils # (Auto) 0.1 x10^3/uL (0.0-0.7) 0.1 x10^3/uL (0.0-0.7) Basophils # (Auto) 0.1 x10^3/uL (0.0-0.2) 0.0 x10^3/uL (0.0-0.2) Prothrombin Time 12.7 SEC (11.7-14.0) Prothromb Time International Ratio 1.0 (0.8-1.1) Activated Partial Thromboplast Time 27 SEC (24-38) Sodium Level 136 mmol/L (136-145) 137 mmol/L (136-145) Potassium Level 4.0 mmol/L (3.5-5.1) 3.7 mmol/L (3.5-5.1) Chloride Level 101 mmol/L (98-107) 103 mmol/L (98-107) Carbon Dioxide Level 26 mmol/L (21-32) 25 mmol/L (21-32) Anion Gap 9 (6-14) 9 (6-14) Blood Urea Nitrogen 13 mg/dL (8-26) 10 mg/dL (8-26) Creatinine 0.8 mg/dL (0.7-1.3) 0.7 mg/dL (0.7-1.3) Estimated GFR (Cockcroft-Gault) 92.8 108.2 Glucose Level 170 mg/dL (70-99) 100 mg/dL (70-99) Lactic Acid Level 1.7 mmol/L (0.4-2.0) Calcium Level 9.0 mg/dL (8.5-10.1) 8.7 mg/dL (8.5-10.1) Magnesium Level 2.1 mg/dL (1.8-2.4) 2.0 mg/dL (1.8-2.4) Ammonia 10 mcmol/L (11-34) Troponin I Quantitative < 0.017 ng/mL (0.000-0.055) Lipase 39 U/L (73-393) Thyroid Stimulating Hormone (TSH) 0.426 uIU/mL (0.358-3.74) Salicylates Level < 2.8 mg/dL (2.8-20.0) Salicylate Last Dose Date Unknown Salicylate Last Dose Time Unknown Acetaminophen Level 11.95 mcg/ml (10-30) Acetaminophen Last Dose Date Unknown Acetaminophen Last Dose Time Unknown Urine Collection Type Unknown Urine Color Yellow Urine Clarity Clear Urine pH 7.5 (<5.0-8.0) Urine Specific [place] >=1.030 (1.000-1.030) Urine Protein Negative mg/dL (NEG-TRACE) Urine Glucose (UA) Negative mg/dL (NEG) Urine Ketones (Stick) Negative mg/dL (NEG) Urine Blood Negative (NEG) Urine Nitrite Negative (NEG) Urine Bilirubin Negative (NEG) Urine Urobilinogen Dipstick 1.0 mg/dL (0.2 mg/dL) Urine Leukocyte Esterase Negative (NEG) Urine RBC 3-5 /HPF (0-2) Urine WBC 1-4 /HPF (0-4) Urine Amorphous Sediment Present /HPF Urine Bacteria 0 /HPF (0-FEW) Urine Mucus Slight /LPF Urine Opiates Screen Neg (NEG) Urine Methadone Screen Neg (NEG) Urine Barbiturates Neg (NEG) Urine Phencyclidine Screen Neg (NEG) Urine Amphetamine/Methamphetamine Neg (NEG) Urine Benzodiazepines Screen Neg (NEG) Urine Cocaine Screen Neg (NEG) Urine Cannabinoids Screen Neg (NEG) Urine Ethyl Alcohol Neg (NEG) Phosphorus Level 2.9 mg/dL (2.6-4.7) Laboratory Tests Test 03/22/20 10:17 1/31/21 12:55 03/23/20 08:20 White Blood Count 8.2 x10^3/uL (4.0-11.0) 7.3 x10^3/uL (4.0-11.0) Red Blood Count 5.27 x10^6/uL (4.30-5.70) 4.93 x10^6/uL (4.30-5.70) Hemoglobin 16.4 g/dL (13.0-17.5) 15.1 g/dL (13.0-17.5) Hematocrit 48.1 % (39.0-53.0) 44.6 % (39.0-53.0) Mean Corpuscular Volume 91 fL (79-100) 91 fL (79-100) Mean Corpuscular Hemoglobin 31 pg (25-35) 31 pg (25-35) Mean Corpuscular Hemoglobin Concent 34 g/dL (31-37) 34 g/dL (31-37) Red Cell Distribution Width 14.3 % (11.5-14.5) 14.1 % (11.5-14.5) Platelet Count 261 x10^3/uL (140-400) 274 x10^3/uL (140-400) Neutrophils (%) (Auto) 66 % (31-73) 71 % (31-73) Lymphocytes (%) (Auto) 26 % (24-48) 20 % (24-48) Monocytes (%) (Auto) 6 % (0-9) 8 % (0-9) Eosinophils (%) (Auto) 2 % (0-3) 1 % (0-3) Basophils (%) (Auto) 1 % (0-3) 1 % (0-3) Neutrophils # (Auto) 5.4 x10^3/uL (1.8-7.7) 5.2 x10^3/uL (1.8-7.7) Lymphocytes # (Auto) 2.1 x10^3/uL (1.0-4.8) 1.5 x10^3/uL (1.0-4.8) Monocytes # (Auto) 0.5 x10^3/uL (0.0-1.1) 0.6 x10^3/uL (0.0-1.1) Eosinophils # (Auto) 0.1 x10^3/uL (0.0-0.7) 0.1 x10^3/uL (0.0-0.7) Basophils # (Auto) 0.1 x10^3/uL (0.0-0.2) 0.0 x10^3/uL (0.0-0.2) Prothrombin Time 12.7 SEC (11.7-14.0) Prothromb Time International Ratio 1.0 (0.8-1.1) Activated Partial Thromboplast Time 27 SEC (24-38) Sodium Level 136 mmol/L (136-145) 137 mmol/L (136-145) Potassium Level 4.0 mmol/L (3.5-5.1) 3.7 mmol/L (3.5-5.1) Chloride Level 101 mmol/L (98-107) 103 mmol/L (98-107) Carbon Dioxide Level 26 mmol/L (21-32) 25 mmol/L (21-32) Anion Gap 9 (6-14) 9 (6-14) Blood Urea Nitrogen 13 mg/dL (8-26) 10 mg/dL (8-26) Creatinine 0.8 mg/dL (0.7-1.3) 0.7 mg/dL (0.7-1.3) Estimated GFR (Cockcroft-Gault) 92.8 108.2 Glucose Level 170 mg/dL (70-99) 100 mg/dL (70-99) Lactic Acid Level 1.7 mmol/L (0.4-2.0) Calcium Level 9.0 mg/dL (8.5-10.1) 8.7 mg/dL (8.5-10.1) Magnesium Level 2.1 mg/dL (1.8-2.4) 2.0 mg/dL (1.8-2.4) Ammonia 10 mcmol/L (11-34) Troponin I Quantitative < 0.017 ng/mL (0.000-0.055) Lipase 39 U/L (73-393) Thyroid Stimulating Hormone (TSH) 0.426 uIU/mL (0.358-3.74) Salicylates Level < 2.8 mg/dL (2.8-20.0) Salicylate Last Dose Date Unknown Salicylate Last Dose Time Unknown Acetaminophen Level 11.95 mcg/ml (10-30) Acetaminophen Last Dose Date Unknown Acetaminophen Last Dose Time Unknown Urine Collection Type Unknown Urine Color Yellow Urine Clarity Clear Urine pH 7.5 (<5.0-8.0) Urine Specific [place] >=1.030 (1.000-1.030) Urine Protein Negative mg/dL (NEG-TRACE) Urine Glucose (UA) Negative mg/dL (NEG) Urine Ketones (Stick) Negative mg/dL (NEG) Urine Blood Negative (NEG) Urine Nitrite Negative (NEG) Urine Bilirubin Negative (NEG) Urine Urobilinogen Dipstick 1.0 mg/dL (0.2 mg/dL) Urine Leukocyte Esterase Negative (NEG) Urine RBC 3-5 /HPF (0-2) Urine WBC 1-4 /HPF (0-4) Urine Amorphous Sediment Present /HPF Urine Bacteria 0 /HPF (0-FEW) Urine Mucus Slight /LPF Urine Opiates Screen Neg (NEG) Urine Methadone Screen Neg (NEG) Urine Barbiturates Neg (NEG) Urine Phencyclidine Screen Neg (NEG) Urine Amphetamine/Methamphetamine Neg (NEG) Urine Benzodiazepines Screen Neg (NEG) Urine Cocaine Screen Neg (NEG) Urine Cannabinoids Screen Neg (NEG) Urine Ethyl Alcohol Neg (NEG) Phosphorus Level 2.9 mg/dL (2.6-4.7) Brief Hospital Course History and Physical Date of Service: DOS: DATE: 03/22/20 TIME: 12:26 Chief Complaint: Chief Complain: AMS History of Present Illness: HPI: 79-year-old male past medical history significant for Parkinson's disease, Lewy body dementia, hypertension, GERD and BPH, presents to the ED from his assisted living facility, after witnessed fall, concern for confusion from his normal baseline mental status. Patient was seen confused walking into the dining area, in his underwear. Sat down at the table but didn't eat anything. Said he was going to the bathroom, got up, c/o dizziness and fell, hitting his head, no LOC. Medication list reviewed, not on any anticoagulants. EMR was reviewed and patient was in the hospital 02/09/20 for syncope. RN called pts' son who reported pt has "good and bad days" with his dementia. RN also called assisted living facility - pt normally ambulates w/o assistance, is chronically confused about date/time/situation but follows commands. Is a full code. Patient was admitted to medical floor with the following plan: CT head Generalized cerebral atrophy with some microvascular ischemic changes. Onset of symptoms > 4.5 hours NIH 24 Admit to medicine for further workup Neuro consult Pending MRI brain Recent echo was normal with EF of 55-60%, no wal abnormalities continue telemonitoring for at least 24 hours contine IVF while NPO maintain normoglycemia with goals of 140-180 permissive HTN with goals between 140-180/90-105 for at least 24 hours if tPA administered, maintain BP goals < 180/105 for at least 24 hours continue ASA 81 daily within 48 hours continue high intensity statins pending PT/OT/speech Dementia prevention protocol He was seen in consultation by Dr. Cardenas in in his opinion the patient did not present any evidence of strokes in his symptoms most likely are a progression of his Parkinson's disease. He was deemed appropriate for discharge no changes in his medications were done reassurance was provided and the patient was in good spirits to be going back to his assisted living facility. No concerns were voiced thank you for allowing [facility] care for the patient General: Well-developed, well-nourished white male in no acute distress HEENT: Normocephalic andatraumatic. Temporal arteriespulsatile and nontender. Neck: Supple without bruit, no meningismus Musculoskeletal: Stability:see neurologic. Gait exam:see neurologic. Tone:see neurologic.Strength:see neurologic. Neurological: Mental Status:orientation, memory, attention span/concentration, language, fund of knowledge: Does not know date or location. Cranial Nerves: Bilateral irregular pupils and decreased visual acuity,, extraocular movements areintact, visual fleming are full to confrontation. Facial sensation is normal. There is no facial asymmetry. Vestibulo-ocular reflex is intact. Palate elevates and tongue protrudes in midline. All other cranial related problems are negative except as mentioned before.Reflexes:2+ and symmetric with flexor plantar responses. Motor:4/5, slight cogwheel rigidity, no tremor.. Coordination:He has bradykinesia and masked facies. Gait:Not tested. Sensory:Normal pinprick, vibration, light touch, proprioception. Assessment Assessment Images CT and CTA of the HEAD IMPRESSION: Generalized cerebral atrophy with some microvascular ischemic changes. No acute intracranial abnormality evident. Calcific plaque in the distal right intracranial carotid artery but without s ignificant stenosis. Calcific plaque at the origin of the left vertebral artery with at least mild stenosis. Calcific plaque at the right carotid bulb and origin of the right internal carotid artery but no hemodynamically significant stenosis. Mild stenosis at the origin of the left common carotid artery. Calcific plaque at the origin of the left external carotid artery with moderate stenosis. Discharge Information Condition at Discharge: Improved Follow Up: Weeks Disposition/Orders: D/C to Another Facility Scheduled Atorvastatin Calcium (Atorvastatin Calcium) 80 Mg Tablet, 1 TAB PO DAILY, (Reported) Entered as Reported by: QIANA FARMER on 09/24/171554 Last Action: Converted on 03/22/201237 by LETY KWON MD Carbidopa/Levodopa (Carbidopa-Levodopa 25-100 Tab) 1 Each Tablet, 2 EACH PO TID for , (Reported) Entered as Reported by: ANDREY GUERRA RN on 01/25/202332 Last Action: Continued on 03/22/201237 by LETY KWON MD Cetirizine Hcl (Zyrtec) 10 Mg Tablet, 10 MG PO DAILY for , (Reported) Entered as Reported by: ANDREY GUERRA RN on 01/25/202332 Diltiazem Hcl (Cartia Xt) 180 Mg Cap.er.24h, 180 MG PO DAILY, (Reported) Entered as Reported by: QIANA FARMER on 09/24/171554 Last Action: Continued on 03/22/201237 by LETY KWON MD Donepezil Hcl (Donepezil Hcl) 10 Mg Tablet, 10 MG PO HS for , (Reported) Entered as Reported by: ANDREY GUERRA RN on 01/25/202332 Lisinopril (Lisinopril) 40 Mg Tablet, 40 MG PO DAILY for FOR HYPERTENSION, #30 Ref 0 (Reported) Entered as Reported by: ANDREY GUERRA RN on 01/25/202332 Last Action: Continued on 03/22/201237 by LETY KWON MD Omeprazole (Omeprazole) 20 Mg Tablet.dr, 1 TAB PO DAILY, (Reported) Entered as Reported by: QIANA FARMER on 09/24/171554 Tamsulosin Hcl (Tamsulosin Hcl) 0.4 Mg Cap.er.24h, 1 CAP PO DAILY, (Reported) Entered as Reported by: QIANA FARMER on 09/24/17 1555 Justicifation of Admission Dx: Justifications for Admission: Justification of Admission Dx: Yes CHF: Cardiac Arrhythmias Comminuty Aquired Pneumonia: Med-High Risk Pt Chronic Renal Failure: Encephalopathy Altered Mental Status: Altered Mental Status AKBAR NASCIMENTO MD Mar 23, 2020 09:39
[2020-03-23 11:02] VITALS: BP 144/78
--- NOTE | 2020-03-23 11:03 | PDOC ---
PROGRESS NOTES Date of Service DATE: 03/23/20 TIME: 11:00 Assessment Problems Medical Problems: (1) Ataxia after head trauma Status: Acute (2) Confused Status: Acute (3) Head injury, acute, without loss of consciousness Status: Acute (4) Parkinson's disease (tremor, stiffness, slow motion, unstable posture) Status: Acute Fluctuation of his known Parkinson's disease with Lewy body dementia, no new st roke or any other acute neurological process. Fluctuating mental status is a textbook finding in Lewy body dementia Plan No need for additional neurological studies Rehabilitation modalities He needs to go to [facility], he keeps bouncing back from the assisted living I left a message with the patient's daughter yesterday, no reply yet Social work not consulted yet, I did so Subjective No complaints Objective Vital Signs Date Time Temp Pulse Resp B/P (MAP) Pulse Ox O2 Delivery O2 Flow Rate FiO2 03/23/20 08:34 65 157/73 03/23/20 07:00 98.8 18 94 Room Air 98.8 Intake and Output 03/23/20 07:00 Intake Total 1000 ml Output Total 300 ml Balance 700 ml Intake IV Total 1000 ml Output Urine Total 300 ml PHYSICAL EXAM Physical Exam: Alert. Oriented to "hospital," person, does not know date. PERRL. EOMI. CN: no focal findings. Muscle tone: Slight cogwheel rigidity Muscle strength: 4/5, no tremor. Has bradykinesia and masked facies DTR: 2+ Plantar reflex: Flexor Gait: not examined in bed. Sensory exam: no abnormal findings. No cerebellar signs elicited. Review of Relevant I have reviewed the following items shara (where applicable) has been applied. Labs Laboratory Tests Test 03/22/20 10:17 03/22/20 12:55 03/23/20 08:20 White Blood Count 8.2 x10^3/uL (4.0-11.0) 7.3 x10^3/uL (4.0-11.0) Red Blood Count 5.27 x10^6/uL (4.30-5.70) 4.93 x10^6/uL (4.30-5.70) Hemoglobin 16.4 g/dL (13.0-17.5) 15.1 g/dL (13.0-17.5) Hematocrit 48.1 % (39.0-53.0) 44.6 % (39.0-53.0) Mean Corpuscular Volume 91 fL (79-100) 91 fL (79-100) Mean Corpuscular Hemoglobin 31 pg (25-35) 31 pg (25-35) Mean Corpuscular Hemoglobin Concent 34 g/dL (31-37) 34 g/dL (31-37) Red Cell Distribution Width 14.3 % (11.5-14.5) 14.1 % (11.5-14.5) Platelet Count 261 x10^3/uL (140-400) 274 x10^3/uL (140-400) Neutrophils (%) (Auto) 66 % (31-73) 71 % (31-73) Lymphocytes (%) (Auto) 26 % (24-48) 20 % (24-48) Monocytes (%) (Auto) 6 % (0-9) 8 % (0-9) Eosinophils (%) (Auto) 2 % (0-3) 1 % (0-3) Basophils (%) (Auto) 1 % (0-3) 1 % (0-3) Neutrophils # (Auto) 5.4 x10^3/uL (1.8-7.7) 5.2 x10^3/uL (1.8-7.7) Lymphocytes # (Auto) 2.1 x10^3/uL (1.0-4.8) 1.5 x10^3/uL (1.0-4.8) Monocytes # (Auto) 0.5 x10^3/uL (0.0-1.1) 0.6 x10^3/uL (0.0-1.1) Eosinophils # (Auto) 0.1 x10^3/uL (0.0-0.7) 0.1 x10^3/uL (0.0-0.7) Basophils # (Auto) 0.1 x10^3/uL (0.0-0.2) 0.0 x10^3/uL (0.0-0.2) Prothrombin Time 12.7 SEC (11.7-14.0) Prothromb Time International Ratio 1.0 (0.8-1.1) Activated Partial Thromboplast Time 27 SEC (24-38) Sodium Level 136 mmol/L (136-145) 137 mmol/L (136-145) Potassium Level 4.0 mmol/L (3.5-5.1) 3.7 mmol/L (3.5-5.1) Chloride Level 101 mmol/L (98-107) 103 mmol/L (98-107) Carbon Dioxide Level 26 mmol/L (21-32) 25 mmol/L (21-32) Anion Gap 9 (6-14) 9 (6-14) Blood Urea Nitrogen 13 mg/dL (8-26) 10 mg/dL (8-26) Creatinine 0.8 mg/dL (0.7-1.3) 0.7 mg/dL (0.7-1.3) Estimated GFR (Cockcroft-Gault) 92.8 108.2 Glucose Level 170 mg/dL (70-99) 100 mg/dL (70-99) Lactic Acid Level 1.7 mmol/L (0.4-2.0) Calcium Level 9.0 mg/dL (8.5-10.1) 8.7 mg/dL (8.5-10.1) Magnesium Level 2.1 mg/dL (1.8-2.4) 2.0 mg/dL (1.8-2.4) Ammonia 10 mcmol/L (11-34) Troponin I Quantitative < 0.017 ng/mL (0.000-0.055) Lipase 39 U/L (73-393) Vitamin B12 Level 273 pg/mL (247-911) 25-Hydroxy Vitamin D Total 20.0 ng/mL (30-100) Thyroid Stimulating Hormone (TSH) 0.426 uIU/mL (0.358-3.74) Salicylates Level < 2.8 mg/dL (2.8-20.0) Salicylate Last Dose Date Unknown Salicylate Last Dose Time Unknown Acetaminophen Level 11.95 mcg/ml (10-30) Acetaminophen Last Dose Date Unknown Acetaminophen Last Dose Time Unknown Urine Collection Type Unknown Urine Color Yellow Urine Clarity Clear Urine pH 7.5 (<5.0-8.0) Urine Specific [place] >=1.030 (1.000-1.030) Urine Protein Negative mg/dL (NEG-TRACE) Urine Glucose (UA) Negative mg/dL (NEG) Urine Ketones (Stick) Negative mg/dL (NEG) Urine Blood Negative (NEG) Urine Nitrite Negative (NEG) Urine Bilirubin Negative (NEG) Urine Urobilinogen Dipstick 1.0 mg/dL (0.2 mg/dL) Urine Leukocyte Esterase Negative (NEG) Urine RBC 3-5 /HPF (0-2) Urine WBC 1-4 /HPF (0-4) Urine Amorphous Sediment Present /HPF Urine Bacteria 0 /HPF (0-FEW) Urine Mucus Slight /LPF Urine Opiates Screen Neg (NEG) Urine Methadone Screen Neg (NEG) Urine Barbiturates Neg (NEG) Urine Phencyclidine Screen Neg (NEG) Urine Amphetamine/Methamphetamine Neg (NEG) Urine Benzodiazepines Screen Neg (NEG) Urine Cocaine Screen Neg (NEG) Urine Cannabinoids Screen Neg (NEG) Urine Ethyl Alcohol Neg (NEG) Phosphorus Level 2.9 mg/dL (2.6-4.7) Laboratory Tests Test 03/22/20 12:55 03/23/20 08:20 Urine Collection Type Unknown Urine Color Yellow Urine Clarity Clear Urine pH 7.5 (<5.0-8.0) Urine Specific [place] >=1.030 (1.000-1.030) Urine Protein Negative mg/dL (NEG-TRACE) Urine Glucose (UA) Negative mg/dL (NEG) Urine Ketones (Stick) Negative mg/dL (NEG) Urine Blood Negative (NEG) Urine Nitrite Negative (NEG) Urine Bilirubin Negative (NEG) Urine Urobilinogen Dipstick 1.0 mg/dL (0.2 mg/dL) Urine Leukocyte Esterase Negative (NEG) Urine RBC 3-5 /HPF (0-2) Urine WBC 1-4 /HPF (0-4) Urine Amorphous Sediment Present /HPF Urine Bacteria 0 /HPF (0-FEW) Urine Mucus Slight /LPF Urine Opiates Screen Neg (NEG) Urine Methadone Screen Neg (NEG) Urine Barbiturates Neg (NEG) Urine Phencyclidine Screen Neg (NEG) Urine Amphetamine/Methamphetamine Neg (NEG) Urine Benzodiazepines Screen Neg (NEG) Urine Cocaine Screen Neg (NEG) Urine Cannabinoids Screen Neg (NEG) Urine Ethyl Alcohol Neg (NEG) White Blood Count 7.3 x10^3/uL (4.0-11.0) Red Blood Count 4.93 x10^6/uL (4.30-5.70) Hemoglobin 15.1 g/dL (13.0-17.5) Hematocrit 44.6 % (39.0-53.0) Mean Corpuscular Volume 91 fL (79-100) Mean Corpuscular Hemoglobin 31 pg (25-35) Mean Corpuscular Hemoglobin Concent 34 g/dL (31-37) Red Cell Distribution Width 14.1 % (11.5-14.5) Platelet Count 274 x10^3/uL (140-400) Neutrophils (%) (Auto) 71 % (31-73) Lymphocytes (%) (Auto) 20 % (24-48) Monocytes (%) (Auto) 8 % (0-9) Eosinophils (%) (Auto) 1 % (0-3) Basophils (%) (Auto) 1 % (0-3) Neutrophils # (Auto) 5.2 x10^3/uL (1.8-7.7) Lymphocytes # (Auto) 1.5 x10^3/uL (1.0-4.8) Monocytes # (Auto) 0.6 x10^3/uL (0.0-1.1) Eosinophils # (Auto) 0.1 x10^3/uL (0.0-0.7) Basophils # (Auto) 0.0 x10^3/uL (0.0-0.2) Sodium Level 137 mmol/L (136-145) Potassium Level 3.7 mmol/L (3.5-5.1) Chloride Level 103 mmol/L (98-107) Carbon Dioxide Level 25 mmol/L (21-32) Anion Gap 9 (6-14) Blood Urea Nitrogen 10 mg/dL (8-26) Creatinine 0.7 mg/dL (0.7-1.3) Estimated GFR (Cockcroft-Gault) 108.2 Glucose Level 100 mg/dL (70-99) Calcium Level 8.7 mg/dL (8.5-10.1) Phosphorus Level 2.9 mg/dL (2.6-4.7) Magnesium Level 2.0 mg/dL (1.8-2.4) Microbiology 03/22/20 Blood Culture - Preliminary, Resulted NO GROWTH AFTER 1 DAY Medications Current Medications Sodium Chloride 1,000 ml @ 100 mls/hr Q10H IV Last administered on 03/22/20at 11:01; Start 03/22/20 at 10:30 Iohexol (Omnipaque 300 Mg/ml) 75 ml 1X ONCE IV Last administered on 03/22/20at 10:47; Start 03/22/20 at 10:45; Stop 03/22/20 at 10:46; Status DC Info (CONTRAST GIVEN -- Rx MONITORING) 1 each PRN DAILY PRN MC SEE COMMENTS; Start 03/22/20 at 10:45; Stop 03/24/20 at 10:44 Acetaminophen (Tylenol) 650 mg PRN Q4HRS PRN PO FEVER > 100.3'F; Start 03/22/20 at 11:45; Stop 03/23/20 at 11:44 Sennosides (Senna) 17.2 mg PRN BID PRN PO CONSTIPATION; Start 03/22/20 at 12:30 Docusate Sodium (Colace) 100 mg PRN DAILY PRN PO HARD STOOLS; Start 03/22/20 at 12:30 Ondansetron HCl (Zofran) 4 mg PRN Q6HRS PRN IVP NAUSEA/VOMITING; Start 03/22/20 at 12:30 Aspirin (Ecotrin) 81 mg DAILYWBKFT PO Last administered on 03/23/20at 08:34; Start 03/22/20 at 13:00 Dextrose (Dextrose 50%-Water Syringe) 12.5 gm PRN Q15MIN PRN IV SEE COMMENTS; Start 03/22/20 at 12:30 Acetaminophen (Tylenol) 650 mg PRN Q4HRS PRN PO TEMP OVER 100.4F OR MILD PAIN; Start 03/22/20 at 12:30 Enoxaparin Sodium (Lovenox 40mg Syringe) 40 mg Q24H SQ Last administered on 03/22/20at 16:34; Start 03/22/20 at 13:00 Famotidine (Pepcid Vial) 20 mg BID IVP Last administered on 03/23/20at 08:37; Start 03/22/20 at 21:00 Carbidopa/Levodopa (Sinemet 25/100) 2 tab TID PO Last administered on 03/23/20at 08:35; Start 03/22/20 at 14:00 Diltiazem HCl (Cardizem 24hr Cd) 180 mg DAILY PO Last administered on 03/23/20at 08:34; Start 03/23/20 at 09:00 Lisinopril (Prinivil) 40 mg DAILY PO Last administered on 03/23/20at 08:34; Start 03/23/20 at 09:00 Atorvastatin Calcium (Lipitor) 80 mg QHS PO Last administered on 03/22/20at 21:49; Start 03/22/20 at 21:00; Stop 03/23/20 at 09:00; Status DC Atorvastatin Calcium (Lipitor) 40 mg QHS PO ; Start 03/23/20 at 21:00 Donepezil HCl (Aricept) 10 mg DAILY PO Last administered on 03/23/20at 08:34; Start 03/22/20 at 14:00 Active Scripts Active Reported Carbidopa-Levodopa 25-100 Tab (Carbidopa/Levodopa) 1 Each Tablet 2 Each PO TID Zyrtec (Cetirizine Hcl) 10 Mg Tablet 10 Mg PO DAILY Donepezil Hcl 10 Mg Tablet 10 Mg PO HS Lisinopril 40 Mg Tablet 40 Mg PO DAILY Atorvastatin Calcium 80 Mg Tablet 1 Tab PO DAILY Tamsulosin Hcl 0.4 Mg Cap.er.24h 1 Cap PO DAILY Omeprazole 20 Mg Tablet.dr 1 Tab PO DAILY Cartia Xt (Diltiazem Hcl) 180 Mg Cap.er.24h 180 Mg PO DAILY Vitals/I & O Vital Sign - Last 24 Hours 03/22/20 03/22/20 03/22/20 03/22/20 11:15 11:30 11:45 12:00 Pulse 56 57 58 65 Resp 18 18 18 18 B/P (MAP) 154/74 (100) 154/79 (104) 165/76 (105) 153/77 (102) Pulse Ox 94 94 95 95 O2 Delivery Room Air Room Air Room Air Room Air 03/22/20 03/22/20 03/22/20 03/22/20 12:15 12:30 12:45 13:00 Pulse 68 67 70 68 Resp 18 18 18 18 B/P (MAP) 151/78 (102) 156/76 (102) 157/80 (105) 155/76 (102) Pulse Ox 95 93 93 94 O2 Delivery Room Air Room Air Room Air Room Air 03/22/20 03/22/20 03/22/20 03/22/20 13:15 15:00 19:00 21:45 Temp 97.7 97.7 97.7 97.7 97.7 97.7 Pulse 66 72 59 Resp 16 16 18 B/P (MAP) 135/67 (89) 164/73 (103) 128/61 (83) Pulse Ox 95 94 91 O2 Delivery Room Air Room Air Room Air Room Air 03/22/20 03/23/20 03/23/20 03/23/20 23:00 03:07 07:00 08:34 Temp 98.3 97.8 98.8 98.3 97.8 98.8 Pulse 56 73 65 65 Resp 18 20 18 B/P (MAP) 133/68 (89) 161/78 (105) 157/73 (101) 157/73 Pulse Ox 94 91 94 O2 Delivery Room Air Room Air Room Air 03/23/20 08:34 Pulse 65 B/P (MAP) 157/73 Intake and Output 03/22/20 03/22/20 03/23/20 15:00 23:00 07:00 Intake Total 1000 ml Output Total 300 ml Balance 1000 ml -300 ml Justicifation of Admission Dx: Justifications for Admission: Justification of Admission Dx: Yes CHF: Cardiac Arrhythmias Comminuty Aquired Pneumonia: Med-High Risk Pt Chronic Renal Failure: Encephalopathy Altered Mental Status: Altered Mental Status MIL JEFFREY MD Mar 23, 2020 11:03
--- NOTE | 2020-03-23 12:02 | NUR ---
ANNA following for discharge planning. Spoke with RN and reviewed chart. ANNA consulted for placement. ANNA attempted to meet with pt. Pt confused. [facility] for daughter Ramandeep ([phone]) to discuss possible placement. ANNA requested COVID swab as this is needed for placement. PT recommendation is SNU. Pt on room air, oral medications. ANNA following. Addendum: 03/23/20 at 1233 by ANTONY CASTILLO Spoke with son-in-law Lincoln at bedside. Lincoln refusing SNU placement and stated "that was the recommendation last time" from PT. Pt resides in [facility] and has and private duty care from [facility]. Lincoln requesting orders. Pt choice of vendor form completed. Referral faxed to [facility]. Addendum: 03/23/20 at 1650 by ANTONY CASTILLO Pt will not need COVID swab for discharge home with HH and PD care. ANNA confirmed with Mayito from [facility] that clinicals were received. Pt will likely discharge home tomorrow, 03/24.
--- NOTE | 2020-03-23 12:54 | SNU/HH DC ---
DISCHARGE WITH HOME HEALTH DISCHARGE INFORMATION: Discharge Date: Mar 24, 2020 Final Diagnosis: Problems Medical Problems: (1) Ataxia after head trauma Status: Acute (2) Confused Status: Acute (3) Head injury, acute, without loss of consciousness Status: Acute (4) Parkinson's disease (tremor, stiffness, slow motion, unstable posture) Status: Acute Condition on Discharge: Stable CODE STATUS: Code Status: Full HOME HEALTH: Face to Face: I certify this patient is under my care and that I, or a nurse practitioner or physician's geological survey field assistant working with me, had a face to face encounter that meets the physician face to face encounter requirements with this patient on []. Medical Complications: Other (Parkinsons disease) RN For Eval/Treatment: Yes Physical Therapy For: Evalulation/Treatment Occupational Therapy For: Evaluation/Treatment Pt Meets Homebound Status: Extreme weakness w/ amb. POST DISCHARGE ORDERS: Activity Instructions for Disc: Activity as tolerated Weight Bearing Status after Di: As tolerated DIET AFTER DISCHARGE: ADA CHECKS AFTER DISCHARGE: Checks after discharge: Check blood press - daily TREATMENT/EQUIPMENT ORDERS: Adaptive Equipment Issued: Cane, Front wheeled walker, Walker Discharge Respiratory Equipmen: Nebulizer CERTIFICATION STATEMENT: Certification Statement: Certification Statement: Based on the above finding, I certify that this patient is confined to the home and needs intermittent [facility] care, physical therapy and/or speech therapy, or continues to need occupational therapy.~ This patient is under my care, and I have initiated the establishment of the plan of care.~ This patient will be followed by myself or a community physician who will periodically review the plan of care. Home Meds Reported Medications Carbidopa/Levodopa (CARBIDOPA-LEVODOPA 25-100 TAB) 1 Each Tablet, 2 EACH PO TID for , TAB 01/25/20 Cetirizine Hcl (ZYRTEC) 10 Mg Tablet, 10 MG PO DAILY for , TAB 20 Donepezil Hcl (DONEPEZIL HCL) 10 Mg Tablet, 10 MG PO HS for , TAB 01/25/20 Lisinopril (LISINOPRIL) 40 Mg Tablet, 40 MG PO DAILY for FOR HYPERTENSION, #30 TAB 0 Refills 01/25/20 Atorvastatin Calcium (ATORVASTATIN CALCIUM) 80 Mg Tablet, 1 TAB PO DAILY, TAB 09/24/17 Tamsulosin Hcl (TAMSULOSIN HCL) 0.4 Mg Cap.er.24h, 1 CAP PO DAILY, CAP 09/24/17 Omeprazole (OMEPRAZOLE) 20 Mg Tablet.dr, 1 TAB PO DAILY, TAB 09/24/17 Diltiazem Hcl (CARTIA XT) 180 Mg Cap.er.24h, 180 MG PO DAILY, CAP.SR 09/24/17 AKBAR NASCIMENTO MD Mar 23, 2020 12:54
[2020-03-23 15:32] VITALS: BP 168/91
[2020-03-23] MEDS: ENOXAPARIN 40 MG/0.4 ML SYRINGE. SQ SCH (16:41)
[2020-03-23 19:00] VITALS: BP 158/82
[2020-03-23] MEDS ORDERED: ATORVASTATIN CALCIUM 40 MG TABLET. PO SCH (21:00)
[2020-03-23 23:00] VITALS: BP 154/82
[2020-03-24] MEDS: IV NORMAL SALINE 1000ML BAG 1,000 ML IV SCH ×2 (02:30→14:07)
[2020-03-24 03:00] VITALS: BP 155/69
[2020-03-24 07:00] VITALS: BP 168/96
[2020-03-24] MEDS: FAMOTIDINE 20 MG/2 ML VIAL IVP SCH (09:03)
[2020-03-24] MEDS: LISINOPRIL 20 MG TABLET PO SCH (09:04)
[2020-03-24] MEDS: ASPIRIN ENTERIC COATED 81 MG TABLET.DR. PO SCH (09:04)
[2020-03-24] MEDS: DONEPEZIL HCL 10 MG TABLET. PO SCH (09:04)
--- NOTE | 2020-03-24 10:18 | PDOC ---
PROGRESS NOTES Date of Service DATE: 03/24/20 TIME: 10:15 Assessment Problems Medical Problems: (1) Ataxia after head trauma Status: Acute (2) Confused Status: Acute (3) Head injury, acute, without loss of consciousness Status: Acute (4) Parkinson's disease (tremor, stiffness, slow motion, unstable posture) Status: Acute Fluctuation of his known Parkinson's disease with Lewy body dementia, no new st roke or any other acute neurological process. Fluctuating mental status is a textbook finding in Lewy body dementia Plan No need for additional neurological studies Rehabilitation modalities He needs to go to custodial, he keeps bouncing back from the assisted living, but I see social services note, family wants him back in the same place I left a message with the patient's daughter 03/22, no reply Okay for discharge today Subjective No complaints Objective Vital Signs Date Time Temp Pulse Resp B/P (MAP) Pulse Ox O2 Delivery O2 Flow Rate FiO2 03/24/20 09:04 68 168/96 03/24/20 07:00 98.0 20 96 Room Air 98.0 Intake and Output 03/24/20 07:00 Intake Total 660 ml Output Total 150 ml Balance 510 ml Intake Oral 660 ml Output Urine Total 150 ml # Voids 1 PHYSICAL EXAM Alert. Oriented to "hospital," person, does not know date. PERRL. EOMI. CN: no focal findings. Muscle tone: Slight cogwheel rigidity Muscle strength: 4/5, no tremor. Has bradykinesia and masked facies DTR: 2+ Plantar reflex: Flexor Gait: not examined in bed. Sensory exam: no abnormal findings. No cerebellar signs elicited. Review of Relevant I have reviewed the following items shara (where applicable) has been applied. Labs Laboratory Tests Test 03/22/20 10:17 03/22/20 12:55 03/23/20 08:20 White Blood Count 8.2 x10^3/uL (4.0-11.0) 7.3 x10^3/uL (4.0-11.0) Red Blood Count 5.27 x10^6/uL (4.30-5.70) 4.93 x10^6/uL (4.30-5.70) Hemoglobin 16.4 g/dL (13.0-17.5) 15.1 g/dL (13.0-17.5) Hematocrit 48.1 % (39.0-53.0) 44.6 % (39.0-53.0) Mean Corpuscular Volume 91 fL (79-100) 91 fL (79-100) Mean Corpuscular Hemoglobin 31 pg (25-35) 31 pg (25-35) Mean Corpuscular Hemoglobin Concent 34 g/dL (31-37) 34 g/dL (31-37) Red Cell Distribution Width 14.3 % (11.5-14.5) 14.1 % (11.5-14.5) Platelet Count 261 x10^3/uL (140-400) 274 x10^3/uL (140-400) Neutrophils (%) (Auto) 66 % (31-73) 71 % (31-73) Lymphocytes (%) (Auto) 26 % (24-48) 20 % (24-48) Monocytes (%) (Auto) 6 % (0-9) 8 % (0-9) Eosinophils (%) (Auto) 2 % (0-3) 1 % (0-3) Basophils (%) (Auto) 1 % (0-3) 1 % (0-3) Neutrophils # (Auto) 5.4 x10^3/uL (1.8-7.7) 5.2 x10^3/uL (1.8-7.7) Lymphocytes # (Auto) 2.1 x10^3/uL (1.0-4.8) 1.5 x10^3/uL (1.0-4.8) Monocytes # (Auto) 0.5 x10^3/uL (0.0-1.1) 0.6 x10^3/uL (0.0-1.1) Eosinophils # (Auto) 0.1 x10^3/uL (0.0-0.7) 0.1 x10^3/uL (0.0-0.7) Basophils # (Auto) 0.1 x10^3/uL (0.0-0.2) 0.0 x10^3/uL (0.0-0.2) Prothrombin Time 12.7 SEC (11.7-14.0) Prothromb Time International Ratio 1.0 (0.8-1.1) Activated Partial Thromboplast Time 27 SEC (24-38) Sodium Level 136 mmol/L (136-145) 137 mmol/L (136-145) Potassium Level 4.0 mmol/L (3.5-5.1) 3.7 mmol/L (3.5-5.1) Chloride Level 101 mmol/L (98-107) 103 mmol/L (98-107) Carbon Dioxide Level 26 mmol/L (21-32) 25 mmol/L (21-32) Anion Gap 9 (6-14) 9 (6-14) Blood Urea Nitrogen 13 mg/dL (8-26) 10 mg/dL (8-26) Creatinine 0.8 mg/dL (0.7-1.3) 0.7 mg/dL (0.7-1.3) Estimated GFR (Cockcroft-Gault) 92.8 108.2 Glucose Level 170 mg/dL (70-99) 100 mg/dL (70-99) Lactic Acid Level 1.7 mmol/L (0.4-2.0) Calcium Level 9.0 mg/dL (8.5-10.1) 8.7 mg/dL (8.5-10.1) Magnesium Level 2.1 mg/dL (1.8-2.4) 2.0 mg/dL (1.8-2.4) Ammonia 10 mcmol/L (11-34) Troponin I Quantitative < 0.017 ng/mL (0.000-0.055) Lipase 39 U/L (73-393) Vitamin B12 Level 273 pg/mL (247-911) 25-Hydroxy Vitamin D Total 20.0 ng/mL (30-100) Thyroid Stimulating Hormone (TSH) 0.426 uIU/mL (0.358-3.74) Salicylates Level < 2.8 mg/dL (2.8-20.0) Salicylate Last Dose Date Unknown Salicylate Last Dose Time Unknown Acetaminophen Level 11.95 mcg/ml (10-30) Acetaminophen Last Dose Date Unknown Acetaminophen Last Dose Time Unknown Urine Collection Type Unknown Urine Color Yellow Urine Clarity Clear Urine pH 7.5 (<5.0-8.0) Urine Specific [place] >=1.030 (1.000-1.030) Urine Protein Negative mg/dL (NEG-TRACE) Urine Glucose (UA) Negative mg/dL (NEG) Urine Ketones (Stick) Negative mg/dL (NEG) Urine Blood Negative (NEG) Urine Nitrite Negative (NEG) Urine Bilirubin Negative (NEG) Urine Urobilinogen Dipstick 1.0 mg/dL (0.2 mg/dL) Urine Leukocyte Esterase Negative (NEG) Urine RBC 3-5 /HPF (0-2) Urine WBC 1-4 /HPF (0-4) Urine Amorphous Sediment Present /HPF Urine Bacteria 0 /HPF (0-FEW) Urine Mucus Slight /LPF Urine Opiates Screen Neg (NEG) Urine Methadone Screen Neg (NEG) Urine Barbiturates Neg (NEG) Urine Phencyclidine Screen Neg (NEG) Urine Amphetamine/Methamphetamine Neg (NEG) Urine Benzodiazepines Screen Neg (NEG) Urine Cocaine Screen Neg (NEG) Urine Cannabinoids Screen Neg (NEG) Urine Ethyl Alcohol Neg (NEG) Phosphorus Level 2.9 mg/dL (2.6-4.7) Microbiology 03/22/20 Blood Culture - Preliminary, Resulted NO GROWTH AFTER 1 DAY Medications Current Medications Sodium Chloride 1,000 ml @ 100 mls/hr Q10H IV Last administered on 03/22/20at 11:01; Start 03/22/20 at 10:30 Iohexol (Omnipaque 300 Mg/ml) 75 ml 1X ONCE IV Last administered on 03/22/20at 10:47; Start 03/22/20 at 10:45; Stop 03/22/20 at 10:46; Status DC Info (CONTRAST GIVEN -- Rx MONITORING) 1 each PRN DAILY PRN MC SEE COMMENTS; Start 03/22/20 at 10:45; Stop 03/24/20 at 10:44 Acetaminophen (Tylenol) 650 mg PRN Q4HRS PRN PO FEVER > 100.3'F; Start 03/22/20 at 11:45; Stop 03/23/20 at 11:44; Status DC Sennosides (Senna) 17.2 mg PRN BID PRN PO CONSTIPATION; Start 03/22/20 at 12:30 Docusate Sodium (Colace) 100 mg PRN DAILY PRN PO HARD STOOLS; Start 03/22/20 at 12:30 Ondansetron HCl (Zofran) 4 mg PRN Q6HRS PRN IVP NAUSEA/VOMITING; Start 03/22/20 at 12:30 Aspirin (Ecotrin) 81 mg DAILYWBKFT PO Last administered on 03/24/20at 09:04; Start 03/22/20 at 13:00 Dextrose (Dextrose 50%-Water Syringe) 12.5 gm PRN Q15MIN PRN IV SEE COMMENTS; Start 03/22/20 at 12:30 Acetaminophen (Tylenol) 650 mg PRN Q4HRS PRN PO TEMP OVER 100.4F OR MILD PAIN; Start 03/22/20 at 12:30 Enoxaparin Sodium (Lovenox 40mg Syringe) 40 mg Q24H SQ Last administered on 03/22/20at 16:34; Start 03/22/20 at 13:00 Famotidine (Pepcid Vial) 20 mg BID IVP Last administered on 03/24/20at 09:03; Start 03/22/20 at 21:00 Carbidopa/Levodopa (Sinemet 25/100) 2 tab TID PO Last administered on 03/23/20at 20:58; Start 03/22/20 at 14:00 Diltiazem HCl (Cardizem 24hr Cd) 180 mg DAILY PO Last administered on 03/24/20at 09:04; Start 03/23/20 at 09:00 Lisinopril (Prinivil) 40 mg DAILY PO Last administered on 03/24/20at 09:04; Start 03/23/20 at 09:00 Atorvastatin Calcium (Lipitor) 80 mg QHS PO Last administered on 03/22/20at 21:49; Start 03/22/20 at 21:00; Stop 03/23/20 at 09:00; Status DC Atorvastatin Calcium (Lipitor) 40 mg QHS PO Last administered on 03/23/20at 20:58; Start 03/23/20 at 21:00 Donepezil HCl (Aricept) 10 mg DAILY PO Last administered on 03/24/20at 09:04; Start 03/22/20 at 14:00 Active Scripts Active Reported Carbidopa-Levodopa 25-100 Tab (Carbidopa/Levodopa) 1 Each Tablet 2 Each PO TID Zyrtec (Cetirizine Hcl) 10 Mg Tablet 10 Mg PO DAILY Donepezil Hcl 10 Mg Tablet 10 Mg PO HS Lisinopril 40 Mg Tablet 40 Mg PO DAILY Atorvastatin Calcium 80 Mg Tablet 1 Tab PO DAILY Tamsulosin Hcl 0.4 Mg Cap.er.24h 1 Cap PO DAILY Omeprazole 20 Mg Tablet.dr 1 Tab PO DAILY Cartia Xt (Diltiazem Hcl) 180 Mg Cap.er.24h 180 Mg PO DAILY Vitals/I & O Vital Sign - Last 24 Hours 03/23/20 03/23/20 03/23/20 03/23/20 11:02 15:32 19:00 20:00 Temp 98.3 97.9 97.9 98.3 97.9 97.9 Pulse 64 64 56 Resp 16 18 16 B/P (MAP) 144/78 (100) 168/91 (116) 158/82 (107) Pulse Ox 93 97 96 O2 Delivery Room Air Room Air Room Air 03/23/20 03/24/20 03/24/20 03/24/20 23:00 03:00 07:00 09:04 Temp 97.6 97.6 98.0 97.6 97.6 98.0 Pulse 62 60 68 68 Resp 16 18 20 B/P (MAP) 154/82 (106) 155/69 (97) 168/96 (120) 168/96 Pulse Ox 93 94 96 O2 Delivery Room Air 03/24/20 09:04 Pulse 68 B/P (MAP) 168/96 Intake and Output 03/23/20 03/23/20 03/24/20 15:00 23:00 07:00 Intake Total 420 ml 120 ml 120 ml Output Total 150 ml Balance 420 ml 120 ml -30 ml Justicifation of Admission Dx: Justifications for Admission: Justification of Admission Dx: Yes CHF: Cardiac Arrhythmias Comminuty Aquired Pneumonia: Med-High Risk Pt Chronic Renal Failure: Encephalopathy Altered Mental Status: Altered Mental Status MIL JEFFREY MD Mar 24, 2020 10:18
[2020-03-24 11:00] VITALS: BP 147/71
--- NOTE | 2020-03-24 11:06 | PDOC3 ---
Discharge Summary Visit Information Date of Admission: Mar 22, 2020 Date of Discharge: Mar 24, 2020 Admitting Diagnosis Comment: Acute TIA versus ischemic stroke Acute encephalopathy NOS HTN urgency Recent echo was normal with EF of 55-60%, no wall abnormalities Parkinson's Disease HTN Final Diagnosis Problems Medical Problems: (1) Ataxia after head trauma Status: Acute (2) Confused Status: Acute (3) Head injury, acute, without loss of consciousness Status: Acute (4) Parkinson's disease (tremor, stiffness, slow motion, unstable posture) Status: Acute Acute encephalopathy NOS most likely related to his underlying Lewy body dementia and Parkinson's HTN urgency Recent echo was normal with EF of 55-60%, no wall abnormalities Parkinson's Disease HTN Brief Hospital Course Allergies Allergies Coded Allergies Type Severity Reaction Last Updated Verified No Known Drug Allergies 09/24/17 No Vital Signs Vital Signs Date Time Temp Pulse Resp B/P (MAP) Pulse Ox O2 Delivery O2 Flow Rate FiO2 03/24/20 09:04 68 168/96 03/24/20 07:00 98.0 20 96 Room Air 98.0 Lab Results Laboratory Tests Test 03/22/20 12:55 03/23/20 08:20 Urine Collection Type Unknown Urine Color Yellow Urine Clarity Clear Urine pH 7.5 (<5.0-8.0) Urine Specific [place] >=1.030 (1.000-1.030) Urine Protein Negative mg/dL (NEG-TRACE) Urine Glucose (UA) Negative mg/dL (NEG) Urine Ketones (Stick) Negative mg/dL (NEG) Urine Blood Negative (NEG) Urine Nitrite Negative (NEG) Urine Bilirubin Negative (NEG) Urine Urobilinogen Dipstick 1.0 mg/dL (0.2 mg/dL) Urine Leukocyte Esterase Negative (NEG) Urine RBC 3-5 /HPF (0-2) Urine WBC 1-4 /HPF (0-4) Urine Amorphous Sediment Present /HPF Urine Bacteria 0 /HPF (0-FEW) Urine Mucus Slight /LPF Urine Opiates Screen Neg (NEG) Urine Methadone Screen Neg (NEG) Urine Barbiturates Neg (NEG) Urine Phencyclidine Screen Neg (NEG) Urine Amphetamine/Methamphetamine Neg (NEG) Urine Benzodiazepines Screen Neg (NEG) Urine Cocaine Screen Neg (NEG) Urine Cannabinoids Screen Neg (NEG) Urine Ethyl Alcohol Neg (NEG) White Blood Count 7.3 x10^3/uL (4.0-11.0) Red Blood Count 4.93 x10^6/uL (4.30-5.70) Hemoglobin 15.1 g/dL (13.0-17.5) Hematocrit 44.6 % (39.0-53.0) Mean Corpuscular Volume 91 fL (79-100) Mean Corpuscular Hemoglobin 31 pg (25-35) Mean Corpuscular Hemoglobin Concent 34 g/dL (31-37) Red Cell Distribution Width 14.1 % (11.5-14.5) Platelet Count 274 x10^3/uL (140-400) Neutrophils (%) (Auto) 71 % (31-73) Lymphocytes (%) (Auto) 20 % (24-48) Monocytes (%) (Auto) 8 % (0-9) Eosinophils (%) (Auto) 1 % (0-3) Basophils (%) (Auto) 1 % (0-3) Neutrophils # (Auto) 5.2 x10^3/uL (1.8-7.7) Lymphocytes # (Auto) 1.5 x10^3/uL (1.0-4.8) Monocytes # (Auto) 0.6 x10^3/uL (0.0-1.1) Eosinophils # (Auto) 0.1 x10^3/uL (0.0-0.7) Basophils # (Auto) 0.0 x10^3/uL (0.0-0.2) Sodium Level 137 mmol/L (136-145) Potassium Level 3.7 mmol/L (3.5-5.1) Chloride Level 103 mmol/L (98-107) Carbon Dioxide Level 25 mmol/L (21-32) Anion Gap 9 (6-14) Blood Urea Nitrogen 10 mg/dL (8-26) Creatinine 0.7 mg/dL (0.7-1.3) Estimated GFR (Cockcroft-Gault) 108.2 Glucose Level 100 mg/dL (70-99) Calcium Level 8.7 mg/dL (8.5-10.1) Phosphorus Level 2.9 mg/dL (2.6-4.7) Magnesium Level 2.0 mg/dL (1.8-2.4) Brief Hospital Course History and Physical Date of Service: DOS: DATE: 03/22/20 TIME: 12:26 Chief Complaint: Chief Complain: AMS History of Present Illness: HPI: 79-year-old male past medical history significant for Parkinson's disease, Lewy body dementia, hypertension, GERD and BPH, presents to the ED from his assisted living facility, after witnessed fall, concern for confusion from his normal baseline mental status. Patient was seen confused walking into the dining area, in his underwear. Sat down at the table but didn't eat anything. Said he was going to the bathroom, got up, c/o dizziness and fell, hitting his head, no LOC. Medication list reviewed, not on any anticoagulants. EMR was reviewed and patient was in the hospital 02/09/20 for syncope. RN called pts' son who reported pt has "good and bad days" with his dementia. RN also called assisted living facility - pt normally ambulates w/o assistance, is chronically confused about date/time/situation but follows commands. Is a full code. Patient was admitted to medical floor with the following plan: CT head Generalized cerebral atrophy with some microvascular ischemic changes. Onset of symptoms > 4.5 hours NIH 24 Admit to medicine for further workup Neuro consult Pending MRI brain Recent echo was normal with EF of 55-60%, no wal abnormalities continue telemonitoring for at least 24 hours contine IVF while NPO maintain normoglycemia with goals of 140-180 permissive HTN with goals between 140-180/90-105 for at least 24 hours if tPA administered, maintain BP goals < 180/105 for at least 24 hours continue ASA 81 daily within 48 hours continue high intensity statins pending PT/OT/speech Dementia prevention protocol He was seen in consultation by Dr. Cardenas in in his opinion the patient did not present any evidence of strokes in his symptoms most likely are a progression of his Parkinson's disease. He was deemed appropriate for discharge no changes in his medications were done reassurance was provided and the patient was in good spirits to be going back to his assisted living facility. Patient stayed an extra day after his son-in-law requested that he would be evaluated again by physical therapy. No new concerns were voiced thank you for allowing [facility] care for the patient General: Well-developed, well-nourished white male in no acute distress HEENT: Normocephalic andatraumatic. Temporal arteriespulsatile and nontender. Neck: Supple without bruit, no meningismus Neurological: Mental Status:orientation, memory, attention span/concentration, language, fund of knowledge: Does not know date or location. Cranial Nerves: Bilateral irregular pupils and decreased visual acuity,, extraocular movements areintact, visual fleming are full to confrontation. Facial sensation is normal. There is no facial asymmetry. Vestibulo-ocular reflex is intact. Palate elevates and tongue protrudes in midline. All other cranial related problems are negative except as mentioned before.Reflexes:2+ and symmetric with flexor plantar responses. Motor:4/5, slight cogwheel rigidity, no tremor.. Coordination:He has bradykinesia and masked facies. Gait:Not tested. Sensory:Normal pinprick, vibration, light touch, proprioception. Assessment Assessment Images CT and CTA of the HEAD IMPRESSION: Generalized cerebral atrophy with some microvascular ischemic changes. No acute intracranial abnormality evident. Calcific plaque in the distal right intracranial carotid artery but without significant stenosis. Calcific plaque at the origin of the left vertebral artery with at least mild stenosis. Calcific plaque at the right carotid bulb and origin of the right internal carotid artery but no hemodynamically significant stenosis. Mild stenosis at the origin of the left common carotid artery. Calcific plaque at the origin of the left external carotid artery with moderate stenosi Discharge Information Condition at Discharge: Improved Follow Up: Weeks Disposition/Orders: D/C to Home Scheduled Atorvastatin Calcium (Atorvastatin Calcium) 80 Mg Tablet, 1 TAB PO DAILY, (Reported) Entered as Reported by: QIANA FARMER on 09/24/171554 Last Action: Converted on 03/22/201237 by LETY KWON MD Carbidopa/Levodopa (Carbidopa-Levodopa 25-100 Tab) 1 Each Tablet, 2 EACH PO TID for , (Reported) Entered as Reported by: ANDREY GUERRA RN on 01/25/202332 Last Action: Continued on 03/22/201237 by LETY KWON MD Cetirizine Hcl (Zyrtec) 10 Mg Tablet, 10 MG PO DAILY for , (Reported) Entered as Reported by: ANDREY GUERRA RN on 01/25/202332 Diltiazem Hcl (Cartia Xt) 180 Mg Cap.er.24h, 180 MG PO DAILY, (Reported) Entered as Reported by: [place] [address] Last Action: Continued on 03/22/20 1238 by LETY KWON MD Donepezil Hcl (Donepezil Hcl) 10 Mg Tablet, 10 MG PO HS for , (Reported) Entered as Reported by: ANDREY GUERRA RN on 01/25/202332 Lisinopril (Lisinopril) 40 Mg Tablet, 40 MG PO DAILY for FOR HYPERTENSION, #30 Ref 0 (Reported) Entered as Reported by: ANDREY GUERRA RN on 01/25/202332 Last Action: Continued on 03/22/20 1238 by LETY KWON MD Omeprazole (Omeprazole) 20 Mg Tablet.dr, 1 TAB PO DAILY, (Reported) Entered as Reported by: QIANA FARMER on 09/24/171554 Tamsulosin Hcl (Tamsulosin Hcl) 0.4 Mg Cap.er.24h, 1 CAP PO DAILY, (Reported) Entered as Reported by: QIANA FARMER on 09/24/171554 Justicifation of Admission Dx: Justifications for Admission: Justification of Admission Dx: Yes CHF: Cardiac Arrhythmias Comminuty Aquired Pneumonia: Med-High Risk Pt Chronic Renal Failure: Encephalopathy Altered Mental Status: Altered Mental Status AKBAR NASCIMENTO MD Mar 24, 2020 11:06
--- NOTE | 2020-03-24 11:08 | SNU/HH DC ---
DISCHARGE WITH HOME HEALTH DISCHARGE INFORMATION: Discharge Date: Mar 24, 2020 Final Diagnosis: Problems Medical Problems: (1) Ataxia after head trauma Status: Acute (2) Confused Status: Acute (3) Head injury, acute, without loss of consciousness Status: Acute (4) Parkinson's disease (tremor, stiffness, slow motion, unstable posture) Status: Acute Condition on Discharge: Stable CODE STATUS: Code Status: Full HOME HEALTH: Face to Face: I certify this patient is under my care and that I, or a nurse practitioner or physician's daycare assistant working with me, had a face to face encounter that meets the physician face to face encounter requirements with this patient on []. RN For Eval/Treatment: Yes Physical Therapy For: Evalulation/Treatment Occupational Therapy For: Evaluation/Treatment Pt Meets Homebound Status: Unsteady balance w/ amb,, Frequent falls w/ injury, Limited distance walking POST DISCHARGE ORDERS: Activity Instructions for Disc: Activity as tolerated Weight Bearing Status after Di: As tolerated DIET AFTER DISCHARGE: ADA CHECKS AFTER DISCHARGE: Checks after discharge: Check blood press - daily TREATMENT/EQUIPMENT ORDERS: Adaptive Equipment Issued: Cane, Front wheeled walker, Walker Discharge Respiratory Equipmen: Nebulizer CERTIFICATION STATEMENT: Certification Statement: Certification Statement: Based on the above finding, I certify that this patient is confined to the home and needs intermittent senior care care, physical therapy and/or speech therapy, or continues to need occupational therapy.~ This patient is under my care, and I have initiated the establishment of the plan of care.~ This patient will be followed by myself or a community physician who will periodically review the plan of care. Home Meds Reported Medications Carbidopa/Levodopa (CARBIDOPA-LEVODOPA 25-100 TAB) 1 Each Tablet, 2 EACH PO TID for , TAB 01/25/20 Cetirizine Hcl (ZYRTEC) 10 Mg Tablet, 10 MG PO DAILY for , TAB 20 Donepezil Hcl (DONEPEZIL HCL) 10 Mg Tablet, 10 MG PO HS for , TAB 01/25/20 Lisinopril (LISINOPRIL) 40 Mg Tablet, 40 MG PO DAILY for FOR HYPERTENSION, #30 TAB 0 Refills 01/25/20 Atorvastatin Calcium (ATORVASTATIN CALCIUM) 80 Mg Tablet, 1 TAB PO DAILY, TAB 09/24/17 Tamsulosin Hcl (TAMSULOSIN HCL) 0.4 Mg Cap.er.24h, 1 CAP PO DAILY, CAP 09/24/17 Omeprazole (OMEPRAZOLE) 20 Mg Tablet.dr, 1 TAB PO DAILY, TAB 09/24/17 Diltiazem Hcl (CARTIA XT) 180 Mg Cap.er.24h, 180 MG PO DAILY, CAP.SR 09/24/17 AKBAR NASCIMENTO MD Mar 24, 2020 11:08
[2020-03-24] MEDS: CARBIDOPA/LEVODOPA 25/100MG TABLET PO SCH ×2 (12:13→14:42)
--- NOTE | 2020-03-24 13:15 | NUR ---
SW following for discharge planning. Spoke with RN and reviewed chart. Pt to discharge home today with resumption of HH and PD services through [facility]. Discharge orders faxed to [facility]. SW spoke with admissions and start of care will be 03/25. Pt's son-in-law to provide transportation home at 1700. Pt at high risk for readmission. No further SW needs at this time. Addendum: 03/24/20 at 1455 by ANTONY CASTILLO ANNA attempted to call Lincoln to confirm picker tender helper time. No answer or ability to leave a message.
[2020-03-24] MEDS: ENOXAPARIN 40 MG/0.4 ML SYRINGE. SQ SCH (14:07)
[2020-03-24 15:00] VITALS: BP 141/69
--- NOTE | 2020-03-24 19:00 | NUR ---
Discharge Note: Patient was discharged back to his correction apartment with home health and private duty services. Patient removed own IV prior in the shift. Patients son-in-law Lincoln was given discharge summary/instructions, follow-ups, and educational material. Patient was dressed and taken to the main entrance via wheelchair accompanied by KITTY Avitia, with all personal belongings where Lincoln was waiting got him to take him home.
[2020-04-02] MEDS ORDERED: SENN1TAB37 PO (09:39)
== END 2020-03-24 19:00 | disposition home health service (06) | DRG 72 ==
LOC: ER 10:07 → 5 NORTH 11:14
PROVIDERS: ADMIT Internal Medicine; ATTEND Internal Medicine
DX: G93.40 Encephalopathy, unspecified (principal); I16.0 Hypertensive urgency; G31.83 Neurocognitive disorder with Lewy bodies; E78.5 Hyperlipidemia, unspecified; K21.9 Gastro-esophageal reflux disease without esophagitis; F02.80 Dementia in other diseases classified elsewhere, unspecified severity, without behavioral disturbance, psychotic disturbance, mood disturbance, and anxiety; I10 Essential (primary) hypertension; N40.0 Benign prostatic hyperplasia without lower urinary tract symptoms; S09.90XA Unspecified injury of head, initial encounter; W01.0XXA Fall on same level from slipping, tripping and stumbling without subsequent striking against object, initial encounter; Y93.89 Activity, other specified; Y92.89 Other specified places as the place of occurrence of the external cause; Y99.8 Other external cause status; Z79.82 Long term (current) use of aspirin; Z85.828 Personal history of other malignant neoplasm of skin
CPT/HCPCS: 36415; 70450; 70496; 70498; 71045; 80048; 80307; 80329; 81001; 82140; 82306; 82607; 83605; 83690; 83735; 84100; 84443; 84484; 85025; 85610; 85730; 87040; 93005; 99285; J1650; J3490; J7030; Q9967; 92610-GN; 97110-GP; 97116-GP; 97530-GO; 97530-GP; 97535-GO; G0378; G0480

== ENCOUNTER 2020-08-19 13:19 | Inpatient (IN) | payer MEDICARE ==
[~2020-08-19] VITALS: Ht 175.3 cm; Wt 66.9 kg
[~2020-08-19 13:19] MED LIST changes: +SENN1TAB37 PO
--- NOTE | 2020-08-19 13:40 | PHYS DOC ---
Past Medical History Past Medical History: Dementia, GERD, Hypertension Additional Past Medical Histor: SKIN CANCER, left eye blindness, Parkinsons Past Surgical History: Other Additional Past Surgical Histo: cornea transplants Smoking Status: Never Smoker Alcohol Use: None Drug Use: None General Adult HPI: HPI: 79-year-old male presents the ED from EMS from memory unit, with concerns for altered mental status and diaphoresis. Per EMS patient's heart rate was in the 40s and they were unable to obtain a blood pressure. 0.5 mg of atropine was given. Repeat heart rate when the 80s to 90s with systolic blood pressure 119/64. Glucose was 139. History unobtainable to patient. In ED patient states "Ouch that hurts. I'm cold. Stop that." I spoke to patient's son-in-law/responsible green party, Chalo Massey informing patient has had 2 recent admissions in July at [facility] in [facility] for stroke evaluations, MRIs were performed both times. Believes patient was on anticoagulant-plavix?, although since not listed on patient's location list. Review of Systems: Review of Systems: ROS unobtainable from pt due to medical condition/dementia Heart Score: C/O Chest Pain: N/A Risk Factors: Risk Factors: DM, Current or recent (<one month) smoker, HTN, HLP, family history of CAD, obesity. Risk Scores: Score 0 - 3: 2.5% MACE over next 6 weeks - Discharge Home Score 4 - 6: 20.3% MACE over next 6 weeks - Admit for Clinical Observation Score 7 - 10: 72.7% MACE over next 6 weeks - Early Invasive Strategies Allergies: Allergies: Allergies Coded Allergies Type Severity Reaction Last Updated Verified No Known Drug Allergies 09/24/17 No Physical Exam: PE: Constitutional: afebrile, speaking with truncal/head/UE ataxia and rigidity, no pill rolling tremor HENT: Normocephalic, atraumatic, dry mucous membranes Eyes: EOMI, conjunctiva normal, no discharge. Neck: Normal range of motion, supple, no carotid bruits Cardiovascular: S1/2 present, bradycardic Lungs & Thorax: bilateral equal chest rise, no tachypnea or increased work of breathing Abdomen: soft, no tenderness, Skin: Warm, dry, no diaphoresis Back: No tenderness, no CVA tenderness. [] Extremities: No tenderness, no cyanosis, no unilateral lower extremity edema Neurologic: Alert, moves all 4 extremities Psychologic: Affect normal, slightly agitated upon stretcher to ed transfer, later sleeping comfortably/calm EKG: EKG: Sinus rhythm at 69 bpm, no axis deviation, QTC 445, no T wave inversion, no ST elevations or ST depressions, Radiology/Procedures: Radiology/Procedures: IMAGING REPORT Signed PATIENT: MIL METZ ACCOUNT: [id number] : 1940 LOCATION: ER AGE: 79 SEX: M EXAM STATUS: REG ER ORD. PHYSICIAN: REGINE HERNANDEZ DO REASON: ams PROCEDURE: PORTABLE CHEST 1V EXAM: Chest, single view. HISTORY: Altered mental status. COMPARISON: 03/22/2020 FINDINGS: A frontal view of the chest is obtained. There is stable mild elevation of the left hemidiaphragm. There is bilateral lower lobe atelectasis or scarring. The heart is normal in size. No pleural effusion or pneumothorax is seen. IMPRESSION: Bilateral lower lobe atelectasis or scarring. No acute pulmonary finding. Electronically signed by: Felisa Ochoa MD (08/19/2020 1:59 PM) [id number] DICTATED and SIGNED BY: FELISA OCHOA MD DATE: 08/19/20 [id number] 0 IMAGING REPORT Signed PATIENT: MIL METZ ACCOUNT: [id number] : 1940 LOCATION: ER AGE: 79 SEX: M EXAM STATUS: REG ER ORD. PHYSICIAN: REGINE HERNANDEZ DO REASON: ams PROCEDURE: PORTABLE CHEST 1V EXAM: Chest, single view. HISTORY: Altered mental status. COMPARISON: 03/22/2020 FINDINGS: A frontal view of the chest is obtained. There is stable mild elevation of the left hemidiaphragm. There is bilateral lower lobe atelectasis or scarring. The heart is normal in size. No pleural effusion or pneumothorax is seen. IMPRESSION: Bilateral lower lobe atelectasis or scarring. No acute pulmonary finding. Electronically signed by: Felisa Ochoa MD (08/19/2020 1:59 PM) [id number] DICTATED and SIGNED BY: FELISA OCHOA MD DATE: 08/19/20 [id number] Course & Med Decision Making: Course & Med Decision Making Pertinent Labs and Imaging studies reviewed. (See chart for details) Concern for near syncopal events in the setting of sinus bradycardia-similar vital signs on due to admission. In May admission for GI bleeding evaluation, heart rate was in the upper 80s. I spoke to both neurology and cardiology regarding patient's care. Will admit to medicine for further medical management. Medical record consent forms faxed to [facility] and [facility]. I have spoken with the patient and/or caregivers. I have explained the patient's condition, diagnosis and treatment plan based on the information available to me at this time. I have answered the patient's and/or caregivers questions and answered any concerns. The patient and/or caregivers have as good an understanding of the patient's diagnosis, condition and treatment plan as can be expected at this point. The patient has been stabilized within the capability of the emergency department. The patient will be transported for further care and management or will be moved to an observation or inpatient service. I have communicated with the staff or medical practitioner taking over this patient's care. Alicia Disclaimer: Alicia Disclaimer: This electronic medical record was generated, in whole or in part, using a voice recognition dictation system. Departure Departure Impression: Primary Impression: Near syncope Additional Impression: Bradycardia Disposition: ADMITTED INPATIENT Admitting Physician: PRISCILLA (Dr. Florez) Condition: STABLE Referrals: CELENA REDDY MD (PCP) REGINE HERNANDEZ DO Aug 19, 2020 13:40
[2020-08-19 13:49] LABS: BASO % 0 % (0-3); EOS # 0.1 x10^3/uL (0.0-0.7); EOS % 1 % (0-3); HEMATOCRIT 40.6 % (39.0-53.0); HEMOGLOBIN 13.5 g/dL (13.0-17.5); LYMPH # 1.5 x10^3/uL (1.0-4.8); LYMPH % 17 % (24-48); MEAN CORPUSCULAR HEMOGLOBIN 30 pg (25-35); MEAN CORPUSCULAR HGB CONC 33 g/dL (31-37); MEAN CORPUSCULAR VOLUME 89 fL (79-100); MONO # 0.5 x10^3/uL (0.0-1.1); MONO % 7 % (0-9); NEUT # 6.3 x10^3/uL (1.8-7.7); NEUT % 75 % (31-73); PLATELET COUNT 279 x10^3/uL (140-400); RED BLOOD COUNT 4.57 x10^6/uL (4.30-5.70); RED CELL DISTRIBUTION WIDTH 14.7 % (11.5-14.5); WHITE BLOOD COUNT 8.4 x10^3/uL (4.0-11.0)
[2020-08-19 13:57] LABS: CALCIUM 8.4 mg/dL (8.5-10.1); GFR 71.7; POTASSIUM 4.5 mmol/L (3.5-5.1)
--- NOTE | 2020-08-19 14:01 | RAD ---
EXAM: Chest, single view. HISTORY: Altered mental status. COMPARISON: 03/22/2020 FINDINGS: A frontal view of the chest is obtained. There is stable mild elevation of the left hemidia phragm. There is bilateral lower lobe atelectasis or scarring. The heart is normal in size. No pleura l effusion or pneumothorax is seen. IMPRESSION: Bilateral lower lobe atelectasis or scarring. No acute pulmonary finding. Electronically signed by: Felisa Mojica MD (08/19/2020 1:59 PM) [id number]
[2020-08-19 14:04] LABS: ALBUMIN 3.5 g/dL (3.4-5.0); DIRECT BILIRUBIN 0.2 mg/dL (0.0-0.2); MAGNESIUM 1.8 mg/dL (1.8-2.4); TOTAL BILIRUBIN 0.6 mg/dL (0.2-1.0); TOTAL PROTEIN 6.3 g/dL (6.4-8.2)
--- NOTE | 2020-08-19 14:39 | RAD ---
EXAM: Head CT without contrast. HISTORY: Altered mental status. TECHNIQUE: Computed tomographic images of the head were obtained without contrast. *One or more of the following individualized dose reduction techniques were utilized for this examina tion: 1. Automated exposure control. 2. Adjustment of the mA and/or kV according to patient size. 3. Use of iterative reconstruction technique. COMPARISON: 03/22/2020. FINDINGS: The exam is limited due to motion. There is cerebral atrophy with compensatory enlargement of the ventricles. There are extensive areas of hypodensity throughout the cerebral white matter, lik aracelis due to chronic small vessel disease. No hemorrhage is seen. There is no mass effect or midline sh ift. There is evidence of lens surgery. The paranasal sinuses mastoid air cells are clear. There is n o suspicious calvarial lesion. IMPRESSION: 1. Significantly limited exam due to motion. 2. Extensive bilateral cerebral white matter changes, most commonly due to chronic small vessel disea se. 3. Cerebral atrophy. 4. Note is made that MRI is more sensitive for acute infarction. Electronically signed by: Felisa Mojica MD (08/19/2020 2:36 PM) [id number]
[2020-08-19] MEDS ORDERED: LIDOCAINE 2% JELLY 6ML IN APPLICATOR. ONE (16:01)
[2020-08-19 16:23] LABS: BILIRUBIN,URINE NEGATIVE (NEG); CLARITY,URINE CLEAR; COLOR,URINE YELLOW; NITRITE,URINE NEGATIVE (NEG); PROTEIN,URINE NEGATIVE (NEG-TRACE)
[2020-08-19 16:29] LABS: AMORPHOUS SEDIMENT,UR PRESENT /HPF; AMPHETAMINE/METHAMPHETAMINE NEG (NEG); BARBITURATES NEG (NEG); BENZODIAZEPINES NEG (NEG); CANNABINOIDS NEG (NEG); COCAINE NEG (NEG); HYALINE CASTS, URINE MODERATE /HPF; METHADONE NEG (NEG); OPIATES NEG (NEG); PHENCYCLIDINE NEG (NEG)
[2020-08-19 16:30] LABS: BACTERIA,URINE 0 /HPF (0-FEW); WBC,URINE 0 /HPF (0-4)
--- NOTE | 2020-08-19 16:48 | PDOC2 ---
DEMAR SCHULTZ [employer]PERVIS[employer] 08/19/20 1648: CARDIAC CONSULT DATE OF CONSULT Date of Consult DATE: 08/19/20 TIME: 16:39 REASON FOR CONSULT Reason for Consult: near syncope REFERRING PHYSICIAN Referring Physician: [facility] SOURCE Source: Chart review, Patient HISTORY OF PRESENT ILLNESS HISTORY OF PRESENT ILLNESS This is a pleasant 79 yo male admitted for altered mental status and diaphoresis. He was noted with HR in the 40 s by the EMS and was given atropine and HR improved. Presently there has been no evidence of bradycardia. He takes cardizem and aricept. Denies any chest pain or SOA. He is a poor historian. No known hx of arrhythmia or CAD. Unclear if any falls. PAST MEDICAL HISTORY Cardiovascular: HTN, Hyperlipidemia CENTRAL NERVOUS SYSTEM: Dementia, Other (lewy body dementia) GI: GERD, GI bleed, Other (diverticular bvleed) Musculoskeletal: Osteoarthritis ENT: Other (macular degeneration) Dermatology: Other (skin CA) PAST SURGICAL HISTORY Past Surgical History: Other (corneal transplant) FAMILY HISTORY Family History noncontributory SOCIAL HISTORY Smoke: No ALCOHOL: none Drugs: None Lives: Alone (assiated living) ALLERGIES ALLERGIES: Coded Allergies: No Known Drug Allergies (Unverified , 09/24/17) ROS Review of System limited, poor historian PHYSICAL EXAM General: Alert, Oriented X3, Cooperative, No acute distress HEENT: Atraumatic, Mucous membr. moist/pink Lungs: Clear to auscultation, Normal air movement Heart: Regular rate (SR), Normal S1, Normal S2, No murmurs Abdomen: Soft, No tenderness Extremities: No cyanosis, No edema Skin: No breakdown, No significant lesion Neuro: Normal speech, Sensation intact Psych/Mental Status: Mental status NL, Mood NL MUSCULOSKELETAL: Osteoarthritic changes both hands VITALS/I&O VITALS/I&O: Vital Signs Date Time Temp Pulse Resp B/P (MAP) Pulse Ox O2 Delivery O2 Flow Rate FiO2 08/19/20 13:20 96.1 63 16 115/69 (84) 98 Room Air 96.1 LABS Lab: Laboratory Tests Test 08/19/20 13:35 08/19/20 16:07 White Blood Count 8.4 x10^3/uL (4.0-11.0) Red Blood Count 4.57 x10^6/uL (4.30-5.70) Hemoglobin 13.5 g/dL (13.0-17.5) Hematocrit 40.6 % (39.0-53.0) Mean Corpuscular Volume 89 fL (79-100) Mean Corpuscular Hemoglobin 30 pg (25-35) Mean Corpuscular Hemoglobin Concent 33 g/dL (31-37) Red Cell Distribution Width 14.7 % (11.5-14.5) H Platelet Count 279 x10^3/uL (140-400) Neutrophils (%) (Auto) 75 % (31-73) H Lymphocytes (%) (Auto) 17 % (24-48) L Monocytes (%) (Auto) 7 % (0-9) Eosinophils (%) (Auto) 1 % (0-3) Basophils (%) (Auto) 0 % (0-3) Neutrophils # (Auto) 6.3 x10^3/uL (1.8-7.7) Lymphocytes # (Auto) 1.5 x10^3/uL (1.0-4.8) Monocytes # (Auto) 0.5 x10^3/uL (0.0-1.1) Eosinophils # (Auto) 0.1 x10^3/uL (0.0-0.7) Basophils # (Auto) 0.0 x10^3/uL (0.0-0.2) Sodium Level 139 mmol/L (136-145) Potassium Level 4.5 mmol/L (3.5-5.1) Chloride Level 105 mmol/L (98-107) Carbon Dioxide Level 29 mmol/L (21-32) Anion Gap 5 (6-14) L Blood Urea Nitrogen 10 mg/dL (8-26) Creatinine 1.0 mg/dL (0.7-1.3) Estimated GFR (Cockcroft-Gault) 71.7 Glucose Level 139 mg/dL (70-99) H Calcium Level 8.4 mg/dL (8.5-10.1) L Magnesium Level 1.8 mg/dL (1.8-2.4) Total Bilirubin 0.6 mg/dL (0.2-1.0) Direct Bilirubin 0.2 mg/dL (0.0-0.2) Aspartate Amino Transferase (AST) 8 U/L (15-37) L Alanine Aminotransferase (ALT) 6 U/L (16-63) L Alkaline Phosphatase 115 U/L (46-116) Creatine Kinase 53 U/L (39-308) Troponin I Quantitative < 0.017 ng/mL (0.000-0.055) MZ-Tbv-Z-Type Natriuretic Peptide 461 pg/mL (0-449) H Total Protein 6.3 g/dL (6.4-8.2) L Albumin 3.5 g/dL (3.4-5.0) Urine Collection Type Unknown Urine Color Yellow Urine Clarity Clear Urine pH 7.0 (<5.0-8.0) Urine Specific [place] 1.010 (1.000-1.030) Urine Protein Negative mg/dL (NEG-TRACE) Urine Glucose (UA) Negative mg/dL (NEG) Urine Ketones (Stick) Negative mg/dL (NEG) Urine Blood Negative (NEG) Urine Nitrite Negative (NEG) Urine Bilirubin Negative (NEG) Urine Urobilinogen Dipstick 1.0 mg/dL (0.2 mg/dL) Urine Leukocyte Esterase Negative (NEG) Urine RBC 1-2 /HPF (0-2) Urine WBC 0 /HPF (0-4) Urine Squamous Epithelial Cells Few /LPF Urine Amorphous Sediment Present /HPF Urine Bacteria 0 /HPF (0-FEW) Urine Hyaline Casts Moderate /HPF Urine Mucus Mod /LPF Urine Opiates Screen Neg (NEG) Urine Methadone Screen Neg (NEG) Urine Barbiturates Neg (NEG) Urine Phencyclidine Screen Neg (NEG) Urine Amphetamine/Methamphetamine Neg (NEG) Urine Benzodiazepines Screen Neg (NEG) Urine Cocaine Screen Neg (NEG) Urine Cannabinoids Screen Neg (NEG) Urine Ethyl Alcohol Neg (NEG) Laboratory Tests 08/19/20 13:35 Laboratory Tests 08/19/20 13:35 ECHOCARDIOGRAM ECHOCARDIOGRAM <Conclusion> The left ventricular systolic function is normal. The Ejection Fraction is 55-60%. There is normal LV segmental wall motion. Trace mitral regurgitation. Trace tricuspid regurgitation with an estimated PAP of 28 mmHg. There is no evidence of significant pericardial effusion. DATE: 01/28/20 [id number] ASSESSMENT/PLAN ASSESSMENT/PLAN 1. Symptomatic SB with associated use of diltiazem and aricept. Recent echo with normal EF and WM 2. HTN: controlled 3. Hx of alvaro body dementia 4. Dementia 5. Hx of GI bleed Recommendations 1. Bradycardia resolved after atropine. No EMS strips no further evidence of bradycardia. Will need alternative to arivcept. Will DC cardizem, alternative is norvasc. Hydralazine IV PRN 3. Check TSH and orthostatic readings as well SEAN ROYAL MD 08/19/20 1833: CARDIAC CONSULT ASSESSMENT/PLAN ASSESSMENT/PLAN The patient was seen and interviewed as well as examined at the bedside. The chart was reviewed. The case was discussed. Agree with the plan of care. DEMAR SCHULTZ APRN Aug 19, 2020 16:48 SEAN ROYAL MD Aug 19, 2020 18:33
[2020-08-19] MEDS ORDERED: hydrALAZINE 20 MG/ML VIAL. IVP PRN (17:00)
[2020-08-19 17:05] VITALS: BP 140/64
--- NOTE | 2020-08-19 17:52 | PDOC1 ---
History and Physical Date of Admission Date of Admission DATE: 08/19/20 TIME: 17:45 Source Source: Chart review, Patient History of Present Illness History of Present Illness Theron Ames is a pleasant 79 yo male admitted for confusion and bradycardia. He was brought for diaphoresis and distress, HR was in the 40's, given atropine by EMS before arrival. He has recent admit to [facility] for confusion, TIA symptoms and MRI and CT head were done there weeks ago and reviewed by me. Pt has history of parkinsons and lewy body dementia. 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 Presently there has been no evidence of bradycardia. He takes cardizem and aricept, has been compliant he is very loose in movements from his Parkinsons meds currently and he reports he feels well like that. No known hx of arrhythmia or CAD. Unclear if any falls. 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 Past Medical History Cardiovascular: HTN, Hyperlipidemia CENTRAL NERVOUS SYSTEM: Dementia, Other (lewy body dementia) GI: GERD, GI bleed, Other (diverticular bvleed) Musculoskeletal: Osteoarthritis ENT: Other (macular degeneration) Renal/: Urinary Incontinence Dermatology: Other (skin CA) Past Surgical History Past Surgical History: Other (corneal transplant) Family History Family History: Hypertension Social History Smoke: No ALCOHOL: none Drugs: None Current Problem List Problem List Problems Medical Problems: (1) Bradycardia Status: Acute (2) Near syncope Status: Acute Current Medications Current Medications Current Medications Lidocaine HCl (Glydo (Lidocaine) Jelly) 6 emilee STK-MED ONCE .ROUTE ; Start 08/19/20 at 16:01; Stop 08/19/20 at 16:01; Status DC Hydralazine HCl (Apresoline Inj) 10 mg PRN Q4HRS PRN IVP ELEVATED BP, SEE COMMENTS; Start 08/19/20 at 17:00 Active Scripts Active Sennosides-Docusate Sodium Tab (Sennosides/Docusate Sodium) 1 Each Tablet 1 Tab PO BID PRN 30 Days Reported Carbidopa-Levodopa 25-100 Tab (Carbidopa/Levodopa) 1 Each Tablet 2 Each PO TID Zyrtec (Cetirizine Hcl) 10 Mg Tablet 10 Mg PO DAILY Donepezil Hcl 10 Mg Tablet 10 Mg PO HS Lisinopril 40 Mg Tablet 40 Mg PO DAILY Atorvastatin Calcium 80 Mg Tablet 1 Tab PO DAILY Tamsulosin Hcl 0.4 Mg Cap.er.24h 1 Cap PO DAILY Omeprazole 20 Mg Tablet.dr 1 Tab PO DAILY Cartia Xt (Diltiazem Hcl) 180 Mg Cap.er.24h 180 Mg PO DAILY Allergies Allergies: Coded Allergies: No Known Drug Allergies (Unverified , 09/24/17) ROS Review of System unable to complete, dementia limits, he reports feeling well, no complaint Physical Exam General: Cooperative, mild distress, Other (very kinetic currently) Abdomen: Soft Rectal Exam: not examined Extremities: No clubbing, No edema Skin: No rashes Neuro: Normal speech (no hypophonia, ), Other (choreaform movement, tremor, ) Psych/Mental Status: Other Vitals Vitals Vital Signs Date Time Temp Pulse Resp B/P (MAP) Pulse Ox O2 Delivery O2 Flow Rate FiO2 08/19/20 16:30 64 17 146/72 (96) 96 Room Air 08/19/20 13:20 96.1 96.1 Labs Labs Laboratory Tests Test 08/19/20 13:35 08/19/20 16:07 White Blood Count 8.4 x10^3/uL (4.0-11.0) Red Blood Count 4.57 x10^6/uL (4.30-5.70) Hemoglobin 13.5 g/dL (13.0-17.5) Hematocrit 40.6 % (39.0-53.0) Mean Corpuscular Volume 89 fL (79-100) Mean Corpuscular Hemoglobin 30 pg (25-35) Mean Corpuscular Hemoglobin Concent 33 g/dL (31-37) Red Cell Distribution Width 14.7 % (11.5-14.5) Platelet Count 279 x10^3/uL (140-400) Neutrophils (%) (Auto) 75 % (31-73) Lymphocytes (%) (Auto) 17 % (24-48) Monocytes (%) (Auto) 7 % (0-9) Eosinophils (%) (Auto) 1 % (0-3) Basophils (%) (Auto) 0 % (0-3) Neutrophils # (Auto) 6.3 x10^3/uL (1.8-7.7) Lymphocytes # (Auto) 1.5 x10^3/uL (1.0-4.8) Monocytes # (Auto) 0.5 x10^3/uL (0.0-1.1) Eosinophils # (Auto) 0.1 x10^3/uL (0.0-0.7) Basophils # (Auto) 0.0 x10^3/uL (0.0-0.2) Sodium Level 139 mmol/L (136-145) Potassium Level 4.5 mmol/L (3.5-5.1) Chloride Level 105 mmol/L (98-107) Carbon Dioxide Level 29 mmol/L (21-32) Anion Gap 5 (6-14) Blood Urea Nitrogen 10 mg/dL (8-26) Creatinine 1.0 mg/dL (0.7-1.3) Estimated GFR (Cockcroft-Gault) 71.7 Glucose Level 139 mg/dL (70-99) Calcium Level 8.4 mg/dL (8.5-10.1) Magnesium Level 1.8 mg/dL (1.8-2.4) Total Bilirubin 0.6 mg/dL (0.2-1.0) Direct Bilirubin 0.2 mg/dL (0.0-0.2) Aspartate Amino Transf (AST/SGOT) 8 U/L (15-37) Alanine Aminotransferase (ALT/SGPT) 6 U/L (16-63) Alkaline Phosphatase 115 U/L (46-116) Creatine Kinase 53 U/L (39-308) Troponin I Quantitative < 0.017 ng/mL (0.000-0.055) HU-Rra-B-Type Natriuretic Peptide 461 pg/mL (0-449) Total Protein 6.3 g/dL (6.4-8.2) Albumin 3.5 g/dL (3.4-5.0) Urine Collection Type Unknown Urine Color Yellow Urine Clarity Clear Urine pH 7.0 (<5.0-8.0) Urine Specific [place] 1.010 (1.000-1.030) Urine Protein Negative mg/dL (NEG-TRACE) Urine Glucose (UA) Negative mg/dL (NEG) Urine Ketones (Stick) Negative mg/dL (NEG) Urine Blood Negative (NEG) Urine Nitrite Negative (NEG) Urine Bilirubin Negative (NEG) Urine Urobilinogen Dipstick 1.0 mg/dL (0.2 mg/dL) Urine Leukocyte Esterase Negative (NEG) Urine RBC 1-2 /HPF (0-2) Urine WBC 0 /HPF (0-4) Urine Squamous Epithelial Cells Few /LPF Urine Amorphous Sediment Present /HPF Urine Bacteria 0 /HPF (0-FEW) Urine Hyaline Casts Moderate /HPF Urine Mucus Mod /LPF Urine Opiates Screen Neg (NEG) Urine Methadone Screen Neg (NEG) Urine Barbiturates Neg (NEG) Urine Phencyclidine Screen Neg (NEG) Urine Amphetamine/Methamphetamine Neg (NEG) Urine Benzodiazepines Screen Neg (NEG) Urine Cocaine Screen Neg (NEG) Urine Cannabinoids Screen Neg (NEG) Urine Ethyl Alcohol Neg (NEG) Laboratory Tests Test 08/19/20 13:35 08/19/20 16:07 White Blood Count 8.4 x10^3/uL (4.0-11.0) Red Blood Count 4.57 x10^6/uL (4.30-5.70) Hemoglobin 13.5 g/dL (13.0-17.5) Hematocrit 40.6 % (39.0-53.0) Mean Corpuscular Volume 89 fL (79-100) Mean Corpuscular Hemoglobin 30 pg (25-35) Mean Corpuscular Hemoglobin Concent 33 g/dL (31-37) Red Cell Distribution Width 14.7 % (11.5-14.5) Platelet Count 279 x10^3/uL (140-400) Neutrophils (%) (Auto) 75 % (31-73) Lymphocytes (%) (Auto) 17 % (24-48) Monocytes (%) (Auto) 7 % (0-9) Eosinophils (%) (Auto) 1 % (0-3) Basophils (%) (Auto) 0 % (0-3) Neutrophils # (Auto) 6.3 x10^3/uL (1.8-7.7) Lymphocytes # (Auto) 1.5 x10^3/uL (1.0-4.8) Monocytes # (Auto) 0.5 x10^3/uL (0.0-1.1) Eosinophils # (Auto) 0.1 x10^3/uL (0.0-0.7) Basophils # (Auto) 0.0 x10^3/uL (0.0-0.2) Sodium Level 139 mmol/L (136-145) Potassium Level 4.5 mmol/L (3.5-5.1) Chloride Level 105 mmol/L (98-107) Carbon Dioxide Level 29 mmol/L (21-32) Anion Gap 5 (6-14) Blood Urea Nitrogen 10 mg/dL (8-26) Creatinine 1.0 mg/dL (0.7-1.3) Estimated GFR (Cockcroft-Gault) 71.7 Glucose Level 139 mg/dL (70-99) Calcium Level 8.4 mg/dL (8.5-10.1) Magnesium Level 1.8 mg/dL (1.8-2.4) Total Bilirubin 0.6 mg/dL (0.2-1.0) Direct Bilirubin 0.2 mg/dL (0.0-0.2) Aspartate Amino Transf (AST/SGOT) 8 U/L (15-37) Alanine Aminotransferase (ALT/SGPT) 6 U/L (16-63) Alkaline Phosphatase 115 U/L (46-116) Creatine Kinase 53 U/L (39-308) Troponin I Quantitative < 0.017 ng/mL (0.000-0.055) YM-Tow-G-Type Natriuretic Peptide 461 pg/mL (0-449) Total Protein 6.3 g/dL (6.4-8.2) Albumin 3.5 g/dL (3.4-5.0) Urine Collection Type Unknown Urine Color Yellow Urine Clarity Clear Urine pH 7.0 (<5.0-8.0) Urine Specific [place] 1.010 (1.000-1.030) Urine Protein Negative mg/dL (NEG-TRACE) Urine Glucose (UA) Negative mg/dL (NEG) Urine Ketones (Stick) Negative mg/dL (NEG) Urine Blood Negative (NEG) Urine Nitrite Negative (NEG) Urine Bilirubin Negative (NEG) Urine Urobilinogen Dipstick 1.0 mg/dL (0.2 mg/dL) Urine Leukocyte Esterase Negative (NEG) Urine RBC 1-2 /HPF (0-2) Urine WBC 0 /HPF (0-4) Urine Squamous Epithelial Cells Few /LPF Urine Amorphous Sediment Present /HPF Urine Bacteria 0 /HPF (0-FEW) Urine Hyaline Casts Moderate /HPF Urine Mucus Mod /LPF Urine Opiates Screen Neg (NEG) Urine Methadone Screen Neg (NEG) Urine Barbiturates Neg (NEG) Urine Phencyclidine Screen Neg (NEG) Urine Amphetamine/Methamphetamine Neg (NEG) Urine Benzodiazepines Screen Neg (NEG) Urine Cocaine Screen Neg (NEG) Urine Cannabinoids Screen Neg (NEG) Urine Ethyl Alcohol Neg (NEG) VTE Prophylaxis Ordered VTE Prophylaxis Devices: Contraindicated VTE Pharmacological Prophylaxi: Yes Assessment/Plan Assessment/Plan near syncope with diaphoresis and confusion. bradycardia, hold CCB meds, CV consult, eval on Tele Parkinsons, cont home meds Lewy body dementia or other progressive dementia from imaging./ hold aricpet for medical admit, Neuro consult htn control, check orthostatics PT and OT Justifications for Admission Other Justification ANY HINDS MD Aug 19, 2020 17:52
[2020-08-19] MEDS ORDERED: CLOP75TA PO (18:16)
[2020-08-19] MEDS ORDERED: CYAN-25 PO (18:16)
[2020-08-19] MEDS ORDERED: FLUO20CA16 PO (18:16)
--- NOTE | 2020-08-19 18:50 | EKG ---
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
[2020-08-19] MEDS ORDERED: SENNOSIDES/DOCUSATE 8.6/50MG TABLET. PO PRN (19:00)
[2020-08-19] MEDS ORDERED: OMEP20CA16 PO (19:17)
[2020-08-19] MEDS ORDERED: ASPI-630 PO (19:17)
[2020-08-19 19:20] VITALS: BP 132/66
[2020-08-19] MEDS ORDERED: DONEPEZIL HCL 10 MG TABLET. PO SCH (21:00)
[2020-08-19] MEDS ORDERED: ATORVASTATIN CALCIUM 40 MG TABLET. PO SCH (21:00)
[2020-08-19] MEDS: CARBIDOPA/LEVODOPA 25/100MG TABLET PO SCH (21:11)
[2020-08-19 23:59] VITALS: BP 159/81
[2020-08-20 04:44] VITALS: BP 151/80
[2020-08-20 07:23] VITALS: BP 154/83
[2020-08-20] MEDS ORDERED: PANTOPRAZOLE 40 MG TABLET.DR. PO SCH (07:30)
[2020-08-20] MEDS: CARBIDOPA/LEVODOPA 25/100MG TABLET PO SCH ×2 (08:35→14:58)
[2020-08-20] MEDS ORDERED: CLOPIDOGREL BISULFATE 75 MG TABLET PO SCH (09:00)
[2020-08-20] MEDS ORDERED: LISINOPRIL 20 MG TABLET PO SCH (09:00)
[2020-08-20] MEDS ORDERED: FLUoxetine HCL 20 MG CAPSULE PO SCH (09:00)
[2020-08-20] MEDS ORDERED: ASPIRIN CHEWABLE 81 MG TABLET. PO SCH (09:00)
[2020-08-20] MEDS ORDERED: CYANOCOBALAMIN (VITAMIN B-12) 1,000 MCG TABLET. PO SCH (09:00)
[2020-08-20] MEDS ORDERED: TAMSULOSIN 0.4 MG CAP.ER.24H. PO SCH (09:00)
--- NOTE | 2020-08-20 09:50 | PDOC ---
DEMAR SCHULTZ TIE CARRIER 08/20/20 0950: CARDIO Progress Notes Date and Time Date of Service 08/20/2020 Time of Evaluation 0940 Subjective Subjective: No Chest Pain, No shortness of breath, No Palpitations Vitals Vitals Vital Signs Date Time Temp Pulse Resp B/P (MAP) Pulse Ox O2 Delivery O2 Flow Rate FiO2 08/20/20 08:36 66 154/83 08/20/20 07:23 98.0 18 94 Room Air 98.0 Weight Weight [ ] Input and Output Intake and Output Intake and Output 08/20/20 07:00 Intake Total 650 ml Output Total 425 ml Balance 225 ml Intake Oral 650 ml Output Urine Total 425 ml # Voids 2 Laboratory Labs Laboratory Tests Test 08/19/20 13:35 08/19/20 16:07 White Blood Count 8.4 x10^3/uL (4.0-11.0) Red Blood Count 4.57 x10^6/uL (4.30-5.70) Hemoglobin 13.5 g/dL (13.0-17.5) Hematocrit 40.6 % (39.0-53.0) Mean Corpuscular Volume 89 fL (79-100) Mean Corpuscular Hemoglobin 30 pg (25-35) Mean Corpuscular Hemoglobin Concent 33 g/dL (31-37) Red Cell Distribution Width 14.7 % (11.5-14.5) Platelet Count 279 x10^3/uL (140-400) Neutrophils (%) (Auto) 75 % (31-73) Lymphocytes (%) (Auto) 17 % (24-48) Monocytes (%) (Auto) 7 % (0-9) Eosinophils (%) (Auto) 1 % (0-3) Basophils (%) (Auto) 0 % (0-3) Neutrophils # (Auto) 6.3 x10^3/uL (1.8-7.7) Lymphocytes # (Auto) 1.5 x10^3/uL (1.0-4.8) Monocytes # (Auto) 0.5 x10^3/uL (0.0-1.1) Eosinophils # (Auto) 0.1 x10^3/uL (0.0-0.7) Basophils # (Auto) 0.0 x10^3/uL (0.0-0.2) Sodium Level 139 mmol/L (136-145) Potassium Level 4.5 mmol/L (3.5-5.1) Chloride Level 105 mmol/L (98-107) Carbon Dioxide Level 29 mmol/L (21-32) Anion Gap 5 (6-14) Blood Urea Nitrogen 10 mg/dL (8-26) Creatinine 1.0 mg/dL (0.7-1.3) Estimated GFR (Cockcroft-Gault) 71.7 Glucose Level 139 mg/dL (70-99) Calcium Level 8.4 mg/dL (8.5-10.1) Magnesium Level 1.8 mg/dL (1.8-2.4) Total Bilirubin 0.6 mg/dL (0.2-1.0) Direct Bilirubin 0.2 mg/dL (0.0-0.2) Aspartate Amino Transf (AST/SGOT) 8 U/L (15-37) Alanine Aminotransferase (ALT/SGPT) 6 U/L (16-63) Alkaline Phosphatase 115 U/L (46-116) Creatine Kinase 53 U/L (39-308) Troponin I Quantitative < 0.017 ng/mL (0.000-0.055) MO-Sqn-S-Type Natriuretic Peptide 461 pg/mL (0-449) Total Protein 6.3 g/dL (6.4-8.2) Albumin 3.5 g/dL (3.4-5.0) Thyroid Stimulating Hormone (TSH) 0.148 uIU/mL (0.358-3.74) Urine Collection Type Unknown Urine Color Yellow Urine Clarity Clear Urine pH 7.0 (<5.0-8.0) Urine Specific [place] 1.010 (1.000-1.030) Urine Protein Negative mg/dL (NEG-TRACE) Urine Glucose (UA) Negative mg/dL (NEG) Urine Ketones (Stick) Negative mg/dL (NEG) Urine Blood Negative (NEG) Urine Nitrite Negative (NEG) Urine Bilirubin Negative (NEG) Urine Urobilinogen Dipstick 1.0 mg/dL (0.2 mg/dL) Urine Leukocyte Esterase Negative (NEG) Urine RBC 1-2 /HPF (0-2) Urine WBC 0 /HPF (0-4) Urine Squamous Epithelial Cells Few /LPF Urine Amorphous Sediment Present /HPF Urine Bacteria 0 /HPF (0-FEW) Urine Hyaline Casts Moderate /HPF Urine Mucus Mod /LPF Urine Opiates Screen Neg (NEG) Urine Methadone Screen Neg (NEG) Urine Barbiturates Neg (NEG) Urine Phencyclidine Screen Neg (NEG) Urine Amphetamine/Methamphetamine Neg (NEG) Urine Benzodiazepines Screen Neg (NEG) Urine Cocaine Screen Neg (NEG) Urine Cannabinoids Screen Neg (NEG) Urine Ethyl Alcohol Neg (NEG) Physical Exam HEENT: Neck Supple W Full Motion Chest: Symmetric LUNGS: Clear to Auscultation (SR) Heart: S1S2, RRR (SR) Abdomen: Soft N/T Extremities: No Edema, No Calf Tenderness Neurology: alert, oriented, follow commands Assessment Assessment 1. Symptomatic SB with associated use of diltiazem and aricept. Recent echo with normal EF and WM 2. HTN: mildly elevated 3. Hx of alvaro body dementia 4. Dementia 5. Hx of GI bleed Recommendations 1. Bradycardia resolved after atropine. No EMS strips no further evidence of bradycardia. Had some SB mid40s yesterday but nothing further overnight. Will need alternative to arivcept. DC cardizem, he has been placed on lisinopril 2. Orthostatic readings. None further cardiac roger. Justicifation of Admission Dx: Justifications for Admission: Justification of Admission Dx: Yes CHF: Cardiac Arrhythmias Comminuty Aquired Pneumonia: Med-High Risk Pt Chronic Renal Failure: Encephalopathy Altered Mental Status: Altered Mental Status SEAN ROYAL MD 08/20/20 1328: CARDIO Progress Notes Plan Plan The patient was seen and interviewed as well as examined at the bedside. The chart was reviewed. The case was discussed. Agree with the plan of care. DEMAR SCHULTZ APRN Aug 20, 2020 09:50 SEAN ROYAL MD Aug 20, 2020 13:28
--- NOTE | 2020-08-20 10:03 | PDOC ---
[employer] PROGRESS NOTE Date of Service DOS: DATE: 08/20/20 TIME: 09:48 Chief Complaint Chief Complaint CC: Near syncope with diaphoresis and confusion. Symptomatic bradycardia Parkinson disease Lewy body dementia HTN HLD History of Present Illness History of Present Illness 08/20/20: Patient is seen and examined Alert, no acute distress Discussed with son-in-law at bedside Discussed with RN, PT, SS Patient endorses occasional mild nausea and epigastric discomfort Otherwise asymptomatic and appears at baseline health Denies headache, dizziness, shortness of breath, or chest pain. Vitals/I&O Vitals/I&O: Vital Signs Date Time Temp Pulse Resp B/P (MAP) Pulse Ox O2 Delivery O2 Flow Rate FiO2 08/20/20 08:36 66 154/83 08/20/20 07:23 98.0 18 94 Room Air 98.0 I & O 08/19/20 08/19/20 08/20/20 15:00 23:00 07:00 Intake Total 200 ml 450 ml Output Total 150 ml 275 ml Balance 50 ml 175 ml Physical Exam General: Alert, Cooperative, No acute distress Heart: Regular rate (SR), Normal S1, Normal S2, No murmurs Lungs: Clear Abdomen: Soft, No tenderness Extremities: No clubbing, No edema Skin: No rashes, No significant lesion Labs Labs: Laboratory Tests Test 08/19/20 13:35 08/19/20 16:07 White Blood Count 8.4 x10^3/uL (4.0-11.0) Red Blood Count 4.57 x10^6/uL (4.30-5.70) Hemoglobin 13.5 g/dL (13.0-17.5) Hematocrit 40.6 % (39.0-53.0) Mean Corpuscular Volume 89 fL (79-100) Mean Corpuscular Hemoglobin 30 pg (25-35) Mean Corpuscular Hemoglobin Concent 33 g/dL (31-37) Red Cell Distribution Width 14.7 % (11.5-14.5) Platelet Count 279 x10^3/uL (140-400) Neutrophils (%) (Auto) 75 % (31-73) Lymphocytes (%) (Auto) 17 % (24-48) Monocytes (%) (Auto) 7 % (0-9) Eosinophils (%) (Auto) 1 % (0-3) Basophils (%) (Auto) 0 % (0-3) Neutrophils # (Auto) 6.3 x10^3/uL (1.8-7.7) Lymphocytes # (Auto) 1.5 x10^3/uL (1.0-4.8) Monocytes # (Auto) 0.5 x10^3/uL (0.0-1.1) Eosinophils # (Auto) 0.1 x10^3/uL (0.0-0.7) Basophils # (Auto) 0.0 x10^3/uL (0.0-0.2) Sodium Level 139 mmol/L (136-145) Potassium Level 4.5 mmol/L (3.5-5.1) Chloride Level 105 mmol/L (98-107) Carbon Dioxide Level 29 mmol/L (21-32) Anion Gap 5 (6-14) Blood Urea Nitrogen 10 mg/dL (8-26) Creatinine 1.0 mg/dL (0.7-1.3) Estimated GFR (Cockcroft-Gault) 71.7 Glucose Level 139 mg/dL (70-99) Calcium Level 8.4 mg/dL (8.5-10.1) Magnesium Level 1.8 mg/dL (1.8-2.4) Total Bilirubin 0.6 mg/dL (0.2-1.0) Direct Bilirubin 0.2 mg/dL (0.0-0.2) Aspartate Amino Transf (AST/SGOT) 8 U/L (15-37) Alanine Aminotransferase (ALT/SGPT) 6 U/L (16-63) Alkaline Phosphatase 115 U/L (46-116) Creatine Kinase 53 U/L (39-308) Troponin I Quantitative < 0.017 ng/mL (0.000-0.055) IA-Vjk-H-Type Natriuretic Peptide 461 pg/mL (0-449) Total Protein 6.3 g/dL (6.4-8.2) Albumin 3.5 g/dL (3.4-5.0) Thyroid Stimulating Hormone (TSH) 0.148 uIU/mL (0.358-3.74) Urine Collection Type Unknown Urine Color Yellow Urine Clarity Clear Urine pH 7.0 (<5.0-8.0) Urine Specific [place] 1.010 (1.000-1.030) Urine Protein Negative mg/dL (NEG-TRACE) Urine Glucose (UA) Negative mg/dL (NEG) Urine Ketones (Stick) Negative mg/dL (NEG) Urine Blood Negative (NEG) Urine Nitrite Negative (NEG) Urine Bilirubin Negative (NEG) Urine Urobilinogen Dipstick 1.0 mg/dL (0.2 mg/dL) Urine Leukocyte Esterase Negative (NEG) Urine RBC 1-2 /HPF (0-2) Urine WBC 0 /HPF (0-4) Urine Squamous Epithelial Cells Few /LPF Urine Amorphous Sediment Present /HPF Urine Bacteria 0 /HPF (0-FEW) Urine Hyaline Casts Moderate /HPF Urine Mucus Mod /LPF Urine Opiates Screen Neg (NEG) Urine Methadone Screen Neg (NEG) Urine Barbiturates Neg (NEG) Urine Phencyclidine Screen Neg (NEG) Urine Amphetamine/Methamphetamine Neg (NEG) Urine Benzodiazepines Screen Neg (NEG) Urine Cocaine Screen Neg (NEG) Urine Cannabinoids Screen Neg (NEG) Urine Ethyl Alcohol Neg (NEG) Review of Systems Review of Systems: Patient denies headache, dizziness, vision changes, weakness, swelling in the extremities, shortness of breath, changes in stool, musculoskeletal pain, or skin lesions. Endorses occasional mild nausea and epigastric discomfort. Assessment and Plan Assessmemt and Plan Problems Medical Problems: (1) Bradycardia Status: Acute (2) Near syncope Status: Acute ASSESSMENT: Episode of sinus bradycardia, resolved Parkinson disease Lewy body dementia Euthyroid sick syndrome Hypertension PLAN: Cardiac monitoring PT/OT Discontinue Cardizem and begin Norvasc per cardiology recommendations Discontinue Aricept per cardiology recommendations and begin Namenda Begin Carafate for occasional epigastric discomfort DVT prophylaxis Fall precautions Full code Appreciate subspecialist input Discharge disposition pending Comment Review of Relevant I have reviewed the following items shara (where applicable) has been applied. Medications: Current Medications Medications (Trade) Dose Ordered Sig/Vikas Route PRN Reason Start Time Stop Time Status Last Admin Dose Admin Carbidopa/Levodopa (Sinemet 25/100) 2 tab TID PO 08/19/20 21:00 08/20/20 08:35 Clopidogrel Bisulfate (Plavix) 75 mg DAILY PO 08/20/20 09:00 08/20/20 08:34 Cyanocobalamin (Vitamin B-12) 1,000 mcg DAILY PO 08/20/20 09:00 08/20/20 08:34 Donepezil HCl (Aricept) 10 mg HS PO 08/19/20 21:00 08/20/20 09:46 DC 08/19/20 21:11 Fluoxetine HCl (PROzac) 20 mg DAILY PO 08/20/20 09:00 08/20/20 08:35 Lisinopril (Prinivil) 40 mg DAILY PO 08/20/20 09:00 08/20/20 08:36 Tamsulosin HCl (Flomax) 0.4 mg DAILY PO 08/20/20 09:00 08/20/20 08:34 Atorvastatin Calcium (Lipitor) 80 mg QHS PO 08/19/20 21:00 08/19/20 21:12 Aspirin (Aspirin Chewable) 81 mg DAILY PO 08/20/20 09:00 08/20/20 08:33 Pantoprazole Sodium (Protonix) 40 mg DAILYAC PO 08/20/20 07:30 08/20/20 06:32 Justifications for Admission Other Justification HUMZA SHUKLA III DO Aug 20, 2020 10:03
[2020-08-20] MEDS ORDERED: MEMANTINE 5 MG TABLET. PO SCH (10:30)
[2020-08-20 10:37] VITALS: BP_SYST 116; BP_SYST 121; BP_DIAS 63; BP_DIAS 68
[2020-08-20] MEDS ORDERED: SUCR1TAB35 PO (10:44)
[2020-08-20] MEDS ORDERED: AMLO-186 PO (10:44)
[2020-08-20] MEDS ORDERED: MEMA5TAB42 PO (10:44)
--- NOTE | 2020-08-20 10:45 | SNU/HH DC ---
DISCHARGE ORDERS DISCHARGE INFORMATION: FINAL DIAGNOSIS Problems Medical Problems: (1) Bradycardia Status: Acute (2) Near syncope Status: Acute CONDITION ON DISCHARGE: Stable CODE STATUS: Code Status: Full [facility]: SNF STAY <30 DAYS: No HOSPICE: HOSPICE: No HOSPICE EVAL & TREAT: No LTAC: ADMIT TO LTAC: No POST DISCHARGE ORDERS: ACTIVITY ORDERS: Activity as tolerated WEIGHT BEARING STATUS: Full weight bearing DIET AFTER DISCHARGE: ADA OTHER ORDERS: Discharge back to his prior living arrangements CHECKS AFTER DISCHARGE: CHECKS AFTER DISCHARGE: Check blood press - daily FOLLOW-UP: LAB ORDERS FOR FOLLOW-UP: CBC, CMP within 2 weeks of discharge TREATMENT/EQUIPMENT ORDERS: ADAPTIVE EQUIPMENT NEEDED: None RESPIRATORY EQUIPMENT NEEDED: Nebulizer Physical Therapy For: Evalulation/Treatment Occupational Therapy For: Evaluation/Treatment Speech Language Pathology For: Evaluation/Treatment DISCHARGE MEDICATIONS: Home Meds Active Scripts Sucralfate (CARAFATE) 1 Gm Tablet, 1 GM PO QIDACHS for gerd for 90 Days, #360 TAB Prov:CASTLE,NIAL K III DO 08/20/20 Memantine HCl (Memantine HCl) 5 Mg Tablet, 5 MG PO DAILY for dementia, #90 TAB Prov:CASTLE,NIAL K III DO 08/20/20 Amlodipine Besylate (AMLODIPINE BESYLATE) 5 Mg Tablet, 5 MG PO DAILY for htn for 90 Days, #90 TAB Prov:CASTLE,NIAL K III DO 08/20/20 Sennosides/Docusate Sodium (SENNOSIDES-DOCUSATE SODIUM TAB) 1 Each Tablet, 1 TAB PO BID PRN for CONSTIPATION for 30 Days, #60 TAB Prov:LETY KWON MD 04/02/20 Reported Medications Omeprazole (OMEPRAZOLE) 20 Mg Capsule.dr, 20 MG PO DAILY for , CAP 08/19/20 Aspirin (ASPIRIN) 81 Mg Tab.chew, 81 MG PO DAILY for , TAB.CHEW 08/19/20 Fluoxetine Hcl (PROZAC) 20 Mg Capsule, 20 MG PO DAILY for DEPRESSION/ANXIETY, CAP 08/19/20 Cyanocobalamin (Vitamin B-12) (VITAMIN B-12) 1,000 Mcg Tablet, 1000 MCG PO DAILY for , TAB 08/19/20 Clopidogrel Bisulfate (CLOPIDOGREL) 75 Mg Tablet, 75 MG PO DAILY for TO PREVENT BLOOD CLOTS, #30 TAB 0 Refills 08/19/20 Carbidopa/Levodopa (CARBIDOPA-LEVODOPA 25-100 TAB) 1 Each Tablet, 2 EACH PO TID for , TAB 01/25/20 Lisinopril (LISINOPRIL) 40 Mg Tablet, 40 MG PO DAILY for FOR HYPERTENSION, #30 TAB 0 Refills 01/25/20 Atorvastatin Calcium (ATORVASTATIN CALCIUM) 80 Mg Tablet, 1 TAB PO DAILY, TAB 09/24/17 Tamsulosin Hcl (TAMSULOSIN HCL) 0.4 Mg Cap.er.24h, 1 CAP PO DAILY, CAP 09/24/17 Discontinued Reported Medications Donepezil Hcl (DONEPEZIL HCL) 10 Mg Tablet, 10 MG PO HS for , TAB 01/25/20 Diltiazem Hcl (CARTIA XT) 180 Mg Cap.er.24h, 180 MG PO DAILY, CAP.SR 09/24/17 HUMZA SHUKLA III DO Aug 20, 2020 10:45
[2020-08-20] MEDS: SUCRALFATE 1 GM TABLET. PO SCH ×2 (11:56→17:07)
--- NOTE | 2020-08-20 12:10 | PDOC2 ---
NEUROLOGY CONSULT Date of Service DOS: DATE: 08/20/20 TIME: 12:02 Reason for Consult Reason for Consult: Parkinson's, altered mental status, ataxia Referring Physician Referring Physician: Dr. Florez Source Source: Caregiver (Lincoln Dela Cruz, son-in-law), Chart review, Patient History of Present Illness History of Present Illness The patient is an 79-year-old right-handed male well-known to me with Parkinson's and Lewy body dementia. He was sent from memory care unit because he was having ataxia, became pale and diaphoretic and was noted to have bradycardia with rate in the 40s. He has been stable here. His donepezil has been discontinued. He was at [facility] as well as [facility] last month with 2 episodes of unresponsiveness. By description he had full work-up for stroke and seizure, all negative. Patient also has been observed to have more dyskinesias. Patient has a chronic severe gait disorder although sometimes he does ambulate on his own apparently. There is no history of stroke or seizure. Past Medical History Cardiovascular: HTN, Hyperlipidemia CENTRAL NERVOUS SYSTEM: Other (Parkinson's disease with Lewy body dementia) GI: GERD ENT: Other (Macular degeneration) Dermatology: Other (Skin cancer) Past Surgical History Past Surgical History: Other (Corneal transplants) Family History Family History: No pertinent hx Social History Social History , lives in memory care, no alcohol or tobacco Current Medications Current Medications Current Medications Lidocaine HCl (Glydo (Lidocaine) Jelly) 6 emilee Intexys-MED ONCE .ROUTE ; Start 08/19/20 at 16:01; Stop 08/19/20 at 16:01; Status DC Hydralazine HCl (Apresoline Inj) 10 mg PRN Q4HRS PRN IVP ELEVATED BP, SEE COMMENTS; Start 08/19/20 at 17:00 Carbidopa/Levodopa (Sinemet 25/100) 2 tab TID PO Last administered on 08/20/20at 08:35; Start 08/19/20 at 21:00 Clopidogrel Bisulfate (Plavix) 75 mg DAILY PO Last administered on 08/20/20at 08:34; Start 08/20/20 at 09:00 Cyanocobalamin (Vitamin B-12) 1,000 mcg DAILY PO Last administered on 08/20/20at 08:34; Start 08/20/20 at 09:00 Donepezil HCl (Aricept) 10 mg HS PO Last administered on 08/19/20at 21:11; Start 08/19/20 at 21:00; Stop 08/20/20 at 09:46; Status DC Fluoxetine HCl (PROzac) 20 mg DAILY PO Last administered on 08/20/20at 08:35; Start 08/20/20 at 09:00 Lisinopril (Prinivil) 40 mg DAILY PO Last administered on 08/20/20at 08:36; Start 08/20/20 at 09:00 Senna/Docusate Sodium (Senna Plus) 1 tab PRN BID PRN PO CONSTIPATION; Start 08/19/20 at 19:00 Tamsulosin HCl (Flomax) 0.4 mg DAILY PO Last administered on 08/20/20at 08:34; Start 08/20/20 at 09:00 Atorvastatin Calcium (Lipitor) 80 mg QHS PO Last administered on 08/19/20at 21:12; Start 08/19/20 at 21:00 Aspirin (Aspirin Chewable) 81 mg DAILY PO Last administered on 08/20/20at 08:33; Start 08/20/20 at 09:00 Pantoprazole Sodium (Protonix) 40 mg DAILYAC PO Last administered on 08/20/20at 06:32; Start 08/20/20 at 07:30 Memantine (Namenda) 5 mg DAILY PO Last administered on 08/20/20at 11:56; Start 08/20/20 at 10:30 Sucralfate (Carafate) 1 gm QIDACHS PO Last administered on 08/20/20at 11:56; Start 08/20/20 at 11:30 Amlodipine Besylate (Norvasc) 5 mg DAILY PO Last administered on 08/20/20at 11:56; Start 08/20/20 at 11:00 Active Scripts Active Carafate (Sucralfate) 1 Gm Tablet 1 Gm PO QIDACHS 90 Days Memantine HCl 5 Mg Tablet 5 Mg PO DAILY Amlodipine Besylate 5 Mg Tablet 5 Mg PO DAILY 90 Days Sennosides-Docusate Sodium Tab (Sennosides/Docusate Sodium) 1 Each Tablet 1 Tab PO BID PRN 30 Days Reported Omeprazole 20 Mg Capsule.dr 20 Mg PO DAILY Aspirin 81 Mg Tab.chew 81 Mg PO DAILY Prozac (Fluoxetine Hcl) 20 Mg Capsule 20 Mg PO DAILY Vitamin B-12 (Cyanocobalamin (Vitamin B-12)) 1,000 Mcg Tablet 1,000 Mcg PO DAILY Clopidogrel (Clopidogrel Bisulfate) 75 Mg Tablet 75 Mg PO DAILY Carbidopa-Levodopa 25-100 Tab (Carbidopa/Levodopa) 1 Each Tablet 2 Each PO TID Lisinopril 40 Mg Tablet 40 Mg PO DAILY Atorvastatin Calcium 80 Mg Tablet 1 Tab PO DAILY Tamsulosin Hcl 0.4 Mg Cap.er.24h 1 Cap PO DAILY Allergies Allergies: Coded Allergies: No Known Drug Allergies (Unverified , 09/24/17) ROS Review of System Negative for fever, chills, weight loss, shortness of breath, chest pain, indigestion, hematochezia, melena, and dysuria. Full 14-point review of systems is negative. Physical Exam Physical Examination General: Well-developed, well-nourished white male in no acute distress HEENT: Normocephalic andatraumatic. Temporal arteriespulsatile and nontender. Neck: Supple without bruit, no meningismus Musculoskeletal: Stability:see neurologic. Gait exam:see neurologic. Tone:see neurologic.Strength:see neurologic. Neurological: Mental Status:orientation, memory, attention span/concentration, language, fund of knowledge: Does not know date or location. Cranial Nerves: Bilateral irregular pupils and decreased visual acuity, extraocular movements areintact, visual fleming are full to confrontation. Facial sensation is normal. There is no facial asymmetry. Vestibulo-ocular reflex is intact. Palate elevates and tongue protrudes in midline. All other cranial related problems are negative except as mentioned before.Reflexes:2+ and symmetric with flexor plantar responses. Motor:4/5, slight cogwheel rigidity, no tremor. No dyskinesia. Coordination:He has bradykinesia and masked facies. Gait:Not tested. Sensory:Normal pinprick, vibration, light touch, proprioception. Vitals VITALS Vital Signs Date Time Temp Pulse Resp B/P (MAP) Pulse Ox O2 Delivery O2 Flow Rate FiO2 08/20/20 11:56 76 116/63 08/20/20 10:37 18 96 Room Air 08/20/20 10:37 98.1 98.1 Labs Labs Laboratory Tests Test 08/19/20 13:35 08/19/20 16:07 White Blood Count 8.4 x10^3/uL (4.0-11.0) Red Blood Count 4.57 x10^6/uL (4.30-5.70) Hemoglobin 13.5 g/dL (13.0-17.5) Hematocrit 40.6 % (39.0-53.0) Mean Corpuscular Volume 89 fL (79-100) Mean Corpuscular Hemoglobin 30 pg (25-35) Mean Corpuscular Hemoglobin Concent 33 g/dL (31-37) Red Cell Distribution Width 14.7 % (11.5-14.5) Platelet Count 279 x10^3/uL (140-400) Neutrophils (%) (Auto) 75 % (31-73) Lymphocytes (%) (Auto) 17 % (24-48) Monocytes (%) (Auto) 7 % (0-9) Eosinophils (%) (Auto) 1 % (0-3) Basophils (%) (Auto) 0 % (0-3) Neutrophils # (Auto) 6.3 x10^3/uL (1.8-7.7) Lymphocytes # (Auto) 1.5 x10^3/uL (1.0-4.8) Monocytes # (Auto) 0.5 x10^3/uL (0.0-1.1) Eosinophils # (Auto) 0.1 x10^3/uL (0.0-0.7) Basophils # (Auto) 0.0 x10^3/uL (0.0-0.2) Sodium Level 139 mmol/L (136-145) Potassium Level 4.5 mmol/L (3.5-5.1) Chloride Level 105 mmol/L (98-107) Carbon Dioxide Level 29 mmol/L (21-32) Anion Gap 5 (6-14) Blood Urea Nitrogen 10 mg/dL (8-26) Creatinine 1.0 mg/dL (0.7-1.3) Estimated GFR (Cockcroft-Gault) 71.7 Glucose Level 139 mg/dL (70-99) Calcium Level 8.4 mg/dL (8.5-10.1) Magnesium Level 1.8 mg/dL (1.8-2.4) Total Bilirubin 0.6 mg/dL (0.2-1.0) Direct Bilirubin 0.2 mg/dL (0.0-0.2) Aspartate Amino Transf (AST/SGOT) 8 U/L (15-37) Alanine Aminotransferase (ALT/SGPT) 6 U/L (16-63) Alkaline Phosphatase 115 U/L (46-116) Creatine Kinase 53 U/L (39-308) Troponin I Quantitative < 0.017 ng/mL (0.000-0.055) OJ-Bnb-J-Type Natriuretic Peptide 461 pg/mL (0-449) Total Protein 6.3 g/dL (6.4-8.2) Albumin 3.5 g/dL (3.4-5.0) Thyroid Stimulating Hormone (TSH) 0.148 uIU/mL (0.358-3.74) Urine Collection Type Unknown Urine Color Yellow Urine Clarity Clear Urine pH 7.0 (<5.0-8.0) Urine Specific [place] 1.010 (1.000-1.030) Urine Protein Negative mg/dL (NEG-TRACE) Urine Glucose (UA) Negative mg/dL (NEG) Urine Ketones (Stick) Negative mg/dL (NEG) Urine Blood Negative (NEG) Urine Nitrite Negative (NEG) Urine Bilirubin Negative (NEG) Urine Urobilinogen Dipstick 1.0 mg/dL (0.2 mg/dL) Urine Leukocyte Esterase Negative (NEG) Urine RBC 1-2 /HPF (0-2) Urine WBC 0 /HPF (0-4) Urine Squamous Epithelial Cells Few /LPF Urine Amorphous Sediment Present /HPF Urine Bacteria 0 /HPF (0-FEW) Urine Hyaline Casts Moderate /HPF Urine Mucus Mod /LPF Urine Opiates Screen Neg (NEG) Urine Methadone Screen Neg (NEG) Urine Barbiturates Neg (NEG) Urine Phencyclidine Screen Neg (NEG) Urine Amphetamine/Methamphetamine Neg (NEG) Urine Benzodiazepines Screen Neg (NEG) Urine Cocaine Screen Neg (NEG) Urine Cannabinoids Screen Neg (NEG) Urine Ethyl Alcohol Neg (NEG) Laboratory Tests Test 08/19/20 13:35 08/19/20 16:07 White Blood Count 8.4 x10^3/uL (4.0-11.0) Red Blood Count 4.57 x10^6/uL (4.30-5.70) Hemoglobin 13.5 g/dL (13.0-17.5) Hematocrit 40.6 % (39.0-53.0) Mean Corpuscular Volume 89 fL (79-100) Mean Corpuscular Hemoglobin 30 pg (25-35) Mean Corpuscular Hemoglobin Concent 33 g/dL (31-37) Red Cell Distribution Width 14.7 % (11.5-14.5) Platelet Count 279 x10^3/uL (140-400) Neutrophils (%) (Auto) 75 % (31-73) Lymphocytes (%) (Auto) 17 % (24-48) Monocytes (%) (Auto) 7 % (0-9) Eosinophils (%) (Auto) 1 % (0-3) Basophils (%) (Auto) 0 % (0-3) Neutrophils # (Auto) 6.3 x10^3/uL (1.8-7.7) Lymphocytes # (Auto) 1.5 x10^3/uL (1.0-4.8) Monocytes # (Auto) 0.5 x10^3/uL (0.0-1.1) Eosinophils # (Auto) 0.1 x10^3/uL (0.0-0.7) Basophils # (Auto) 0.0 x10^3/uL (0.0-0.2) Sodium Level 139 mmol/L (136-145) Potassium Level 4.5 mmol/L (3.5-5.1) Chloride Level 105 mmol/L (98-107) Carbon Dioxide Level 29 mmol/L (21-32) Anion Gap 5 (6-14) Blood Urea Nitrogen 10 mg/dL (8-26) Creatinine 1.0 mg/dL (0.7-1.3) Estimated GFR (Cockcroft-Gault) 71.7 Glucose Level 139 mg/dL (70-99) Calcium Level 8.4 mg/dL (8.5-10.1) Magnesium Level 1.8 mg/dL (1.8-2.4) Total Bilirubin 0.6 mg/dL (0.2-1.0) Direct Bilirubin 0.2 mg/dL (0.0-0.2) Aspartate Amino Transf (AST/SGOT) 8 U/L (15-37) Alanine Aminotransferase (ALT/SGPT) 6 U/L (16-63) Alkaline Phosphatase 115 U/L (46-116) Creatine Kinase 53 U/L (39-308) Troponin I Quantitative < 0.017 ng/mL (0.000-0.055) JZ-Wem-N-Type Natriuretic Peptide 461 pg/mL (0-449) Total Protein 6.3 g/dL (6.4-8.2) Albumin 3.5 g/dL (3.4-5.0) Thyroid Stimulating Hormone (TSH) 0.148 uIU/mL (0.358-3.74) Urine Collection Type Unknown Urine Color Yellow Urine Clarity Clear Urine pH 7.0 (<5.0-8.0) Urine Specific [place] 1.010 (1.000-1.030) Urine Protein Negative mg/dL (NEG-TRACE) Urine Glucose (UA) Negative mg/dL (NEG) Urine Ketones (Stick) Negative mg/dL (NEG) Urine Blood Negative (NEG) Urine Nitrite Negative (NEG) Urine Bilirubin Negative (NEG) Urine Urobilinogen Dipstick 1.0 mg/dL (0.2 mg/dL) Urine Leukocyte Esterase Negative (NEG) Urine RBC 1-2 /HPF (0-2) Urine WBC 0 /HPF (0-4) Urine Squamous Epithelial Cells Few /LPF Urine Amorphous Sediment Present /HPF Urine Bacteria 0 /HPF (0-FEW) Urine Hyaline Casts Moderate /HPF Urine Mucus Mod /LPF Urine Opiates Screen Neg (NEG) Urine Methadone Screen Neg (NEG) Urine Barbiturates Neg (NEG) Urine Phencyclidine Screen Neg (NEG) Urine Amphetamine/Methamphetamine Neg (NEG) Urine Benzodiazepines Screen Neg (NEG) Urine Cocaine Screen Neg (NEG) Urine Cannabinoids Screen Neg (NEG) Urine Ethyl Alcohol Neg (NEG) Images Images Head CT without contrast. HISTORY: Altered mental status. TECHNIQUE: Computed tomographic images of the head were obtained without contrast. *One or more of the following individualized dose reduction techniques were utilized for this examination: 1. Automated exposure control. 2. Adjustment of the mA and/or kV according to patient size. 3. Use of iterative reconstruction technique. COMPARISON: 03/22/2020. FINDINGS: The exam is limited due to motion. There is cerebral atrophy with compensatory enlargement of the ventricles. There are extensive areas of hypodensity throughout the cerebral white matter, likely due to chronic small vessel disease. No hemorrhage is seen. There is no mass effect or midline shift. There is evidence of lens surgery. The paranasal sinuses mastoid air cells are clear. There is no suspicious calvarial lesion. IMPRESSION: 1. Significantly limited exam due to motion. 2. Extensive bilateral cerebral white matter changes, most commonly due to chronic small vessel disease. 3. Cerebral atrophy. 4. Note is made that MRI is more sensitive for acute infarction. Assessment/Plan Assessment/Plan Impression: Parkinson's disease with Lewy body dementia, continuing to worsen Sinus bradycardia, agree that this could be from the donepezil Episodes of unresponsiveness with negative stroke and seizure work-up, I suspect this is typical fluctuation of Lewy body dementia. Consider role of medications or unknown metabolic issue such as fluctuating blood pressure or sugar. Recommendations: No need to repeat seizure and stroke work-up Okay for discharge today back to memory care unit We may need to back off on the carbidopa/levodopa dose if dyskinesias continue Follow-up with me as needed Discussed with Mr. Khaliljazz Thank you for letting me help with the patient's care. MIL JEFFREY MD Aug 20, 2020 12:10
--- NOTE | 2020-08-20 12:44 | NUR ---
SS following for discharge planning. SS reviewed pt chart and discussed with pt RN. Pt is from [facility], ; fax [phone]. Pt is currently on room air. Discharge orders received for return to assisted living facility. SS phoned and faxed discharge orders and clinical to [facility]. Pt's family to transport back to assisted living facility today. Packet placed on chart.
--- NOTE | 2020-08-20 12:48 | DS ---
ADMISSION DIAGNOSES: Mental status change, possible cardiac event, near syncope, diaphoresis, confusion, bradycardia, Parkinson's disease, Lewy body dementia. DISCHARGE DIAGNOSES: Resolving near syncope, resolving diaphoresis, resolving confusion, resolving bradycardia (suspect this may have been medication induced. He was on Aricept and Cardizem, which could cause bradycardia). CONSULTS: Cardiology. PROCEDURES: None. HOSPITAL COURSE: The patient is a pleasant elderly male, well known to our service. 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 Basically presented with mental status change, diaphoresis and bradycardia. We were concerned he could have a cardiac event. He was admitted. Cardiology was consulted. It was discovered that he may have been having bradycardia from his medications including the negative chronotropic agents of Cardizem and side effect of Aricept. We held those two medicines today. I saw and examined him. He is at his baseline. He is more alert. He is not diaphoretic. He wants to eat. He seems to be at his baseline. We are going to discharge to home. I left prescriptions for Norvasc instead of the Cardizem and we also changed the Aricept to Namenda and also put him on some Carafate. DISPOSITION: Back to his assisted care facility at the memory unit at [facility] in [place]. ACTIVITY: As tolerated. DIET: Low sodium. DISCHARGE MEDICATIONS: Please see the MRAD. We will do Norvasc 5 a day, Namenda 5 a day, Carafate 1 gram a.c. and at bedtime. We will continue his home aspirin, atorvastatin 80 a day, carbidopa/levodopa 25/100 two tablets t.i.d., Plavix 75 a day, B12, Prozac 20 daily, lisinopril 40 a day, omeprazole 20 a day, docusate and Flomax 0.4 a day. Total time 31 minutes. [facility] [place]: BRIE/mireya TID: [id number]
[2020-08-20 14:49] VITALS: BP 124/69
[2020-08-20 18:31] VITALS: BP 136/70
--- NOTE | 2020-08-20 19:10 | NUR ---
Telephone son in law to find out an approximate time of pick. Was advised that he will arrive this evening for pick but may be after 1900. Advised that patient is dressed and ready to discharge. Patient packet has discharge instructions to give to sunrise
== END 2020-08-20 19:37 | disposition home or self-care (01) | DRG 308 ==
LOC: ER 13:19 → 2 NORTH 15:44
PROVIDERS: ADMIT Internal Medicine; ATTEND Internal Medicine
DX: R00.1 Bradycardia, unspecified (principal); G93.41 Metabolic encephalopathy; R55 Syncope and collapse; E07.81 Sick-euthyroid syndrome; E78.5 Hyperlipidemia, unspecified; F01.50 Vascular dementia, unspecified severity, without behavioral disturbance, psychotic disturbance, mood disturbance, and anxiety; F02.80 Dementia in other diseases classified elsewhere, unspecified severity, without behavioral disturbance, psychotic disturbance, mood disturbance, and anxiety; G24.9 Dystonia, unspecified; G31.83 Neurocognitive disorder with Lewy bodies; I10 Essential (primary) hypertension; I69.311 Memory deficit following cerebral infarction; I73.9 Peripheral vascular disease, unspecified; Z82.49 Family history of ischemic heart disease and other diseases of the circulatory system; Z85.828 Personal history of other malignant neoplasm of skin; H35.30 Unspecified macular degeneration; K21.9 Gastro-esophageal reflux disease without esophagitis; M19.90 Unspecified osteoarthritis, unspecified site; T44.1X5A Adverse effect of other parasympathomimetics [cholinergics], initial encounter; T46.1X5A Adverse effect of calcium-channel blockers, initial encounter; Y92.89 Other specified places as the place of occurrence of the external cause; H54.40 Blindness, one eye, unspecified eye
CPT/HCPCS: 36415; 70450; 71045; 80048; 80076; 80307; 81001; 82550; 83735; 83880; 84443; 84484; 85025; 93005; 99285-25; G0378